=== PATIENT | female | born 1945 | race Caucasian/White ===

== ENCOUNTER 2023-02-04 16:30 | Outpatient (REF) | payer MEDICARE, SELFPAY | END 2023-02-04 16:31 | disposition home or self-care (01) | LOC: LAB 16:30 | PROVIDERS: PCP Nurse Practitioner Family | DX: C43.62 Malignant melanoma of left upper limb, including shoulder (principal) | CPT/HCPCS: 88305; 88341; 88342; 88360 ==

== ENCOUNTER 2023-04-03 13:41 | Outpatient (REF) | payer MEDICARE, SELFPAY ==
[2023-04-03 13:57] LABS: Bilirubin Urine NEGATIVE (NEGATIVE); Blood Urine NEGATIVE (NEGATIVE); Clarity Urine CLEAR (CLEAR); Color Urine LT. YELLOW (YELLOW); Glucose Urine UA NEGATIVE (NEGATIVE); Ketones Urine NEGATIVE (NEGATIVE); Leukocyte Esterase Urine MODERATE (NEGATIVE); Nitrite Urine NEGATIVE (NEGATIVE); Protein Urine NEGATIVE (NEG/TRACE); Specific Gravity Urine 1.015 (1.005-1.025); Urobilinogen Urine 0.2 EU/dL (0.2-1.0); pH Urine 5.5 (5.0-9.0)
[2023-04-03 14:03] LABS: Bacteria Urine TRACE #/HPF (NONE SEEN); Cast Seen? NONE SEEN #/LPF (NONE SEEN); Crystals Seen? None Seen #/HPF (None Seen); Mucus Urine NONE SEEN (NONE SEEN); Squamous Epithelial Cell Urine FEW #/LPF (NONE/RARE)
== END 2023-04-03 13:42 | disposition home or self-care (01) ==
LOC: LAB 13:41
PROVIDERS: PCP Nurse Practitioner Family; Visit Provider Nurse Practitioner Family
DX: N39.0 Urinary tract infection, site not specified (principal)
CPT/HCPCS: 81001; 87086; 87150; 87186

== ENCOUNTER 2023-06-15 13:54 | Outpatient (OUT) | payer MEDICARE, SELFPAY ==
[2023-06-15 14:07] LABS: Basophils Absolute Auto 0.1 10^3/uL (0.0-0.1); Basophils Percent Auto 0.8 % (0.2-2.0); Eosinophils Absolute Auto 0.2 10^3/uL (0.0-0.7); Eosinophils Percent Auto 2.9 % (0.9-7.0); Hematocrit 38.7 % (36.0-48.0); Hemoglobin 12.5 g/dL (12.0-16.0); Immature Granulocytes Abs Auto 0.08 10^3/uL (0.00-0.03); Immature Granulocytes Pct Auto 1.1 % (0.0-0.5); Lymphocytes Absolute Auto 2.1 10^3/uL (1.2-3.8); Lymphocytes Percent Auto 28.9 % (20.5-60.0); Mean Corpuscular HGB Conc 32.3 g/dL (29.9-35.2); Mean Corpuscular Hemoglobin 26.4 pg (26.7-34.0); Mean Corpuscular Volume 81.6 fL (81.0-99.0); Mean Platelet Volume 8.8 fL (9.5-13.5); Monocytes Absolute Auto 0.6 10^3/uL (0.3-0.8); Monocytes Percent Auto 8.8 % (1.7-12.0); Neutrophils Absolute Auto 4.2 10^3/uL (1.4-6.5); Neutrophils Percent Auto 57.5 % (43.0-75.0); Platelet Count 183 10^3/uL (150-450); Red Blood Count 4.74 10^6/uL (4.20-5.40); Red Cell Distribution Width 13.5 % (11.0-15.0); White Blood Count 7.3 10^3/uL (4.0-11.0)
[2023-06-15 14:20] LABS: Anion Gap 12.4; BUN Creatinine Ratio 21.4; Calcium 8.1 mg/dL (8.5-10.1); Carbon Dioxide 27.1 mmol/L (21.0-32.0); Chloride 105 mmol/L (98-107); Estimated GFR (African America >60 (>=60); Estimated GFR (Non-African Ame >60 (>=60); Glucose 95 mg/dL (74-106); Potassium 3.5 mmol/L (3.5-5.1); Sodium 141 mmol/L (136-145)
== END 2023-06-15 13:55 | disposition home or self-care (01) ==
LOC: LAB 13:54
PROVIDERS: PCP Nurse Practitioner Family; Visit Provider Internal Medicine Cardiovascular Disease
DX: Z79.899 Other long term (current) drug therapy (principal); I10 Essential (primary) hypertension; I48.0 Paroxysmal atrial fibrillation
CPT/HCPCS: 36415; 80048; 85025

== ENCOUNTER 2024-01-21 10:43 | Outpatient (OUT) | payer MEDICARE, SELFPAY ==
[2024-01-21 14:34] LABS: Anion Gap 12.2; BUN Creatinine Ratio 23.2; Calcium 8.3 mg/dL (8.5-10.1); Chloride 106 mmol/L (98-107); Estimated GFR (African America >60 (>=60); Estimated GFR (Non-African Ame >60 (>=60); Glucose 100 mg/dL (74-106); Potassium 3.2 mmol/L (3.5-5.1); Sodium 145 mmol/L (136-145)
== END 2024-01-21 10:44 | disposition home or self-care (01) ==
LOC: LAB 10:43
PROVIDERS: PCP Nurse Practitioner Family; Visit Provider Internal Medicine Cardiovascular Disease
DX: R60.9 Edema, unspecified (principal); I10 Essential (primary) hypertension
CPT/HCPCS: 36415; 80048

== ENCOUNTER 2024-08-26 14:43 | Outpatient (OUT) | payer MEDICARE, SELFPAY ==
[2024-08-26 16:41] LABS: Bilirubin Urine NEGATIVE (NEGATIVE); Blood Urine NEGATIVE (NEGATIVE); Clarity Urine CLEAR (CLEAR); Color Urine LT. YELLOW (YELLOW); Glucose Urine UA NEGATIVE (NEGATIVE); Ketones Urine NEGATIVE (NEGATIVE); Leukocyte Esterase Urine SMALL (NEGATIVE); Nitrite Urine NEGATIVE (NEGATIVE); Protein Urine NEGATIVE (NEG/TRACE); Specific Gravity Urine 1.025 (1.005-1.025)
[2024-08-26 17:09] LABS: Bacteria Urine MODERATE #/HPF (NONE SEEN); Cast Seen? NONE SEEN #/LPF (NONE SEEN); Crystals Seen? None Seen #/HPF (None Seen); Mucus Urine SMALL (NONE SEEN); RBC Urine 0-2 #/HPF (0-2); Squamous Epithelial Cell Urine FEW #/LPF (NONE/RARE); Transitional Epi Cells Urine FEW #/LPF (NONE SEEN); Urine Culture Indicated ALREADY ORDERED
== END 2024-08-26 14:44 | disposition home or self-care (01) ==
LOC: LAB 14:46
PROVIDERS: PCP Nurse Practitioner Family; Visit Provider Nurse Practitioner Family
DX: R50.9 Fever, unspecified (principal)
CPT/HCPCS: 81001; 87086

== ENCOUNTER 2024-09-10 07:41 | Emergency (ER) | payer MEDICARE, SELFPAY ==
[2024-09-10 07:48] VITALS: BP 145/83; PULSE 106; TEMP 36.9; O2SAT 94; BMI 40.6
[2024-09-10 07:49] VITALS: BP 145/83; O2SAT 94
--- OUTSIDE RECORDS SUMMARY | 2024-09-10 07:50 | XMS_ITS | CCD ---
Author Organization [facility] Team Providers Care Cdc Associate Name Role Phone UDSTIN CARTWRIGHT Unavailable Unavailable PANG, WHITAKER Unavailable Unavailable HOUSE, KEN Unavailable Unavailable PANG, WHITAKER Unavailable Unavailable PRIETO, KEN Unavailable Unavailable Unavailable Unavailable Ken Moreau Unavailable Matthew Bucio II Unavailable PRIETO, DR CHILD Primary Care Unavailable MISC, DR GARCIA Admitting Unavailable MISC, DR GARCIA Attending Unavailable MISC, DR GARCIA Consulting Unavailable MISC, DR GARCIA Admitting Unavailable MISC, DR GARCIA Attending Unavailable HOUSE, DR CHILD Primary Care Unavailable MISC, DR GARCIA Consulting Unavailable PANG, DR JULIANNE Hill Admitting Unavailable PANG, DR JULIANNE Hill Attending Unavailable HOUSE, DR CHILD Primary Care Unavailable PANG, DR JULIANNE Hill Consulting Unavailable Hector Jackson Unavailable Unavailable Siria Orona Unavailable Unavailable Brianna Camacho Unavailable Unavailable Sophia Calderon Unavailable Sophia Calderon MD Primary Care Provider Siria Orona Attending Unavailable Self, Referral Referring Unavailable Prieto, Dr. Ken Barnes Primary Care Mariam Casiano Jr, Dr. Coty Felton Referring Un available Honda, Dr. Linda Harley Attending Unavailabl e Prieto, Dr. Ken Barnes Primary Care Unava Siria Cardoso Referring Unavailable Honda, Dr. Linda Harley Attending Unavailabl e Prieto, Dr. Ken Barnes Primary Care Buffyva ylssaable Prieto, Dr. Ken Barnes Primary Care Unava ilable Pang, Julianne Referring Unavailable Pang, Julianne Attending Unavailable Pang, Whitaker Referring Unavailable Pang, Julianne Attending Unavailable Kvng, Dr. Sophia Macario Primary Care Unavail able Stephenie Weller, Dr. Coty Felton Attending Un available House, Dr. Ken Barnes Referring Unava ilable [place], Dr. Ken Barnes Primary Care Unava ilable Stephenie Weller, Dr. Coty Felton Attending Un available Kvng, Dr. Sophia Macario Primary Care Unavail able Kvng, Dr. Sophia Macario Referring Unavail able Stephenie Weller, Dr. Coty Felton Admitting Un available COTY CASIANO Attending Unavailable SOPHIA CALDERON Primary Care Unavailable MD Matthew Bucio II Attending Provider MD Sophia Calderon Primary Care Provider MD Sophia Calderon Primary Care Provider MD Matthew Bucio II Attending Provider [phone] NOHEMI Ward Other Provider Unavailable NOHEMI Fernando Other Provider Unavailable NOHEMI Das Other Provider Unavailable NOHEMI Becker Other Provider Unavailable NOHEMI Diaz Other Provider Unavailable NOHEMI Brush Other Provider Unavailable NOHEMI Gaytan Other Provider Unavailable MD Geoff Guthrie Other Provider MD Arias Eugene Other Provider Unavailable Jeronimos, CLEARING TUB WORKER Natalie Liz Other Provider DO Felix Alonso Other Provider MD Dereje Ramirez Other Provider DO Shaan Mccallum Other Provider MD Hugo Ordoñez Other Provider MD Tanika Canchola Other Provider MD Rolando Celaya Other Provider Unavailable JUSTINE Desai Other Provider MD Dheeraj Youssef Other Provider MD Cristian Vogt Other Provider MD Roe Morocho Other Provider MD Luiz Peck Other Provider DO Ju Pedraza Other Provider MD Jimy Crews Other Provider MD Kenn Richmond Other Provider KELVIN BlissC Abigail Vogt Other Provider JUSTINE Hayes Other Provider Unavailable MD Kane Chavarria Other Provider MD Kasi Zarate Other Provider MD Aric Petty Other Provider MD Martha Choi Other Provider Unavailable MD Herman Martin Other Provider DO Mayra Lobo Other Provider DO Kale Trotter Other Provider DO Alfie Alcala Other Provider JUSTINE Yip Other Provider DO Poncho Salcedo Other Provider MD Elieser Vicente Other Provider JUSTINE Agutsin Other Provider JUSTINE Salcido Other Provider MD Fernie Pickard Other Provider MD Sahil Trent Other Provider DO Chavez Jackson T Other Provider DO Dusty Casper Other Provider MD Jovanny Danie P Other Provider Melissa, RN Marisol Other Provider Unavailable MD Julianne Pang Attending Provider MD Ju Pettit Emergency Provider MD Sophia Calderon Primary Care Provider MD Matthew Bucio II Attending Provider [phone] MD Sophia Calderon Primary Care Provider MD Matthew Bucio II Attending Provider MD Sophia Calderon Primary Care Provider [phone] MD Matthew Bucio II Attending Provider Brooke HUYNH, Lora Unavailable Tyson VAUGHN, Kenyatta Unavailable Nicole Bauer DO Unavailable Kvng HUYNH, Sophia Hill Primary Care Provider [phone] KENYATTA MEHTA Attending Unavailable KENYATTA MEHTA Attending Unavailable Sophia Calderon Primary Care Unavailable Fountain II, Matthew Hill Attending Unavailabl e Fortunato II, Matthew M Admitting Unavailabl e Sophia Calderon Primary Care Unavailable Fountain II, Matthew Hill Attending Unavailabl e Fortunato II, Matthew M Admitting Unavailabl e Sophia Calderon Primary Care Unavailable Fountain II, Matthew M Attending Unavailabl e Fortunato II, Matthew M Admitting Unavailabl e Fountain II, Matthew M Admitting Unavailabl e Fortunato II, Matthew M Attending Unavailabl e Fortunato II, Matthew M Admitting Unavailabl e Fountain II, Matthew M Attending Unavailabl e Sophia Calderon Primary Care Unavailable Fortunato II, Matthew M Admitting Unavailabl e Fortunato II, Matthew M Attending Unavailabl e Sophia Calderon Primary Care Unavailable Fountain II, Matthew M Admitting Unavailabl e Fountain II, Matthew Hill Attending Unavailabl e Sophia Calderon Primary Care Unavailable Fortunato II, Matthew M Attending Unavailabl e Fountain II, Matthew M Admitting Unavailabl e Sophia Calderon Primary Care Unavailable Fortunato II, Matthew M Admitting Unavailabl e Fountain II, Matthew M Attending Unavailabl e Sophia Calderon Primary Care Unavailable Umu Ward Consulting Unavailable Brenda Fernando Consulting Unavailable Lauren Das Consulting Unavailable Tiffanie Becker Consulting Unavailable Nargis Diaz Consulting Unavailable Nya Brush Consulting Unavailable Brenda Gaytan Consulting Unavailable Geoff Guthrie Consulting Unavailable Arias Eugene Consulting Unavailable Natalie Cifuentes Consulting Unavailable Felix Alonso Consulting Unavailable Dereje Ramirez Consulting Unavailable Shaan Mccallum Consulting UnavailHugo Molina Consulting Unavailable Tanika Canchola Consulting Unavailable Rolando Celaya Consulting Unavailable La Desai Consulting Unavailabl Dheeraj Castro Consulting Unavailable Cristian Vogt Consulting Unavailable Roe Morocho Consulting Unavailable Luiz Peck Consulting Unavailable Ju Pedraza Consulting Unavailable Jimy Crews Consulting Unavailable Kenn Richmond Consulting Unavailable Abigail Bliss Consulting Unavailable Naila Hayes Consulting Unavailable Kane Chavarria Consulting Unavailab Kasi Glaser Consulting Unavailable Aric Petty Consulting Unavailable Martha Choi Consulting Unavailable Herman Martin Consulting Unavailable Mayra Lobo Consulting Unavailable Kale Trotter Consulting Unavailable Alfie Alcala Consulting Unavailable Ruchi Yip Consulting Unavailable Poncho Salcedo Consulting Unavailable Elieser Vicente Consulting Unavailable Rachel Agustin Consulting Unavailable Damaris Salcido Consulting Unavailable Fernie Pickard Consulting Unavailable Sahil Trent Consulting Unavailable Chavez Jackson Consulting Unavailable Dusty Casper Consulting Unavailable Danie Petty Consulting Unavailable Marisol Torres Consulting Unavailable Sophia Calderon Primary Care Unavailable Ju Pettit Attending Unavailable Ju Pettit Admitting Unavailable Matthew Bucio II Admitting Unavailabl e Fortunato GIBSON, Matthew Hill Attending Unavailabl e Sophia Calderon Primary Care Unavailable Sophia Calderon Primary Care Unavailable Matthew Bucio II Attending UnavailMatthew Melo II Admitting Unavailabl e Sophia Calderon Primary Care Unavailable Julianne Pang Attending Unavailable Julianne Pang Admitting Unavailable Sophia Calderon Primary Care Unavailable Matthew Bucio II Attending UnavailMatthew Melo II Admitting Unavailslava e JULIANNE PANG Attending Unavailable SOPHIA CALDERON Primary Care Unavailable JULIANNE PANG Referring Unavailable SOPHIA CALDERON Primary Care Unavailable JULIANNE PANG Attending Unavailable JULIANNE PANG Attending Unavailable JULIANNE PANG Referring Unavailable SOPHIA CALDERON Primary Care Unavailable JULIANNE PANG Attending Unavailable PANG, WHITAKER M Referring Unavailable SOPHIA CALDERON Primary Care Unavailable Allergies Allergy Classification Reported Allergen(s) Allergy Type Date of Onset Reaction(s) Facility (1 source) meloxicam; Translations: [MELOXICAM] Drug Allergy 6 [facility] Repository (20 sources) nickel; Translations: [NICKEL] Drug Allergy 6 Rash, Unknown [facility] Repository (4 sources) No Alert Propensity to adverse reactions to drug 3 [facility] Medications Current Medications Medication Drug Class(es) Dates Sig (Normalized) Sig (Original) acetaminophen 500 mg oral tablet (20 sources) Start: 10-22-2023 take 1000 mg by mouth every eight hours Acetaminophen Active 1000 MG PO Q8H 180 October 22, 2023 1:00am DO NOT RECONCILE UNTIL DOS 10/26/2023 MED TO BED UPON DISCHARGE acetaminophen (T ylenol) 500 mg capsule take as directed prn. Active take 2 tablets by mo uth every eight hours Tylenol 8 Hour Arthritis Pain 650 MG 2 tablets as needed Orally every 8 hrs Active Tylenol 500 MG C APS take as directed prn. Quantity: 0 Refills: 0 Ordered: 30-Sep-2021 DO Active citalopram 20 mg oral tablet (20 sources) Serotonin Reuptake Inhibitor Start: 02-14-2019 take 20 mg by mouth once daily in the morning Citalopram Active 20 MG PO Every morning February 14, 2019 12:00am diclofenac sodium 0.01 mg/mg topical gel (20 sources) Nonsteroidal Anti-inflammatory Drug Start: 02-23-2024 Diclofenac Sodium Active 0 .ROUTE .COMPLEX February 23, 2024 8:45am APPLY 2 G TOPICALLY 4-5 TIMES A DAY FOR 30 DAYS Start: 10-27-2023 End: 02-23-2024 Diclofenac Sodium (Voltaren Arthritis Pain) 1 % gel Discontinued 2 GM TOPICAL .4-5 times a day October 27, 2023 12:00am February 23, 2024 8:46am Start: 10-27-2023 Diclofenac Sod ium (Voltaren Arthritis Pain) 1 % gel Active 2 GM TOPICAL .4-5 times a day October 27, 2023 12:00am Start: 10-05-2023 End: 04-28-2024 apply 2 g topically four times daily Diclofenac Sodium Discontinued 2 GM TOPICAL Four times daily October 05, 2023 1:00am April 28, 2024 11:16am Start: 04-22-2023 diclofenac sod ium (Voltaren) 1 % gel gel 04/22/2023 Active Start: 08-13-2022 Voltaren 1 % a pply 1-2 grams to affected area Externally up to four times daily for 30 days Jul, Active fexofenadine hydrochloride 180 mg oral tablet (20 sources) Histamine-1 Receptor Antagonist Start: 02-14-2019 End: 12-07-2023 take 180 mg by mouth once daily Fexofenadine Active 180 MG PO Daily February 14, 2019 12:00am flecainide acetate 50 mg oral tablet (20 sources) Antiarrhythmic Start: 02-14-2019 End: 04-28-2025 take 1 tablet by mouth twice daily flecainide (Tambocor) 50 mg tablet Indications: Paroxysmal atrial fibrillation (Multi) Take 1 tablet (50 mg) by mouth 2 times a day. 180 tablet 3 04/28/2024 04/28/2025 Active furosemide 40 mg oral tablet (15 sources) Loop Diuretic Start: 01-05-2024 End: 01-04-2025 take 1 tablet by mouth once daily furosemide (Lasix) 40 mg tablet Indications: Edema, unspecified type Take 1 tablet (40 mg) by mouth once daily. 90 tablet 3 01/05/2024 01/04/2025 Active Start: 12-25-2023 take 1 tablet by sandhya once daily Furosemide (Lasix) 20 mg tablet Active 20 MG PO Daily December 25, 2023 12:00am gabapentin 100 mg oral capsule (20 sources) Anti-epileptic Agent Start: 07-17-2021 gabapentin (Neurontin) 100 MG capsule Indications: Essential tremor 1 in the am, 1 in the afternoon, 2 at bedtime 120 capsule 2 02/16/2024 Active hydrALAZINE hydrochloride 50 mg oral tablet (20 sources) Arteriolar Vasodilator Start: 04-04-2021 take 1 tablet by mouth twice daily hydrALAZINE (Apresoline) 50 mg tablet Indications: Essential (primary) hypertension TAKE 1 TABLET BY MOUTH TWICE A DAY 180 tablet 3 03/18/2024 Active Start: 04-04-2021 take 1 tablet by sandhya th once daily hydrALAZINE HCl - 50 MG Oral Tablet Take 1 tablet daily Quantity: 0 Refills: 0 Ordered: 09-Jul-2021 DO Start : 04-Apr-2021 Active Start: 02-14-2019 take 25 mg by mouth twice jeff y Hydralazine Active 25 MG PO Twice daily February 14, 2019 12:00am hydroCHLOROthiazide 25 mg oral tablet (20 sources) Thiazide Diuretic Start: 02-14-2019 End: 06-16-2025 take 1 tablet by mouth once daily hydroCHLOROthiazide (HYDRODiuril) 25 mg tablet Indications: Essential (primary) hypertension Take 1 tablet (25 mg) by mouth once daily. 90 tablet 3 06/16/2024 06/16/2025 Active ketoconazole 20 mg/ml topical cream (7 sources) Azole Antifungal Start: 04-13-2023 End: 06-21-2024 ketoconazole (NIZOral) 2 % cream APPLY TO AFFECTED AREA IN CENTRAL FACE ONCE A DAY 04/13/2023 06/21/2024 Discontinued (Therapy completed) labetalol hydrochloride 200 mg oral tablet (20 sources) beta-Adrenergi c Maura Start: 01-05-2024 End: 06-21-2024 labetalol (Normodyne) 200 mg tablet Indications: PAF (paroxysmal atrial fibrillation) (Multi) Take 2 tablets ( 400mg) three times daily ( every 8 hours) 180 tablet 11 01/05/2024 06/21/2024 Discontinued (Dose adjustment) Start: 01-05-2024 take 1 tablet by sandhya th in the morning labetalol (Normodyne) 200 MG tablet Take 200 mg by mouth in the morning and 200 mg before bedtime. 01/05/2024 Active Start: 12-07-2023 End: 06-21-2025 take 2 tablets by mouth twice daily labetalol (Normodyne) 200 mg tablet Indications: Essential hypertension Take 2 tablets (400 mg) by mouth 2 times a day. 360 tablet 3 06/21/2024 06/21/2025 Active Start: 02-14-2019 End: 12-07-2023 take 200 mg by mouth twice daily Labetalol Active 200 MG PO Twice daily February 14, 2019 12:00am levothyroxine sodium 0.112 mg oral tablet (20 sources) l-Thyroxine Start: 08-05-2021 take 1 tablet by mouth before mealtime levothyroxine (Synthroid, Levoxyl) 112 MCG tablet Take 112 mcg by mouth in the morning. Take before meals. 10/05/2023 Active Start: 02-14-2019 End: 02-28-2019 take 137 ug by mouth once daily Levothyroxine Disconti nued 137 MCG PO Daily February 14, 2019 12:00am February 28, 2019 11:18am take 1 capsule by mo ut every twenty-four hours Levothyroxine Sodium 75 MCG 1 tablet Orally Once a day for 90 days Not-Taking/PRN take 1 tablet by sandhya th once daily Levothyroxine Sodium 125 MCG TAKE 1 TABLET BY MOUTH EVERY DAY for 30 Active take 1 capsule by mo uth every twenty-four hours Levothyroxine Sodium 75 MCG 1 tablet Orally Once a day for 90 days Not-Taking take 1 tablet by sandhya th once daily Levothyroxine Sodium 125 MCG TAKE 1 TABLET BY MOUTH EVERY DAY for 30 Active liothyronine sodium 0.005 mg oral tablet (20 sources) l-Triiodothyronine Start: 10-05-2023 take 1 tablet by mouth in the morning liothyronine (Cytomel) 5 MCG tablet Take 5 mcg by mouth in the morning and 5 mcg before bedtime. 10/05/2023 Active Start: 05-19-2021 take 1 tablet by sandhya th twice daily Liothyronine Sodium 5 MCG Oral Tablet Take 1 tablet twice daily Quantity: 0 Refills: 0 Ordered: 19-Aug-2021 DO Start : 19-May-2021 Active Start: 02-14-2019 End: 02-28-2019 take 5 ug by mouth twice daily Liothyronine Discontinu ed 5 MCG PO Twice daily February 14, 2019 12:00am February 28, 2019 11:19am losartan potassium 100 mg oral tablet (20 sources) Angiotensin 2 Receptor Maura Start: 02-14-2019 take 1 tablet by mouth once daily losartan (Cozaar) 100 mg tablet Indications: Essential (primary) hypertension TAKE 1 TABLET BY MOUTH EVERY DAY 90 tablet 3 01/13/2024 Active meloxicam 7.5 mg oral tablet (20 sources) Nonsteroidal Anti-inflammatory Drug Start: 06-03-2024 take 1 tablet by mouth in the morning meloxicam (Mobic) 7.5 mg tablet Take 1 tablet (7.5 mg) by mouth early in the morning.. 06/03/2024 Active Start: 10-05-2023 End: 10-26-2023 take 7.5 mg by mouth once daily Meloxicam Discontinued 7.5 MG PO Daily October 05, 2023 1:00am October 26, 2023 7:07am take 1 tablet by sandhya th once daily as needed Meloxicam 7.5 MG 1 tablet Orally Once a day PRN Not-Taking/PRN methocarbamol 750 mg oral tablet (20 sources) Muscle Relaxant Start: 05-31-2021 take 1 tablet by mouth three times daily methocarbamol (Robaxin) 750 mg tablet Take 1 tablet (750 mg) by mouth 3 times a day. 05/31/2021 Active take 1 tablet by sandhya th every four hours Methocarbamol 750 MG 1 tablet Orally berry ry 4 hrs Active nabumetone 500 mg oral tablet (20 sources) Nonsteroidal Anti-inflammatory Drug Start: 04-01-2021 End: 12-07-2023 take 1 tablet by mouth in the morning nabumetone (Relafen) 500 MG tablet Take 500 mg by mouth in the morning and 500 mg before bedtime. 08/28/2023 Active pantoprazole 40 mg delayed release oral tablet (20 sources) Proton Pump Inhibitor Start: 02-23-2023 End: 06-21-2024 take 1 tablet by mouth once daily pantoprazole (ProtoNix) 40 mg EC tablet Take 1 tablet (40 mg) by mouth once daily. 02/23/2023 06/21/2024 Discontinued (Therapy completed) microencapsulated potassium chloride 20 meq extended release oral tablet (20 sources) Start: 08-05-2021 take 1 tablet by mouth three times daily Klor-Con M20 20 MEQ Oral Tablet Extended Release Take 1 tablet by mouth three times a day Quantity: 270 Refills: 3 Ordered: 05-Aug-2021 Julianne Pang MD Start : 05-Aug-2021 Active Start: 02-14-2019 End: 04-05-2025 take 1 tablet by mouth three times daily potassium chloride CR (Klor-Con M20) 20 mEq ER tablet Indications: Hypokalemia Take 1 tablet (20 mEq) by mouth 3 times a day. 270 tablet 3 04/05/2024 04/05/2025 Active take 1 dose by mouth once daily at mealtime Klor-Con 20 MEQ 1 packet with food Orally Once a day Active take 1 tablet by sandhya th twice daily Klor-Con M20 20 MEQ Oral Tablet Extended Release Take 1 tablet twice daily Quantity: 0 Refills: 0 Ordered: 11-Nov-2022 DO Active rivaroxaban 20 mg oral tablet (20 sources) Factor Xa Inhibitor Start: 10-05-2023 End: 11-04-2024 take 1 tablet by mouth once daily rivaroxaban (Xarelto) 20 mg tablet Indications: PAF (paroxysmal atrial fibrillation) (Multi) Take 1 tablet (20 mg) by mouth once daily. 90 tablet 3 11/05/2023 11/04/2024 Active Start: 11-23-2020 take 1 tablet by sandhya th once daily Xarelto 20 mg tablet Take 1 tablet (20 mg) by mouth once daily. 0 11/23/2020 Active Start: 02-14-2019 End: 02-28-2019 take 1 tablet by mouth once daily Rivaroxaban (Xarelto) 20 mg tablet Discontinued 20 MG PO Daily February 14, 2019 12:00am February 28, 2019 11:19am Pt. aware to stop as instructed per prior to surgery. sulfamethoxazole 800 mg / trimethoprim 160 mg oral tablet (1 source) Dihydrofolate Reductase Inhibitor Antibacterial, Sulfonamide Antimicrobial Start: 05-19-2023 End: 05-26-2023 take 1 tablet by mouth twice daily sulfamethoxazole-trimethoprim (Bactrim DS) 800-160 mg tablet Indications: Cellulitis of left upper extremity Take 1 tablet by mouth 2 times a day for 7 days. 14 tablet 0 05/19/2023 05/26/2023 Active topiramate 50 mg oral tablet (20 sources) Start: 01-26-2023 take 1 tablet by mouth once daily at bedtime topiramate (Topamax) 50 mg tablet Take 1 tablet (50 mg) by mouth once daily at bedtime. 01/26/2023 Active Topamax Active traMADol hydrochloride 50 mg oral tablet (20 sources) Opioid Agonist Start: 01-22-2024 End: 02-10-2024 take 50 mg by mouth every four to six hours Tramadol Active 50 MG PO EVERY 4-6 HOURS 40 7 February 10, 2024 11:35am Start: 10-22-2023 End: 01-22-2024 take 50 mg by mouth every six hours Tramadol Discontinued 50 MG PO Q6H 30 November 11, 2023 9:38am January 22, 2024 9:28am DO NOT RECONCILE UNTIL DOS 10/26/2023 MED TO BED UPON DISCHARGE Completed/Discontinued Medications Medication Drug Class(es) Dates Sig (Normalized) Sig (Original) amLODIPine 5 mg oral tablet (20 sources) Dihydropyridine Calcium Channel Maura Start: 02-14-2019 End: 10-05-2023 take 5 mg by mouth once daily Amlodipine Discontinued 5 MG PO Daily February 14, 2019 12:00am October 05, 2023 11:41am ascorbic acid 500 mg oral tablet (15 sources) Vitamin C Start: 10-27-2023 End: 04-28-2024 take 1 tablet by mouth twice daily at mealtime Ascorbic Acid (Vitamin C) (Vitamin C) 500 mg Tablet Discontinued 500 MG PO Twice daily with meals 0 October 27, 2023 12:00am April 28, 2024 11:16am cefadroxil 500 mg oral capsule (15 sources) Cephalosporin Antibacterial Start: 10-22-2023 End: 01-27-2024 take 500 mg by mouth every twelve hours Cefadroxil Discontinued 500 MG PO Q12H 14 October 22, 2023 1:00am January 27, 2024 10:57am DO NOT RECONCILE UNTIL DOS 10/26/2023 MED TO BED UPON DISCHARGE celecoxib 200 mg oral capsule (18 sources) Nonsteroidal Anti-inflammatory Drug Start: 02-14-2019 End: 02-28-2019 take 200 mg by mouth once daily Celecoxib Discontinued 200 MG PO Daily February 14, 2019 12:00am February 28, 2019 11:18am diazePAM 5 mg oral tablet (15 sources) Benzodiazepine Start: 10-30-2023 End: 02-10-2024 take 1 tablet by mouth every eight hours Diazepam (Valium) 5 mg tablet Discontinued 5 MG PO Every 8 hours 05 03October 30, 2023 12:00am February 10, 2024 11:08am docusate sodium 50 mg / sennosides, jail 8.6 mg oral tablet (20 sources) Start: 10-22-2023 End: 02-10-2024 take 2 tablets by mouth once daily Sennosides-Docusate Sodium Discontinued 2 TAB PO Daily 0 October 27, 2023 12:00am January 27, 2024 10:58am ergocalciferol 1.25 mg oral capsule (18 sources) Provitamin D2 Compound Start: 10-05-2023 End: 04-28-2024 Ergocalciferol (Vitamin D2) Discontinued [id number] UNIT PO .qfriday October 05, 2023 1:00am April 28, 2024 11:16am Start: 08-14-2023 take 1 capsule by mo uth every week Ergocalciferol 1.25 MG (09818 UT) 1 capsule Orally Once a Week for 60 days Jul, Active ferrous sulfate 324 mg delayed release oral tablet (15 sources) Start: 10-27-2023 End: 04-28-2024 take 324 mg by mouth twice daily at mealtime Ferrous Sulfate Discontinued 324 MG PO Twice daily with meals 0 October 27, 2023 12:00am April 28, 2024 11:16am methylPREDNISolone 4 mg oral tablet (14 sources) Corticosteroid Start: 11-18-2023 End: 01-27-2024 Methylprednisolone (Medrol (Gaston)) 4 mg tablets,dose pack Discontinued 4 MG PO as directed November 18, 2023 12:00am January 27, 2024 10:58am omeprazole 40 mg delayed release oral capsule (20 sources) Proton Pump Inhibitor Start: 02-14-2019 End: 12-07-2023 take 1 capsule by mouth once daily Omeprazole 40 MG Oral Capsule Delayed Release TAKE ONE CAPSULE BY MOUTH EVERY DAY Quantity: 90 Refills: 0 Ordered: 05-Aug-2021 DO Start : 05-Aug-2021 Active take 1 capsule by mouth once nereida ly PriLOSEC 40 MG 1 capsule Orally Once a day Active ondansetron 4 mg oral tablet (15 sources) Serotonin-3 Receptor Antagonist Start: 10-22-2023 End: 02-10-2024 take 4 mg by mouth every eight hours Ondansetron Hcl Discontinued 4 MG PO Q8H October 22, 2023 1:00am February 10, 2024 11:09am DO NOT RECONCILE UNTIL DOS 10/26/2023 MED TO BED UPON DISCHARGE oxyCODONE hydrochloride 5 mg oral tablet (20 sources) Opioid Agonist Start: 10-22-2023 End: 01-27-2024 take 5 mg by mouth every four hours Oxycodone Discontinued 5 MG PO Q4H 05 03November 11, 2023 January 27, 2024 10:58am DO NOT RECONCILE UNTIL DOS 10/26/2023 MED TO BED UPON DISCHARGE polyethylene glycol 3350 07909 mg powder for oral solution (15 sources) Osmotic Laxative Start: 10-22-2023 End: 01-27-2024 Polyethylene Glycol 3350 (Miralax) 17 gram/dose powder Discontinued 17 GM PO daily 02 20October 22, 2023 1:00am January 27, 2024 10:58am 1 packed mixed with 8 ounces of fluid. predniSONE 10 mg oral tablet (20 sources) Start: 10-22-2023 End: 01-27-2024 take 10 mg by mouth once daily Prednisone Discontinued 10 MG PO Daily October 27, 2023 12:00am January 27, 2024 10:58am triamcinolone acetonide 32 mg injection (20 sources) Corticosteroid Start: 09-04-2022 Zilretta December, 32 mg Start: 05-28-2022 Kenalog-40 May, 120 mg Start: 07-25-2021 Kenalog -40 mg Jul, 120 mg Problems Active Problems Problem Classification Problem Date Documented Date Episodic/Chronic Abdominal pain (10 sources) Abdominal pain; Translations: [Abdominal pain] Episodic Cardiac dysrhythmias (20 sources) Paroxysmal atrial fibrillation; Translations: [Atrial fibrillation] Onset: 11-03-2022 Chronic Cardiac dysrhythmias (1 source) Cardiac dysrhythmias Onset: 08-12-2018 Conduction disorders (20 sources) First degree atrioventricular block; Translations: [First degree atrioventricular block] Onset: 05-14-2023 05-14-2023 Chronic Coronary atherosclerosis and other heart disease (3 sources) Coronary arteriosclerosis; Translations: [Atherosclerotic heart disease of [place] coronary artery without angina pectoris] Onset: 02-14-2024 02-14-2024 Chronic Essential hypertension (20 sources) Essential (primary) hypertension; Translations: [Essential hypertension] Onset: 08-12-2018 05-14-2023 Chronic Essential hypertension (2 sources) Essential hypertension Onset: 08-12-2018 Melanomas of skin (14 sources) Malignant melanoma of upper arm; Translations: [Malignant melanoma of skin of upper limb, including shoulder] Onset: 03-31-2023 05-14-2023 Chronic Melanomas of skin (3 sources) Personal history of malignant melanoma of skin Onset: 04-13-2023 Episodic Neoplasms of unspecified nature or uncertain behavior (6 sources) Neoplasm of uncertain behavior of skin Onset: 04-13-2023 Episodic Osteoarthritis (20 sources) Osteoarthritis of left knee joint; Translations: [Unilateral primary osteoarthritis, left knee] Onset: 07-25-2021 Resolved: 07-25-2021 Chronic Osteoporosis (5 sources) Primary osteoporosis; Translations: [Age-related osteoporosis without current pathological fracture] Onset: 08-12-2023 Chronic Other aftercare (15 sources) Patient encounter status; Translations: [Aftercare following joint replacement surgery] 11-11-2023 Chronic Other aftercare (20 sources) Aftercare following joint replacement surgery; Translations: [Aftercare following joint replacement] Onset: 02-03-2024 11-11-2023 Chronic Other aftercare (15 sources) Drug therapy finding; Translations: [Long-term (current) use of other medications] Episodic Other aftercare (7 sources) Taking high risk medication; Translations: [Other ocean transportation intermediary (current) drug therapy] Onset: 05-14-2023 05-14-2023 Episodic Other and unspecified benign neoplasm (3 sources) Hemangioma of skin and subcutaneous tissue Onset: 04-13-2023 Episodic Other and unspecified benign neoplasm (3 sources) Melanocytic nevi of trunk Onset: 04-13-2023 Episodic Other and unspecified benign neoplasm (6 sources) Melanocytic nevi of right upper limb, including shoulder Onset: 04-13-2023 Episodic Other and unspecified benign neoplasm (3 sources) Melanocytic nevi of left upper limb, including shoulder Onset: 04-13-2023 Episodic Other circulatory disease (10 sources) Feeling of lump in throat; Translations: [Other specified symptoms and signs involving the circulatory and respiratory systems] Episodic Other connective tissue disease (20 sources) History of total knee arthroplasty; Translations: [Presence of right artificial knee joint] 10-27-2023 Chronic Other connective tissue disease (20 sources) Presence of left artificial knee joint; Translations: [Knee joint replacement] Onset: 02-03-2024 10-28-2023 Chronic Other connective tissue disease (2 sources) Trochanteric bursitis, left hip Onset: 07-25-2021 Resolved: 07-25-2021 Episodic Other connective tissue disease (8 sources) Thigh pain; Translations: [Pain in left thigh] 01-27-2024 Episodic Other hereditary and degenerative nervous system conditions (5 sources) Essential tremor; Translations: [Essential tremor] Onset: 02-14-2024 02-14-2024 Chronic Other hereditary and degenerative nervous system conditions (5 sources) Restless legs; Translations: [Restless legs syndrome] Onset: 02-14-2024 02-14-2024 Chronic Other inflammatory condition of skin (6 sources) Other seborrheic dermatitis Onset: 04-13-2023 Episodic Other lower respiratory disease (10 sources) Dyspnea; Translations: [Dyspnea, unspecified] 12-25-2023 Episodic Other nervous system disorders (5 sources) Idiopathic peripheral neuropathy; Translations: [Hereditary and idiopathic neuropathy, unspecified] Onset: 02-14-2024 02-14-2024 Chronic Other nervous system disorders (3 sources) Chronic pain; Translations: [Other chronic pain] Onset: 02-14-2024 02-14-2024 Chronic Other nervous system disorders (3 sources) Sensory neuropathy; Translations: [Polyneuropathy, unspecified] Onset: 02-14-2024 02-14-2024 Chronic Other nervous system disorders (5 sources) Paresthesia; Translations: [Paresthesia of skin] Onset: 02-14-2024 02-14-2024 Episodic Other nervous system disorders (5 sources) Ataxia; Translations: [Ataxia, unspecified] Onset: 02-14-2024 02-14-2024 Episodic Other non-traumatic joint disorders (20 sources) Pain in left knee; Translations: [Left knee pain] Onset: 07-25-2021 Resolved: 07-25-2021 Episodic Other nutritional; endocrine; and metabolic disorders (11 sources) Body mass index 40+ - severely obese; Translations: [Body Mass Index 40.0-44.9, adult] Chronic Other nutritional; endocrine; and metabolic disorders (11 sources) Morbid obesity; Translations: [Morbid obesity] Chronic Other nutritional; endocrine; and metabolic disorders (10 sources) Hypocalcemia; Translations: [Hypocalcemia] Chronic Other nutritional; endocrine; and metabolic disorders (5 sources) Body mass index 30+ - obesity; Translations: [Body mass index (BMI) 37.0-37.9, adult] Onset: 12-07-2023 12-07-2023 Chronic Other nutritional; endocrine; and metabolic disorders (2 sources) Obese class II; Translations: [Obesity, unspecified] 12-07-2023 Chronic Other nutritional; endocrine; and metabolic disorders (2 sources) Body mass index (BMI) 38.0-38.9, adult; Translations: [Body mass index (BMI) 38.0-38.9, adult] Onset: 06-21-2024 Chronic Other nutritional; endocrine; and metabolic disorders (2 sources) Body mass index (BMI) 37.0-37.9, adult; Translations: [Body mass index (BMI) 37.0-37.9, adult] Onset: 12-07-2023 Chronic Other screening for suspected conditions (not mental disorders or infectious disease) (7 sources) Unspecified abnormal finding in specimens from other organs, systems and tissues; Translations: [Encounter for screening for malignant neoplasm of skin] Onset: 03-07-2022 Episodic Other skin disorders (3 sources) Other seborrheic keratosis Onset: 04-13-2023 Episodic Other skin disorders (6 sources) Scar conditions and fibrosis of skin Onset: 04-13-2023 Episodic Residual codes; unclassified (20 sources) Obstructive sleep apnea syndrome; Translations: [Obstructive sleep apnea (adult)(pediatric)] Onset: 05-14-2023 05-14-2023 Chronic Residual codes; unclassified (9 sources) Obstructive sleep apnea (adult) (pediatric); Translations: [Obstructive sleep apnea (adult)(pediatric)] Onset: 05-14-2023 10-28-2023 Chronic Residual codes; unclassified (3 sources) Hypersomnia; Translations: [Hypersomnia, unspecified] Onset: 02-14-2024 02-14-2024 Chronic Residual codes; unclassified (1 source) No current problems or disability; Translations: [Other specified conditions influencing health status] Onset: 03-17-2023 Episodic Residual codes; unclassified (5 sources) Never smoked tobacco; Translations: [Other specified health status] Onset: 12-07-2023 12-07-2023 Episodic Residual codes; unclassified (1 source) Edema; Translations: [Edema, unspecified] 01-05-2024 Episodic Screening and history of mental health and substance abuse codes (14 sources) Ex-smoker; Translations: [Personal history of tobacco use] Episodic Comment on above: Quit 50+ years ago; Thyroid disorders (20 sources) Hypothyroidism; Translations: [Unspecified acquired hypothyroidism] Onset: 05-14-2023 05-14-2023 Chronic Unclassified (2 sources) Hypokalemia / E87.6(ICD-9) Onset: 08-23-2018 Unclassified (1 source) Other fdc (current) drug therapy / Z79.899(ICD-9) Onset: 08-12-2018 Unclassified (1 source) Pain in left knee; Translations: [Pain in left knee] Onset: 10-22-2023 Unclassified (1 source) Encounter for preprocedural laboratory examination; Translations: [Encounter for preprocedural laboratory examination] Onset: 10-05-2023 Unclassified (1 source) Unilateral primary osteoarthritis, left knee; Translations: [Unilateral primary osteoarthritis, left knee] Onset: 08-12-2023 Past or Other Problems Problem Classification Problem Date Documented Date Episodic/Chronic Fluid and electrolyte disorders (20 sources) Hypokalemia; Translations: [Hypopotassemia] Onset: 05-14-2023 05-14-2023 Episodic Other aftercare (5 sources) Other ocean transportation intermediary (current) drug therapy; Translations: [OTH INTERMEDIATE CURRENT DRUG THERAPY] Onset: 11-08-2022 Episodic Other connective tissue disease (2 sources) Pain in right hand; Translations: [Pain in left hand] Onset: 07-16-2016 Episodic Other connective tissue disease (4 sources) Fibromyalgia; Translations: [FIBROMYALGIA] Onset: 01-16-2022 Episodic Other connective tissue disease (12 sources) Pain in left thigh; Translations: [Pain in limb] Onset: 02-03-2024 01-27-2024 Episodic Other connective tissue disease (3 sources) Fibromyalgia; Translations: [Fibromyalgia] Onset: 02-14-2024 02-14-2024 Episodic Other connective tissue disease (3 sources) Pain in left lower limb; Translations: [Pain in left leg] Onset: 02-16-2024 02-16-2024 Episodic Other lower respiratory disease (1 source) Shortness of breath; Translations: [Shortness of breath] Onset: 12-25-2023 Episodic Other nervous system disorders (3 sources) Tremor; Translations: [Tremor, unspecified] Onset: 02-16-2024 02-16-2024 Episodic Other nervous system disorders (3 sources) Anesthesia of skin; Translations: [Anesthesia of skin] Onset: 02-16-2024 02-16-2024 Episodic Other non-traumatic joint disorders (2 sources) Pain in left hip; Translations: [Pain in left hip] Onset: 07-16-2016 Resolved: 07-25-2021 Episodic Other non-traumatic joint disorders (3 sources) Joint pain; Translations: [Pain in unspecified joint] Onset: 02-16-2024 02-16-2024 Episodic Other nutritional; endocrine; and metabolic disorders (20 sources) Obesity; Translations: [Obesity, unspecified] Onset: 05-14-2023 Resolved: 12-07-2023 05-14-2023 Chronic Residual codes; unclassified (2 sources) Edema, unspecified; Translations: [Edema, unspecified] Onset: 01-05-2024 Episodic Residual codes; unclassified (2 sources) Other specified health status; Translations: [Other specified health status] Onset: 12-07-2023 Episodic Skin and subcutaneous tissue infections (8 sources) Cellulitis of left upper limb; Translations: [Cellulitis of left upper limb] Onset: 05-14-2023 05-19-2023 Episodic Unclassified (1 source) Other and unspecified misadventures during medical care; Translations: [Hypokalemia] Onset: 08-23-2018 Unclassified (3 sources) Onset: 12-07-2023 Resolved: 03-08-2024 12-07-2023 Results Test Name Value Interpretation Reference Range Facility ECG 12 [place] 06-21-2024 ECG revealed normal sinus rhythm with first-degree AV block otherwise normal ECG. [facility] Work Phone: XR knee LT 2Von 04-28-2024 XR knee LT [address]V [facility] [address] [place] [address] XRay Report Signed Patient: Tracy Juarez MR#: [id number] 3 : 1945 Acct:[id number] Age/Sex: 78 / F ADM Date: 04/28/24 [place] [facility] [place] [facility] Attending Dr: Matthew Bucio II, MD Copies to: Matthew Bucio MD Ordering Provider: Matthew Bucio MD Date of Service: 04/28/24 XR/XR knee LT 2V: Z47.1 - Aftercare following joint replacement surgery 2 views LEFT knee plain film COMPARISON: 03/09/24 HISTORY: Status post LEFT total knee arthroplasty revision ACUTE FINDINGS: No acute findings DEGENERATIVE CHANGE: Unremarkable SOFT TISSUE FINDINGS: Unremarkable JOINT EFFUSION: None POSTOP CHANGES: Stable hardware without complication. BONE MINERALIZATION: Adequate XR/XR knee LT 2V IMPRESSION: Stable uncomplicated LEFT knee arthroplasty revision Impression dictated by: Sean Alexander M.D.04/28/2024 3:02 PM Dictation Location: [place] [address] Transcribed By: [facility] 04/28/24 1502 Dictated By: Sean Alexander DO 04/28/24 1500 Signed By: 04/28/24 1502 Normal [facility] XR knee LT 2Von 03-09-2024 XR knee LT [address]V [facility] [address] [place] [address] XRay Report Signed Patient: Tracy Juarez MR#: [id number] 3 : 1945 Acct:[id number] Age/Sex: 78 / F ADM Date: 03/09/24 [place] [facility] [place]: [facility] Attending Dr: Matthew Bucio II, MD Copies to: Matthew Bucio MD Ordering Provider: Matthew Bucio MD Date of Service: 03/09/24 XR/XR knee LT 2V: Z47.1 - Aftercare following joint replacement surgery There are 2 views left knee plain film COMPARISON: 01/27/2024 HISTORY: Status post left total knee arthroplasty ACUTE FINDINGS: No acute findings DEGENERATIVE CHANGE: Unremarkable SOFT TISSUE FINDINGS: Unremarkable JOINT EFFUSION: None POSTOP CHANGES: Stable hardware BONE MINERALIZATION: Adequate XR/XR knee LT 2V IMPRESSION: Uncomplicated left knee arthroplasty Impression dictated by: Sean Alexander M.D.03/09/2024 3:33 PM Dictation Location: [place] [address] Transcribed By: [facility] 03/09/24 1533 Dictated By: Sean Alexander DO 03/09/24 1532 Signed By: 03/09/24 1533 Normal [facility] CT femur LT wo conon 024 CT femur LT wo con [facility] [address] CT Scan Report Signed Patient: Tracy Juarez MR#: [id number] 3 : 1945 Acct:[id number] Age/Sex: 78 / F ADM Date: 02/03/24 Loc: CT Room: Type: [facility] Attending Dr: Matthew Bucio II, MD Copies to: Matthew Bucio MD Ordering Provider: Matthew Bucio MD Date of Service: 02/03/24 CT/CT femur LT wo con: eval for stress fracture CT left femur WITHOUT CONTRAST WITH 3D RECONSTRUCTIONS: CLINICAL HISTORY: Left lateral thigh pain. COMPARISON: Left knee prosthesis 01/27/2024. TECHNIQUE: Spiral axial unenhanced images were obtained through the left femur. Sagittal, coronal and 3D volume-rendered reconstructions were also reviewed. This CT exam was performed using one or more following dose reduction techniques: Automated exposure control, adjustment of the mA and/or kV according to patient size, or use of iterative reconstruction technique. FINDINGS: Partially visualized left knee prosthesis is in place. There appears to be loss of cortex seen anteriorly involving the distal aspect of the femur with cement present. There is associated periosteal reaction as well. There appears be a nondisplaced periprosthetic fracture involving the distal femur best seen on sagittal image 72, series 1002 axial image 47 series 7. Visualized tibia and fibula appear intact. Musculature appears atrophic without focal abnormality. Mild soft tissue swelling/postoperative changes seen involving the distal soft tissues. No fluid collection to suggest abscess. Right hip demonstrates mild degenerative change. CT/CT femur LT wo con IMPRESSION: LONGSTEM RIGHT KNEE PROSTHESIS IS IN PLACE PARTIALLY VISUALIZED ON TODAY'S STUDY. THERE APPEARS TO BE LOSS OF CORTEX SEEN ANTERIORLY WITH CEMENT PRESENT INVOLVING THE DISTAL FEMUR WITH SURROUNDING PERIOSTEAL REACTION. THERE APPEARS TO BE A NONDISPLACED PERIPROSTHETIC FRACTURE INVOLVING THE DISTAL FEMUR BEST SEEN ON SAGITTAL IMAGE 72 SERIES 1002 AND AXIAL IMAGE 47 SERIES 7. Impression dictated by: Brodie Gama Jr., Maureen02/03/2024 4:24 PM Dictation Location: [place] [address] Transcribed By: [facility] 02/03/24 1624 Dictated By: Brodie Gama Jr, DO 02/03/24 1616 Signed By: 02/03/24 1624 Normal [facility] XR knee LT 2Von 01-27-2024 XR knee LT [address]V [facility] [address] [place] [address] XRay Report Signed Patient: Tracy Juarez MR#: [id number] 3 : 1945 Acct:[id number] Age/Sex: 78 / F ADM Date: 01/27/24 [place] [facility] [place]: Type: [facility] Attending Dr: Matthew Bucio II, MD Copies to: Matthew Bucio MD Ordering Provider: Matthew Bucio MD Date of Service: 01/27/24 XR/XR knee LT 2V: Z47.1 - Aftercare following joint replacement surgery ([id number]) XR/XR tibia fibula LT 2V*: Z96.652 - Presence of left artificial knee joint ([id number]) XR/XR femur LT 2V*: Z47.1 - Aftercare following joint replacement surgery CLINICAL DATA: Follow-up left knee replacement. COMPARISON: Pelvis 08/12/2023, left knee 12/04/2023, left tib-fib 10/22/2023 and right knee 09/08/2019 LEFT FEMUR AND TIB-FIB - one view AP weightbearing view of both lower extremities from the top of the iliac crest down to the feet was obtained using a long cassette. There is osteopenia. There are bilateral knee prostheses. There is a long stem of the femoral component on the left where there is also a cerclage wire. The hardware appears intact and unchanged in appearance from the prior. There is no developing femur fracture. There is no dislocation at the hips or knees. No soft tissue swelling is noted. The tibia and fibula are intact. There is no dislocation at the ankle. No soft tissue abnormalities are seen. XR/XR femur LT 2V* IMPRESSION: STABLE KNEE PROSTHESES. LEFT KNEE - 2 views AP and lateral weightbearing views were obtained. There is osteopenia. A left knee prosthesis again visualized. The femoral component has a long stem. There is a cerclage wire at the distal femoral metadiaphysis. Cortical irregularity at that site anteriorly is again noted. There is no acute fracture or dislocation. A trace of joint fluid there is a tiny knee effusion. IMPRESSION: STABLE KNEE REPLACEMENT. Impression dictated by: Leida Hubbard M.D.01/27/2024 4:02 PM Dictation Location: [place] [address] Transcribed By: [facility] 01/27/24 1602 Dictated By: Leida Hubbard MD 01/27/24 1557 Signed By: 01/27/24 1602 Normal [facility] Alanine aminotransferase [En zymatic activity/volume] in Serum or PlasmaOrdered By: Ju Pettit on 12-25-2023 ALT [Catalytic activity/Vol] 11 U/L Normal 7-52 [facility] Comment on above: Performed By: #### B OUTPATIENT CODER, CK, CBC, TSH3, HS TROP, T4F, CMP ####[facility] [id number] [place] [id number] [place] Albumin [Mass/volume] in Ser um or Plasma by Bromocresol green (BCG) dye binding methoOrdered By: Ju Pettit on 12-25-2023 Albumin BCG dye [Mass/Vol] 3.8 g/dL 3.5-5.7 [facility] Alkaline phosphatase [Enzyma tic activity/volume] in Serum or PlasmaOrdered By: Ju Pettit on 12-25-2023 ALP [Catalytic activity/Vol] 76 U/L Normal 34-104 [facility] Comment on above: Performed By: #### B OUTPATIENT CODER, CK, CBC, TSH3, HS TROP, T4F, CMP ####[facility] [id number] [place] [address] [place] Aspartate aminotransferase [ Enzymatic activity/volume] in Serum or PlasmaOrdered By: Ju Pettit on 12-25-2023 AST [Catalytic activity/Vol] 13 U/L Normal 13-39 [facility] Comment on above: Performed By: #### B OUTPATIENT CODER, CK, CBC, TSH3, HS TROP, T4F, CMP ####[facility] Automated basophil %Ordered By: Ju Pettit on 12-25-2023 Basophils/100 WBC (Bld) 0.8 % Normal . [facility] Comment on above: Performed By: #### B OUTPATIENT CODER, CK, CBC, TSH3, HS TROP, T4F, CMP #### [facility] [address] Automated basophil countOrde red By: Ju Pettit on 12-25-2023 Basophils (Bld) [#/Vol] 0.1 10*3/uL Normal 0.0-0.2 [facility] Comment on above: Result Comment: PERF ORMED BY: [place] [address] PATHOLOGIST DIAGNOSTIC ASSISTANT BALJEET GONZALEZ M.D. Performed By: #### B OUTPATIENT CODER, CK, CBC, TSH3, HS TROP, T4F, CMP #### [address] Automated blood monocyte cou ntOrdered By: Ju Pettit on 12-25-2023 Monocytes (Bld) [#/Vol] 0.5 10*3/uL Normal 0.0-0.8 [facility] Comment on above: Performed By: #### B OUTPATIENT CODER, CK, CBC, TSH3, HS TROP, T4F, CMP #### [address] Automated eosinophil %Ordere d By: Ju Pettit on 12-25-2023 Eosinophils/100 WBC (Bld) 3.2 % Normal . [facility] Comment on above: Performed By: #### B OUTPATIENT CODER, CK, CBC, TSH3, HS TROP, T4F, CMP #### [address] Automated eosinophil countOr dered By: Ju Pettit on 12-25-2023 Eosinophils (Bld) [#/Vol] 0.2 10*3/uL Normal 0.0-0.45 [facility] Comment on above: Performed By: #### B OUTPATIENT CODER, CK, CBC, TSH3, HS TROP, T4F, CMP #### [address] Automated monocyte %Ordered By: Ju Pettit on 12-25-2023 Monocytes/100 WBC (Bld) 8.0 % Normal . [facility] Comment on above: Performed By: #### B OUTPATIENT CODER, CK, CBC, TSH3, HS TROP, T4F, CMP #### [address] Automated neutrophil %Ordere d By: Ju Pettit on 12-25-2023 Neutrophils/100 WBC (Bld) 65.0 % Normal . [facility] Comment on above: Performed By: #### B OUTPATIENT CODER, CK, CBC, TSH3, HS TROP, T4F, CMP #### [address] BNP ser/plasOrdered By: René Pettit on 12-25-2023 Natriuretic peptide B (Bld) [Mass/Vol] 248.0 pg/mL High 5-100 [facility] Comment on above: Result Comment: PERF ORMED BY: [place] [address] PATHOLOGIST DIAGNOSTIC ASSISTANT BALJEET GONZALEZ M.D. Performed By: #### B OUTPATIENT CODER, CK, CBC, TSH3, HS TROP, T4F, CMP ####[address] Bilirubin.total [Mass/volume ] in Serum or PlasmaOrdered By: Ju Pettit on 12-25-2023 Bilirubin [Mass/Vol] 0.8 mg/dL Normal 0.3-1.0 [facility] Comment on above: Performed By: #### B OUTPATIENT CODER, CK, CBC, TSH3, HS TROP, T4F, CMP ####[address] Calcium [Mass/volume] in Ser um or PlasmaOrdered By: Ju Pettit on 12-25-2023 Calcium [Mass/Vol] 8.7 mg/dL Normal 8.6-10.3 [facility] Comment on above: Performed By: #### B OUTPATIENT CODER, CK, CBC, TSH3, HS TROP, T4F, CMP ####[address] Carbon dioxide, total [Moles /volume] in Serum or PlasmaOrdered By: Ju Pettit on 12-25-2023 CO2 [Moles/Vol] 25.6 mmol/L Normal 21.0-31.0 [facility] Comment on above: Performed By: #### B OUTPATIENT CODER, CK, CBC, TSH3, HS TROP, T4F, CMP ####[address] Chloride [Moles/volume] in S dave or PlasmaOrdered By: Ju Pettit on 12-25-2023 Chloride [Moles/Vol] 105 mmol/L Normal 98-107 [facility] Comment on above: Performed By: #### B OUTPATIENT CODER, CK, CBC, TSH3, HS TROP, T4F, CMP ####[address] Complete Blood Count Auto Di ffon 12-25-2023 Mean Corpuscular HGB Conc 33.5 g/dL Normal 32.0-35.0 [facility] Comment on above: Performed By: #### B OUTPATIENT CODER, CK, CBC, TSH3, HS TROP, T4F, CMP #### [facility] [address] Monocytes/100 WBC (Bld) 16.85 % Normal 0.00-20.00 [facility] Comment on above: Performed By: #### B OUTPATIENT CODER, CK, CBC, TSH3, HS TROP, T4F, CMP #### [facility] [address] NRBC% 0.2 /100{WBC} Normal 0-0.5 [facility] Comment on above: Performed By: #### B OUTPATIENT CODER, CK, CBC, TSH3, HS TROP, T4F, CMP #### [facility] [address] Comprehensive Metabolic Pane glynn 12-25-2023 Albumin [Mass/Vol] 3.8 g/dL Normal 3.5-5.7 [facility] Comment on above: Performed By: #### B OUTPATIENT CODER, CK, CBC, TSH3, HS TROP, T4F, CMP ####[place] [address] [place] [address] [facility] Creatinine Clr Calc Pharmacy 60.06 Normal [facility] Comment on above: Performed By: #### B OUTPATIENT CODER, CK, CBC, TSH3, HS TROP, T4F, CMP ####[place] [address] [place] [address] [facility] GFR/1.73 sq M.predicted MDRD (S/P/Bld) [Vol rate/Area] mL/min/{1.73_m2} Normal [facility] Comment on above: Performed By: #### B OUTPATIENT CODER, CK, CBC, TSH3, HS TROP, T4F, CMP ####[place] [address] [place] [id number] [facility] Creatine kinase [Enzymatic a ctivity/volume] in Serum or PlasmaOrdered By: Ju Pettit on 12-25-2023 CK [Catalytic activity/Vol] 90 U/L Normal 30-223 [facility] Comment on above: Performed By: #### B OUTPATIENT CODER, CK, CBC, TSH3, HS TROP, T4F, CMP ####[place] [id number] [place] [address] [facility] Creatinine [Mass/volume] in Serum or PlasmaOrdered By: uJ Pettit on 12-25-2023 Creatinine [Mass/Vol] 0.72 mg/dL Normal 0.60-1.20 [facility] Comment on above: Performed By: #### B OUTPATIENT CODER, CK, CBC, TSH3, HS TROP, T4F, CMP ####[address] [address] [facility] ECG 12 lead ECGon 12-25-20[address] [facility] [address] [place] [address] [place] [address] Electrocardiograph Report Signed Patient: Tracy Juarez MR#: [id number] 3 : 1945 Acct:[id number] Age/Sex: 78 / F ADM Date: 12/25/23 Loc: ER Room: Type: [facility] ER Attending Dr: Ordering Provider: Ju Pettit MD Date of Service: 12/25/2306/09/1340 ECG/ECG 12 lead ECG: Shortness of Breath/Dyspnea Copies to: Test Reason : Blood Pressure : / mmHG Vent. Rate : 070 BPM Atrial Rate : 070 BPM P-R Int : 204 ms QRS Dur : 096 ms QT Int : 454 ms P-R-T Axes : 069 028 074 degrees QTc Int : 490 ms Normal sinus rhythm Anteroseptal infarct (cited on or before 05-OCT-2023) Abnormal ECG When compared with ECG of 05-OCT-2023 09:50, Questionable change in initial forces of Anterior leads Confirmed by JU PETTIT MD ([id number]) on 12/25/2023 7:48:24 PM Referred By: Electronically Signed By:JU PETTIT MD Transcribed By: MUS Signed By Ju Pettit MD 12/15 Normal [facility] Erythrocyte distribution wid th [Ratio] by Automated countOrdered By: Ju Pettit on 12-25-2023 Erythrocyte distribution width (RBC) [Ratio] 16.2 % High 11.9-15.3 [facility] Comment on above: Performed By: #### B OUTPATIENT CODER, CK, CBC, TSH3, HS TROP, T4F, CMP #### [facility] [address] [place] [address] [place] Erythrocytes [#/volume] in B lood by Automated countOrdered By: Ju Pettit on 12-25-2023 RBC (Bld) [#/Vol] 4.67 10*6/uL Normal 3.60-5.00 [facility] Comment on above: Performed By: #### B OUTPATIENT CODER, CK, CBC, TSH3, HS TROP, T4F, CMP #### [facility] [address] [place] [id number] [place] Glucose [Mass/volume] in Ser um or PlasmaOrdered By: Ju Pettit on 12-25-2023 Glucose [Mass/Vol] 154 mg/dL High 70-100 [facility] Comment on above: ADA recommended refe rence rangeRandom Glucose Reference Range is dependent on time and content of last meal. Glucose of more than 200 mg/dL in a nonstressed, ambulatory subject supports the diagnosis of Diabetes Mellitus. Result Comment: [place] om Glucose Reference Range is dependent on time and content of last meal. Glucose of more than 200 mg/dL in a nonstressed, ambulatory subject supports the diagnosis of Diabetes Mellitus. ADA recommended reference range Performed By: #### B OUTPATIENT CODER, CK, CBC, TSH3, HS TROP, T4F, CMP ####[facility] [id number] Hematocrit [Volume Fraction] of Blood by Automated countOrdered By: Ju Pettit on 12-25-2023 Hematocrit (Bld) [Volume fraction] 36.4 % Normal 34.0-46.4 [facility] Comment on above: Performed By: #### B OUTPATIENT CODER, CK, CBC, TSH3, HS TROP, T4F, CMP #### [facility] [address] Hemoglobin [Mass/volume] in BloodOrdered By: Ju Pettit on 12-25-2023 Hemoglobin (Bld) [Mass/Vol] 12.2 g/dL Normal 11.8-15.4 [facility] Comment on above: Performed By: #### B OUTPATIENT CODER, CK, CBC, TSH3, HS TROP, T4F, CMP #### [facility] [address] Leukocytes [#/volume] correc robby for nucleated erythrocytes in Blood by Automated counOrdered By: Ju Pettit on 12-25-2023 WBC corrected for nucl RBC Auto (Bld) [#/Vol] 6.2 10*3/uL 3.8-11.6 [facility] Leukocytes [#/volume] in Blo od by Automated countOrdered By: Ju Pettit on 12-25-2023 WBC (Bld) [#/Vol] 6.2 10*3/uL Normal 3.8-11.6 [facility] Comment on above: Performed By: #### B OUTPATIENT CODER, CK, CBC, TSH3, HS TROP, T4F, CMP #### [address] Lymphocytes [#/volume] in Bl ood by Automated countOrdered By: Ju Pettit on 12-25-2023 Lymphocytes (Bld) [#/Vol] 1.4 10*3/uL Normal 1.00-4.8 [facility] Comment on above: Performed By: #### B OUTPATIENT CODER, CK, CBC, TSH3, HS TROP, T4F, CMP #### [address] Lymphocytes/100 leukocytes i n Blood by Automated countOrdered By: Ju Pettit on 12-25-2023 Lymphocytes/100 WBC (Bld) 23.0 % Normal . [facility] Comment on above: Performed By: #### B OUTPATIENT CODER, CK, CBC, TSH3, HS TROP, T4F, CMP #### [address] MCH [Entitic mass] by Automa robby countOrdered By: Ju Pettit on 12-25-2023 MCH (RBC) [Entitic mass] 26.1 pg Normal 24.7-34.3 [facility] Comment on above: Performed By: #### B OUTPATIENT CODER, CK, CBC, TSH3, HS TROP, T4F, CMP #### [address] MCHC Auto (RBC) [Mass/Vol]Or dered By: Ju Pettit on 12-25-2023 MCHC (RBC) [Mass/Vol] 33.5 g/dL 32.0-35.0 [facility] MCV [Entitic volume] by Auto mated countOrdered By: Ju Pettit on 12-25-2023 MCV (RBC) [Entitic vol] 77.9 fL Low 80-100 [facility] Comment on above: Performed By: #### B OUTPATIENT CODER, CK, CBC, TSH3, HS TROP, T4F, CMP #### [address] Monocyte distribution width [Entitic volume] in Blood by AutomatedOrdered By: Ju Pettit on 12-25-2023 Monocyte distribution width Auto (Bld) [Entitic vol] 16.85 % 0.00-20.00 [facility] Neutrophils [#/volume] in Bl ood by Automated countOrdered By: Ju Pettit on 12-25-2023 Neutrophils (Bld) [#/Vol] 4.0 10*3/uL Normal 1.8-7.7 [facility] Comment on above: Performed By: #### B OUTPATIENT CODER, CK, CBC, TSH3, HS TROP, T4F, CMP #### [facility] [address] No Panel InformationOrdered By: Ju Pettit on 12-25-2023 Estimated GFR (CKD-EPI) > 60.0 mL/Min [facility] Creatinine Clearance (Chem 60.06 [facility] Nucleated erythrocytes [Pres ence] in Blood by Automated countOrdered By: Ju Pettit on 12-25-2023 Nucleated RBC Auto Ql (Bld) 0.2 /100{WBC} 0-0.5 [facility] Platelet mean volume [Entiti c volume] in Blood by Automated countOrdered By: Ju Pettit on 12-25-2023 Platelet mean volume (Bld) [Entitic vol] 6.8 fL Normal 6.3-10.7 [facility] Comment on above: Performed By: #### B OUTPATIENT CODER, CK, CBC, TSH3, HS TROP, T4F, CMP #### [facility] [address] [place] [address] Platelets [#/volume] in Bloo d by Automated countOrdered By: Ju Pettit on 12-25-2023 Platelets (Bld) [#/Vol] 190 10*3/uL Normal 150-450 [facility] Comment on above: Performed By: #### B OUTPATIENT CODER, CK, CBC, TSH3, HS TROP, T4F, CMP #### [facility] [address] [place] [address] [place] Potassium [Moles/volume] in Serum or PlasmaOrdered By: Ju Pettit on 12-25-2023 Potassium [Moles/Vol] 3.6 mmol/L Normal 3.5-5.1 [facility] Comment on above: Performed By: #### B OUTPATIENT CODER, CK, CBC, TSH3, HS TROP, T4F, CMP ####[place] [id number] Protein [Mass/volume] in Ser um or PlasmaOrdered By: Ju Pettit on 12-25-2023 Protein [Mass/Vol] 6.2 g/dL Low 6.4-8.9 [facility] Comment on above: Performed By: #### B OUTPATIENT CODER, CK, CBC, TSH3, HS TROP, T4F, CMP ####[address] Serum globulin measurement b y calculation (mass/volume)Ordered By: Ju Pettit on 12-25-2023 Globulin (S) [Mass/Vol] 2.4 g/dL Normal [facility] Comment on above: Performed By: #### B OUTPATIENT CODER, CK, CBC, TSH3, HS TROP, T4F, CMP ####[address] Serum or plasma albumin/glob ulin mass ratioOrdered By: Ju Pettit on 12-25-2023 Albumin/Globulin [Mass ratio] 1.6 {ratio} [facility] Comment on above: Performed By: #### B OUTPATIENT CODER, CK, CBC, TSH3, HS TROP, T4F, CMP ####[address] Serum or plasma anion gap de terminationOrdered By: Ju Pettit on 12-25-2023 Anion gap [Moles/Vol] 16.0 mmol/L High 6.0-15.0 [facility] Comment on above: Performed By: #### B OUTPATIENT CODER, CK, CBC, TSH3, HS TROP, T4F, CMP ####[address] Sodium [Moles/volume] in Ser um or PlasmaOrdered By: Ju Pettit on 12-25-2023 Sodium [Moles/Vol] 143 mmol/L Normal 136-145 [facility] Comment on above: Performed By: #### B OUTPATIENT CODER, CK, CBC, TSH3, HS TROP, T4F, CMP ####[place] [address] [facility] Thyrotropin [Units/volume] i n Serum or PlasmaOrdered By: Ju Pettit on 12-25-2023 TSH Qn 0.31 m[IU]/L Low 0.45-5.33 [facility] Comment on above: Result Comment: PERF ORMED BY: [address] [id number] PATHOLOGIST DIAGNOSTIC ASSISTANT BAJLEET GONZALEZ M.D. Performed By: #### B OUTPATIENT CODER, CK, CBC, TSH3, HS TROP, T4F, CMP ####[place] [id number] [facility] Thyroxine (T4) free [Mass/vo lume] in Serum or PlasmaOrdered By: Ju Pettit on 12-25-2023 Free T4 [Mass/Vol] 0.71 ng/dL Normal 0.61-1.12 [facility] Comment on above: Performed By: #### B OUTPATIENT CODER, CK, CBC, TSH3, HS TROP, T4F, CMP ####[place] [id number] [facility] Troponin I High Sensitivityo n 12-25-2023 Troponin I High Sensitivity 4.0 pg/mL Normal 0.0-15.0 [facility] Comment on above: Result Comment: PERF ORMED BY: [facility] [address] [place] [id number] PATHOLOGIST DIAGNOSTIC ASSISTANT BALJEET GONZALEZ M.D. Performed By: #### B OUTPATIENT CODER, CK, CBC, TSH3, HS TROP, T4F, CMP ####[place] [id number] [facility] Troponin I.cardiac [Mass/vol ume] in Serum or Plasma by Detection limit <= 0.01 ng/Ordered By: uJ Pettit on 12-25-2023 Troponin I.cardiac DL <= 0.01 ng/mL [Mass/Vol] 4.0 pg/mL 0.0-15.0 [facility] Urea nitrogen [Mass/volume] in Serum or PlasmaOrdered By: Ju Pettit on 12-25-2023 Urea nitrogen [Mass/Vol] 10 mg/dL Normal 7-25 [facility] Comment on above: Performed By: #### B OUTPATIENT CODER, CK, CBC, TSH3, HS TROP, T4F, CMP ####[facility] [id number] XR chest 1V portableon 12-24 XR chest 1V portable [facility] [address] [place] [address] [place] [address] XRay Report Signed Patient: Tracy Juarez MR#: [id number] 3 : 1945 Acct:[id number] Age/Sex: 78 / F ADM Date: 12/25/23 Loc: ER Room: Type: [facility] ER Attending Dr: Copies to: Ju Pettit MD Ordering Provider: Ju Pettit MD Date of Service: 12/25/23 XR/XR chest 1V portable: Shortness of Breath/Dyspnea XR chest 1V portable 12/25/2023 1:41 PM SIGNS AND SYMPTOMS: Shortness of Breath/Dyspnea PROTOCOL: Frontal radiograph of the chest COMPARISON: 10/10/2014 FINDINGS: The trachea is midline. Surgical clips are noted in the left axillary region. There is mild cardiomegaly. The mediastinal structures are otherwise within normal limits. There is mild interstitial prominence. There is linear scarring adjacent to the left heart border. The lung parenchyma is clear. The bony thorax is intact. Degenerative changes are noted in the shoulders and thoracic spine. XR/XR chest 1V portable IMPRESSION: There is cardiomegaly with mild interstitial prominence. This may represent volume overload. No focal consolidation. Impression dictated by: Topher Martini M.D.12/25/2023 2:29 PM Dictation Location: [place] [address] Transcribed By: [facility] 12/25/23 1429 Dictated By: Topher Martini II, MD 12/25/231427 Signed By: 12/25/23 142 Normal [facility] Anisocytosis [Presence] in B lood by Light microscopyOrdered By: Julianne Pang on 12-18-2023 Anisocytosis Ql (Bld) Marked Normal [facility] Comment on above: Performed By: #### D IFF CBC #### [facility] [address] [place] [address] [place] Basophils Auto (Bld) [#/Vol] Ordered By: Julianne Pang on 12-18-2023 Basophils (Bld) [#/Vol] N/A [facility] Basophils/100 WBC Auto (Bld) Ordered By: Julianne Pang on 12-18-2023 Basophils/100 WBC (Bld) N/A [facility] Diff and CBCon 12-18-2023 Mean Corpuscular HGB Conc 34.3 g/dL Normal 32.0-35.0 [facility] Comment on above: Performed By: #### D IFF CBC #### [facility] [address] [place] [address] [place] Metamyelocytes 1 % High 0-0 [facility] Comment on above: Performed By: #### D IFF CBC #### [address] Microcytosis Marked Normal [facility] Comment on above: Performed By: #### D IFF CBC #### [place] [address] [place] Myelocytes 1 % High 0-0 [facility] Comment on above: Performed By: #### D IFF CBC #### [place] [address] [place] Ovalocytes Slight Normal [facility] Comment on above: Performed By: #### D IFF CBC #### [place] [address] [place] Platelet Estimate Normal Normal Normal [facility] Comment on above: Performed By: #### D IFF CBC #### [address] Platelet Morphology Normal Normal Normal [facility] Comment on above: Result Comment: PERF ORMED BY: [place] [address] PATHOLOGIST DIAGNOSTIC ASSISTANT BALJEET GONZALEZ M.D. Performed By: #### D IFF CBC #### [place] [address] [place] Poikilocytosis Slight Normal [facility] Comment on above: Performed By: #### D IFF CBC #### [facility] [address] [place] [address] [place] Eosinophils Auto (Bld) [#/Vo l]Ordered By: Julianne Pang on 12-18-2023 Eosinophils (Bld) [#/Vol] N/A [facility] Eosinophils/100 WBC Auto (Bl d)Ordered By: Julianne Pang on 12-18-2023 Eosinophils/100 WBC (Bld) N/A [facility] Eosinophils/100 leukocytes i n Blood by Manual countOrdered By: Julianne Pang on 12-18-2023 Eosinophils/100 WBC (Bld) 5 % High 1-3 [facility] Comment on above: Performed By: #### D IFF CBC #### [address] Erythrocyte distribution wid th [Ratio] by Automated countOrdered By: Julianne Pang on 12-18-2023 Erythrocyte distribution width (RBC) [Ratio] 15.9 % High 11.9-15.3 [facility] Comment on above: Performed By: #### D IFF CBC #### [address] Erythrocytes [#/volume] in B lood by Automated countOrdered By: Julianne Pang on 12-18-2023 RBC (Bld) [#/Vol] 4.63 10*6/uL Normal 3.60-5.00 [facility] Comment on above: Performed By: #### D IFF CBC #### [address] Hematocrit [Volume Fraction] of Blood by Automated countOrdered By: Julianne Pang on 12-18-2023 Hematocrit (Bld) [Volume fraction] 36.2 % Normal 34.0-46.4 [facility] Comment on above: Performed By: #### D IFF CBC #### [place] [address] [place] Hemoglobin [Mass/volume] in BloodOrdered By: Julianne Pang on 12-18-2023 Hemoglobin (Bld) [Mass/Vol] 12.4 g/dL Normal 11.8-15.4 [facility] Comment on above: Performed By: #### D IFF CBC #### [address] Leukocytes [#/volume] correc robby for nucleated erythrocytes in Blood by Automated counOrdered By: Julianne Pang on 12-18-2023 WBC corrected for nucl RBC Auto (Bld) [#/Vol] 6.3 10*3/uL 3.8-11.6 [facility] Leukocytes [#/volume] in Blo od by Automated countOrdered By: Julianne Pang on 12-18-2023 WBC (Bld) [#/Vol] 6.3 10*3/uL Normal 3.8-11.6 [facility] Comment on above: Performed By: #### D IFF CBC #### [address] Lymphocytes Auto (Bld) [#/Vo l]Ordered By: Julianne Pang on 12-18-2023 Lymphocytes (Bld) [#/Vol] N/A [facility] Lymphocytes/100 WBC Auto (Bl d)Ordered By: Julianne Pang on 12-18-2023 Lymphocytes/100 WBC (Bld) N/A [facility] Lymphocytes/100 leukocytes i n Blood by Manual countOrdered By: Julianne Pang on 12-18-2023 Lymphocytes/100 WBC (Bld) 20 % Normal 18-42 [facility] Comment on above: Performed By: #### D IFF CBC #### [facility] [address] [place] [address] MCH [Entitic mass] by Automa robby countOrdered By: Julianne Pang on 12-18-2023 MCH (RBC) [Entitic mass] 26.8 pg Normal 24.7-34.3 [facility] Comment on above: Performed By: #### D IFF CBC #### [address] MCHC Auto (RBC) [Mass/Vol]Or dered By: Julianne Pang on 12-18-2023 MCHC (RBC) [Mass/Vol] 34.3 g/dL 32.0-35.0 [facility] MCV [Entitic volume] by Auto mated countOrdered By: Julianne Pang on 12-18-2023 MCV (RBC) [Entitic vol] 78.2 fL Low 80-100 [facility] Comment on above: Performed By: #### D IFF CBC #### [facility] [address] Manual blood segmented neutr ophils/100 leukocytesOrdered By: Julianne Pang on 12-18-2023 Segmented neutrophils/100 WBC (Bld) 64 % Normal 50-70 [facility] Comment on above: Performed By: #### D IFF CBC #### [facility] [address] Metamyelocytes/100 WBC Manua l cnt (Bld)Ordered By: Julianne Pang on 12-18-2023 Metamyelocytes/100 WBC (Bld) 1 % High 0-0 [facility] Microcytes LM Ql (Bld)Ordere d By: Julianne Pang on 12-18-2023 Microcytes Ql (Bld) Marked [facility] Monocytes Auto (Bld) [#/Vol] Ordered By: Julianne Pang on 12-18-2023 Monocytes (Bld) [#/Vol] N/A [facility] Monocytes/100 WBC Auto (Bld) Ordered By: Julianne Pang on 12-18-2023 Monocytes/100 WBC (Bld) N/A [facility] Monocytes/100 leukocytes in Blood by Manual countOrdered By: Julianne Pang on 12-18-2023 Monocytes/100 WBC (Bld) 9 % Normal 2-11 [facility] Comment on above: Performed By: #### D IFF CBC #### [facility] [address] [place] [address] [place] Myelocytes/100 WBC Manual cn t (Bld)Ordered By: Julianne Pang on 12-18-2023 Myelocytes/100 WBC (Bld) 1 % High 0-0 [facility] Neutrophils Auto (Bld) [#/Vo l]Ordered By: Julianne Pang on 12-18-2023 Neutrophils (Bld) [#/Vol] N/A [facility] Neutrophils/100 WBC Auto (Bl d)Ordered By: Julianne Pang on 12-18-2023 Neutrophils/100 WBC (Bld) N/A [facility] Nucleated erythrocytes [Pres ence] in Blood by Automated countOrdered By: Julianne Pang on 12-18-2023 Nucleated RBC Auto Ql (Bld) N/A [facility] Ovalocyte detectionOrdered B y: Julianne Pang on 12-18-2023 Ovalocytes LM Ql (Bld) Slight [facility] Platelet adequacy [Presence] in Blood by Light microscopyOrdered By: Julianne Pang on 12-18-2023 Platelets LM Ql (Bld) Normal Normal [facility] Platelet mean volume [Entiti c volume] in Blood by Automated countOrdered By: Julianne Pang on 12-18-2023 Platelet mean volume (Bld) [Entitic vol] 7.2 fL Normal 6.3-10.7 [facility] Comment on above: Performed By: #### D IFF CBC #### [facility] [address] Platelet morphology finding [Identifier] in BloodOrdered By: Julianne Pang on 12-18-2023 Platelet morphology finding Nom (Bld) Normal Normal [facility] Platelets [#/volume] in Bloo d by Automated countOrdered By: Julianne Pang on 12-18-2023 Platelets (Bld) [#/Vol] 196 10*3/uL Normal 150-450 [facility] Comment on above: Performed By: #### D IFF CBC #### [facility] [address] Poikilocytosis [Presence] in Blood by Light microscopyOrdered By: Julianne Pang on 12-18-2023 Poikilocytosis LM Ql (Bld) Slight [facility] RBC morphologyOrdered By: Babka analiliakole UlrichPang on 12-18-2023 RBC morphology finding Nom (Bld) N/A [facility] ECG 12 [place] 12-07-2023 ECG revealed normal sinus rhythm with first-degree AV block with PVCs, 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 [facility] Work Phone: XR knee LT 3V - NOT FOR ER U [place] 12-04-2023 XR knee LT 3V - NOT FOR ER USE [facility] [address] [place] [address] XRay Report Signed Patient: Tracy Juarez MR#: [id number] 3 : 1945 Acct:[id number] Age/Sex: 77 / F ADM Date: 12/04/23 [place] [facility] [place]: Type: [facility] Attending Dr: Matthew Bucio II, MD Copies to: Matthew Bucio MD Ordering Provider: Matthew Bucio MD Date of Service: 12/04/23 XR/XR knee LT 3V - NOT FOR ER USE: Z47.1 - Aftercare following joint replacement surgery LEFT KNEE - 3 views CLINICAL HISTORY: Follow-up left TKA COMPARISON: Left knee 10/26/2023 FINDINGS: No evidence of hardware complication or acute bony process. XR/XR knee LT 3V - NOT FOR ER USE IMPRESSION: NO HARDWARE COMPLICATION. Impression dictated by: Brodie Gama Jr., D.O.12/04/2023 11:05 AM Dictation Location: [place] [address] Transcribed By: [facility] 12/04/23 1105 Dictated By: Brodie Gama Jr DO 12/04/23 1105 Signed By: 12/04/23 1105 Normal [facility] Automated basophil %Ordered By: Matthew Bucio on 10-28-2023 Basophils/100 WBC (Bld) 0.3 % Normal . [facility] Comment on above: Performed By: #### C BC #### [facility] [address] Automated basophil countOrde red By: Matthew Bucio on 10-28-2023 Basophils (Bld) [#/Vol] 0.0 10*3/uL Normal 0.0-0.2 [facility] Comment on above: Result Comment: PERF ORMED BY: [place] [address] PATHOLOGIST DIAGNOSTIC ASSISTANT BALJEET GONZALEZ M.D. Performed By: #### C BC #### [address] Automated blood monocyte cou ntOrdered By: Matthew Bucio on 10-28-2023 Monocytes (Bld) [#/Vol] 1.4 10*3/uL High 0.0-0.8 [facility] Comment on above: Performed By: #### C BC #### [address] Automated eosinophil %Ordere d By: Matthew Bucio on 10-28-2023 Eosinophils/100 WBC (Bld) 0.4 % Normal . [facility] Comment on above: Performed By: #### C BC #### [address] Automated eosinophil countOr dered By: Matthew Bucio on 10-28-2023 Eosinophils (Bld) [#/Vol] 0.0 10*3/uL Normal 0.0-0.45 [facility] Comment on above: Performed By: #### C BC #### [address] Automated monocyte %Ordered By: Matthew Bucio on 10-28-2023 Monocytes/100 WBC (Bld) 15.1 % Normal . [facility] Comment on above: Performed By: #### C BC #### [address] Automated neutrophil %Ordere d By: Matthew Bucio on 10-28-2023 Neutrophils/100 WBC (Bld) 74.0 % Normal . [facility] Comment on above: Performed By: #### C BC #### [address] Complete Blood Count Auto Di ffon 10-28-2023 Mean Corpuscular HGB Conc 33.7 g/dL Normal 32.0-35.0 [facility] Comment on above: Performed By: #### C BC #### [address] NRBC% 0.0 /100{WBC} Normal 0-0.5 [facility] Comment on above: Performed By: #### C BC #### [address] Erythrocyte distribution wid th [Ratio] by Automated countOrdered By: Matthew Bucio on 10-28-2023 Erythrocyte distribution width (RBC) [Ratio] 15.1 % Normal 11.9-15.3 [facility] Comment on above: Performed By: #### C BC #### [address] Erythrocytes [#/volume] in B lood by Automated countOrdered By: Matthew Bucio on 10-28-2023 RBC (Bld) [#/Vol] 3.64 10*6/uL Normal 3.60-5.00 [facility] Comment on above: Performed By: #### C BC #### [address] Hematocrit [Volume Fraction] of Blood by Automated countOrdered By: Matthew Bucio on 10-28-2023 Hematocrit (Bld) [Volume fraction] 27.8 % Low 34.0-46.4 [facility] Comment on above: Performed By: #### C BC #### [address] Hemoglobin [Mass/volume] in BloodOrdered By: Matthew Bucio on 10-28-2023 Hemoglobin (Bld) [Mass/Vol] 9.4 g/dL Low 11.8-15.4 [facility] Comment on above: Performed By: #### C BC #### [address] Leukocytes [#/volume] correc robby for nucleated erythrocytes in Blood by Automated counOrdered By: Matthew Bucio on 10-28-2023 WBC corrected for nucl RBC Auto (Bld) [#/Vol] 8.9 10*3/uL 3.8-11.6 [facility] Leukocytes [#/volume] in Blo od by Automated countOrdered By: Matthew Bucio on 10-28-2023 WBC (Bld) [#/Vol] 8.9 10*3/uL Normal 3.8-11.6 [facility] Comment on above: Performed By: #### C BC #### [address] Lymphocytes [#/volume] in Bl ood by Automated countOrdered By: Matthew Bucio on 10-28-2023 Lymphocytes (Bld) [#/Vol] 0.9 10*3/uL Low 1.00-4.8 [facility] Comment on above: Performed By: #### C BC #### [address] Lymphocytes/100 leukocytes i n Blood by Automated countOrdered By: Matthew Bucio on 10-28-2023 Lymphocytes/100 WBC (Bld) 10.2 % Normal . [facility] Comment on above: Performed By: #### C BC #### [address] MCH [Entitic mass] by Automa robby countOrdered By: Matthew Bucio on 10-28-2023 MCH (RBC) [Entitic mass] 25.8 pg Normal 24.7-34.3 [facility] Comment on above: Performed By: #### C BC #### [address] MCHC Auto (RBC) [Mass/Vol]Or dered By: Matthew Bucio on 10-28-2023 MCHC (RBC) [Mass/Vol] 33.7 g/dL 32.0-35.0 [facility] MCV [Entitic volume] by Auto mated countOrdered By: Matthew Bucio on 10-28-2023 MCV (RBC) [Entitic vol] 76.6 fL Low 80-100 [facility] Comment on above: Performed By: #### C BC #### [facility] [address] Neutrophils [#/volume] in Bl ood by Automated countOrdered By: Matthew Bucio on 10-28-2023 Neutrophils (Bld) [#/Vol] 6.6 10*3/uL Normal 1.8-7.7 [facility] Comment on above: Performed By: #### C BC #### [address] Nucleated erythrocytes [Pres ence] in Blood by Automated countOrdered By: Matthew Bucio on 10-28-2023 Nucleated RBC Auto Ql (Bld) 0.0 /100{WBC} 0-0.5 [facility] Platelet mean volume [Entiti c volume] in Blood by Automated countOrdered By: Matthew Bucio on 10-28-2023 Platelet mean volume (Bld) [Entitic vol] 7.3 fL Normal 6.3-10.7 [facility] Comment on above: Performed By: #### C BC #### [address] Platelets [#/volume] in Bloo d by Automated countOrdered By: Matthew Bucio on 10-28-2023 Platelets (Bld) [#/Vol] 146 10*3/uL Low 150-450 [facility] Comment on above: Performed By: #### C BC #### [address] Basic Metabolic Panelon 10-15 Creatinine Clr Calc Pharmacy 60.88 Normal [facility] Comment on above: Result Comment: PERF ORMED BY: [place] [address] PATHOLOGIST DIAGNOSTIC ASSISTANT BALJEET GONZALEZ M.D. Performed By: #### B MP ####[facility] [place] [address] GFR/1.73 sq M.predicted MDRD (S/P/Bld) [Vol rate/Area] mL/min/{1.73_m2} Normal [facility] Comment on above: Performed By: #### B MP ####[place] [id number] [facility] Calcium [Mass/volume] in Ser um or PlasmaOrdered By: Matthew Bucio on 10-27-2023 Calcium [Mass/Vol] 7.8 mg/dL Low 8.6-10.3 [facility] Comment on above: Performed By: #### B MP ####[address] Carbon dioxide, total [Moles /volume] in Serum or PlasmaOrdered By: Matthew Bucio on 10-27-2023 CO2 [Moles/Vol] 25.5 mmol/L Normal 21.0-31.0 [facility] Comment on above: Performed By: #### B MP ####[address] Chloride [Moles/volume] in S dave or PlasmaOrdered By: Matthew Bucio on 10-27-2023 Chloride [Moles/Vol] 106 mmol/L Normal 98-107 [facility] Comment on above: Performed By: #### B MP ####[place] [id number] [facility] Complete Blood Count Auto Di ffon 10-27-2023 Basophils (Bld) [#/Vol] 0.0 10*3/uL Normal 0.0-0.2 [facility] Comment on above: Result Comment: PERF ORMED BY: [facility] [address] [place] [id number] PATHOLOGIST DIAGNOSTIC ASSISTANT BALJEET GONZALEZ M.D. Performed By: #### C BC ####[address] Basophils/100 WBC (Bld) 0.3 % Normal . [facility] Comment on above: Performed By: #### C BC ####[place] [id number] [facility] Eosinophils (Bld) [#/Vol] 0.0 10*3/uL Normal 0.0-0.45 [facility] Comment on above: Performed By: #### C BC ####[address] Eosinophils/100 WBC (Bld) 0.3 % Normal . [facility] Comment on above: Performed By: #### C BC ####[address] Erythrocyte distribution width (RBC) [Ratio] 15.3 % Normal 11.9-15.3 [facility] Comment on above: Performed By: #### C BC ####[place] [id number] [facility] Hematocrit (Bld) [Volume fraction] 30.5 % Low 34.0-46.4 [facility] Comment on above: Performed By: #### C BC ####[address] Hemoglobin (Bld) [Mass/Vol] 10.2 g/dL Low 11.8-15.4 [facility] Comment on above: Performed By: #### C BC ####[address] Lymphocytes (Bld) [#/Vol] 0.9 10*3/uL Low 1.00-4.8 [facility] Comment on above: Performed By: #### C BC ####[address] Lymphocytes/100 WBC (Bld) 14.0 % Normal . [facility] Comment on above: Performed By: #### C BC ####[place] [id number] [facility] MCH (RBC) [Entitic mass] 25.9 pg Normal 24.7-34.3 [facility] Comment on above: Performed By: #### C BC ####[place] [id number] [facility] MCV (RBC) [Entitic vol] 77.0 fL Low 80-100 [facility] Comment on above: Performed By: #### C BC ####[place] [id number] [facility] Mean Corpuscular HGB Conc 33.6 g/dL Normal 32.0-35.0 [facility] Comment on above: Performed By: #### C BC ####[address] Monocytes (Bld) [#/Vol] 0.9 10*3/uL High 0.0-0.8 [facility] Comment on above: Performed By: #### C BC ####[place] [id number] [facility] Monocytes/100 WBC (Bld) 13.6 % Normal . [facility] Comment on above: Performed By: #### C BC ####[address] Neutrophils (Bld) [#/Vol] 4.8 10*3/uL Normal 1.8-7.7 [facility] Comment on above: Performed By: #### C BC ####[place] [id number] [facility] Neutrophils/100 WBC (Bld) 71.8 % Normal . [facility] Comment on above: Performed By: #### C BC ####[place] [id number] [facility] NRBC% 0.0 /100{WBC} Normal 0-0.5 [facility] Comment on above: Performed By: #### C BC ####[place] [id number] [facility] Platelet mean volume (Bld) [Entitic vol] 7.3 fL Normal 6.3-10.7 [facility] Comment on above: Performed By: #### C BC ####[place] [id number] [facility] Platelets (Bld) [#/Vol] 155 10*3/uL Normal 150-450 [facility] Comment on above: Performed By: #### C BC ####[place] [id number] [facility] RBC (Bld) [#/Vol] 3.96 10*6/uL Normal 3.60-5.00 [facility] Comment on above: Performed By: #### C BC ####[place] [address] [place] [id number] [facility] WBC (Bld) [#/Vol] 6.7 10*3/uL Normal 3.8-11.6 [facility] Comment on above: Performed By: #### C BC ####[address] Creatinine [Mass/volume] in Serum or PlasmaOrdered By: Matthew Bucio on 10-27-2023 Creatinine [Mass/Vol] 0.65 mg/dL Normal 0.60-1.20 [facility] Comment on above: Performed By: #### B MP ####[address] Glucose [Mass/volume] in Ser um or PlasmaOrdered By: Matthew Bucio on 10-27-2023 Glucose [Mass/Vol] 201 mg/dL High 70-100 [facility] Comment on above: ADA recommended refe rence rangeRandom Glucose Reference Range is dependent on time and content of last meal. Glucose of more than 200 mg/dL in a nonstressed, ambulatory subject supports the diagnosis of Diabetes Mellitus. Result Comment: [place] om Glucose Reference Range is dependent on time and content of last meal. Glucose of more than 200 mg/dL in a nonstressed, ambulatory subject supports the diagnosis of Diabetes Mellitus. ADA recommended reference range Performed By: #### B MP ####[place] [id number] [facility] No Panel InformationOrdered By: Matthew Bucio on 10-27-2023 Estimated GFR (CKD-EPI) > 60.0 mL/Min [facility] Creatinine Clearance (Chem 60.88 [facility] Potassium [Moles/volume] in Serum or PlasmaOrdered By: Matthew Bucio on 10-27-2023 Potassium [Moles/Vol] 3.2 mmol/L Low 3.5-5.1 [facility] Comment on above: Performed By: #### B MP ####[address] Serum or plasma anion gap de terminationOrdered By: Matthew Bucio on 10-27-2023 Anion gap [Moles/Vol] 9.7 mmol/L Normal 6.0-15.0 [facility] Comment on above: Performed By: #### B MP ####[address] Sodium [Moles/volume] in Ser um or PlasmaOrdered By: Matthew Bucio on 10-27-2023 Sodium [Moles/Vol] 138 mmol/L Normal 136-145 [facility] Comment on above: Performed By: #### B MP ####[address] Urea nitrogen [Mass/volume] in Serum or PlasmaOrdered By: Matthew Bucio on 10-27-2023 Urea nitrogen [Mass/Vol] 17 mg/dL Normal 7-25 [facility] Comment on above: Performed By: #### B MP ####[address] Basic Metabolic Panelon 10-15 Anion gap [Moles/Vol] 8.2 mmol/L Normal 6.0-15.0 [facility] Comment on above: Performed By: #### B MP #### [facility] [address] Calcium [Mass/Vol] 7.8 mg/dL Low 8.6-10.3 [facility] Comment on above: Performed By: #### B MP #### [facility] [address] [place] [address] [place] Chloride [Moles/Vol] 110 mmol/L High 98-107 [facility] Comment on above: Performed By: #### B MP #### [facility] [address] CO2 [Moles/Vol] 25.5 mmol/L Normal 21.0-31.0 [facility] Comment on above: Performed By: #### B MP #### [address] Creatinine [Mass/Vol] 0.61 mg/dL Normal 0.60-1.20 [facility] Comment on above: Performed By: #### B MP #### [place] [address] [place] Creatinine Clr Calc Pharmacy 60.74 Normal [facility] Comment on above: Result Comment: PERF ORMED BY: [place] [address] PATHOLOGIST DIAGNOSTIC ASSISTANT BALJEET GONZALEZ M.D. Performed By: #### B MP #### [place] [address] [place] GFR/1.73 sq M.predicted MDRD (S/P/Bld) [Vol rate/Area] mL/min/{1.73_m2} Normal [facility] Comment on above: Performed By: #### B MP #### [address] Glucose [Mass/Vol] 118 mg/dL High 70-100 [facility] Comment on above: Result Comment: [facility] [place] Glucose Reference Range is dependent on time and content of last meal. Glucose of more than 200 mg/dL in a nonstressed, ambulatory subject supports the diagnosis of Diabetes Mellitus. ADA recommended reference range Performed By: #### B MP #### [place] [address] [place] Potassium [Moles/Vol] 3.7 mmol/L Normal 3.5-5.1 [facility] Comment on above: Performed By: #### B MP #### [place] [address] [place] Sodium [Moles/Vol] 140 mmol/L Normal 136-145 [facility] Comment on above: Performed By: #### B MP #### [place] [address] [place] Urea nitrogen [Mass/Vol] 14 mg/dL Normal 7-25 [facility] Comment on above: Performed By: #### B #### [facility] [address] [place] 10-26-2023 L Specimen: [id number] Received: 10/26/23 Status: JOHNATHAN Ribeiro Num: [id number] Spec Type: Surgical Subm Dr: Matthew Bucio MD Tissues: A Joint/Knee (LT KNEE) Procedures: HE, Gross/Micro L4, Decalcification Age/ Patient Sex Location Account Attending Physician Tracy Juarez F 77/F 4N [id number] Matthew Bucio MD SPEC NUM: [id number] RECD: 10/26/23 STATUS: JOHNATHAN RIBEIRO NUM: [id number] OFELIA: 10/26/23 DR: Matthew Bucio MD ENTERED: 10/26/[address] [facility] [address]: SPEC TYPE: Surgical DEPT: S ORDERED: HE, Gross/Micro L4, Decalcification ORDERED: HE, Gross/Micro L4, Decalcification Pathological Diagnosis Left knee bone and tissue, left knee arthroplasty: - Gross evaluation only. See gross description. 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 The bone fragments have smooth to granular barkley-arenas articular surfaces with eburnation identified. The cut surface of the bone is yellow-barkley, trabecular no discrete lesion is identified. A gross photo is taken. Gross examination only. CPT Codes 09058 Gross Photo Specimen: [id number] Received: 10/26/23 Status: JOHNATHAN Ribeiro Num: [id number] Spec Type: Surgical Subm Dr: Matthew Bucio MD Tissues: A Joint/Knee (LT KNEE) Procedures: HE, Gross/Micro L4, Decalcification Patient: Tracy Juarez [id number] (Continued) Signed (signature on file) Magda Dale MD 10/27/23 1618 Normal [facility] Type and Screenon 10-26-2023 ABO and Rh group Nom (Bld) Blood group O Rh(D) positive Normal [facility] Comment on above: Result Comment: PERF ORMED BY: [facility] [address] [facility] [place] [place] [address] PATHOLOGIST DIAGNOSTIC ASSISTANT BALJEET GONZALEZ M.D. XR knee LT 2Von 10-26-2023 XR knee LT [address]V [facility] [address] [address] XRay Report Signed Patient: Tracy Juarez MR#: [id number] 3 : 1945 Acct:[id number] Age/Sex: 77 / F ADM Date: 10/26/23 Loc: Room: 2K7048-1 Type: [facility] [place] Attending Dr: Matthew Bucio II, MD Copies to: Matthew Bucio MD Ordering Provider: Matthew Bucio MD Date of Service: 10/26/23 XR/XR knee LT 2V: Total or partial knee, do in PACU PORTABLE LEFT KNEE - 2 views CLINICAL DATA: Follow-up after revision knee arthroplasty COMPARISON: 09/30/2023 AP and lateral views were obtained. The medial hemiknee arthroplasty hardware at the time the prior has been removed. There is a new knee prosthesis. The femoral stem is long. There is a cerclage wire at the distal femoral metadiaphysis. The hardware appears intact and in appropriate position. There is no developing fracture or dislocation. There is a small amount of postoperative air and fluid within the joint space. XR/XR knee LT 2V IMPRESSION: SATISFACTORY APPEARANCE OF KNEE REPLACEMENT. Impression dictated by: Leida Hubbard M.D.10/26/2023 2:02 PM Dictation Location: [place] [address] Transcribed By: [facility] 10/26/23 1402 Dictated By: Leida Hubbard MD 10/26/231401 Signed By: 10/26/23 1402 Normal [facility] XR tibia fibula LT 2V*on XR tibia fibula LT 2V* [place] [address] XRay Report Signed Patient: Tracy Juarez MR#: [id number] 3 : 1945 Acct:[id number] Age/Sex: 77 / F ADM Date: 10/22/23 [place] [facility] [place]: Type: [facility] CL Attending Dr: Matthew Bucio II, MD Copies to: Matthew Bucio MD Ordering Provider: Matthew Bucio MD Date of Service: 10/22/23 XR/XR femur LT 2V*: M25.562 - Pain in left knee ([id number]) XR/XR tibia fibula LT 2V*: M25.562 - Pain in left knee LEFT FEMUR AND TIB-FIB - one view COMPARISON: Left pelvis, left knee 08/12/2023 and right knee 09/08/2019 CLINICAL DATA: Preoperative planning for left knee replacement. Standing AP view of both extremities from the top of the pelvis to the ankle was obtained with a long cassette. Patient has a right knee prosthesis. This appears similar to the prior. The bony structures are osteopenic. There are no acute femoral fractures. There is no dislocation at the hips or knees. There is slight medial subluxation of the left femur with respect to the tibial plateau, similar to the comparison. Evaluation is slightly limited by technique though there may be narrowing at the hip joint spaces bilaterally, greater on the right. There may also be minor marginal spurring. There is sclerosis at the SI joints and mild degenerative change at the lower imaged lumbar spine. There is narrowing of the tibiofemoral joint compartments at the left knee and marginal spurring. No soft tissue abnormalities are noted. The tibia and fibula are intact on both sides. No acute fractures are seen. There is no dislocation at the ankles. No soft tissue abnormalities are noted. XR/XR femur LT 2V* IMPRESSION: OSTEOPENIA. DEGENERATIVE CHANGES AT THE HIPS AND LEFT KNEE. NO ACUTE BONY FINDINGS. Impression dictated by: Leida Hubbard M.D.10/22/2023 3:27 PM Dictation Location: [place] [address] Transcribed By: [facility] 10/22/23 1527 Dictated By: Leida Hubbard MD 10/22/23 1518 Signed By: 10/22/23 1527 Normal [facility] Automated basophil %Ordered By: Matthew Bucio on 10-05-2023 Basophils/100 WBC (Bld) 0.7 % Normal . [facility] Comment on above: Performed By: #### F RUC #### [facility] , #### CBC, BMP #### [address] Automated basophil countOrde red By: Matthew Bucio on 10-05-2023 Basophils (Bld) [#/Vol] 0.0 10*3/uL Normal 0.0-0.2 [facility] Comment on above: Result Comment: PERF ORMED BY: [place] [address] PATHOLOGIST DIAGNOSTIC ASSISTANT BALJEET GONZALEZ M.D. Performed By: #### F RUC #### [facility] , #### CBC, BMP #### [facility] [address] [place] [address] Automated blood monocyte cou ntOrdered By: Matthew Bucio on 10-05-2023 Monocytes (Bld) [#/Vol] 0.6 10*3/uL Normal 0.0-0.8 [facility] Comment on above: Performed By: #### F RUC #### [facility] , #### CBC, BMP #### [address] Automated eosinophil %Ordere d By: Matthew Bucio on 10-05-2023 Eosinophils/100 WBC (Bld) 2.5 % Normal . [facility] Comment on above: Performed By: #### F RUC #### [facility] , #### CBC, BMP #### [facility] [address] [place] [address] Automated eosinophil countOr dered By: Matthew Bucio on 10-05-2023 Eosinophils (Bld) [#/Vol] 0.1 10*3/uL Normal 0.0-0.45 [facility] Comment on above: Performed By: #### F RUC #### [facility] , #### CBC, BMP #### [facility] [address] [place] [address] Automated erythrocytes count in urine sediment (number/area)Ordered By: Matthew Bucio on 10-05-2023 RBC Auto (Urine sed) [#/Area] 3-4 [HPF] 0-4 [facility] Automated leukocytes count i n urine sediment (number/area)Ordered By: Matthew Bucio on 10-05-2023 WBC Auto (Urine sed) [#/Area] 0-1 [HPF] 0-4 [facility] Automated monocyte %Ordered By: Matthew Bucio on 10-05-2023 Monocytes/100 WBC (Bld) 10.9 % Normal . [facility] Comment on above: Performed By: #### F RUC #### [facility] , #### CBC, BMP #### [facility] [address] [place] [address] Automated neutrophil %Ordere d By: Matthew Bucio on 10-05-2023 Neutrophils/100 WBC (Bld) 63.7 % Normal . [facility] Comment on above: Performed By: #### F RUC #### [facility] , #### CBC, BMP #### [address] Automated urine color determ inationOrdered By: Matthew Bucio on 10-05-2023 Color (U) Yellow Normal Yellow [facility] Comment on above: Order Comment: Name Collection Type:: Clean-Voided Midstream Performed By: #### F RUC #### [facility] , #### CBC, BMP #### [address] Basic Metabolic Panelon 09-17 GFR/1.73 sq M.predicted MDRD (S/P/Bld) [Vol rate/Area] mL/min/{1.73_m2} Normal [facility] Comment on above: Performed By: #### F RUC #### [facility] , #### CBC, BMP #### [facility] [address] [place] [address] Bilirubin Test strip Ql (U)O rdered By: Matthew Bucio on 10-05-2023 Bilirubin Ql (U) Negative Negative [facility] Calcium [Mass/volume] in Ser um or PlasmaOrdered By: Matthew Bucio on 10-05-2023 Calcium [Mass/Vol] 8.7 mg/dL Normal 8.6-10.3 [facility] Comment on above: Result Comment: PERF ORMED BY: [place] [address] PATHOLOGIST DIAGNOSTIC ASSISTANT BALJEET GONZALEZ M.D. Performed By: #### F RUC #### [facility] , #### CBC, BMP #### [address] Carbon dioxide, total [Moles /volume] in Serum or PlasmaOrdered By: Matthew Bucio on 10-05-2023 CO2 [Moles/Vol] 24.9 mmol/L Normal 21.0-31.0 [facility] Comment on above: Performed By: #### F RUC #### [facility] , #### CBC, BMP #### [address] Chloride [Moles/volume] in S dave or PlasmaOrdered By: Matthew Bucio on 10-05-2023 Chloride [Moles/Vol] 110 mmol/L High 98-107 [facility] Comment on above: Performed By: #### F RUC #### [facility] , #### CBC, BMP #### [address] Complete Blood Count Auto Di ffon 10-05-2023 Mean Corpuscular HGB Conc 33.5 g/dL Normal 32.0-35.0 [facility] Comment on above: Performed By: #### F RUC #### [facility] , #### CBC, BMP #### [facility] [address] [place] [address] NRBC% 0.0 /100{WBC} Normal 0-0.5 [facility] Comment on above: Performed By: #### F RUC #### [facility] , #### CBC, BMP #### [facility] [address] [place] [address] Creatinine [Mass/volume] in Serum or PlasmaOrdered By: Matthew Bucio on 10-05-2023 Creatinine [Mass/Vol] 0.61 mg/dL Normal 0.60-1.20 [facility] Comment on above: Performed By: #### F RUC #### [facility] , #### CBC, BMP #### [facility] [address] [place] [address] [place] Dipstick and Microscopicon 0 10-05-2023 Appearance (U) Clear Normal Clear [facility] Comment on above: Order Comment: Name Collection Type:: Clean-Voided Midstream Performed By: #### F RUC #### [facility] , #### CBC, BMP #### [address] Bacteria,Urine None Seen Normal None Seen [facility] Comment on above: Order Comment: Name Collection Type:: Clean-Voided Midstream Performed By: #### F RUC #### [facility] , #### CBC, BMP #### [facility] [address] [place] [address] [place] Bilirubin,Urine Negative Normal Negative [facility] Comment on above: Order Comment: Name Collection Type:: Clean-Voided Midstream Performed By: #### F RUC #### [facility] , #### CBC, BMP #### [facility] [address] [place] [address] [place] Glucose Ql (U) Normal Normal Normal [facility] Comment on above: Order Comment: Name Collection Type:: Clean-Voided Midstream Performed By: #### F RUC #### [facility] , #### CBC, BMP #### [facility] [address] [place] [address] [place] Hyaline Casts,Urine 0-8 Normal 0-8 [facility] Comment on above: Order Comment: Name Collection Type:: Clean-Voided Midstream Result Comment: PERF ORMED BY: [place] [address] PATHOLOGIST DIAGNOSTIC ASSISTANT BALJEET GONZALEZ M.D. Performed By: #### F RUC #### [facility] , #### CBC, BMP #### [place] [address] [place] Ketones Ql (U) Negative Normal Negative [facility] Comment on above: Order Comment: Name Collection Type:: Clean-Voided Midstream Performed By: #### F RUC #### [facility] , #### CBC, BMP #### [place] [address] [place] Leukocyte esterase Test strip Ql (U) 1+ High Negative [facility] Comment on above: Order Comment: Name Collection Type:: Clean-Voided Midstream Performed By: #### F RUC #### [facility] , #### CBC, BMP #### [place] [address] [place] Nitrite,Urine Negative Normal Negative [facility] Comment on above: Order Comment: Name Collection Type:: Clean-Voided Midstream Performed By: #### F RUC #### [facility] , #### CBC, BMP #### [place] [address] [place] Occult Blood,Urine Negative Normal Negative [facility] Comment on above: Order Comment: Name Collection Type:: Clean-Voided Midstream Result Comment: PERF ORMED BY: [place] [address] PATHOLOGIST DIAGNOSTIC ASSISTANT BALJEET GONZALEZ M.D. Performed By: #### F RUC #### [facility] , #### CBC, BMP #### [place] [address] [place] Protein,Urine Negative Normal Negative [facility] Comment on above: Order Comment: Name Collection Type:: Clean-Voided Midstream Performed By: #### F RUC #### [facility] , #### CBC, BMP #### [address] RBC,Urine 3-4 Normal 0-4 [facility] Comment on above: Order Comment: Name Collection Type:: Clean-Voided Midstream Performed By: #### F RUC #### [facility] , #### CBC, BMP #### [address] Specificy [place],Urine 1.019 Normal 1.001-1.03 0 [facility] Comment on above: Order Comment: Name Collection Type:: Clean-Voided Midstream Performed By: #### F RUC #### [facility] , #### CBC, BMP #### [address] Squamous Epithelial Cell,Urine 1-2 Normal 0-2 [facility] Comment on above: Order Comment: Name Collection Type:: Clean-Voided Midstream Performed By: #### F RUC #### [facility] , #### CBC, BMP #### [address] Urobilinogen,Urine Normal Normal Normal [facility] Comment on above: Order Comment: Name Collection Type:: Clean-Voided Midstream Performed By: #### F RUC #### [facility] , #### CBC, BMP #### [place] [address] [place] WBC LM.HPF (Urine sed) [#/Area] 0 /[HPF] Normal 0-4 [facility] Comment on above: Order Comment: Name Collection Type:: Clean-Voided Midstream Performed By: #### F RUC #### [facility] , #### CBC, BMP #### [place] [address] [place] ECG 12 lead ECGon 10-05-[address] [facility] [address] [place] [address] [place] [address] Electrocardiograph Report Signed Patient: Tracy Juarez MR#: [id number] 3 : 1945 Acct:[id number] Age/Sex: 77 / F ADM Date: 10/05/23 Loc: Room: Type: [facility] Attending Dr: Matthew Bucio II, MD Ordering Provider: Matthew Bucio MD Date of Service: 10/05/23 ECG/ECG 12 lead ECG: LTKA Copies to: Test Reason : Blood Pressure : / mmHG Vent. Rate : 070 BPM Atrial Rate : 070 BPM P-R Int : 208 ms QRS Dur : 112 ms QT Int : 452 ms P-R-T Axes : 065 014 054 degrees QTc Int : 488 ms Normal sinus rhythm Septal infarct , age undetermined Abnormal ECG When compared with ECG of 14-FEB-2019 11:44, Septal infarct is now present Confirmed by ROBYN HUYNH FACCCE ([id number]) on 10/05/2023 3:46:44 PM Referred By: KVNG BUCIO Electronically Signed By:CE DOYLE MD FACC Transcribed By: MUS Signed By José Doyle MD 10/05/23 1546 Normal [facility] Erythrocyte distribution wid th [Ratio] by Automated countOrdered By: Matthew Bucio on 10-05-2023 Erythrocyte distribution width (RBC) [Ratio] 14.7 % Normal 11.9-15.3 [facility] Comment on above: Performed By: #### F RUC #### [facility] , #### CBC, BMP #### [facility] [address] Erythrocytes [#/volume] in B lood by Automated countOrdered By: Matthew Bucio on 10-05-2023 RBC (Bld) [#/Vol] 4.54 10*6/uL Normal 3.60-5.00 [facility] Comment on above: Performed By: #### F RUC #### [facility] , #### CBC, BMP #### [facility] [address] [place] [address] [place] Fructosamineon 10-05-2023 Fructosamine 216 umol/L Normal 0-285 [facility] Comment on above: Result Comment: Publ ished reference interval for apparently healthy subjects between age 20 and 60 is 205 - 285 umol/L and in a poorly controlled diabetic population is 228 - 563 umol/L with a mean of 396 umol/L. Performed at: - [facility] [address] [place], [place] [id number] Certified Travel Counselor: Ian Mcneal PhD, Phone: [phone] PERFORMED BY: [place] [address] PATHOLOGIST DIAGNOSTIC ASSISTANT BALJEET GONZALEZ M.D. Performed By: #### F RUC #### [facility] , #### CBC, BMP #### [address] Fructosamine [Moles/volume] in Serum or PlasmaOrdered By: Matthew Bucio on 10-05-2023 Fructosamine [Moles/Vol] 216 umol/L 0-285 [facility] Comment on above: Published reference interval for apparently healthysubjects between age 20 and 60 is 205 - 285 umol/L and in apoorly controlled diabetic population is 228 - 563 umol/Lwith a mean of 396 umol/L.Performed at: [facility] [employer] [id number] [place], [place] [id number] Director: Ian Mcneal PhD, Phone: [phone] Glucose [Mass/volume] in Ser um or PlasmaOrdered By: Matthew Bucio on 10-05-2023 Glucose [Mass/Vol] 106 mg/dL High 70-100 [facility] Comment on above: ADA recommended refe rence rangeRandom Glucose Reference Range is dependent on time and content of last meal. Glucose of more than 200 mg/dL in a nonstressed, ambulatory subject supports the diagnosis of Diabetes Mellitus. Result Comment: [facility] [place] Glucose Reference Range is dependent on time and content of last meal. Glucose of more than 200 mg/dL in a nonstressed, ambulatory subject supports the diagnosis of Diabetes Mellitus. ADA recommended reference range Performed By: #### F RUC #### [facility] , #### CBC, BMP #### [facility] [address] [place] [address] Hematocrit [Volume Fraction] of Blood by Automated countOrdered By: Matthew Bucio on 10-05-2023 Hematocrit (Bld) [Volume fraction] 35.0 % Normal 34.0-46.4 [facility] Comment on above: Performed By: #### F RUC #### [facility] , #### CBC, BMP #### [address] Hemoglobin [Mass/volume] in BloodOrdered By: Matthew Bucio on 10-05-2023 Hemoglobin (Bld) [Mass/Vol] 11.7 g/dL Low 11.8-15.4 [facility] Comment on above: Performed By: #### F RUC #### [facility] , #### CBC, BMP #### [facility] [address] [place] [address] Ketones Auto test strip (U) [Mass/Vol]Ordered By: Matthew Bucio on 10-05-2023 Ketones (U) [Mass/Vol] Negative Negative [facility] Laboratory - UrinalysisOrder ed By: Matthew Bucio on 10-05-2023 Hyaline casts LM Ql (Urine sed) 0-8 [LPF] 0-8 [facility] Leukocytes [#/volume] correc robby for nucleated erythrocytes in Blood by Automated counOrdered By: Matthew Bucio on 10-05-2023 WBC corrected for nucl RBC Auto (Bld) [#/Vol] 5.4 10*3/uL 3.8-11.6 [facility] Leukocytes [#/volume] in Blo od by Automated countOrdered By: Matthew Bucio on 10-05-2023 WBC (Bld) [#/Vol] 5.4 10*3/uL Normal 3.8-11.6 [facility] Comment on above: Performed By: #### F RUC #### [facility] , #### CBC, BMP #### [address] Lymphocytes [#/volume] in Bl ood by Automated countOrdered By: Matthew Bucio on 10-05-2023 Lymphocytes (Bld) [#/Vol] 1.2 10*3/uL Normal 1.00-4.8 [facility] Comment on above: Performed By: #### F RUC #### [facility] , #### CBC, BMP #### [address] Lymphocytes/100 leukocytes i n Blood by Automated countOrdered By: Matthew Bucio on 10-05-2023 Lymphocytes/100 WBC (Bld) 22.2 % Normal . [facility] Comment on above: Performed By: #### F RUC #### [facility] , #### CBC, BMP #### [address] MCH [Entitic mass] by Automa robby countOrdered By: Matthew Bucio on 10-05-2023 MCH (RBC) [Entitic mass] 25.8 pg Normal 24.7-34.3 [facility] Comment on above: Performed By: #### F RUC #### [facility] , #### CBC, BMP #### [facility] [address] [place] [address] MCHC Auto (RBC) [Mass/Vol]Or dered By: Matthew Bucio on 10-05-2023 MCHC (RBC) [Mass/Vol] 33.5 g/dL 32.0-35.0 [facility] MCV [Entitic volume] by Auto mated countOrdered By: Matthew Bucio on 10-05-2023 MCV (RBC) [Entitic vol] 77.1 fL Low 80-100 [facility] Comment on above: Performed By: #### F RUC #### [facility] , #### CBC, BMP #### [facility] [address] [place] [address] [place] Neutrophils [#/volume] in Bl ood by Automated countOrdered By: Matthew Bucio on 10-05-2023 Neutrophils (Bld) [#/Vol] 3.5 10*3/uL Normal 1.8-7.7 [facility] Comment on above: Performed By: #### F RUC #### [facility] , #### CBC, BMP #### [facility] [address] Nitrite Test strip Ql (U)Ord ered By: Matthew Bucio on 10-05-2023 Nitrite Ql (U) Negative Negative [facility] No Panel InformationOrdered By: Matthew Bucio on 10-05-2023 Estimated GFR (CKD-EPI) > 60.0 mL/Min [facility] Creatinine Clearance (Chem N/A [facility] Nucleated erythrocytes [Pres ence] in Blood by Automated countOrdered By: Matthew Bucio on 10-05-2023 Nucleated RBC Auto Ql (Bld) 0.0 /100{WBC} 0-0.5 [facility] PST Type and Screenon 2023 ABO and Rh group Nom (Bld) Blood group O Rh(D) positive Normal [facility] Comment on above: Order Comment: Date of Surgery: [id number] Platelet mean volume [Entiti c volume] in Blood by Automated countOrdered By: Matthew Bucio on 10-05-2023 Platelet mean volume (Bld) [Entitic vol] 7.0 fL Normal 6.3-10.7 [facility] Comment on above: Performed By: #### F RUC #### [facility] , #### CBC, BMP #### [facility] [address] [place] [address] [place] Platelets [#/volume] in Bloo d by Automated countOrdered By: Matthew Bucio on 10-05-2023 Platelets (Bld) [#/Vol] 179 10*3/uL Normal 150-450 [facility] Comment on above: Performed By: #### F RUC #### [facility] , #### CBC, BMP #### [address] Potassium [Moles/volume] in Serum or PlasmaOrdered By: Matthew Bucio on 10-05-2023 Potassium [Moles/Vol] 3.5 mmol/L Normal 3.5-5.1 [facility] Comment on above: Performed By: #### F RUC #### [facility] , #### CBC, BMP #### [address] Protein Auto test strip (U) [Mass/Vol]Ordered By: Matthew Bucio on 10-05-2023 Protein (U) [Mass/Vol] Negative Negative [facility] Serum or plasma anion gap de terminationOrdered By: Matthew Bucio on 10-05-2023 Anion gap [Moles/Vol] 10.6 mmol/L Normal 6.0-15.0 [facility] Comment on above: Performed By: #### F RUC #### [facility] , #### CBC, BMP #### [place] [address] [place] Sodium [Moles/volume] in Ser um or PlasmaOrdered By: Matthew Bucio on 10-05-2023 Sodium [Moles/Vol] 142 mmol/L Normal 136-145 [facility] Comment on above: Performed By: #### F RUC #### [facility] , #### CBC, BMP #### [address] Specific gravity Auto test s trip (U) [Rel density]Ordered By: Matthew Bucio on 10-05-2023 Specific gravity (U) [Rel density] 1.019 1.001-1.03 0 [facility] Squamous epithelial cells de tection in urine sediment by light microscopyOrdered By: Matthew Bucio on 10-05-2023 Epithelial cells.squamous LM Ql (Urine sed) 1-2 [HPF] 0-2 [facility] Urea nitrogen [Mass/volume] in Serum or PlasmaOrdered By: Matthew Bucio on 10-05-2023 Urea nitrogen [Mass/Vol] 17 mg/dL Normal 7-25 [facility] Comment on above: Performed By: #### F RUC #### [facility] , #### CBC, BMP #### [facility] [address] Urine bacteria detection by automated methodOrdered By: Matthew Bucio on 10-05-2023 Bacteria Auto Ql (U) None seen None Seen [facility] Urine clarity by refractomet ry automatedOrdered By: Matthew Bucio on 10-05-2023 Clarity Refractometry automated (U) Clear Clear [facility] Urine glucose measurement by automated test strip (mass/volume)Ordered By: Matthew Bucio on 10-05-2023 Glucose Auto test strip (U) [Mass/Vol] Normal mg/dL Normal [facility] Urine hemoglobin detection b y automated test stripOrdered By: Matthew Bucio on 10-05-2023 Hemoglobin Auto test strip Ql (U) Negative Negative [facility] Urine leukocyte esterase det ection by automated test stripOrdered By: Matthew Bucio on 10-05-2023 Leukocyte esterase Auto test strip Ql (U) 1+ Negative [facility] Urine pH measurement by auto mated test stripOrdered By: Matthew Bucio on 10-05-2023 pH (U) 8.5 [pH] Normal 5.0-9.0 [facility] Comment on above: Order Comment: Name Collection Type:: Clean-Voided Midstream Performed By: #### F RUC #### [facility] , #### CBC, BMP #### [facility] [address] [place] [address] [place] Urobilinogen Auto test strip (U) [Mass/Vol]Ordered By: Matthew Bucio on 10-05-2023 Urobilinogen (U) [Mass/Vol] Normal mg/dL Normal [facility] A1C with Estimated Average G rachel 08-12-2023 Glucose [Mass/Vol] 114 mg/dL Normal [facility] Comment on above: Order Comment: Reaso n for Exam Primary osteoarthritis of left knee;Other fdc (current Result Comment: PERF ORMED BY: [place] [address] PATHOLOGIST DIAGNOSTIC ASSISTANT BALJEET GONZALEZ M.D. Performed By: #### F RUC #### [facility] , #### CBC, BMP #### [facility] [address] Albumin Levelon 08-12-2023 Albumin [Mass/Vol] 4.4 g/dL Normal 3.5-5.7 [facility] Comment on above: Order Comment: Reaso n for Exam Primary osteoarthritis of left knee;Other fdc (current Performed By: #### F RUC #### [facility] , #### CBC, BMP #### [facility] [address] [place] [address] [place] Albumin [Mass/volume] in Ser um or Plasma by Bromocresol green (BCG) dye binding methoOrdered By: Matthew Bucio on 08-12-2023 Albumin BCG dye [Mass/Vol] 4.4 g/dL 3.5-5.7 [facility] Cotinine [Mass/volume] in Se rum or PlasmaOrdered By: Matthew Bucio on 08-12-2023 Cotinine [Mass/Vol] <1.0 ng/mL . [facility] Comment on above: This test was develo ped and its performance characteristicsdetermined by [employer]. It has not been cleared orapproved by the Food and Drug Administration.Cotinine levels greater than 20.0 are consistent with theuse of tobacco or tobacco cessation products.Performed at: [address] [id number] Director: Milton Guerrero MD, Phone: [phone] Glucose mean value [Mass/vol ume] in Blood Estimated from glycated hemoglobinOrdered By: Matthew Bucio on 08-12-2023 Average glucose Estimated from glycated hemoglobin (Bld) [Mass/Vol] 114 mg/dL [facility] Hemoglobin A1c percentageOrd ered By: Matthew Bucio on 08-12-2023 HbA1c (Bld) [Mass fraction] 5.6 % Normal 4.3-5.6 [facility] Comment on above: Increased risk for d iabetes: 5.7 - 6.4diabetes: >6.4glycemic control for adults with diabetes: <7.0 Order Comment: Reaso n for Exam Primary osteoarthritis of left knee;Other fdc (current Result Comment: Incr eased risk for diabetes: 5.7 - 6.4 diabetes: >6.4 glycemic control for adults with diabetes: <7.0 Performed By: #### F RUC #### [facility] , #### CBC, BMP #### [facility] [address] [place] [address] [place] Hemoglobin [Mass/volume] in BloodOrdered By: Matthew Bucio on 08-12-2023 Hemoglobin (Bld) [Mass/Vol] 12.1 g/dL Normal 11.8-15.4 [facility] Comment on above: Order Comment: Reaso n for Exam Primary osteoarthritis of left knee;Other ocean transportation intermediary (current Result Comment: PERF ORMED BY: [address] [address] PATHOLOGIST DIAGNOSTIC ASSISTANT BALJEET GONZALEZ M.D. Performed By: #### F RUC #### [facility] , #### CBC, BMP #### [facility] [address] [place] [address] [place] MRSA Cultureon 08-12-2023 MRSA Culture Reason for Exam Prim renee osteoarthritis of left knee;Other ocean transportation intermediary (current Nasal Reason for Exam: Primary osteoarthritis of left knee;Other fdc (current : Nasal No MRSA Isolated 2 Days PERFORMED BY: [address] [address] PATHOLOGIST DIAGNOSTIC ASSISTANT BALJEET GONZALEZ M.D. Normal [facility] Comment on above: Performed By: #### F RUC #### [facility] , #### CBC, BMP #### [facility] [address] [place] [address] [place] Nicotine [Mass/volume] in Se rum or PlasmaOrdered By: Matthew Bucio on 08-12-2023 Nicotine [Mass/Vol] <1.0 ng/mL . [facility] Comment on above: This test was develo ped and its performance characteristicsdetermined by [facility]. It has not been cleared orapproved by the Food and Drug Administration.Nicotine levels greater than 2.0 are consistent with theuse of tobacco or tobacco cessation products. Nicotine/Cotinine Bloodon Cotinine, Blood <1.0 Normal . [facility] Comment on above: Order Comment: Reaso n for Exam Primary osteoarthritis of left knee;Other fdc (current Result Comment: This test was developed and its performance characteristics determined by [facility]. It has not been cleared or approved by the Food and Drug Administration. Cotinine levels greater than 20.0 are consistent with the use of tobacco or tobacco cessation products. Performed at: [facility] [address] [id number] Certified Travel Counselor: Milton Guerrero MD, Phone: [phone] PERFORMED BY: [place] [address] PATHOLOGIST DIAGNOSTIC ASSISTANT BALJEET GONZALEZ M.D. Performed By: #### F RUC #### [facility] , #### CBC, BMP #### [facility] [address] [place] [address] [place] Nicotine, Blood <1.0 Normal . [facility] Comment on above: Order Comment: Reaso n for Exam Primary osteoarthritis of left knee;Other fdc (current Result Comment: This test was developed and its performance characteristics determined by [facility]. It has not been cleared or approved by the Food and Drug Administration. Nicotine levels greater than 2.0 are consistent with the use of tobacco or tobacco cessation products. Performed By: #### F RUC #### [facility] , #### CBC, BMP #### [facility] [address] [place] [id number] [place] Vitamin D 25 Hydroxy Totalon 08-12-2023 Vitamin D 25 Hydroxy Total 14.3 ng/mL Low 30-100 [facility] Comment on above: Order Comment: Reaso n for Exam Primary osteoarthritis of left knee;Other fdc (current Result Comment: ERINN MIN D STATUS 25(OH)VITAMIN D RANGE (ng/mL) Deficient <20 Insufficient 20 to <30 Sufficient 30 to 100 Reference: Jessica Ardon, Jennifer FENG, et al. Evaluation,treatment, and prevention of vitamin D deficiency; an Endocrine Society clinical practice guideline. JCEM. 2010; 96(7):191-. PERFORMED BY: [place] [address] PATHOLOGIST DIAGNOSTIC ASSISTANT BALJEET GONZALEZ M.D. Performed By: #### F RUC #### [facility] , #### CBC, BMP #### [facility] [address] [place], [place] [id number] [facility] Vitamin D+Metabolites [Mass/ volume] in Serum or PlasmaOrdered By: Matthew Bucio on 08-12-2023 Vitamin D+Metabolites [Mass/Vol] 14.3 ng/mL 30-100 [facility] Comment on above: VITAMIN D STATUS 25( [place])VITAMIN D RANGE (ng/mL) Deficient <20 Insufficient 20 to <30Sufficient 30 to 100Reference: Jessica Ardon, Jennifer FENG, et al. Evaluation,treatment, and prevention of vitamin D deficiency; an Endocrine Society clinical practice guideline. JCEM. 2010; 96(7):1911-30. Wound methicillin resistant Staphylococcus aureus (MRSA) cultureOrdered By: Matthew Bucio on 08-12-2023 MRSA isol Org specific cx Ql (Unsp spec) No MRSA Isolated 2 Days [facility] XR knee LT 4V*on 08-12-2023 XR knee LT 4V* [facility] [address] [place] [address] [place] [address] XRay Report Signed Patient: Tracy Juarez MR#: [id number] 3 : 1945 Acct:[id number] Age/Sex: 77 / F ADM Date: 08/12/23 [place] [facility] [place]: Type: [facility] Attending Dr: Matthew Bucio II, MD Copies to: Matthew Bucio MD Ordering Provider: Matthew Bucio MD Date of Service: 08/12/23 XR/XR knee LT 4V*: Primary osteoarthritis of left knee ([id number]) XR/XR pelvis 1-2V: Primary osteoarthritis of left knee AP PELVIS: , Left knee 4 views CLINICAL HISTORY: Left knee pain for 3 months. COMPARISON: Left knee series 07/25/2021 Pelvis: Moderate degenerative changes of both hips without acute bony process. Degenerative changes are also noted involving the visualized lower lumbar spine, SI joints and pubic symphysis. Left knee: Severe degenerative changes with lateral subluxation of the tibia. There is associated weightbearing and patellofemoral joint space narrowing. Small joint effusion. Findings are similar to the 2020 study. XR/XR pelvis 1-2V IMPRESSION: SEVERE DEGENERATIVE CHANGES OF THE LEFT KNEE WITHOUT ACUTE BONY PROCESS. Impression dictated by: Brodie Gama Jr., D.O.08/12/2023 3:30 PM Dictation Location: [place] [address] Transcribed By: [facility] 08/12/23 1530 Dictated By: Brodie Gama Jr, DO 08/12/23 1529 Signed By: 08/12/23 1530 Normal [facility] XR knee LT 4V* [facility] [employer] Other XR knee LT 4V* [facility] Main [facility] [employer] Other XR knee LT 4V* [address] [facility] [employer] Other XR knee LT 4V* [place] [address] No [facility] [employer] Other XR knee LT 4V* XRay Report [facility] [employer] Other XR knee LT 4V* Signed [employer] Other XR knee LT 4V* Patient: Tracy Juarez MR#: [id number] [employer] Other XR knee LT 4V* 3 [employer] Other XR knee LT 4V* : 1945 Acct:[id number] [employer] Other XR knee LT 4V* Age/Sex: 77 / F ADM Date: 08/12/23 [facility] Other XR knee LT 4V* [place] [facility] [place]: Type : [facility] Other XR knee LT 4V* Attending Dr: Matthew Bucio II, MD [employer] Other XR knee LT 4V* Copies to: Matthew Bucio MD [employer] Other XR knee LT 4V* Ordering Provider: Soledad Bucio MD [employer] Other XR knee LT 4V* Date of Service: 08/12/23 [facility] Other XR knee LT 4V* [id number]) XR/XR knee LT 4V*: Primary osteoarthritis of left knee [facility] Other XR knee LT 4V* ([id number]) XR/XR pelvis 1-2V: Primary osteoarthritis of left knee [employer] Other XR knee LT 4V* AP PELVIS: , Left kn ee 4 views [employer] Other XR knee LT 4V* CLINICAL HISTORY: Le ft knee pain for 3 months. [employer] Other XR knee LT 4V* COMPARISON: Left kne e series 07/25/2021 [facility] Other XR knee LT 4V* Pelvis: Moderate degenerative changes of both hips without acute bony process. Degenerative changes [employer] Other XR knee LT 4V* are also noted invol ving the visualized lower lumbar spine, SI joints and pubic symphysis. RNDOMN Other XR knee LT 4V* Left knee: Severe degenerative changes with lateral subluxation of the tibia. There is associated RNDOMN Other XR knee LT 4V* weightbearing and patellofemoral joint space narrowing. Small joint effusion. Findings are similar RNDOMN Other XR knee LT 4V* to the 2020 study. No rth [employer] Other XR knee LT 4V* X R/XR pelvis 1-2V RNDOMN Other XR knee LT 4V* IMPRESSION: [employer] Other XR knee LT 4V* SEVERE DEGENERATIVE CHANGES OF THE LEFT KNEE WITHOUT ACUTE BONY PROCESS. RNDOMN Other XR knee LT 4V* Impression dictated by: Brodie Gama Jr., D.O.08/12/2023 3:30 PM RNDOMN Other XR knee LT 4V* Dictation Location: [place] [address] RNDOMN Other XR knee LT 4V* Transcribed By: [facility] 08/12/23 1530 RNDOMN Other XR knee LT 4V* Dictated By: Brodie Gama Jr, DO 08/12/23 1529 RNDOMN Other XR knee LT 4V* Signed By: [employer] Other XR knee LT 4V* 08/12/23 1530 [employer] Other Office Visit (Cardiology)on 05-12-2023 Follow-up visit Diagnoses/Problems Assessed PAF (paroxysmal atrial fibrillation) (427.31) (I48.0) High risk medication use (V58.69) (Z79.899) Essential hypertension (401.9) (I10) First degree AV block (426.11) (I44.0) Obstructive sleep apnea syndrome (327.23) (G47.33) Class 2 obesity with body mass index (BMI) of 38.0 to 38.9 in adult (278.00,V85.38) (E66.9,Z68.38) Former smoker (V15.82) (Z87.891) Quit 50+ years ago Hypothyroidism (244.9) (E03.9) Orders Class 2 obesity with body mass index (BMI) of 38.0 to 38.9 in adult Healthy Weight Tips; Status:Complete - Retrospective Authorization; Done: [id number] Some eating tips that can help you lose weight.; Status:Complete - Retrospective Authorization; Done: [id number] Essential hypertension Renew: hydroCHLOROthiazide 25 MG Oral Tablet; TAKE 1 TABLET BY MOUTH EVERY DAY Essential hypertension, High risk medication use, PAF (paroxysmal atrial fibrillation) Basic Metabolic Panel; Status:Active - Retrospective Authorization; Requested for:[id number]; Complete Blood Count; Status:Active - Retrospective Authorization; Requested for:[id number]; PAF (paroxysmal atrial fibrillation) IO EKG Electrocardiogram- 12 Lead; Status:Complete; Done: [id number] SocHx: Former smoker Tobacco Use Screening; Status:Complete; Done: [id number] Patient Instructions Please bring all medicines, vitamins, and herbal supplements with you when you come to the office. Prescriptions will not be filled unless you are compliant with your follow up appointments or have a follow up appointment scheduled as per instruction of your physician. Refills should be requested at the time of your visit. The provider reviewed the following test(s) and result(s) with the patient: ECG Chief Complaint TRACY JUAREZ is being seen for a 6 month follow-up of. Patient is in the office for follow-up for the problems noted below. She has had no events since her last visit. EKG confirmed normal sinus rhythm with first-degree AV block unchanged from previously. She is due for blood work which is scheduled. Her weight is still above target and education provided for low calorie diet. She uses a cane for ambulation. She does have CPAP machine that she utilizes on a nightly basis. Her cardiac and pulmonary examinations and vascular examination was normal. ASSESSMENT AND PLAN: 1. Paroxysmal atrial fibrillation, on flecainide and Xarelto with no breakthrough episodes. No change in medication was felt to be necessary. EKG today was normal except for first-degree AV block MI interval 220 ms 2. Sleep apnea, on CPAP machine with compliant patient in that regard. 3. Class II obesity. Weight loss education was provided emphasizing on low-calorie diet 4. Hypothyroidism, managed by PCP, thyroid function is normal 5. Hypertension controlled on current medications with no changes needed, she tolerated the complex regimen fairly well 6. High risk medication with no complications associated with flecainide or Xarelto, CBC is ordered 7?first-degree AV block which is inconsequential Follow up as scheduled in 6 months. Julianne Pang MD, [facility] Surgical History Problems History of Appendectomy History of Complete colonoscopy History of Excision melanoma History of Eye surgery History of Hysterectomy History of Knee replacement History of Thyroidectomy Current Meds Medication NameInstruction Citalopram Hydrobromide 20 MG Oral TabletTAKE 1 TABLET BY MOUTH DAILY Fexofenadine-Pseudoephed ER 180-240 MG Oral Tablet Extended Release 24 HourTAKE 1 TABLET DAILY. Flecainide Acetate 50 MG Oral TabletTake 1 tablet twice a day hydrALAZINE HCl - 50 MG Oral TabletTake 1 tablet twice a day hydroCHLOROthiazide 25 MG Oral TabletTAKE 1 TABLET BY MOUTH EVERY DAY Klor-Con M20 20 MEQ Oral Tablet Extended ReleaseTake 1 tablet by mouth three times a day Labetalol HCl - 200 MG Oral TabletTake 1 tablet twice a day Levothyroxine Sodium 112 MCG Oral TabletTAKE 1 TABLET BY MOUTH EVERY DAY Liothyronine Sodium 5 MCG Oral TabletTake 1 tablet twice daily Losartan Potassium 100 MG Oral TabletTAKE 1 TABLET BY MOUTH EVERY DAY Methocarbamol 750 MG Oral TabletTAKE 1 TABLET BY MOUTH THREE TIMES A DAY Nabumetone 500 MG Oral TabletTAKE 1 TABLET BY MOUTH TWICE A DAY Pantoprazole Sodium 40 MG Oral Tablet Delayed ReleaseTAKE 1 TABLET DAILY. Topiramate 50 MG Oral TabletTAKE 1 TABLET BY MOUTH AT BEDTIME. Tylenol 500 MG CAPStake as directed prn. Xarelto 20 MG Oral TabletTake 1 tablet daily Allergies Medication No Known Drug Allergies Recorded By: Ludivina Elliott; 07/23/2021 8:21:43 AM Social History Problems Caffeine use (V49.89) (Z78.9) Former smoker (V15.82) (Z87.891) Quit 50+ years ago No alcohol use No illicit drug use Review of Systems Constitutional: not feeling tired. Cardiovascular: no intermittent leg claudication and as noted in HPI. Respiratory: no cough and no shortness of breath. Gastrointestinal: no change in jacquelyn (more content not included)... [facility] 0 05-05-2023 Pathology Report Name TRACY JUAREZ Pathologist: LINDA LUTZ MD Date of Procedure: 04/27/2023 Date Received: 04/29/2023 Date Reported 05/05/2023 Submitting Physician: COTY CASIANO MD Location: [facility] Other External # FINAL DIAGNOSIS A. NODE, LEFT AXILLARY SENTINEL LYMPH NODE #1, 260 COUNT, BIOPSY: FOCAL MELAN-A STAINING, SEE NOTE. Note: Microscopic examination reveals an enlarged lymph node. In the subcapsular space there is focal Melan-A staining. This is compared with primary melanoma in XN30-810 and is smaller. It is not seen on the SOX-10 or HMB45 stain. All control slides stain appropriately. A benign lymph node is favored. B. NODE, LEFT AXILLARY SENTINEL LYMPH NODE #2, 457 COUNT, BIOPSY: BENIGN LYMPH NODE. C. NODE, LEFT AXILLARY SENTINEL LYMPH NODE #3, 267 COUNT, BIOPSY: BENIGN LYMPH NODE. D. NODE, LEFT AXILLARY SENTINEL LYMPH NODE #4, 0 COUNT, BIOPSY: FOCAL MELAN-A STAINING, SEE NOTE. Note: Microscopic examination reveals a lymph node. There is focal Melan-A staining in the parenchyma of a lymph node that is not definitively of a cell. Staining in this area is not seen on a SOX-10 or HMB45 stain. All control slides stain appropriately. A benign lymph node is favored. E. NODE, LEFT AXILLARY SENTINEL LYMPH NODE #5, COUNT 127, BIOPSY: BENIGN LYMPH NODE. F. NODE, LEFT AXILLARY SENTINEL LYMPH NODE #6, 0 COUNT, BIOPSY: BENIGN LYMPH NODE. G. SKIN, OPEN WIDE EXCISION LEFT UPPER ARM, 4x12 SHORT - SUPERIOR, LONG - POSTERIOR: CHANGES CONSISTENT WITH PREVIOUS PROCEDURE, INKED MARGINS FREE IN PLANES OF SECTIONS EXAMINED, WITHOUT RESIDUAL ATYPICAL MELANOCYTIC NEOPLASM SEEN. Electronically Signed Out by LINDA LUTZ M.D. Note One or more of the reagents used to perform assays on this specimen MAY have contained components considered to be analyte specific reagents (ASR's). ASR's have not been cleared or approved by the U.S. Food and Drug Administration. These assays were developed and their performance characteristics determined by the Department of Pathology at [facility]. The FDA does not require this test to go through premarket FDA review. This test is used for clinical purposes. It should not be regarded as investigational or for research. This laboratory is certified under the Clinical Laboratory Improvement Amendments (CLIA) as qualified to perform high complexity clinical laboratory testing. The assays were performed with appropriate positive and negative controls which stained appropriately. Electronically Signed Out By LINDA LUTZ MD/MILAGRO By the signature on this report, the individual or group listed as making the Final Interpretation/Diagnosis certifies that they have reviewed this case. Diagnostic interpretation performed at [facility] [address] [facility] [address] Microscopic Description: B: Microscopic examination reveals a lymph node with normal architecture. No melanoma is seen on H and E staining. Melan-A, SOX-10, and HMB45 stains are unremarkable. All control slides stain appropriately. C: Microscopic examination reveals a lymph node with normal architecture. No melanoma is seen on H and E staining. Melan-A, SOX-10, and HMB45 stains are unremarkable. All control slides stain appropriately. E: Microscopic examination reveals a lymph node with normal architecture. No melanoma is seen on H and E staining. Melan-A, SOX-10, and HMB45 stains are unremarkable. All control slides stain appropriately. F: Microscopic examination reveals a lymph node with normal architecture. No melanoma is seen on H and E staining. Melan-A, SOX-10, and HMB45 stains are unremarkable. All control slides stain appropriately. G: Microscopic examination reveals a specimen that extends into the subcutaneous fat. An area with horizontally oriented collagen and vertically oriented vessels is present. Step sections were performed. Clinical History: Dx: Malignant melanoma of left upper limb, including shoulder. A. Left axillary sentinel lymph node #1, 260 count, out @ 1406, in formalin @ 1408. Biopsy. B. Left axillary sentinel lymph node #2, 457 count, out @1424, in formalin @ 1425. Biopsy. C. Left axillary sentinel lymph node #3, 267 count, out @ 1428, in formal (more content not included)... [facility] Dermatopathologyon Dermatopathology Name TRACY JUAREZ Pathologist: LINDA LUTZ MD Date of Procedure: 04/27/2023 Date Received: 04/29/2023 Date Reported 05/05/2023 Submitting Physician: COTY CASIANO MD Location: [facility] Other External # FINAL DIAGNOSIS A. NODE, LEFT AXILLARY SENTINEL LYMPH NODE #1, 260 COUNT, BIOPSY: FOCAL MELAN-A STAINING, SEE NOTE. Note: Microscopic examination reveals an enlarged lymph node. In the subcapsular space there is focal Melan-A staining. This is compared with primary melanoma in KL60-223 and is smaller. It is not seen on the SOX-10 or HMB45 stain. All control slides stain appropriately. A benign lymph node is favored. B. NODE, LEFT AXILLARY SENTINEL LYMPH NODE #2, 457 COUNT, BIOPSY: BENIGN LYMPH NODE. C. NODE, LEFT AXILLARY SENTINEL LYMPH NODE #3, 267 COUNT, BIOPSY: BENIGN LYMPH NODE. D. NODE, LEFT AXILLARY SENTINEL LYMPH NODE #4, 0 COUNT, BIOPSY: FOCAL MELAN-A STAINING, SEE NOTE. Note: Microscopic examination reveals a lymph node. There is focal Melan-A staining in the parenchyma of a lymph node that is not definitively of a cell. Staining in this area is not seen on a SOX-10 or HMB45 stain. All control slides stain appropriately. A benign lymph node is favored. E. NODE, LEFT AXILLARY SENTINEL LYMPH NODE #5, COUNT 127, BIOPSY: BENIGN LYMPH NODE. F. NODE, LEFT AXILLARY SENTINEL LYMPH NODE #6, 0 COUNT, BIOPSY: BENIGN LYMPH NODE. G. SKIN, OPEN WIDE EXCISION LEFT UPPER ARM, 4x12 SHORT - SUPERIOR, LONG - POSTERIOR: CHANGES CONSISTENT WITH PREVIOUS PROCEDURE, INKED MARGINS FREE IN PLANES OF SECTIONS EXAMINED, WITHOUT RESIDUAL ATYPICAL MELANOCYTIC NEOPLASM SEEN. Electronically Signed Out by LINDA LUTZ M.D. Note One or more of the reagents used to perform assays on this specimen MAY have contained components considered to be analyte specific reagents (ASR's). ASR's have not been cleared or approved by the U.S. Food and Drug Administration. These assays were developed and their performance characteristics determined by the Department of Pathology at [facility]. The FDA does not require this test to go through premarket FDA review. This test is used for clinical purposes. It should not be regarded as investigational or for research. This laboratory is certified under the Clinical Laboratory Improvement Amendments (CLIA) as qualified to perform high complexity clinical laboratory testing. The assays were performed with appropriate positive and negative controls which stained appropriately. Electronically Signed Out By LINDA LUTZ MD/MILAGRO By the signature on this report, the individual or group listed as making the Final Interpretation/Diagnosis certifies that they have reviewed this case. Diagnostic interpretation performed at [facility] [address] [facility], [facility] [address] Microscopic Description: B: Microscopic examination reveals a lymph node with normal architecture. No melanoma is seen on H and E staining. Melan-A, SOX-10, and HMB45 stains are unremarkable. All control slides stain appropriately. C: Microscopic examination reveals a lymph node with normal architecture. No melanoma is seen on H and E staining. Melan-A, SOX-10, and HMB45 stains are unremarkable. All control slides stain appropriately. E: Microscopic examination reveals a lymph node with normal architecture. No melanoma is seen on H and E staining. Melan-A, SOX-10, and HMB45 stains are unremarkable. All control slides stain appropriately. F: Microscopic examination reveals a lymph node with normal architecture. No melanoma is seen on H and E staining. Melan-A, SOX-10, and HMB45 stains are unremarkable. All control slides stain appropriately. G: Microscopic examination reveals a specimen that extends into the subcutaneous fat. An area with horizontally oriented collagen and vertically oriented vessels is present. Step sections were performed. Clinical History: Dx: Malignant melanoma of left upper limb, including shoulder. A. Left axillary sentinel lymph node #1, 260 count, out @ 1406, in formalin @ 1408. Biopsy. B. Left axillary sentinel lymph node #2, 457 count, out @1424, in formalin @ 1425. Biopsy. C. Left axillary sentinel lymph node #3, 267 count, out @ 1428, in formalin @ 1430. Biopsy. D. Left axillary sentinel lymph node #4, 0 count, out @ 1432, in formalin @1434. Biopsy. E. Left axillary sentinel lymph node #5, count 127, out @ 1436, in formalin @ 1438. Biopsy. F. Left axillary sentinel lymph node #6, 0 count, out @ 1437, in formalin @ 1438. Biopsy. G. Open wide excision, left upper arm, 4 x 12, short-superior, long-posterior, out @ 1457, in formalin @ 1458. Biopsy. Specimens Submitted As: A: NODE, LEFT AXILLARY SENTINEL LYMPH NODE #1, 260 COUNT B: NODE, LEFT AXILLARY SENTINEL LYMPH NODE #2, 457 COUNT C: NODE, LEFT AXILLARY SENTINEL LYMPH NODE #3, 26 (more content not included)... Normal [facility] Comment on above: Performed By: #### D #### Dermatopathology LYMPH GLANDon 04-27-2023 LYMPH GLAND Patient Name: TRACY JUAREZ STUDY: LYMPH GLAND; TUMOR LOC SPECT/CT; 04/27/2023 12:29 pm; 04/27/2023 12:30 pm INDICATION: FOR WIDE LOCAL EXCISION OF MEALNOMA OF LEFT ARM AND SENTINEL LYMPH NODE BIOPSY ON 04/27/23. PLEASE SCHEDULE FOR 04/27/23. C43.62: Malignant melanoma of left upper arm. COMPARISON: None. ACCESSION NUMBER(S): [id number]; [id number] ORDERING CLINICIAN: COTY CASIANO TECHNIQUE: DIVISION OF NUCLEAR MEDICINE RADIONUCLIDE SENTINEL LYMPH NODE LYMPHOSCINTIGRAPHY A total of 0.50 millicuries of Tc-99m tilmanocept ([employer]) was injected intradermally in a circumferential pattern surrounding the patient's left distal forearm near the elbow melanoma biopsy site. Sequential images were then acquired. FINDINGS: Analysis of the images reveals relatively intense tracer deposition at the injection site. Note is made of activity tracking toward the left axilla. Planar images reveals a focus in the region of the left axilla. SPECT CT images localized tracer deposition to lymph nodes in the left axilla. Localizing SPECT CT images were sent to PACS. IMPRESSION: Successful sentinel lymph node localization in the left axilla. Localizing SPECT CT images were sent to PACS. Images were interpreted at [facility]. Electronically signed by: MATTHEW BURROWS MD Normal [facility] NM Lymph Glandon 04-27-2023 NM Lymph node Views Normal [facility] on [address] Work Phone: NM Lymphatic vessels Views W radionuclide intra lymphaticon 04-27-2023 Radiology Study observation (narrative) [facility] Work Phone: NM Tumor Loc Spec/CTon 04-27 NM Tumor Loc Spec/CT Normal [facility] on [facility] [place] Work Phone: NM tumor LOC SPECT CTon 04-17 Radiology Study observation (narrative) [facility] Work Phone: No Panel Informationon 04-27 Successful sentinel lymph node localization in the left axilla. Localizing SPECT CT images were sent to PACS. Images were interpreted at [facility]. [facility] [place] [employer] SYSTEM Interpreted By: MATTHEW JUNIOR MD Patient Name: TRACY JUAREZ STUDY: LYMPH GLAND; TUMOR LOC SPECT/CT; 04/27/2023 12:29 pm; 04/27/2023 12:30 pm INDICATION: FOR WIDE LOCAL EXCISION OF MEALNOMA OF LEFT ARM AND SENTINEL LYMPH NODE BIOPSY ON 04/27/23. PLEASE SCHEDULE FOR 04/27/23. C43.62: Malignant melanoma of left upper arm. COMPARISON: None. ACCESSION NUMBER(S): [id number]; [id number] ORDERING CLINICIAN: COTY CASIANO TECHNIQUE: DIVISION OF NUCLEAR MEDICINE RADIONUCLIDE SENTINEL LYMPH NODE LYMPHOSCINTIGRAPHY A total of 0.50 millicuries of Tc-99m tilmanocept ([employer]) was injected intradermally in a circumferential pattern surrounding the patient's left distal forearm near the elbow melanoma biopsy site. Sequential images were then acquired. FINDINGS: Analysis of the images reveals relatively intense tracer deposition at the injection site. Note is made of activity tracking toward the left axilla. Planar images reveals a focus in the region of the left axilla. SPECT CT images localized tracer deposition to lymph nodes in the left axilla. Localizing SPECT CT images were sent to PACS. [facility] [place] [employer] Matthew Burrows MD - 04/27/2023 Interpreted By: MATTHEW BURROWS MD Patient Name: TRACY JUAREZ STUDY: LYMPH GLAND; TUMOR LOC SPECT/CT; 04/27/2023 12:29 pm; 04/27/2023 12:30 pm INDICATION: FOR WIDE LOCAL EXCISION OF MEALNOMA OF LEFT ARM AND SENTINEL LYMPH NODE BIOPSY ON 04/27/23. PLEASE SCHEDULE FOR 04/27/23. C43.62: Malignant melanoma of left upper arm. COMPARISON: None. ACCESSION NUMBER(S): [id number]; [id number] ORDERING CLINICIAN: COTY CASIANO TECHNIQUE: DIVISION OF NUCLEAR MEDICINE RADIONUCLIDE SENTINEL LYMPH NODE LYMPHOSCINTIGRAPHY A total of 0.50 millicuries of Tc-99m tilmanocept ([employer]) was injected intradermally in a circumferential pattern surrounding the patient's left distal forearm near the elbow melanoma biopsy site. Sequential images were then acquired. FINDINGS: Analysis of the images reveals relatively intense tracer deposition at the injection site. Note is made of activity tracking toward the left axilla. Planar images reveals a focus in the region of the left axilla. SPECT CT images localized tracer deposition to lymph nodes in the left axilla. Localizing SPECT CT images were sent to PACS. IMPRESSION: Successful sentinel lymph node localization in the left axilla. Localizing SPECT CT images were sent to PACS. Images were interpreted at [facility]. [facility] Work Phone: No Panel InformationOrdered By: Matthew Burrows on 04-27-2023 [facility] Work Phone: Order Reconciliationon 04-27 Order Reconciliation Page 1 Discharge Reconciliation Document Reconciliation Type: Discharge requested on behalf of Coty Casiano (Physician) done by Coty Casiano) Discharge - Reconciliation: 27-Apr-2023 13:18 by: Coty Casiano) Home Medications EnteredHOME MEDICATIONS AT DISCHARGE DateReconciliation Comment/ Additional Information citalopram 20 mg oral tablet 1 tab(s) orally once a day 24-Apr-2023 08:24 citalopram 20 mg oral tablet 1 tab(s) orally once a day 24-Apr-2023 08:24 citalopram 20 mg oral tablet is continued as citalopram 20 mg oral tablet flecainide 50 mg oral tablet 1 tab(s) orally every 12 hours 24-Apr-2023 08:25 flecainide 50 mg oral tablet 1 tab(s) orally every 12 hours 24-Apr-2023 08:25 flecainide 50 mg oral tablet is continued as flecainide 50 mg oral tablet gabapentin 100 mg oral capsule 1 cap(s) orally 2 times a day 24-Apr-2023 08:25 gabapentin 100 mg oral capsule 1 cap(s) orally 2 times a day 24-Apr-2023 08:25 gabapentin 100 mg oral capsule is continued as gabapentin 100 mg oral capsule hydrALAZINE 50 mg oral tablet 1 tab(s) orally 2 times a day 24-Apr-2023 08:25 hydrALAZINE 50 mg oral tablet 1 tab(s) orally 2 times a day 24-Apr-2023 08:25 hydrALAZINE 50 mg oral tablet is continued as hydrALAZINE 50 mg oral tablet hydroCHLOROthiazide 25 mg oral tablet 1 tab(s) orally once a day 24-Apr-2023 08:26 hydroCHLOROthiazide 25 mg oral tablet 1 tab(s) orally once a day 24-Apr-2023 08:26 hydroCHLOROthiazide 25 mg oral tablet is continued as hydroCHLOROthiazide 25 mg oral tablet Klor-Con M20 oral tablet, extended release 1.5 tab(s) orally 2 times a day 24-Apr-2023 08:27 Klor-Con M20 oral tablet, extended release 1.5 tab(s) orally 2 times a day 24-Apr-2023 08:27 Klor-Con M20 oral tablet, extended release is continued as Klor-Con M20 oral tablet, extended release labetalol 200 mg oral tablet 1 tab(s) orally 2 times a day (Instruction to take morning of procedure with a sip of water) 24-Apr-2023 08:27 labetalol 200 mg oral tablet 1 tab(s) orally 2 times a day (Instruction to take morning of procedure with a sip of water) 24-Apr-2023 08:27 labetalol 200 mg oral tablet is continued as labetalol 200 mg oral tablet levothyroxine 112 mcg (0.112 mg) oral tablet 1 tab(s) orally once a day 24-Apr-2023 08:28 levothyroxine 112 mcg (0.112 mg) oral tablet 1 tab(s) orally once a day 24-Apr-2023 08:28 levothyroxine 112 mcg (0.112 mg) oral tablet is continued as levothyroxine 112 mcg (0.112 mg) oral tablet liothyronine 5 mcg oral tablet 1 tab(s) orally once a day 24-Apr-2023 08:28 liothyronine 5 mcg oral tablet 1 tab(s) orally once a day 24-Apr-2023 08:28 liothyronine 5 mcg oral tablet is continued as liothyronine 5 mcg oral tablet losartan 100 mg oral tablet 1 tab(s) orally once a day 24-Apr-2023 08:29 losartan 100 mg oral tablet 1 tab(s) orally once a day 24-Apr-2023 08:29 losartan 100 mg oral tablet is continued as losartan 100 mg oral tablet methocarbamol 750 mg oral tablet 1 tab(s) orally 3 times a day 24-Apr-2023 08:30 methocarbamol 750 mg oral tablet 1 tab(s) orally 3 times a day 24-Apr-2023 08:30 methocarbamol 750 mg oral tablet is continued as methocarbamol 750 mg oral tablet nabumetone 500 mg oral tablet 1 tab(s) orally 2 times a day 24-Apr-2023 08:31 nabumetone 500 mg oral tablet 1 tab(s) orally 2 times a day 24-Apr-2023 08:31 nabumetone 500 mg oral tablet is continued as nabumetone 500 mg oral tablet omeprazole 40 mg oral delayed release capsule 1 cap(s) orally once a day 24-Apr-2023 08:31 omeprazole 40 mg oral delayed release capsule 1 cap(s) orally once a day 24-Apr-2023 08:31 omeprazole 40 mg oral delayed release capsule is continued as omeprazole 40 mg oral delayed release capsule topiramate 50 mg oral tablet 1 tab(s) orally once a day (at bedtime) 24-Apr-2023 08:32 topiramate 50 mg oral tablet 1 tab(s) orally once a day (at bedtime) 24-Apr-2023 08:32 topiramate 50 mg oral tablet is continued as topiramate 50 mg oral tablet Tylenol 8 HR Arthritis Pain 650 mg oral tablet, extended release 2 tab(s) orally every 8 hours, As Needed 24-Apr-2023 08:32 Tylenol 8 HR Arthritis Pain 650 mg oral tablet, extended release 2 tab(s) orally every 8 hours, As Needed 24-Apr-2023 08:32 Tylenol 8 HR Arthritis Pain 650 mg oral tablet, extended release is continued as Tylenol 8 HR Arthritis Pain 650 mg oral tablet, extended release Xarelto 20 mg oral tablet 1 tab(s) orally once a day (in the morning) Stopping as directed 24-Apr-2023 08:35 Xarelto 20 mg oral tablet 1 tab(s) orally once a day (in the morning) Stopping as directed 24-Apr-2023 08:35 Xarelto 20 mg oral tablet is continued as Xarelto 20 mg oral tablet Current OrdersDateHOME MEDICATIONS AT DISCHARGE DateReconciliation Comment/ Additional Information Albuterol 2.5 mg/ 3 mL Nebulizer Soln (PROVENTIL)DOSE = 3 mL Inhalation Once via Nebulizer, PRN Wheezing (PACU)Clinician Notes: Kira-operative order ONLY 11 (more content not included)... Normal [facility] TUMOR LOC SPECT/CTon 023 TUMOR LOC SPECT/CT Patient Name: TRACY JUAREZ STUDY: LYMPH GLAND; TUMOR LOC SPECT/CT; 04/27/2023 12:29 pm; 04/27/2023 12:30 pm INDICATION: FOR WIDE LOCAL EXCISION OF MEALNOMA OF LEFT ARM AND SENTINEL LYMPH NODE BIOPSY ON 04/27/23. PLEASE SCHEDULE FOR 04/27/23. C43.62: Malignant melanoma of left upper arm. COMPARISON: None. ACCESSION NUMBER(S): [id number]; [id number] ORDERING CLINICIAN: COTY CASIANO TECHNIQUE: DIVISION OF NUCLEAR MEDICINE RADIONUCLIDE SENTINEL LYMPH NODE LYMPHOSCINTIGRAPHY A total of 0.50 millicuries of Tc-99m tilmanocept ([employer]) was injected intradermally in a circumferential pattern surrounding the patient's left distal forearm near the elbow melanoma biopsy site. Sequential images were then acquired. FINDINGS: Analysis of the images reveals relatively intense tracer deposition at the injection site. Note is made of activity tracking toward the left axilla. Planar images reveals a focus in the region of the left axilla. SPECT CT images localized tracer deposition to lymph nodes in the left axilla. Localizing SPECT CT images were sent to PACS. IMPRESSION: Successful sentinel lymph node localization in the left axilla. Localizing SPECT CT images were sent to PACS. Images were interpreted at [facility]. Electronically signed by: MATTHEW BURROWS MD [facility] Patient Profile - Preop v3on 04-24-2023 Patient Profile - Preop v3 Patient Profile - Preop: Initial Info: Patient DemographicsName: TRACY JUAREZ Date: 1945 Address: [address] [place] [address] Primary Phone [phone] Instructions Givenanticoagulant meds - patient advised to consult ordering provider, appropriate clothing, bring responsible adult as the short haul driver (procedure may be cancelled if no short haul driver), center location, insurance information, remove jewerly/piercings Instructions/Prep CommentNPO after midnight as directed How to be AddressedDwana Spoken Language PreferredEnglish Source of Informationpatient; health record Stated Reason for AdmissionPer patient Dr. Casiano is removing a lesion on my left arm by elbow and lymph node biopsy Primary Contact Name and [employer] Doyle [phone] Medications Brought to Hospitalno General Health: Weight in kg91.5 kilogram(s) Weight in umz326.7 pound(s) Weight Methodstated Height in feet5 feet Height in inches1.65 inch(es) Height in cm156.5 centimeter(s) Height Methodstated BMI (kg/m2)37.358 square meter Patient or Family Member Reaction to AnesthesiaMetal in Body: right total knee PREVIOUS SURGERIES AND PROCEDURES: History of Appendectomy History of Complete colonoscopy History of Eye surgery History of Hysterectomy History of Knee replacement History of Thyroidectomy; no previous reaction; no previous family member reaction Blood Avoidance/Restrictionsnone Previous Transfusion Reactionno Equipment Currently Used at [employer] Mgmt: Symptoms/Conditions Managed at [employer]; cardiovascular; endocrine; gastrointestinal; hematologic; immunological; obstetric/gynecologic; peripheral/neurovascular; respiratory; genitourinary; neurological Cancer Symptoms/Conditionsskin Cancer Management Strategiesskin care; routine screening Cancer Symptoms/Conditions Commentremoved and now having a sentinel node biopsy and removal of more tissue on left arm. 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 Cardiovascular Symptoms/Conditionshyperte nsion Cardiovascular Symptoms/Conditions CommentA-fib on blood thinner xeralto Endocrine Symptoms/Conditionsthyroid disease Endocrine Management Strategiesmedication therapy; routine screenings Endocrine Symptoms/Conditions Commentper patient states had thyroidectomy due to a goiter Gastrointestinal Symptoms/Conditionsreflux/ heartburn Gastrointestinal Management Strategiesmedication therapy Genitourinary Symptoms/Conditionsinconti nence Genitourinary Management Strategiesincontinence garment/pad Hematologic Management Strategiesmedication therapy Hematologic Symptoms/Conditions Commenton blood thinner-Xeralto Immunological Symptoms/Conditionsfibromy algia Immunological Management Strategiesmedication therapy Neurological Symptoms/Conditions Commentpatient states she has a familial hand and head tremor that she take topiramate CASINO HOST Symptoms/Conditions Commenthysterectomy Respiratory Symptoms/Conditionssleep disordered breathing Respiratory Management StrategiesCPAP CPAP Settingspatient does not know settings Barriers to Managing Healthnone Relationship/Environ: Lives Withadult child(donte) Living Arrangementshouse Living Environment Commentsadult daughter lives with patient Resource/Environmental Concernsnone Anticipated Transition [place] Services Anticipated at Transitionnone Tobacco Use: Tobacco Useno Pre-op Checklist: Arrival [id number] Arrival Time09:17 NPOyes Last Food [id number] 20:00 Last Clear Fluid [id number] 20:00 NPO Commentsip of wate3r with am medication ID Band On Patientpatient ID (name), allergy, falls risk Consent Signedpending H&P Completepending Anesthesia Assessment Completedpending EKG Performedsee results tab Chest X-Ray Performedsee results tab Preop Antibioticssent to OR Beta-maura Last Dose Date/[id number]-[id number] 07:00 Type and Screen Resultedn/a HCG Urine TestN/A Chlorhexadine Bath Givennot applicable Nasal Antiseptic Appliednot applicable Soap and Water Bath the Night Before Surgeryyes Hair Washed with Shampooyes Bowel Prepno Othermetal/implants: R knee Surgical Site Infection Preventionyes Pain Scales and Managementyes Additional Information: Information Review: Allergies, Home Meds and Significant Events have been Reviewed and Verified with Patient/Familyyes Electronic Signatures: Alondra Fair (NOHEMI) (Signed 24-Apr-2023 08:40) Authored: Initial Info, General Health, Health Mgmt, Relationship/Environ, Tobacco Use Tatianna Gonsalez) (Signed 27-Apr-2023 09:28) Authored: Initial Info, Pre-op Checklist, Additional Information Last Updated: 27-Apr-2023 09:28 by Tatianna Gonsalez (RN) Normal [facility] Dermatopathologyon 3 Dermatopathology Name TRACY JUAREZ Pathologist: LINDA LUTZ MD Date of Procedure: 04/13/2023 Date Received: 04/14/2023 Date Reported 04/15/2023 Submitting Physician: SIRIA ORONA MD Location: [facility] Other External # FINAL DIAGNOSIS SKIN, RIGHT UPPER LIP, SHAVE BIOPSY: BASAL CELL CARCINOMA, NODULAR GROWTH PATTERN, 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 Electronically Signed Out by LINDA LUTZ M.D. Electronically Signed Out By LINDA LUTZ MD/[facility] By the signature on this report, the individual or group listed as making the Final Interpretation/Diagnosis certifies that they have reviewed this case. Diagnostic interpretation performed at Dermatopath Lab [address] [place] [address], [place] [address] Microscopic Description: Microscopic analysis shows a discrete nodule of tumor that is associated with the epidermis. The carcinoma is composed of bland basaloid keratinocytes with peripheral palisaded arrangement of nuclei. Clinical History: R/O BCC. Shave Biopsy. (Marleny) Specimens Submitted As: A: SKIN, RIGHT UPPER LIP Gross Description: Received in formalin is a barkley piece of skin measuring [id number]. The specimen is inked and embedded in toto. ink/04/14/2023 [facility] Dermatopathology Laboratory [place] [address] Normal [facility] Comment on above: Performed By: #### D #### Dermatopathology Heart Rateon 03-31-2023 Heart Rate Normal [place] [facility] [employer] [place] Work Phone: Heart Rate Normal [facility] on [employer] [place] Work Phone: Office Visiton 03-31-2023 Follow-up visit Diagnoses/Problems Malignant melanoma of left upper arm (172.6) (C43.62) Patient Discussion/Summary Ms Juarez is a very pleasant 77-year-old woman with a 2.8 mm thick melanoma on her left upper arm just proximal to her elbow. This was excised with a transverse scar. We discussed the risk benefits of wide local excision and sentinel lymph node biopsy and she would like to proceed. She is interested in participating in the MELMART trial. If we excise this with 1 cm margins it may close primarily but if we need to do 2 cm margins it will be difficult. I will investigate closure options. We will arrange for total-body skin exam as soon as possible so we have the results prior to surgery. Greater than 60 minutes were spent reviewing this case with the patient and other providers. Coty Casiano MD hose tester Division of Surgical Oncology [email or web address] Chief Complaint melanoma History of Present Ishan is a 77 yoM who presents to our [place] clinic today, referred by Ken Moreau for melanoma. The patient noted a pigmented lesion on her left arm and was evaluated by his PCP Dr Moreau who performed an excisional biopsy that revealed a 2.8 mm non-ulcerated melanoma with close but clear margins. All other systems have been reviewed and are negative except as noted in the HPI. PMH is significant for atrial fibrillation on Xarelto, arthritis, hypothyroid, hypertension, heart block, sleep apnea. PSH is significant for hysterectomy, thyroidectomy, right knee replacement. I personally reviewed all necessary laboratory results, pathology reports, and radiologic images for this patient. Active Problems Class 2 obesity with body mass index (BMI) of 36.0 to 36.9 in adult (278.00,V85.36) (E66.9,Z68.36) Essential hypertension (401.9) (I10) First degree AV block (426.11) (I44.0) Former smoker (V15.82) (Z87.891) Quit 50+ years ago High risk medication use (V58.69) (Z79.899) Hypokalemia (276.8) (E87.6) Hypothyroidism (244.9) (E03.9) Obstructive sleep apnea syndrome (327.23) (G47.33) PAF (paroxysmal atrial fibrillation) (427.31) (I48.0) Surgical History History of Appendectomy History of Complete colonoscopy History of Eye surgery History of Hysterectomy History of Knee replacement History of Thyroidectomy Social History Caffeine use (V49.89) (Z78.9) Former smoker (V15.82) (Z87.891) Quit 50+ years ago No alcohol use No illicit drug use Allergies No Known Drug Allergies Recorded By: Ludivina Elliott; 07/23/2021 8:21:43 AM Current Meds Medication NameInstruction Citalopram Hydrobromide 20 MG Oral TabletTAKE 1 TABLET BY MOUTH DAILY Flecainide Acetate 50 MG Oral TabletTake 1 tablet twice a day Gabapentin 100 MG Oral CapsuleTake 1 capsule twice daily hydrALAZINE HCl - 50 MG Oral TabletTake 1 tablet twice a day hydroCHLOROthiazide 25 MG Oral TabletTAKE 1 TABLET BY MOUTH EVERY DAY Klor-Con M20 20 MEQ Oral Tablet Extended ReleaseTake 1 tablet twice daily Labetalol HCl - 200 MG Oral TabletTake 1 tablet twice a day Levothyroxine Sodium 112 MCG Oral TabletTAKE 1 TABLET BY MOUTH EVERY DAY Liothyronine Sodium 5 MCG Oral TabletTake 1 tablet twice daily Losartan Potassium 100 MG Oral TabletTAKE 1 TABLET BY MOUTH EVERY DAY Methocarbamol 750 MG Oral TabletTAKE 1 TABLET BY MOUTH THREE TIMES A DAY Nabumetone 500 MG Oral TabletTAKE 1 TABLET BY MOUTH TWICE A DAY Omeprazole 40 MG Oral Capsule Delayed ReleaseTAKE ONE CAPSULE BY MOUTH EVERY DAY Topiramate 50 MG Oral TabletTAKE 1 TABLET BY MOUTH AT BEDTIME. Tylenol 500 MG CAPStake as directed prn. Xarelto 20 MG Oral TabletTake 1 tablet daily Physical Exam General: no acute distress, well-nourished Eyes: intact EOM, no scleral icterus ENT: hearing intact, no drainage Respiratory: symmetric chest rise, no cough Cardiovascular: intact distal pulses, no pitting edema Abdominal: Soft, nontender Musculoskeletal: no deformities, intact strength Integumentary: Healing biopsy site, no lymphadenopathy Neuro: no focal deficits, sensation intact Psych: normal mood and affect Results/Data Edhfogprwiqtjxer45Pdm1255 12:00Coty Gomes Test NameResultFlagReference Dermatopathology(Report) Name: PEGGYCHEN LEVY Pathologist: LINDA LUTZ MD Date of Procedure: 03/04/2023 Date Received: 03/04/2023 Date Reported 03/05/2023 Submitting Physician: COTY CASIANO MD Location: [facility] Copy To/Referring/Attending: MD DEVORAH GAITAN FINAL DIAGNOSIS [address], [facility] #[id number] (BX: 02/04/2023) SKIN, LEFT ARM SKIN LESION, EXCISION: MALIGNANT MELANOMA, SEE NOTE. Note: Microscopic examination reveals a specimen that extends into the deep reticular dermis. In the dermis there is a well circumscribed nodule of atypical epithelioid cells with a brisk surrounding lymphocytic infiltrate. The lymphocytes stain with antibodies against CD45 LCA, and do not stain wit (more content not included)... Normal [facility] Dermatopathologyon Dermatopathology Name: CHEN LOCKETT Pathologist: LINDA LUTZ MD Date of Procedure: 03/04/2023 Date Received: 03/04/2023 Date Reported 03/05/2023 Submitting Physician: COTY CASIANO MD Location: [facility] Copy To/Referring/Attending: HECTOR JACKSON MD DEVORAH JULIONAIMA FINAL DIAGNOSIS [address], [facility], #[id number] (BX: 02/04/2023) SKIN, LEFT ARM SKIN LESION, EXCISION: MALIGNANT MELANOMA, SEE NOTE. Note: Microscopic examination reveals a specimen that extends into the deep reticular dermis. In the dermis there is a well circumscribed nodule of atypical epithelioid cells with a brisk surrounding lymphocytic infiltrate. The lymphocytes stain with antibodies against CD45 LCA, and do not stain with antibodies against AE1/AE3 or CAM 5.2. They stain strongly with antibodies against SOX-10, MART-1 and HMB45. Ki-67 has a moderate index of staining of approximately fifteen percent of cells. The lack of epidermal attachment raises the possibility of a metastatic or recurrent melanoma. If it is a primary melanoma it would have features as outlined in the synoptic report. Electronically Signed Out by LINDA LUTZ M.D. CANCER SUMMARY REPORT A. [address], [facility] #[id number] (BX: 02/04/2023): SPECIMEN Procedure: Not specified Specimen Laterality: Left TUMOR Tumor Site: Skin of upper limb and shoulder: Left arm Histologic Type: Primary dermal Maximum Tumor (Breslow) Thickness (Millimeters): 2.8 mm Ulceration: Not identified Anatomic (Bay) Level: IV (melanoma invades reticular dermis) Mitotic Rate: 1 mitoses per mm2 Microsatellite(s): Not identified Lymphovascular Invasion: Not identified Neurotropism: Not identified Tumor-Infiltrating Lymphocytes: Present, nonbrisk Tumor Regression: Not identified MARGINS Margin Status for Invasive Melanoma: All margins negative for invasive melanoma Closest Margin(s) to Invasive Melanoma: Not possible Distance from Invasive Melanoma to Closest Peripheral Margin: 0.5 mm Distance from Invasive Melanoma to Deep Margin: 0.9 mm PATHOLOGIC STAGE CLASSIFICATION (pTNM, AJCC 8th Edition) Reporting of pT categories is based on information available to the pathologist at the time the report is issued. As per the AJCC (Chapter 1, 8th Ed.) it is the managing physician?s responsibility to establish the final pathologic stage based upon all pertinent information, including but potentially not limited to this pathology report. pT Category: pT3a ADDITIONAL FINDINGS Additional Findings: None ADDITIONAL TESTING Functional Consultant Blocks: Normal Block: None Tumor Block: A2 Electronically Signed Out By LINDA LUTZ MD/[facility]IL[facility] Diagnostic interpretation performed at [facility] Dermatopath Lab [address] [place], [place] [id number], [facility] [address] Clinical History: PRE-OP DIAGNOSIS: Not specified POST-OP DIAGNOSIS: Atypical Specimens Submitted As: A: [address], [facility] DEPT. OF PATHOLOGY, #[id number] (BX: 02/04/2023) Gross Description: Received for consultation from [facility] Dept. of Pathology are eleven slides labeled [id number] (BX: 02/04/2023) along with the corresponding pathology report. Slide/Block Description 11 [address], [id number]. Keep Slides: N Slides Returned: N Personal Consult: N Normal [facility] Comment on above: Performed By: #### D #### Dermatopathology No Panel Informationon 03-04 IP-Wlbsaxa-Ei [facility] Work Phone: Office Visit (Cardiology)on 11-11-2022 Follow-up visit Diagnoses/Problems Assessed Essential hypertension (401.9) (I10) First degree AV block (426.11) (I44.0) PAF (paroxysmal atrial fibrillation) (427.31) (I48.0) Obstructive sleep apnea syndrome (327.23) (G47.33) High risk medication use (V58.69) (Z79.899) Former smoker (V15.82) (Z87.891) Quit 50+ years ago Class 2 obesity with body mass index (BMI) of 36.0 to 36.9 in adult (278.00,V85.36) (E66.9,Z68.36) Orders Class 2 obesity with body mass index (BMI) of 36.0 to 36.9 in adult, SocHx: Former smoker Healthy Weight Tips; Status:Complete - Retrospective Authorization; Done: 11Nov2022 Some eating tips that can help you lose weight.; Status:Complete - Retrospective Authorization; Done: 11Nov2022 PAF (paroxysmal atrial fibrillation) IO EKG Electrocardiogram- 12 Lead; Status:Complete; Done: 11Nov2022 SocHx: Former smoker Tobacco Use Screening; Status:Complete; Done: 11Nov2022 Patient Instructions Please bring all medicines, vitamins, and herbal supplements with you when you come to the office. Prescriptions will not be filled unless you are compliant with your follow up appointments or have a follow up appointment scheduled as per instruction of your physician. Refills should be requested at the time of your visit. Follow up in 6 months Chief Complaint TRACY JUAREZ is being seen for a 6 month follow-up of. Patient is in the office for follow-up for the problems noted below. She has had no breakthrough atrial fibrillation on flecainide confirmed by EKG today. She has been on Xarelto without bleeding complications. She is compliant with CPAP machine. She lost more than 15 pounds since her last visit which is very encouraging and encouragement provided and she was congratulated on her efforts. Her lab data have been followed closely and there have been no area of concern. ASSESSMENT AND PLAN: 1. Paroxysmal atrial fibrillation, on flecainide and Xarelto with no breakthrough episodes. No change in medication was felt to be necessary. EKG today was normal except for first-degree AV block MI interval 210 ms 2. Sleep apnea, on CPAP machine with compliant patient in that regard. 3. Obesity. Patient intentionally lost 14 pounds since her last visit and encouragement were provided to keep doing that. 4. Hypothyroidism, managed by PCP, thyroid function is normal 5. Hypertension controlled on current medications with no changes needed 6. High risk medication with no complications associated with flecainide or Xarelto 7?first-degree AV block which is inconsequential Follow up as scheduled in 6 months. Julianne Pang MD, [facility] Surgical History Problems History of Appendectomy History of Complete colonoscopy History of Eye surgery History of Hysterectomy History of Knee replacement History of Thyroidectomy Current Meds Medication NameInstruction Citalopram Hydrobromide 20 MG Oral TabletTAKE 1 TABLET BY MOUTH DAILY Flecainide Acetate 50 MG Oral TabletTake 1 tablet twice a day Gabapentin 100 MG Oral CapsuleTake 1 capsule twice daily hydrALAZINE HCl - 50 MG Oral Tablettake 1 tablet by mouth twice a day hydroCHLOROthiazide 25 MG Oral TabletTAKE 1 TABLET BY MOUTH EVERY DAY Klor-Con M20 20 MEQ Oral Tablet Extended ReleaseTake 1 tablet twice daily Labetalol HCl - 200 MG Oral Tablettake 1 tablet by mouth twice a day Levothyroxine Sodium 112 MCG Oral TabletTAKE 1 TABLET BY MOUTH EVERY DAY Liothyronine Sodium 5 MCG Oral TabletTake 1 tablet twice daily Losartan Potassium 100 MG Oral TabletTAKE 1 TABLET DAILY. Methocarbamol 750 MG Oral TabletTAKE 1 TABLET BY MOUTH THREE TIMES A DAY Nabumetone 500 MG Oral TabletTAKE 1 TABLET BY MOUTH TWICE A DAY Omeprazole 40 MG Oral Capsule Delayed ReleaseTAKE ONE CAPSULE BY MOUTH EVERY DAY Topiramate 50 MG Oral TabletTAKE 1 TABLET BY MOUTH AT BEDTIME. Tylenol 500 MG CAPStake as directed prn. Xarelto 20 MG Oral TabletTake 1 tablet daily Allergies Medication No Known Drug Allergies Recorded By: Ludivina Elliott; 07/23/2021 8:21:43 AM Social History Problems Caffeine use (V49.89) (Z78.9) Former smoker (V15.82) (Z87.891) Quit 50+ years ago No alcohol use No illicit drug use Review of Systems Constitutional: not feeling tired. Cardiovascular: no intermittent leg claudication and as noted in HPI. Respiratory: shortness of breath, but no cough. Gastrointestinal: no change in bowel habits and no blood in stools. Integumentary: no skin rashes. Neurological: dizziness, but no seizures and no frequent falls. All other systems have been reviewed and are negative for complaint. Vitals Vital Signs Recorded: 11Nov2022 11:18AMRecorded: 11Nov2022 11:13AM Nfxaoesr093, LUE, Nqzbyubv448, LUE, Sitting Ummkyiorz67, LUE, Pgsfeanp72, LUE, Sitting Heart Rate77, Apical Height5 ft 2 in Mnavgy638 lb BMI Oigkphgsvf39.03 kg/m2 BSA Calculated1.9 Tobacco Useb) No PHQ-2 #1. Over the last 2 weeks have you felt down, depressed or hopeless? (If (more content not included)... Normal [facility] Tobacco Screening.on 023 Adult depression screening assessment No [facility] io [facility] y 250 DO Work Phone: Fall risk assessment a) No falls within the last year [facility] 250 DO Work Phone: Tobacco use status [facility] b) No [facility] 250 DO Work Phone: CBC AUTO DIFFon 11-03-2022 BASO # 0.1 103/ul Normal 0.0-0.[address] [facility] Comment on above: Performed By: #### C BC #### [facility] [address] [place] [address] Dr. Ron Son Basophils/100 WBC (Bld) 0.8 % Normal 0.2-2.[address] [facility] Comment on above: Performed By: #### C BC #### [facility] [address] [place] [address] Dr. Ron Son EO # 0.2 103/ul Normal 0.0-0.[address] [facility] Comment on above: Performed By: #### C BC #### [facility] [address] [place] [address] Dr. Ron Son Eosinophils/100 WBC (Bld) 3.2 % Normal 0.9-7.[address] [facility] Comment on above: Performed By: #### C BC #### [facility] [address] [place] [address] Dr. Ron Son Erythrocyte distribution width (RBC) [Ratio] 14.3 % Normal 11.0-15.[address] [facility] Comment on above: Performed By: #### C BC #### [facility] [address] [place] [address] Dr. Ron Son Hematocrit (Bld) [Volume fraction] 39.8 % Normal 36.0-48.[address] [facility] Comment on above: Performed By: #### C BC #### [facility] [address] [place] [address] Dr. Ron Son Hemoglobin (Bld) [Mass/Vol] 12.9 g/dL Normal 12.0-16.[address] [facility] Comment on above: Performed By: #### C BC #### [facility] [address] [place] [address] Dr. Ron Son IG # 0.09 10e3/ul Critically high 0.00-0.03 [facility] Comment on above: Performed By: #### C BC #### [facility] [address] [place] [address] Dr. Ron Son IG % 1.5 % Critically high 0.0-0.5 [facility] Comment on above: Performed By: #### C BC #### [facility] [address] [place] [address] Dr. Ron Son LYMPH # 1.8 103/ul Normal 1.2-3.[address] [facility] Comment on above: Performed By: #### C BC #### [facility] [address] [place] [address] Dr. Ron Son Lymphocytes/100 WBC (Bld) 30.8 % Normal 20.5-60.[address] [facility] Comment on above: Performed By: #### C BC #### [facility] [address] [place] [address] Dr. Ron Son MANUAL DIFF REQ NO Normal [facility] Comment on above: Performed By: #### C BC #### [facility] [address] [place] [address] Dr. Ron Son MCH (RBC) [Entitic mass] 26.5 pg Critically low 26.7-34.[address] [facility] Comment on above: Performed By: #### C BC #### [facility] [address] [place] [address] Dr. Ron Son MCHC (RBC) [Mass/Vol] 32.4 g/dL Normal 29.9-35.[address] [facility] Comment on above: Performed By: #### C BC #### [facility] [address] [address] [address] Ron Son MCV (RBC) [Entitic vol] 81.7 fL Normal 81.0-99.[address] [facility] Comment on above: Performed By: #### C BC #### [facility] [address] [address] [address] Ron Son MONO # 0.5 103/ul Normal 0.3-0.[address] [facility] Comment on above: Performed By: #### C BC #### [facility] [address] [address] [address] Ron Son Monocytes/100 WBC (Bld) 8.4 % Normal 1.7-12.[address] [facility] Comment on above: Performed By: #### C BC #### [facility] [address] [address] [address] Ron Son NEUT # 3.3 103/ul Normal 1.4-6.[address] [facility] Comment on above: Performed By: #### C BC #### [facility] [address] [address] [address] Ron Son Neutrophils/100 WBC (Bld) 55.3 % Normal 43.0-75.[address] [facility] Comment on above: Performed By: #### C BC #### [facility] [address] [address] [address] Ron Son Platelet mean volume (Bld) [Entitic vol] 8.7 fL Critically low 9.5-13.[address] [facility] Comment on above: Performed By: #### C BC #### [facility] [address] [address] [address] Ron Son PLT 202 103/ul Normal 150-450 [facility] Comment on above: Performed By: #### C BC #### [facility] [address] [address] [address] Ron Son RBC 4.87 106/ul Normal 4.20-5.40 [facility] Comment on above: Performed By: #### C BC #### [facility] [address] [address] [address] Ron Son WBC 6.0 103/ul Normal 4.0-11.[address] [facility] Comment on above: Performed By: #### C BC #### [facility] [address] [address] [address] Ron Son LIPID PROFILEon 11-03-2022 CHOL-HDL RATIO NORM SEE BELOW Normal [facility] Comment on above: Result Comment: 3.3 - 4.4 LOW RISK 4.4 - 7.1 AVERAGE RISK 7.1 - 11.0 MODERATE RISK >11.0 HIGH RISK Performed By: #### A ST, ALT, LIPID, BMP #### [facility] [address] [address] [address] Ron Son Cholesterol [Mass/Vol] 193 mg/dL Normal <=[address] [facility] Comment on above: Performed By: #### A ST, ALT, LIPID, BMP #### [facility] [address] [address] [address] Ron Son Cholesterol in HDL [Mass/Vol] 37 mg/dL Critically low 40-[address] [facility] Comment on above: Performed By: #### A ST, ALT, LIPID, BMP #### [facility] [address] [address] [address] Ron Son Cholesterol in LDL [Mass/Vol] 123.8 mg/dL Normal [facility] Comment on above: Performed By: #### A ST, ALT, LIPID, BMP #### [facility] [address] [address] [address] Ron Son Cholesterol.total/Cho lesterol in HDL [Mass ratio] 5.2 {ratio} Normal [facility] Comment on above: Performed By: #### A ST, ALT, LIPID, BMP #### [facility] [address] [place] [address] Dr. Ron Son HDL NORMAL > or = 60 mg/dl - LO W CARDIOVASCULAR RISK <40 mg/dl - HIGH CARDIOVASCULAR RISK Normal [facility] Comment on above: Performed By: #### A ST, ALT, LIPID, BMP #### [facility] [address] [place] [address] Dr. Ron Son LDL CALC NORMAL SEE BELOW Normal [facility] Comment on above: Result Comment: <100 mg/dl OPTIMAL 100 - 129 mg/dl NEAR OR ABOVE OPTIMAL 130 - 159 mg/dl BORDERLINE HIGH 160 - 189 mg/dl HIGH >190 mg/dl VERY HIGH Performed By: #### A ST, ALT, LIPID, BMP #### [facility] [address] [address] [address] Ron Son Triglyceride [Mass/Vol] 161 mg/dL Critically high <=[address] [facility] Comment on above: Performed By: #### A ST, ALT, LIPID, BMP #### [facility] [address] [place] [address] Dr. Ron Son VLDL CALC 32.2 mg/dL Normal [facility] Comment on above: Performed By: #### A ST, ALT, LIPID, BMP #### [facility] [address] [place] [address] Dr. Ron Son PROF CHEM 8 (BAS METB)on Anion gap [Moles/Vol] 13.1 mmol/L Normal [facility] Comment on above: Performed By: #### C RP, CK #### [facility] [address] [place] [address] Dr. Ron Son Calcium [Mass/Vol] 8.7 mg/dL Normal 8.5-10.1 [facility] Comment on above: Performed By: #### C RP, CK #### [facility] [address] [place] [address] Dr. Ron Son Chloride [Moles/Vol] 105 mmol/L Normal 98-[address] [facility] Comment on above: Performed By: #### C RP, CK #### [facility] [address] [place] [address] Dr. Ron Son CO2 [Moles/Vol] 28.4 mmol/L Normal 21.0-32.0 [facility] Comment on above: Performed By: #### C RP, CK #### [facility] [address] [place] [address] Dr. Ron Son Creatinine [Mass/Vol] 0.72 mg/dL Normal 0.55-1.[address] [facility] Comment on above: Performed By: #### C RP, CK #### [facility] [address] [place] [address] Dr. Ron Son EGFR-AF GEORGIAN >60 Normal >=60 [facility] Comment on above: Performed By: #### C RP, CK #### [facility] [address] [address] [address] Ron Son EGFR-NON AF GEORGIAN >60 Normal >=[address] [facility] Comment on above: Performed By: #### C RP, CK #### [facility] [address] [place] [address] Dr. Ron Son Glucose [Mass/Vol] 106 mg/dL Normal 74-106 [facility] Comment on above: Performed By: #### C RP, CK #### [facility] [address] [address] [address] Ron Son Potassium [Moles/Vol] 3.5 mmol/L Normal 3.5-5.[address] [facility] Comment on above: Performed By: #### C RP, CK #### [facility] [address] [place] [address] Dr. Ron Son Sodium [Moles/Vol] 143 mmol/L Normal 136-145 [facility] Comment on above: Performed By: #### C RP, CK #### [facility] [address] [address] [address] Ron Son Urea nitrogen [Mass/Vol] 14.0 mg/dL Normal 7.0-18.0 [facility] Comment on above: Performed By: #### C RP, CK #### [facility] [address] [place] [address] Dr. Ron Son Urea nitrogen/Creatinine [Mass ratio] 19.4 mg/mg Normal [facility] Comment on above: Performed By: #### C RP, CK #### [facility] [address] [place] [address] Dr. Ron Son SGOTon 11-03-2022 AST [Catalytic activity/Vol] 18 U/L Normal 15-[address] [facility] Comment on above: Performed By: #### A ST, ALT, LIPID, BMP #### [facility] [address] [place] [address] Dr. Ron Son SGPTon 11-03-2022 ALT [Catalytic activity/Vol] 21 U/L Normal 14-[address] [facility] Comment on above: Performed By: #### A ST, ALT, LIPID, BMP #### [facility] [address] [place] [address] Dr. Ron Son CPKon 03-07-2022 CK [Catalytic activity/Vol] 184 U/L Normal 26-[address] [facility] Comment on above: Performed By: #### C RP, CK #### [facility] [address] [place] [address] Dr. Ron Son CRPon 03-07-2022 CRP [Mass/Vol] mg/L Normal <=1.0 [facility] Comment on above: Performed By: #### C RP, CK #### [facility] [address] [place] [address] Dr. Ron Son SED RATE WESTERGRENon 2021 SED RATE 7 mm/hr Normal <=30 [facility] Comment on above: Performed By: #### S EDR #### [facility] [address] [place] [address] Dr. Ron Son CPKokole 01-16-2022 CK [Catalytic activity/Vol] 257 U/L Critically high 26-192 [facility] Comment on above: Performed By: #### C K, CRP #### [facility] [address] [place] [address] Dr. Ron Son CRPon 01-16-2022 CRP [Mass/Vol] mg/L Normal <=1.0 [facility] Comment on above: Performed By: #### C K, CRP #### [facility] [address] [place] [address] Dr. Ron oSn SED RATE WESTERGRENon 2021 SED RATE 6 mm/hr Normal <=30 [facility] Comment on above: Performed By: #### S EDR #### [facility] [address] [place], [place] [address] Dr. Ron Son Tobacco Screening.on 022 Adult depression screening assessment No [facility] y 250 DO Work Phone: Fall risk assessment a) No falls within the last year [facility] 250 DO Work Phone: Tobacco use status [facility] b) No [facility] 250 DO Work Phone: XR knee LT 4V*on 07-25-2021 XR knee LT 4V* [facility] [employer] Other XR knee LT 4V* [facility] [employer] Other XR knee LT 4V* [address] [place] [address] [employer] Other XR knee LT 4V* [place] [address] No rt [employer] Other XR knee LT 4V* XRay Report [employer] Other XR knee LT 4V* Signed [employer] Other XR knee LT 4V* Patient: Tracy Juarez MR#: [id number] [place] [employer] Other XR knee LT 4V* 3 [employer] Other XR knee LT 4V* : 1945 Acct:[id number] [employer] Other XR knee LT 4V* Age/Sex: 75 / F ADM Date: 07/25/21 [employer] Other XR knee LT 4V* Loc: [facility] Room: Type : [facility] [employer] Other XR knee LT 4V* Attending Dr: Matthew Bucio II, MD [employer] Other XR knee LT 4V* Ordering Provider: Soledad Bucio MD [employer] Other XR knee LT 4V* Date of Service: 07/25/21 [employer] Other XR knee LT 4V* [id number]) XR/XR knee LT 4V*: Acute pain of left knee [employer] Other XR knee LT 4V* ([id number]) XR/XR pelvis 1-2V: Left hip pain [employer] Other XR knee LT 4V* Copies to: Matthew Bucio MD [employer] Other XR knee LT 4V* XR pelvis 1-2V, XR k nee LT 4V* 07/25/2021 11:15 AM [employer] Other XR knee LT 4V* SIGNS AND SYMPTOMS: Left knee pain, predominantly medially. [employer] Other XR knee LT 4V* PROTOCOL: Frontal radiograph of the pelvis. Frontal, lateral, oblique, and sunrise views of the [employer] Other XR knee LT 4V* left knee. [employer] Other XR knee LT 4V* COMPARISON: Left hip and knee radiographs 06/19/2021. [employer] Other XR knee LT 4V* FINDINGS: [employer] Other XR knee LT 4V* Pelvis: [employer] Other XR knee LT 4V* There is mild narrow ing of the joint spaces of the hips bilaterally. There is enthesophyte [employer] Other XR knee LT 4V* formation along the greater trochanter on the left. The bony ring of the pelvis is intact. There is [employer] Other XR knee LT 4V* no fracture or dislocation. [employer] Other XR knee LT 4V* Left knee: [employer] Other XR knee LT 4V* There is significant narrowing of the weightbearing and patellofemoral joint spaces. There is no [employer] Other XR knee LT 4V* evidence of fracture or dislocation. No joint effusion. No soft tissue swelling. [employer] Other XR knee LT 4V* X R/XR pelvis 1-2V [employer] Other XR knee LT 4V* IMPRESSION: [employer] Other XR knee LT 4V* Mild degenerative ch anges are noted in the hips. [employer] Other XR knee LT 4V* Similar tricompartme ntal degenerative changes are noted in the left knee showing no significant [employer] Other XR knee LT 4V* interval change. [employer] Other XR knee LT 4V* No acute bony injury. [employer] Other XR knee LT 4V* Impression dictated by: Topher Martini M.D.07/25/2021 5:10 PM [employer] Other XR knee LT 4V* Dictation Location: [place] [address] [employer] Other XR knee LT 4V* Transcribed By: MAGDIEL 07/25/21 1710 [employer] Other XR knee LT 4V* Dictated By: Topher Martini II, MD 07/25/21 1707 [employer] Other XR knee LT 4V* Signed By: [employer] Other XR knee LT 4V* 07/25/21 1710 [employer] Other Potassiumon 08-23-2018 Potassium molar conc 3.8 mmol/L Normal 3.5-5.1 [facility] Comment on above: Performed By: #### 1 [id number] ####[facility] [address] [place] [address] CBCon 08-12-2018 Erythrocyte distribution width Auto Ratio (RBC) 13.4 % Normal 12.0-15.4 [facility] Comment on above: Performed By: #### 2 [id number] ####[facility] [address] [place] [address] Hematocrit Auto Volume Fraction (Bld) 42.3 % Normal 36.5-46.6 [facility] Comment on above: Performed By: #### 2 [id number] ####[address] [address] Hemoglobin mass conc (Bld) 13.7 g/dL Normal 11.8-15.3 [facility] Comment on above: Performed By: #### 2 [id number] ####[address] [address] MCH Auto Entitic mass (RBC) 27.1 pg Low 27.5-33.0 [facility] Comment on above: Performed By: #### 2 [id number] ####[facility] [address] [place] [address] MCHC Auto mass conc (RBC) 32.4 g/dL Normal 30.1-35.0 [facility] Comment on above: Performed By: #### 2 [id number] ####[facility] [address] [place] [address] MCV Auto Entitic volume (RBC) 83.8 fL Low 85.4-100.0 [facility] Comment on above: Performed By: #### 2 [id number] ####[facility] [address] [place] [address] NRBC Absolute 0.00 10*3/uL Normal [facility] Comment on above: Performed By: #### 2 [id number] ####[facility] [address] [place] [address] NRBC Automated 0.0 /100{WBCs} Normal [facility] Comment on above: Performed By: #### 2 [id number] ####[facility] [address] [place] [address] Platelet mean volume Auto Entitic volume (Bld) 9.6 fL Low 9.9-12.1 [facility] Comment on above: Performed By: #### 2 [id number] ####[facility] [address] [place] [address] Platelets Auto #/vol (Bld) 231 10*3/uL Normal 155-404 [facility] Comment on above: Performed By: #### 2 [id number] ####[address] [address] RBC Auto #/vol (Bld) 5.05 10*6/uL Normal 3.85-5.10 [facility] Comment on above: Performed By: #### 2 [id number] ####[address] [address] RDW SD 40.8 fL Normal 39.3-48.6 [facility] Comment on above: Performed By: #### 2 [id number] ####[facility] [address] [place] [address] WBC Auto #/vol (Bld) 7.6 10*3/uL Normal 4.4-9.9 [facility] Comment on above: Performed By: #### 2 [id number] ####[facility] [address] [place] [address] Creatinineon 08-12-2018 Creatinine mass conc 0.80 mg/dL Normal 0.50-1.05 [facility] Comment on above: Performed By: #### 1 [id number] ####[address] [place] [address] GFR/1.73 sq M.predicted MDRD vol rate/area mL/min/{1.73_m2} Normal [facility] Comment on above: Result Comment: Inte rpretation for Chronic Kidney Disease:Stages 1&2 >60 Healthy or potential kidney damage.Mild decrease of GFR.Stage 3 30-59 Moderate decrease of GFR.Stage 4 15-29 Severe decrease of GFR.Stage 5 <15 Kidney failure or on dialysis. Performed By: #### 1 [id number] ####[facility] [address] [place] [address] Electrolyte Panelon 08-12-20 18 Anion gap 3 molar conc 13 mmol/L Normal 10-20 [facility] Comment on above: Performed By: #### 1 [id number] ####[facility] [address] [place] [address] Chloride molar conc 103 mmol/L Normal 98-107 [facility] Comment on above: Performed By: #### 1 [id number] ####[facility] [address] [place] [address] HCO3 molar conc (Bld) 30 mmol/L Normal 21-32 [facility] Comment on above: Performed By: #### 1 [id number] ####[facility] [address] [place] [address] Potassium molar conc 3.3 mmol/L Low 3.5-5.1 [facility] Comment on above: Performed By: #### 1 [id number] ####[facility] [address] [place] [address] Sodium molar conc 143 mmol/L Normal 136-145 [facility] Comment on above: Performed By: #### 1 [id number] ####[facility] [address] [place] [address] Urea Nitrogenon 08-12-2018 Urea nitrogen mass conc 12 mg/dL Normal 6-23 [facility] Comment on above: Performed By: #### 1 [id number] ####[facility] [address] [place] [address] Vital Signs Date Time Vital Sign Value Performing Clinician Facility 06-21-2024 10:52-0500 Diastolic blood pressure 60 mm[Hg] Julianne Pang MD Work Phone: [facility] 06-21-2024 10:52-0500 Systolic blood pressure 118 mm[Hg] Julianne Pang MD Work Phone: [facility] 06-21-2024 10:170500 Body height 157.5 cm Julianne Pang MD Work Phone: [facility] 06-21-2024 10:17-0500 Body mass index (BMI) [Ratio] 38.23 kg/m2 Julianne Pang MD Work Phone: [facility] 06-21-2024 10:17-0500 Body weight 94.8 kg Julianne Pang MD Work Phone: [facility] 06-21-2024 10:17-0500 Heart rate 75 /min Julianne Pang MD Work Phone: [facility] 06-16-2024 11:02-0400 Body height 156.8 cm Kenyatta Katherinemor OUTPATIENT CODER Work Phone: [facility] 06-16-2024 11:02-0400 Body mass index (BMI) [Ratio] 38.91 kg/m2 Kenyatta Gillmor OUTPATIENT CODER Work Phone: [facility] 06-16-2024 11:02-0400 Body weight 95.71 kg Kenyatta Gillmor OUTPATIENT CODER Work Phone: [facility] 06-16-2024 11:02-0400 Diastolic blood pressure 64 mm[Hg] Kenyatta Gillmor OUTPATIENT CODER Work Phone: [facility] 06-16-2024 11:02-0400 Heart rate 69 /min Kenyatta Gillmor OUTPATIENT CODER Work Phone: [facility] 06-16-2024 11:02-0400 SaO2% (BldA) [Mass fraction] 92 % Kenyatta Gillmor OUTPATIENT CODER Work Phone: [facility] 06-16-2024 11:02-0400 Systolic blood pressure 132 mm[Hg] Kenyatta Gillmor OUTPATIENT CODER Work Phone: [facility] 04-28-2024 11:090400 Body height 156.84 cm MD Sophia Calderon Work Phone: [facility] 04-28-2024 11:09-0400 Body mass index (BMI) [Ratio] 37.3 kg/m2 MD Sophia Calderon Work Phone: [facility] 04-28-2024 11:09-0400 Body weight 92 kg MD Sophia Calderon Work Phone: [facility] 01-05-2024 09:52-0400 Diastolic blood pressure 78 mm[Hg] Julianne Pang MD Work Phone: [facility] 01-05-2024 09:52-0400 Systolic blood pressure 134 mm[Hg] Julianne Pang MD Work Phone: [facility] 01-05-2024 09:39-0400 Body height 154.9 cm Julianne Pang MD Work Phone: [facility] 01-05-2024 09:39-0400 Body mass index (BMI) [Ratio] 38.51 kg/m2 Julianne Pang MD Work Phone: [facility] 01-05-2024 09:39-0400 Body weight 92.44 kg Julianne Pang MD Work Phone: [facility] 01-05-2024 09:39-0400 Heart rate 70 /min Julianne Pang MD Work Phone: [facility] 12-25-2023 15:30-0400 Diastolic blood pressure 62 mm[Hg] MD Sophia Calderon Work Phone: [facility] 12-25-2023 15:30-0400 Heart rate 68 /min MD Sophia Calderon Work Phone: [facility] 12-25-2023 15:30-0400 Respiratory rate 20 /min MD Sophia Calderon Work Phone: [facility] 12-25-2023 15:30-0400 SaO2% (BldA) [Mass fraction] 95 % MD Sophia Calderon Work Phone: [facility] 12-25-2023 15:30-0400 Systolic blood pressure 130 mm[Hg] MD Sophia Calderon Work Phone: [facility] 12-25-2023 13:28-0400 Body height 156.84 cm MD Sophia Calderon Work Phone: [facility] 12-25-2023 13:28-0400 Body temperature 97.6 [degF] MD Sophia Calderon Work Phone: [facility] 12-25-2023 13:28-0400 Body weight 92.4 kg MD Sophia Calderon Work Phone: [facility] 12-07-2023 16:14-0400 Diastolic blood pressure 80 mm[Hg] Julianne Pang MD Work Phone: [facility] 12-07-2023 16:14-0400 Systolic blood pressure 160 mm[Hg] Julianne Pang MD Work Phone: [facility] 12-07-2023 15:45-0400 Body height 154.9 cm Julianne Pang MD Work Phone: [facility] 12-07-2023 15:45-0400 Body mass index (BMI) [Ratio] 37.3 kg/m2 Julianne Pang MD Work Phone: [facility] 12-07-2023 15:45-0400 Body weight 89.54 kg Julianne Pang MD Work Phone: [facility] 12-07-2023 15:45-0400 Heart rate 75 /min Julianne Pang MD Work Phone: [facility] 10-28-2023 08:22-0400 Diastolic blood pressure 79 mm[Hg] MD Sophia Calderon Work Phone: [facility] 10-28-2023 08:22-0400 Heart rate 78 /min MD Sophia Calderon Work Phone: [facility] 10-28-2023 08:22-0400 Systolic blood pressure 163 mm[Hg] MD Sophia Calderon Work Phone: [facility] 10-28-2023 08:00-0400 Inhaled oxygen flow rate 2 L/min MD Sophia Calderon Work Phone: [facility] 10-28-2023 07:48-0400 Body temperature 98.8 [degF] MD Sophia Calderon Work Phone: [facility] 10-28-2023 07:48-0400 Respiratory rate 20 /min MD Sophia Calderon Work Phone: [facility] 10-28-2023 07:48-0400 SaO2% (BldA) [Mass fraction] 96 % MD Sophia Calderon Work Phone: [facility] 10-28-2023 06:00-0400 Body weight 91.7 kg MD Sophia Calderon Work Phone: [facility] 10-26-2023 08:29-0400 Body height 154.94 cm MD Sophia Calderon Work Phone: [facility] 10-26-2023 08:29-0400 Body mass index (BMI) [Ratio] 38.1 kg/m2 MD Sophia Calderon Work Phone: [facility] 10-22-2023 13:00-0500 Body height 154.94 cm MD Sophia Calderon Work Phone: [facility] 10-22-2023 13:00-0500 Body mass index (BMI) [Ratio] 38.2 kg/m2 MD Sophia Calderon Work Phone: [facility] 10-22-2023 13:00-0500 Body weight 91.71 kg MD Sophia Calderon Work Phone: [facility] 10-05-2023 09:40-0500 Body height 154.94 cm MD Sophia Calderon Work Phone: [facility] 10-05-2023 09:40-0500 Body temperature 98.5 [degF] MD Sophia Calderon Work Phone: [facility] 10-05-2023 09:40-0500 Body weight 91 kg MD Sophia Calderon Work Phone: [facility] 10-05-2023 09:40-0500 Diastolic blood pressure 63 mm[Hg] MD Sophia Calderon Work Phone: [facility] 10-05-2023 09:40-0500 Heart rate 67 /min MD Sophia Calderon Work Phone: [facility] 10-05-2023 09:40-0500 SaO2% (BldA) [Mass fraction] 96 % MD Sophia Calderon Work Phone: [facility] 10-05-2023 09:40-0500 Systolic blood pressure 127 mm[Hg] MD Sophia Calderon Work Phone: [facility] 08-12-2023 12:45-0500 Body height 154.94 cm [employer] Other [facility] 08-12-2023 12:45-0500 Body mass index (BMI) [Ratio] 38.16 kg/m2 [employer] Other [employer] [facility] [employer] Other 08-12-2023 12:45-0500 Body weight 91.63 kg [employer] Other [employer] Other 08-12-2023 12:45-0500 Body weight 91.62 kg MD Sophia Calderon Work Phone: [facility] 05-19-2023 11:27-0400 Body mass index (BMI) [Ratio] 36.73 kg/m2 Coty Casiano MD Work Phone: [facility] 05-19-2023 11:27-0400 Body temperature 96.8 [degF] Coty Casiano MD Work Phone: [facility] 05-19-2023 11:27-0400 Body weight 91.1 kg Coty Casiano MD Work Phone: [facility] 05-19-2023 11:27-0400 Diastolic blood pressure 53 mm[Hg] Coty Casiano MD Work Phone: [facility] 05-19-2023 11:27-0400 Heart rate 77 /min Coty Casiano MD Work Phone: [facility] 05-19-2023 11:27-0400 Respiratory rate 16 /min Coty Casiano MD Work Phone: [facility] 05-19-2023 11:27-0400 SaO2% (BldA) [Mass fraction] 94 % Coty Casiano MD Work Phone: [facility] 05-19-2023 11:27-0400 Systolic blood pressure 102 mm[Hg] Coty Casiano MD Work Phone: [facility] 03-31-2023 13:21-0400 Body height 155.2 cm Ken P I Just Shared Work Phone: L[facility] [place] [place] Work Phone: 03-31-2023 13:21-0400 Body mass index (BMI) [Ratio] 38.4 kg/m2 Ken P I [employer] Shared Work Phone: QN-Dvdmqrs-Rwil [place] Work Phone: 03-31-2023 13:21-0400 Body surface area Derived from formula 1.91 m2 Ken P House Work Phone: WN-Pzuolnf-Hguh [place] Work Phone: 03-31-2023 13:21-0400 Body temperature 97.7 [degF] Ken P House Work Phone: EE-Pmvotjf-Opul [place] [place] Work Phone: 03-31-2023 13:21-0400 Body weight 92.5 kg Ken P House Work Phone: YA-Jctjjqr-Audy [place] [place] Work Phone: 03-31-2023 13:21-0400 Diastolic blood pressure 76 mm[Hg] Ken P House Work Phone: PV-Dvcrirb-Jdou [place] [place] Work Phone: 03-31-2023 13:21-0400 Heart rate 70 /min Ken P House Work Phone: DM-Pyvkgur-Tzrp [place] [place] Work Phone: 03-31-2023 13:21-0400 Respiratory rate 16 /min Ken P House Work Phone: SN-Ppbhjgg-Uhov [place] [place] Work Phone: 03-31-2023 13:21-0400 Systolic blood pressure 139 mm[Hg] Ken P House Work Phone: JY-Fxbazuz-Hkfx [place] Work Phone: 03-31-2023 13:21-0400 0 1 Ken P House Work Phone: RU-Gbkyhsb-Vrul [place] [place] Work Phone: Comment on above: [employer] 11-11-2022 11:18-0400 Diastolic blood pressure 70 mm[Hg] Ken P House Work Phone: [facility] [facility] DO Work Phone: 11-11-2022 11:18-0400 Systolic blood pressure 112 mm[Hg] Ken P House Work Phone: [facility] [facility] DO Work Phone: 11-11-2022 11:13-0400 Body height 157.48 cm Ken P House Work Phone: [facility] [facility] DO Work Phone: 11-11-2022 11:13-0400 Body mass index (BMI) [Ratio] 36.03 kg/m2 Ken P House Work Phone: [facility] [address] DO Work Phone: 11-11-2022 11:13-0400 Body surface area Derived from formula 1.9 m2 Ken P House Work Phone: [facility] [facility] DO Work Phone: 11-11-2022 11:13-0400 Body weight 89.36 kg Ken P House Work Phone: [facility] [address] DO Work Phone: 11-11-2022 11:13-0400 Diastolic blood pressure 60 mm[Hg] Ken P House Work Phone: [facility] [facility] DO Work Phone: 11-11-2022 11:13-0400 Heart rate 77 /min Ken P House Work Phone: [facility] [facility] DO Work Phone: 11-11-2022 11:13-0400 Systolic blood pressure 100 mm[Hg] Ken P House Work Phone: [facility] [facility] DO Work Phone: 11-03-2022 00:00-0400 123.8 1 Ken P House Work Phone: [facility] [facility] DO Work Phone: Comment on above: [facility] 08-13-2022 09:45-0500 Body height 154.94 cm Matthew Bucio II Other [employer] Other 05-28-2022 14:15-0400 Body height 154.94 cm Matthew Whitakerle II Other [employer] Other 05-28-2022 14:15-0400 Body mass index (BMI) [Ratio] 39.86 kg/m2 Matthew Whitakerle II Other [employer] Other 05-28-2022 14:15-0400 Body weight 95.71 kg Matthew Bucio II Other [employer] Other 09-30-2021 13:35-0500 Body height 157.48 cm Ken P House Work Phone: [facility] [address] DO Work Phone: 09-30-2021 13:35-0500 Body mass index (BMI) [Ratio] 38.98 kg/m2 Ken P House Work Phone: [facility] [facility] DO Work Phone: 09-30-2021 13:35-0500 Body surface area Derived from formula 1.96 m2 Ken P House Work Phone: [facility] [facility] DO Work Phone: 09-30-2021 13:35-0500 Body weight 96.68 kg Ken P House Work Phone: [facility] [facility] DO Work Phone: 09-30-2021 13:35-0500 Heart rate 74 /min Ken P House Work Phone: [facility] [facility] DO Work Phone: 09-30-2021 13:34-0500 Diastolic blood pressure 77 mm[Hg] Ken P House Work Phone: [facility] [facility] DO Work Phone: 09-30-2021 13:34-0500 Systolic blood pressure 129 mm[Hg] Ken P House Work Phone: [facility] [facility] DO Work Phone: 07-25-2021 15:00-0500 Body height 154.94 cm Matthew Bucio II Other [employer] Other 07-25-2021 15:00-0500 Body mass index (BMI) [Ratio] 39.67 kg/m2 Matthew Bucio II Other [employer] Other 07-25-2021 15:00-0500 Body weight 95.26 kg Matthew Bucio II Other [employer] Other 1945 00:00-0400 >na< Hector [facility] 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 Encounters Encounter Date Encounter Type Care Provider Facility Start: 06-21-2024 End: 06-21-2024 Office outpatient visit 25 minutes Julianne Pang MD Work Phone: [facility] Comment on above: PAF (paroxysmal atri al fibrillation) (Multi) (Primary Dx); High risk medication use; Essential hypertension; First degree AV block; Obstructive sleep apnea syndrome; Never smoked tobacco; BMI 38.0-38.9,adult; Class 2 obesity Start: 06-21-2024 End: 06-21-[address] [facility] Ambulatory Start: 06-16-2024 End: 06-16-2024 Bamboo flowsheet Kenyatta Mehta OUTPATIENT CODER Work Phone: [facility] Start: 06-16-2024 End: 06-16-2024 Bamboo flowsheet Kenyatta Mehta OUTPATIENT CODER Work Phone: [facility] Start: 06-16-2024 End: 06-16-2024 Office outpatient visit 15 minutes Kenyatta Mehta NP Work Phone: [facility] Comment on above: OSIEL (obstructive sle ep apnea) (Primary Dx); Essential tremor; Paresthesia of skin; Idiopathic peripheral neuropathy; RLS (restless legs syndrome); Ataxia Start: 06-16-2024 End: 06-16-2024 ambulatory KENYATTA MEHTA Not Available Start: 04-28-2024 End: 04-28-2024 ambulatory MD Sophia Calderon Work Phone: [facility] Work Phone: Start: 04-28-2024 End: 04-28-2024 Patient encounter procedure MD Sophia Calderon Work Phone: [facility] Work Phone: Start: 03-09-2024 End: 03-09-2024 ambulatory MD Sophia Calderon Work Phone: [facility] Work Phone: Start: 03-09-2024 End: 03-09-2024 Patient encounter procedure MD Sophia Calderon Work Phone: [facility] Work Phone: Start: 03-08-2024 End: 03-08-2024 ambulatory [facility] Ambulatory Start: 02-16-2024 End: 02-16-2024 ambulatory KENYATTA TYSON Not Available Start: 02-10-2024 End: 02-10-2024 ambulatory MD Sophia Calderon Work Phone: [facility] Work Phone: Start: 02-10-2024 End: 02-10-2024 Patient encounter procedure MD Sophia Calderon Work Phone: [facility] [place] [facility] Work Phone: Start: 02-03-2024 End: 02-03-2024 Patient encounter procedure MD Sophia Calderon Work Phone: [facility]CT Scan [place] Work Phone: Start: 02-03-2024 End: 02-03-2024 ambulatory MD Sophia Calderon Work Phone: [facility] Work Phone: Start: 01-27-2024 End: 01-27-2024 ambulatory MD Sophia Calderon Work Phone: [facility] Work Phone: Start: 01-27-2024 End: 01-27-2024 Patient encounter procedure MD Sophia Calderon Work Phone: [facility] Work Phone: Start: 01-27-2024 End: 01-27-2024 Patient encounter procedure MD Sophia Calderon Work Phone: [facility] Start: 01-27-2024 End: 01-27-2024 ambulatory MD Sophia Calderon Work Phone: [facility] Work Phone: Start: 01-05-2024 End: 01-05-2024 Office outpatient visit 15 minutes Julianne Pang MD Work Phone: [facility] Comment on above: Essential hypertensi on; Edema, unspecified type; PAF (paroxysmal atrial fibrillation) (Multi) Start: 01-05-2024 End: 01-05-2024 amb[address] [facility] Ambulatory Start: 12-25-2023 End: 12-25-2023 Emergency department patient visit MD Sophia Calderon Work Phone: [facility]-Emergency Room Work Phone: Start: 12-25-2023 End: 12-25-2023 ambulatory MD Sophia Calderon Work Phone: [facility] Work Phone: Start: 12-25-2023 End: 12-25-2023 Discharged Recurring MD Sophia aClderon Work Phone: [facility]-Physical Therapy [place] Start: 12-25-2023 Registered Recurring MD Anne Calderon Work Phone: [facility] [place] Start: 12-18-2023 End: 12-18-2023 Patient encounter procedure MD Sophia Calderon Work Phone: [facility]-Lab [facility] Start: 12-18-2023 End: 12-18-2023 ambulatory MD Sophia Calderon Work Phone: [facility] Work Phone: Start: 12-18-2023 Registered Recurring MD Anne Calderon Work Phone: [facility]Physical [facility] [place] Start: 12-14-2023 Registered Recurring MD Anne Calderon Work Phone: [facility]-Physical [facility] [place] Start: 12-07-2023 End: 12-07-2023 Office outpatient visit 25 minutes Julianne Pang MD Work Phone: [facility] Comment on above: PAF (paroxysmal atri al fibrillation) (Multi) (Primary Dx); First degree AV block; Essential hypertension; High risk medication use; Hypothyroidism, unspecified type; Obstructive sleep apnea syndrome; BMI 37.0-37.9, adult; Never smoked tobacco; Class 2 obesity Start: 12-07-2023 End: 12-07-[address] [facility] Ambulatory Start: 12-04-2023 End: 12-04-2023 ambulatory MD Sophia Calderon Work Phone: [facility] Work Phone: Start: 12-04-2023 End: 12-04-2023 Patient encounter procedure MD Sophia Calderon Work Phone: [facility] Work Phone: Start: 12-04-2023 Registered Recurring MD Anne Calderon Work Phone: [facility]Physical [facility] [place] Start: 11-11-2023 End: 11-11-2023 ambulatory MD Sophia Calderon Work Phone: [facility] Work Phone: Start: 11-11-2023 End: 11-11-2023 Patient encounter procedure MD Sophia Calderon Work Phone: [facility] [place] [facility] Work Phone: Start: 10-26-2023 Non-patient / Non-visit MD Cady Calderon Work Phone: [facility] Work Phone: Start: 10-26-2023 Non-patient / Non-visit MD Cady Calderon Work Phone: [facility] Work Phone: Start: 10-26-2023 End: 10-28-2023 Admission to same day surgery center MD Sophia Calderon Work Phone: [facility] [place] Start: 10-26-2023 End: 10-28-2023 ambulatory Matthew M Fountain II Facility:[facility] Start: 10-22-2023 Registered Recurring MD Anne Calderon Work Phone: [facility]-Physical [facility] [place] Start: 10-22-2023 End: 10-22-2023 ambulatory Matthew M Fountain II Facility:[facility] Start: 10-22-2023 End: 10-22-2023 Patient encounter procedure MD Sophia Calderon Work Phone: [facility] [place] [facility] Work Phone: Start: 10-19-2023 End: 10-19-2023 ambulatory MD Sophia Calderon Work Phone: [facility] Work Phone: Start: 10-19-2023 End: 10-19-2023 Departed Referred MD Sophia Calderon Work Phone: [facility] [place] Start: 10-05-2023 End: 10-05-2023 Patient encounter procedure MD Sophia Calderon Work Phone: [facility]-Pre-Surgical Testing Work Phone: Start: 10-05-2023 End: 10-05-2023 ambulatory MD Sophia Calderon Work Phone: [facility] Work Phone: Start: 08-18-2023 End: 08-18-2023 ambulatory Matthew Fortunato II Other [employer] Other Start: 08-18-2023 Telephone encounter Matthew Bucio II [facility] [place] [facility] Start: 08-12-2023 Office outpatient vi sit 40 minutes Matthew Bucio II [facility] Start: 08-12-2023 Telephone encounter Matthew Bucio II [facility] [place] [facility] Start: 08-12-2023 End: 08-12-2023 Patient encounter procedure MD Sophia Calderon Work Phone: [facility]-Lab [facility] Start: 08-12-2023 End: 08-12-2023 ambulatory MD Sophia Calderon Work Phone: [facility] Work Phone: Start: 08-12-2023 End: 08-12-2023 Patient encounter procedure MD Sophia Calderon Work Phone: [facility]-XRay [place] [facility] Start: 08-12-2023 End: 08-12-2023 ambulatory MD Sophia Calderon Work Phone: [facility] Work Phone: Start: 08-12-2023 End: 08-12-2023 Patient encounter procedure MD Sophia Calderon Work Phone: [facility] [place] [facility] Work Phone: Start: 08-03-2023 End: 08-03-2023 ambulatory Matthew Bucio II Other [employer] Other Start: 08-03-2023 Telephone encounter Matthew Bucio II [facility] [place] [facility] Start: 05-19-2023 End: 05-20-2023 ambulatory COTY CASIANO [facility] Start: 05-19-2023 End: 05-19-2023 Postop follow up visit related to original px Coty Casiano MD Work Phone: [facility] Comment on above: Cellulitis of left u pper extremity (Primary Dx) Start: 05-12-2023 ambulatory Julianne Pang Facility : Start: 04-30-2023 Rx Renewal Sophia Calderon Work Phone: [facility] 250 DO Work Phone: Start: 04-27-2023 Chart Update Sophia Calderon Work Phone: [facility] [place] Work Phone: Start: 04-27-2023 End: 04-27-[address] Coty Casiano Jr Facility:[id number] Start: 04-27-2023 End: 04-27-2023 Subsequent hospital visit by physician Coty Casiano MD Work Phone: [facility] Comment on above: Malignant melanoma o f left upper limb, including shoulder (CMS/HCC) Start: 04-13-2023 ambulatory Siria Scarberry Facilit y:[id number] Start: 04-13-2023 ambulatory Siria Orona Facilit y:[id number] Start: 04-13-2023 Office outpatient ne w 45 minutes Siria Orona Dept. of Dermatology Start: 04-13-2023 Office outpatient vi sit 15 minutes Siria Orona Dept. of Dermatology Start: 03-31-2023 Office outpatient ne w 45 minutes Ken Moreau Work Phone: [facility] [place] Work Phone: Start: 03-31-[address] Coty Gusman Jr Facility: Start: 03-17-2023 Hector [facility] Dept. of D ermatology Start: 03-16-2023 Chart Update Ken menjivar Work Phone: [facility] Work Phone: Start: 03-04-[address] Coty Gusman Jr Facility:[id number] Start: 02-16-2023 Rx Renewal Ken menjivar Work Phone: [facility] [facility] DO Work Phone: Start: 01-19-2023 Rx Renewal Ken P Hous e Work Phone: [facility] 250 DO Work Phone: Start: 12-22-2022 End: 12-22-2022 ambulatory Matthew Fortunato II Other [employer] Other Start: 12-22-2022 Telephone encounter Matthew Fountain II [facility] Start: 11-11-[address] Ken medrano [place] Facility: Start: 11-11-2022 Office outpatient vi sit 25 minutes Ken Quiroz House Work Phone: [facility] 250 DO Work Phone: Start: 11-03-2022 End: 11-04-[address] JULIANNE PANG Facility: Start: 10-15-2022 Rx Renewal Ken P Hous e Work Phone: [facility] 250 DO Work Phone: Start: 09-04-2022 End: 09-04-2022 ambulatory Matthew Fountain II Other [employer] Other Start: 09-04-2022 Office outpatient vi sit 25 minutes Matthew Fountain II [facility] [place] [facility] Start: 08-13-2022 End: 08-13-2022 ambulatory Matthew Fountain II Other [employer] Other Start: 08-13-2022 Office outpatient vi sit 25 minutes Matthew Fountain II [facility] [place] [facility] Start: 08-01-2022 End: 08-01-2022 ambulatory Matthew Fortunato II Other [employer] Other Start: 08-01-2022 Telephone encounter Matthew Fountain II [facility] [place] [facility] Start: 06-25-2022 Rx Renewal Ken P Hous e Work Phone: [facility] [facility] DO Work Phone: Start: 05-28-2022 End: 05-28-2022 ambulatory Matthew Whitakerle II Other [facility] [employer] Other Start: 05-28-2022 Office outpatient vi sit 25 minutes Matthew Fountain II [facility] Start: 03-07-2022 End: 03-08-[address] DOCTOR GUNDERSON Facility:H1 Start: 01-16-2022 End: 01-17-[address] KEN MOREAU Facility:H1 Start: 11-04-2021 Rx Renewal Ken P Hous e Work Phone: [facility] [facility] DO Work Phone: Start: 10-21-2021 Rx Renewal Ken P Hous e Work Phone: [facility] [facility] DO Work Phone: Start: 08-05-2021 Rx Renewal Julianne Pang MD Work Phone: [facility] [facility] DO Work Phone: Start: 07-25-2021 End: 07-25-2021 ambulatory Matthew Whitakerle II Other [facility] [employer] Other Start: 07-25-2021 Office outpatient ne w 45 minutes Matthew Fountain II [facility] Start: 08-23-2018 Patient encounter procedure JULIANNE PANG Facility:[id number] Start: 08-12-2018 Patient encounter procedure JULIANNE PANG Facility:[id number] Start: 07-16-2016 End: 07-16-2016 Ambulatory DUSTIN CHAY [facility] Procedures Date Procedure Procedure Detail Performing Clinician Start: 06-21-2024 Ecg routine ecg w/le ast 12 lds w/i&r Julianne Pang MD Work Phone: Start: 04-28-2024 X-ray of left knee MD Christiano Calderon Work Phone: Start: 03-09-2024 X-ray of left knee MD Christiano Calderon Work Phone: Start: 02-14-2024 Laboratory test resu lt abnormal Abnormal laboratory test Kenyatta Mehta OUTPATIENT CODER Work Phone: Start: 02-03-2024 CT of left femur wit hout contrast MD Sophia Calderon Work Phone: Start: 01-27-2024 Plain X-ray of left femur MD Sophia Calderon Work Phone: Start: 01-27-2024 Plain X-ray of left tibia and left fibula MD Sophia Calderon Work Phone: Start: 01-27-2024 X-ray of left knee MD Christiano Calderon Work Phone: Start: 12-25-2023 Plain chest X-ray MD Nieves Work Phone: Start: 12-07-2023 CBC panel - Blood by Automated count JULIANNE PANG Start: 12-07-2023 ECG 12-LEAD JULIANNE ALMEIDA Start: 12-07-2023 Ecg routine ecg w/le ast 12 lds w/i&r Julianne Pang MD Work Phone: Start: 12-04-2023 X-ray of left knee MD Christiano Calderon Work Phone: Start: 10-26-2023 X-ray of left knee MD Christiano Calderon Work Phone: Start: 10-26-2023 Total replacement of left knee joint MD Sophia Calderon Work Phone: Start: 10-26-2023 Antibody screen Sophia Calderon Comment on above: Result Comment: PERF ORMED BY: [facility] [address] [place] [address] PATHOLOGIST DIAGNOSTIC ASSISTANT BALJEET GONZALEZ M.D. Start: 10-22-2023 Plain X-ray of left femur MD Sophia Calderon Work Phone: Start: 10-22-2023 Plain X-ray of left tibia and left fibula MD Sophia Calderon Work Phone: Start: 10-05-2023 Antibody screen Sophia Calderon Comment on above: Order Comment: Date of Surgery: [id number] Result Comment: PERF ORMED BY: [facility] [place] [address] PATHOLOGIST DIAGNOSTIC ASSISTANT BALJEET GONZALEZ M.D. Start: 08-12-2023 Methicillin resistan t Staphylococcus aureus culture MD Sophia Calderon Work Phone: Start: 08-12-2023 Pelvis X-ray MD Sophia Calderon Work Phone: Start: 08-12-2023 Radiologic examinati on of knee MD Sophia Calderon Work Phone: Start: 04-27-2023 NM TUMOR LOC SPECT CT R ramiro Casiano MD Work Phone: Start: 04-27-2023 Lymphatics & lymph n odes imaging Coty Casiano MD Work Phone: Start: 04-27-2023 DERMATOPATHOLOGY RESULTS Coty Casiano MD Work Phone: Start: 04-13-2023 Tangential biopsy sk in single lesion Siria Orona Start: 03-17-2023 Hector Kah le Appendectomy Julianne Pang MD Work Phone: Arthroplasty of knee Julianne Pang MD Work Phone: History of thyroidectomy Steve alyssa Whitakerle II Other Hysterectomy Julianne Pang MD Work Phone: Surgical procedure o n eye proper Ken P House Work Phone: Thyroidectomy Julianne Pang MD Work Phone: Total colonoscopy Julianne almeida MD Work Phone: Plan of Treatment Date Care Activity Detail Author Start: 01-06-2025 End: 01-06-2025 Patient encounter procedure 01/06/2025 2:30 PM EDT Office Visit [place] [id number] [facility] [address] [place] [address] Julianne Pang MD [address] [facility] [place] [address] [facility] Start: 12-01-2024 End: 12-01-2024 Patient encounter procedure 12/01/2024 11:00 AM EDT Office Visit [address] [place] [address] Kenyatta Mehta NP [address] [place], [place] [address] Start: 06-21-2024 End: 06-21-2025 Basic metabolic 2000 panel - Serum or Plasma Basic Metabolic Panel Lab Routine PAF (paroxysmal atrial fibrillation) (Multi) High risk medication use Expected: 06/21/2024 (Approximate), Expires: 06/21/2025 [facility] Service Area Work Phone: Comment on above: Expected: 06/21/2024 (Approximate), Expires: 06/21/2025 Start: 06-21-2024 End: 06-21-2025 CBC panel - Blood by Automated count CBC Lab Routine PAF (paroxysmal atrial fibrillation) (Multi) High risk medication use Expected: 06/21/2024 (Approximate), Expires: 06/21/2025 [facility] Work Phone: Comment on above: Expected: 06/21/2024 (Approximate), Expires: 06/21/2025 Start: 06-21-2024 End: 06-21-2024 Patient encounter procedure 06/21/2024 10:10 AM EST Office Visit [facility] [address] [place] [id number] Julianne Pang MD [address] [place] [address] [facility] Start: 06-16-2024 End: 06-16-2024 Patient encounter procedure 06/16/2024 11:00 AM EDT Office Visit [facility] [address] [place] [id number] Kenyatta Mehta, RODERICK [address] [place], [place] Arrived [facility] [address] [facility] Comment on above: Arrived Start: 04-28-2024 X-ray of left knee XR knee LT 2V [facility] Start: 04-28-2024 XR Knee - left 2 Views [facility] Start: 04-17-2024 COVID-19 Vaccine () COVID-19 Vaccine () [facility] Start: 04-17-2024 Influenza vaccination Influenza Vacc ine (#1) [facility] Start: 03-09-2024 X-ray of left knee XR knee LT 2V [facility] Start: 03-09-2024 XR Knee - left 2 Views [facility] Start: 03-08-2024 End: 03-08-2024 Professional / ancillary services management 03/08/2024 10:00 AM EDT Ancillary Procedure [facility] [address] [id number] [facility] Start: 03-06-2024 End: 01-04-2025 ECG 12 Lead ECG 12 Lead ECG Routine PAF (paroxysmal atrial fibrillation) (Multi) Expected: 03/06/2024 (Approximate), Expires: 01/04/2025 [facility] Work Phone: Comment on above: Expected: 03/06/2024 (Approximate), Expires: 01/04/2025 Start: 01-27-2024 Plain X-ray of left femur XR femur L T 2V* [facility] Start: 01-27-2024 Plain X-ray of left tibia and left fibula XR tibia fibula LT 2V* [facility] Start: 01-27-2024 X-ray of left knee XR knee LT 2V [facility] Start: 01-27-2024 XR Femur - left 2 Views [facility] Start: 01-27-2024 XR Knee - left 2 Views [facility] Start: 01-27-2024 XR Tibia and Fibula - left 2 Views [facility] Start: 01-19-2024 End: 01-04-2025 Basic metabolic 2000 panel - Serum or Plasma Basic Metabolic Panel Lab Routine Essential hypertension Edema, unspecified type Expected: 01/19/2024 (Approximate), Expires: 01/04/2025 [facility] Service Area Work Phone: Comment on above: Expected: 01/19/2024 (Approximate), Expires: 01/04/2025 Start: 01-06-2024 End: 12-06-2024 CBC panel - Blood by Automated count CBC Lab Routine PAF (paroxysmal atrial fibrillation) (Multi) High risk medication use Expected: 01/06/2024 (Approximate), Expires: 12/06/2024 [facility] Service Area Work Phone: Comment on above: Expected: 01/06/2024 (Approximate), Expires: 12/06/2024 Start: 01-05-2024 End: 01-05-2024 Clinical Support 01/05/2024 9:30 AM EDT Clinical Support [place] [id number] [facility] [address] [place] [phone] [facility] Start: 12-04-2023 X-ray of left knee XR knee LT 3V - NOT FOR ER USE [facility] Start: 12-04-2023 XR Knee - left 3 Views [facility] Start: 11-12-2023 End: 11-12-2023 Patient encounter procedure 11/12/2023 9:50 AM EDT Office Visit [place] [id number] [facility] [address] [place] [phone] Julianne Pang MD [address] [facility] [place] [address] [facility] Start: 10-28-2023 [facility] Start: 10-26-2023 Hospital admission [facility] Start: 10-26-2023 Referral to clinical bulk filler [facility] Start: 10-19-2023 Total replacement of left knee joint OR Knee Arthroplasty, Total MIS (Left) [facility] Start: 10-05-2023 [facility] Start: 08-12-2023 MRSA Culture MRSA Culture [facility] Start: 07-30-2023 End: 07-30-2023 Patient encounter procedure 07/30/2023 10:00 AM EST Office Visit [facility] [address] [facility] [address] [place] [phone] Eladio Coe MD PhD [address] [facility] [address], [facility] [address] [place] [address] (Fax) [facility] Start: 07-17-2023 End: 07-17-2023 Patient encounter procedure [facility] Start: 06-10-2023 End: 06-10-2023 Patient encounter procedure 06/10/2023 10:00 AM EDT [address] [facility] [address] [place] [address] Eladio Coe MD PhD [address], [facility] [address] [place] [address] (Fax) [facility] Start: 05-19-2023 FUVCANCER, Provider: Coty Casiano, Status: Pen, Time: 11:30 AM FUVCANCER, Provider: Coty Casiano, Status: Pen, Time: 11:30 AM [facility] Work Phone: Start: 05-12-2023 FUV, Provider: Julianne Pang, Status: Pen, Time: 9:40 AM FUV, Provider: Julianne Pang, Status: Pen, Time: 9:40 AM [facility] [address] DO Work Phone: Start: 04-17-2023 COVID-19 Vaccine ( season) COVID-19 Vaccine ( season) [facility] Start: 04-17-2023 Influenza vaccination Influenza Vacc ine (#1) [facility] Start: 03-24-2023 NPVCANCER, Provider: Coty Casiano, Status: Pen, Time: 1:20 PM NPVCANCER, Provider: Coty Casiano, Status: Pen, Time: 1:20 PM [facility] Work Phone: Start: 11-11-2022 FUV, Provider: Julianne Pang, Status: Pen, Time: 10:50 AM FUV, Provider: Julianne Pang, Status: Pen, Time: 10:50 AM [facility] [address] DO Work Phone: Start: 04-15-2022 FUV, Provider: Julianne Pang, Status: Pen, Time: 11:20 AM FUV, Provider: Julianne Pang, Status: Pen, Time: 11:20 AM [facility] [address] DO Work Phone: Start: 09-30-2021 FUV, Provider: Julianne Pang, Status: Pen, Time: 1:10 PM FUV, Provider: Julianne Pang, Status: Pen, Time: 1:10 PM [facility] [address] DO Work Phone: Start: 09-23-2021 COVID-19 Vaccine (4 - Pfizer series) COVID-19 Vaccine (4 - Pfizer series) [facility] Start: 2020 RSV High Risk: (Elde rly (60+) or Population) (1 - 1-dose 75+ series) RSV High Risk: (Elderly (60+) or Population) (1 - 1-dose 75+ series) [facility] Start: 2005 RSV patient s and/or patients aged 60+ years (1 - 1-dose 60+ series) RSV patients and/or patients aged 60+ years (1 - 1-dose 60+ series) [facility] Start: 12-24-1995 Zoster Vaccines (1 of 2) Zoste r Vaccines (1 of 2) [facility] Start: 12-24-1967 DTaP/Tdap/Td Vaccine s (1 - Tdap) DTaP/Tdap/Td Vaccines (1 - Tdap) [facility] Start: 12-24-1963 Diabetes mellitus screening Diabetes Screening [facility] Start: 12-24-1963 Hepatitis C screening Hepatitis C Sc ivelisse [facility] Start: [birth year]-25-1946 Examination of skin Derm Melan chandler Skin Check [facility] Start: 1945 Lipid panel Lipid Panel [facility] Start: 1945 Medicare Annual Well ness Visit Medicare Annual Wellness Visit (AWV) [facility] Start: 1945 Screening for osteoporosis Bone Density Scan [facility] Start: 1945 Thyroid stimulating hormone measurement TSH Level [facility] Cotinine [Mass/volum e] in Serum or Plasma [facility] CT Thigh - left WO contrast [facility] Glucose measurement estimated from glycated hemoglobin [facility] Methicillin resistan t Staphylococcus aureus [Presence] in Unspecified specimen by Organism specific culture [facility] Nicotine [Mass/volum e] in Serum or Plasma [facility] Patient Education [facility] Work Phone: Patient referral [facility] Work Phone: [facility] Immunizations Immunization Date Immunization Notes Care Provider Radha fried 08-11-2023 influenza virus vacc ine, unspecified formulation Kenyatta Mehta NP Work Phone: [facility] 06-23-2022 Fluzone High-Dose Quadrivalent 0.7 ML Intramuscular Suspension Prefilled Syringe Ken Moreau Work Phone: [facility] Work Phone: 06-23-2022 influenza virus vacc ine, unspecified formulation Coty Casiano MD Work Phone: [facility] Work Phone: 07-29-2021 Pfizer-BioNTech COVI D-19 Vacc 30 MCG/0.3ML Intramuscular Suspension Ken Moreau Work Phone: [facility] 06-24-2021 Fluad Quadrivalent 0 .5 ML Intramuscular Prefilled Syringe Ken Moreau Work Phone: [place] [address] DO Work Phone: 10-11-2020 Pfizer-BioNTech COVI D-19 Vacc 30 MCG/0.3ML Intramuscular Suspension Julianne Pang MD Work Phone: [facility] 09-20-2020 Pfizer-BioNTech COVI D-19 Vacc 30 MCG/0.3ML Intramuscular Suspension Ken [facility] Work Phone: [facility] 06-12-2020 Fluad Quadrivalent 0 .5 ML Intramuscular Prefilled Syringe [facility] Work Phone: [place] [address] DO Work Phone: 05-20-2019 influenza, injectabl e, quadrivalent, preservative free Coty Casiano MD Work Phone: [facility] Work Phone: 05-17-2019 influenza virus vacc ine, unspecified formulation Julianne Pang MD Work Phone: [place] [address] DO Work Phone: 06-17-2018 pneumococcal conjuga te vaccine, 13 valent Julianne Pang MD Work Phone: [place] [address] DO Work Phone: 06-07-2018 Seasonal trivalent influenza vaccine, adjuvanted, preservative free Ken [facility] Work Phone: [place] [address] DO Work Phone: 05-17-2018 influenza virus vacc ine, unspecified formulation Julianne Pang MD Work Phone: [place] [address] DO Work Phone: 05-24-2017 Seasonal trivalent influenza vaccine, adjuvanted, preservative free Coty Casiano MD Work Phone: [facility] Work Phone: 05-17-2017 influenza, high dose seasonal, preservative-free Julianne Pang MD Work Phone: [place] [address] DO Work Phone: 06-02-2016 influenza virus vacc ine, unspecified formulation Julianne Pang MD Work Phone: [place] [address] DO Work Phone: 05-17-2016 pneumococcal conjuga te vaccine, 13 valent Julianne Pang MD Work Phone: [place] [address] DO Work Phone: 06-19-2015 influenza, injectabl e, quadrivalent, preservative free Ken [place] Work Phone: [place] [address] DO Work Phone: 06-19-2015 pneumococcal conjuga te vaccine, 13 valent Ken P [place] Work Phone: [place] [address] DO Work Phone: 06-19-2015 pneumococcal polysaccharide vaccine, 23 valent Matthew Bucio II Other [facility] 06-17-2015 pneumococcal polysaccharide vaccine, 23 valent Julianne Pang MD Work Phone: [place] [address] DO Work Phone: 05-17-2015 influenza virus vacc ine, unspecified formulation Julianne Pang MD Work Phone: [place] [address] DO Work Phone: 05-17-2014 influenza virus vacc ine, unspecified formulation Julianne Pang MD Work Phone: [place] [address] DO Work Phone: 1945 pneumococcal conjuga te vaccine, 7 valent [facility] Payers Date Payer Category Payer Self-pay [id number] 2017 Medicare ANTHEM MEDICARE ANTHEM MEDICARE ADVANTAGE [id number] 2017-Present [address] [place] [address] [id number] 2017 Medicare (Managed Care) 1.2. [id number] 1959 Unknown [id number] 1945 Unknown [id number] 2.16.840.1.026275.3.579.2 .355 1945 Unknown [id number] 2.16.840.1.307566.3.579.2 .355 1945 Unknown [id number] 2.16.840.1.728351.3.579.2 .593 1945 Unknown [id number] 2.16.840.1.367994.3.579.2 .593 1945 Unknown [id number] 2.16.840.1.475026.3.579.2 .593 1945 Unknown [id number] 2.16.840.1.982705.3.579.2 .356 1945 Unknown [id number] 2.16.840.1.208792.3.579.2 .356 1945 Unknown [id number] 2.16.840.1.848228.3.579.2 .356 1945 Unknown [id number] 2.16.840.1.661414.3.579.2 .356 1945 Unknown [id number] 2.16.840.1.249852.3.579.2 .356 1945 Unknown [id number] 2.16.840.1.485334.3.579.2 .356 1945 Unknown [id number] 2.16.840.1.600277.3.579.2 .1068 1945 Unknown [id number] 2.16.840.1.781377.3.579.2 .1245 1945 Unknown [id number] 2.16.840.1.448946.3.579.2 .1259 1945 Unknown [id number] 2.16.840.1.088056.3.579.2 .1259 1945 Unknown [id number] 2.16.840.1.991389.3.579.2 .1243 1945 Unknown [id number] 2.16.840.1.519633.3.579.2 .1244 1945 Unknown [id number] 2.16.840.1.541423.3.579.2 .1243 1945 Unknown [id number] 2.16.840.1.897517.3.579.2 .1244 Unknown ANTHEM MEDICARE ADV Unknown [id number] 2.16.840.1.700011.3.579.2 .531 Unknown [id number] 2.16.840.1.774339.3.579.2 .531 Unknown [id number] 2.16.840.1.541136.3.579.2 .531 Unknown [id number] 2.16.840.1.521189.3.579.2 .531 Unknown [id number] 2.16.840.1.405534.3.579.2 .531 Unknown [id number] 2.16.840.1.488507.3.579.2 .531 Unknown [id number] 2.16.840.1.210415.3.579.2 .531 Unknown [id number] 2.16.840.1.757937.3.579.2 .531 Unknown [id number] 2.16.840.1.096758.3.579.2 .531 Unknown [id number] 2.16.840.1.895212.3.579.2 .531 Unknown [id number] 2.16.840.1.399876.3.579.2 .531 Unknown [id number] 2.16.840.1.502968.3.579.2 .531 Unknown [id number] 2.16.840.1.679351.3.579.2 .531 Unknown [id number] 2.16.840.1.033141.3.579.2 .531 Social History Date Type Detail Facility Start: 12-07-2023 End: 03-08-2024 Caffeine use Caffeine use [facility] Celery Other Comment on above: Quit 50+ years ago; Start: 12-07-2023 End: 03-08-2024 Sex Assigned At [employer] [facility] Celery Other Start: 03-17-2023 [facility] Start: 1945 End: 1945 Sex Assigned At Female [facility] Start: 1945 Sex Assigned At Not on file [facility] Work Phone: Start: 05-09-2023 End: 06-21-2024 Exposure to SARS-CoV-2 (event) Not sure [facility] Start: 02-28-2019 End: 06-16-2024 Tobacco smoking status HIIS Ex-smoker (finding) [facility] Start: 12-07-2023 End: 12-25-2023 Tobacco smoking status HIIS Never smoked tobacco [facility] Start: 12-07-2023 End: 06-16-2024 Tobacco use and exposure Smokeless tobacco non-user [facility] Work Phone: Start: 12-07-2023 End: 06-21-2024 Alcoholic beverage intake Lifetime non-drinker (finding) [facility] Work Phone: History of tobacco use Current smoker [facility] History of tobacco use Cigarette Smoker [facility] Start: 02-14-2024 Alcohol Comment caffeine: 1-2 cups per day [facility] NEGATED: Highlighted row [facility] Medical Equipment Procedure Code Equipment Code Equipment Origin al Text Equipment Identifier Dates Arthroplasty, knee, total, minimally invasive Orthopaedic cement, non-medicated [id number] FDA Start: 10-26-2023 Arthroplasty, knee, total, minimally invasive Knee femur stem prosthesis ()[id number] FDA Start: 10-26-2023 Arthroplasty, knee, total, minimally invasive Orthopaedic bone wire ()[id number] FDA Start: 10-26-2023 Arthroplasty, knee, total, minimally invasive Tibial insert ()[id number] FDA Start: 10-26-2023 Arthroplasty, knee, total, minimally invasive Polyethylene patella prosthesis ()[id number] FDA Start: 10-26-2023 Arthroplasty, knee, total, minimally invasive Knee stem ()[id number] FDA Start: 10-26-2023 Arthroplasty, knee, total, minimally invasive Uncoated knee tibia prosthesis, metallic ()[id number] FDA Start: 10-26-2023 Arthroplasty, knee, total, minimally invasive Uncoated knee femur prosthesis, metallic ()[id number] FDA Start: 10-26-2023 Goals Date Patient Goal Desired Activity /State Functional Status Date Assessment Result Facility 10-28-2023 Functional status Patient is Pro gressing Toward Baseline [facility] Work Phone: 10-05-2023 Functional status Patient at Baseline [facility] Work Phone: Mental Status Date Assessment Result Facility 10-28-2023 Cognitive function Cognitive Sta tus Patient at Baseline [facility] Work Phone: 10-05-2023 Cognitive function Cognitive Sta tus Patient at Baseline [facility] Work Phone: Clinical Notes 07-25-2021 to 06-21-2024 Julianne Pang MD - 06/21/2024 10:10 AM ESTPatient InstructionsJulianne Pang MD - 01/05/2024 9:30 AM EDTPatient InstructionsJulianne Pang MD - 12/07/2023 3:30 PM EDTPatient Instructions Note Date & Type Note Facility 06-21-2024 History of Present illness Narrative Durga Juarez is a 78 y.o. female Chief Complaint Follow-up HPI Patient is in the office for follow-up for paroxysmal atrial fibrillation accompanied by her daughter. She has remained in normal sinus rhythm with no breakthrough events. She is currently anticoagulated with Xarelto without any bleeding complications. Her blood pressure is under control but at times it runs on the low side. Her daughter has been checking blood pressure readings multiple times per day and she was discouraged from doing that. She tends to have low diastolic blood pressure which is inconsequential. Lab data had been followed closely and there has been no concern noted. Her weight has increased from last visit and encouragement for healthy lifestyle especially emphasizing activities was encouraged ASSESSMENT AND PLAN: 1. Paroxysmal atrial fibrillation, on flecainide and Xarelto with no breakthrough episodes. No change in medication was felt to be necessary. EKG today was normal except for first-degree AV block MI interval 212 ms 2. Obstructive sleep apnea, on CPAP machine with compliant patient in that regard. 3. Class II obesity. Weight loss education was provided emphasizing on low-calorie diet 4. Hypothyroidism, managed by PCP, thyroid function is normal 5. Hypertension, currently under control but at times she has hypotension for which I advised reducing labetalol down to 400 mg twice daily instead of 3 times daily. She was discouraged from having multiple blood pressure reading during the day. 6. High risk medication with no complications associated with flecainide or Xarelto [id number] AV block which is inconsequential Follow up as scheduled in 6 months. Review of Systems All other systems reviewed and are negative. Vitals: 11/05/24 1017 06/21/24 1052 BP: 140/70 118/60 BP Location: Right arm Patient Position: Sitting Pulse: 75 Weight: 94.8 kg (209 lb) Height: 1.575 m (5' 2 ) EKG done in office today Objective Physical Exam Constitutional: Appearance: Normal appearance. HENT: Nose: Nose normal. Neck: Vascular: No carotid bruit. Cardiovascular: Rate and Rhythm: Normal rate. Pulses: Normal pulses. Heart sounds: Normal heart sounds. Pulmonary: Effort: Pulmonary effort is normal. Abdominal: General: Bowel sounds are normal. Palpations: Abdomen is soft. Musculoskeletal: General: Normal range of motion. Cervical back: Normal range of motion. Right lower leg: No edema. Left lower leg: No edema. Skin: General: Skin is warm and dry. Neurological: General: No focal deficit present. Mental Status: She is alert. Psychiatric: Mood and Affect: Mood normal. Behavior: Behavior normal. Thought Content: Thought content normal. Judgment: Judgment normal. Allergies Patient has no known allergies. Current Medications Current Outpatient Medications: acetaminophen (Tylenol) 500 mg capsule, take as directed prn., Disp: , Rfl: citalopram (CeleXA) 20 mg tablet, Take 1 tablet (20 mg) by mouth once daily., Disp: , Rfl: diclofenac sodium (Voltaren) 1 % gel gel, , Disp: , Rfl: flecainide (Tambocor) 50 mg tablet, Take 1 tablet (50 mg) by mouth 2 times a day., Disp: 180 tablet, Rfl: 3 furosemide (Lasix) 40 mg tablet, Take 1 tablet (40 mg) by mouth once daily., Disp: 90 tablet, Rfl: 3 gabapentin (Neurontin) 100 mg capsule, Take 1 capsule (100 mg) by mouth 2 times a day., Disp: , Rfl: hydrALAZINE (Apresoline) 50 mg tablet, TAKE 1 TABLET BY MOUTH TWICE A DAY, Disp: 180 tablet, Rfl: 3 hydroCHLOROthiazide (HYDRODiuril) 25 mg tablet, Take 1 tablet (25 mg) by mouth once daily., Disp: 90 tablet, Rfl: 3 levothyroxine (Synthroid, Levoxyl) 112 mcg tablet, Take 1 tablet (112 mcg) by mouth once daily., Disp: , Rfl: liothyronine (Cytomel) 5 mcg tablet, Take 1 tablet (5 mcg) by mouth 2 times a day., Disp: , Rfl: losartan (Cozaar) 100 mg tablet, TAKE 1 TABLET BY MOUTH EVERY DAY, Disp: 90 tablet, Rfl: 3 meloxicam (Mobic) 7.5 mg tablet, Take 1 tablet (7.5 mg) by mouth early in the morning.., Disp: , Rfl: methocarbamol (Robaxin) 750 mg tablet, Take 1 tablet (750 mg) by mouth 3 times a day., Disp: , Rfl: omeprazole (PriLOSEC) [address] capsule, Take 1 capsule (40 mg) by mouth once daily in the morning. Take before meals., Disp: , Rfl: potassium chloride CR (Klor-Con M20) 20 mEq ER tablet, Take 1 tablet (20 mEq) by mouth 3 times a day., Disp: 270 tablet, Rfl: 3 rivaroxaban (Xarelto) 20 mg tablet, Take 1 tablet (20 mg) by mouth once daily., Disp: 90 tablet, Rfl: 3 topiramate (Topamax) 50 mg tablet, Take 1 tablet (50 mg) by mouth once daily at bedtime., Disp: , Rfl: labetalol (Normodyne) 200 mg tablet, Take 2 tablets (400 mg) by mouth 2 times a day., Disp: 360 tablet, Rfl: 3 Assessment/Plan 1. PAF (paroxysmal atrial fibrillation) (Multi) Follow Up In Cardiology Basic Metabolic Panel CBC ECG 12 Lead Basic Metabolic Panel CBC 2. High risk medication use Basic Metabolic Panel CBC Basic Metabolic Panel CBC 3. Essential hypertension Follow Up In Cardiology labetalol (Normodyne) 200 mg tablet 4. First degree AV block 5. Obstructive sleep apnea syndrome 6. Never smoked tobacco 7. BMI 38.0-38.9,adult 8. Class 2 obesity Scribe Attestation By signing my name below, Rahda Morse LPN, Scribe attest that this documentation has been prepared under the direction and in the presence of Julianne Pang MD. Provider Attestation - Scribe documentation All medical record entries made by the Scribe were at my direction and personally dictated by me. I have reviewed the chart and agree that the record accurately reflects my personal performance of the history, physical exam, discussion and plan. documented in this encounter [facility] Work Phone: 06-21-2024 Instructions Radha Burgos LPN - 06/21/2024 10:10 AM EST Please bring all medicines, vitamins, and herbal supplements with you when you come to the office. Prescriptions will not be filled unless you are compliant with your follow up appointments or have a follow up appointment scheduled as per instruction of your physician. Refills should be requested at the time of your visit. BMI was above normal measurement. Current weight: 94.8 kg (209 lb) Weight change since last visit (-) denotes wt loss 0 lbs Weight loss needed to achieve BMI 25: 72.6 Lbs Weight loss needed to achieve BMI 30: 45.3 Lbs Provided instructions on dietary changes Provided instructions on exercise. Reduce Labetalol to two times daily 6 months with lab documented in this encounter [facility] Work Phone: 01-05-2024 History of Present illness Narrative Subjective Tracy Juarez is a 78 y.o. female Chief Complaint Hypertension Hypertension Patient is in the office for hypertension management. Since I increased labetalol up to 400 mg twice daily her pressure has become under better control as confirmed in the office today but she tells me that in the evening her pressure is elevated at home. She also had a visit to the emergency department last week because of volume overload. EKG today reveals normal sinus rhythm with normal heart rate. She has mild edema in the left lower extremity. Advised patient to increase labetalol up to 400 mg every 8 hours, start Lasix 40 mg daily, obtain basic metabolic profile next week, stop by the office in 2 months for EKG and blood pressure check. She was advised to let me know if anything happens in the interim. Review of Systems All other systems reviewed and are negative. Vitals: 01/05/24 0939 01/05/24 0952 BP: 124/72 134/78 BP Location: Left arm Right arm Patient Position: Sitting Sitting Pulse: 70 Weight: 92.4 kg (203 lb 12.8 oz) Height: 1.549 m (5' 1 ) EKG done in office today Objective Physical Exam Allergies Patient has no known allergies. Current Medications Current Outpatient Medications: acetaminophen (Tylenol) 500 mg capsule, take as directed prn., Disp: , Rfl: citalopram (CeleXA) 20 mg tablet, Take 1 tablet (20 mg) by mouth once daily., Disp: , Rfl: diclofenac sodium (Voltaren) 1 % gel gel, , Disp: , Rfl: flecainide (Tambocor) 50 mg tablet, Take 1 tablet (50 mg) by mouth 2 times a day., Disp: , Rfl: gabapentin (Neurontin) 100 mg capsule, Take 1 capsule (100 mg) by mouth 2 times a day., Disp: , Rfl: hydrALAZINE (Apresoline) 50 mg tablet, Take 1 tablet (50 mg) by mouth 2 times a day., Disp: , Rfl: hydroCHLOROthiazide (HYDRODiuril) 25 mg tablet, Take 1 tablet (25 mg) by mouth once daily., Disp: , Rfl: ketoconazole (NIZOral) 2 % cream, APPLY TO AFFECTED AREA IN CENTRAL FACE ONCE A DAY, Disp: , Rfl: Klor-Con M20 20 mEq ER tablet, Take 1 tablet (20 mEq) by mouth 3 times a day., Disp: , Rfl: levothyroxine (Synthroid, Levoxyl) 112 mcg tablet, Take 1 tablet (112 mcg) by mouth once daily., Disp: , Rfl: liothyronine (Cytomel) 5 mcg tablet, Take 1 tablet (5 mcg) by mouth 2 times a day., Disp: , Rfl: losartan (Cozaar) 100 mg tablet, Take 1 tablet (100 mg) by mouth once daily., Disp: , Rfl: methocarbamol (Robaxin) 750 mg tablet, Take 1 tablet (750 mg) by mouth 3 times a day., Disp: , Rfl: pantoprazole (ProtoNix) 40 mg EC tablet, Take 1 tablet (40 mg) by mouth once daily., Disp: , Rfl: rivaroxaban (Xarelto) 20 mg tablet, Take 1 tablet (20 mg) by mouth once daily., Disp: 90 tablet, Rfl: 3 topiramate (Topamax) 50 mg tablet, Take 1 tablet (50 mg) by mouth once daily at bedtime., Disp: , Rfl: furosemide (Lasix) 40 mg tablet, Take 1 tablet (40 mg) by mouth once daily., Disp: 90 tablet, Rfl: 3 labetalol (Normodyne) 200 mg tablet, Take 2 tablets ( 400mg) three times daily ( every 8 hours), Disp: 180 tablet, Rfl: 11 Assessment/Plan 1. Essential hypertension Follow Up In Cardiology Basic Metabolic Panel Follow Up In Cardiology Basic Metabolic Panel 2. Edema, unspecified type furosemide (Lasix) 40 mg tablet Basic Metabolic Panel Basic Metabolic Panel 3. PAF (paroxysmal atrial fibrillation) (Multi) labetalol (Normodyne) 200 mg tablet ECG 12 Lead Scribe Attestation By signing my name below, IRadha LPN, Scribe attest that this documentation has been prepared under the direction and in the presence of Julianne Pang MD. Provider Attestation - Scribe documentation All medical record entries made by the Scribe were at my direction and personally dictated by me. I have reviewed the chart and agree that the record accurately reflects my personal performance of the history, physical exam, discussion and plan. documented in this encounter [facility] Work Phone: 01-05-2024 Instructions Radha Burgos LPN - 01/05/2024 9:30 AM EDT Please bring all medicines, vitamins, and herbal supplements with you when you come to the office. Prescriptions will not be filled unless you are compliant with your follow up appointments or have a follow up appointment scheduled as per instruction of your physician. Refills should be requested at the time of your visit. Nov follow up Labetalol 400mg every 8 hours ( 3 times daily) Lasix 40 mg one daily morning Lab work 2 weeks B/p and EKG visit 2 months documented in this encounter [facility] Work Phone: 12-07-2023 History of Present illness Narrative Subjective Tracy Juarez is a 77 y.o. female Chief Complaint Follow-up HPI Patient is in the office for follow-up for the problems noted below accompanied by her daughter. She unfortunately lost a younger daughter for disability recently and with infection. She did not have any cardiac events since her last visit. But she is hypertensive in the office today. She remains in sinus rhythm confirmed by EKG today on flecainide. EKG today confirmed normal sinus rhythm with first-degree AV block and 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 ASSESSMENT AND PLAN: 1. Paroxysmal atrial fibrillation, on flecainide and Xarelto with no breakthrough episodes. No change in medication was felt to be necessary. EKG today was normal except for first-degree AV block MI interval 212 ms 2. Sleep apnea, on CPAP machine with compliant patient in that regard. 3. Class II obesity. Weight loss education was provided emphasizing on low-calorie diet 4. Hypothyroidism, managed by PCP, thyroid function is normal 5. Hypertension uncontrolled on current medications, will increase labetalol up to 400 mg twice daily, in 2 weeks will have BP check and EKG. 6. High risk medication with no complications associated with flecainide or Xarelto [id number] AV block which is inconsequential Follow up as scheduled in 6 months. Julianne Pang MD, [facility] Review of Systems All other systems reviewed and are negative. Vitals: 12/07/23 1545 12/07/23 1614 BP: 148/76 160/80 BP Location: Left arm Patient Position: Sitting Pulse: 75 Weight: 89.5 kg (197 lb 6.4 oz) Height: 1.549 m (5' 1 ) EKG done in office today Objective Physical Exam Constitutional: Appearance: Normal appearance. HENT: Nose: Nose normal. Neck: Vascular: No carotid bruit. Cardiovascular: Rate and Rhythm: Normal rate. Pulses: Normal pulses. Heart sounds: Normal heart sounds. Pulmonary: Effort: Pulmonary effort is normal. Abdominal: General: Bowel sounds are normal. Palpations: Abdomen is soft. Musculoskeletal: General: Normal range of motion. Cervical back: Normal range of motion. Right lower leg: No edema. Left lower leg: No edema. Skin: General: Skin is warm and dry. Neurological: General: No focal deficit present. Mental Status: She is alert. Psychiatric: Mood and Affect: Mood normal. Behavior: Behavior normal. Thought Content: Thought content normal. Judgment: Judgment normal. Allergies Patient has no known allergies. Current Medications Current Outpatient Medications: acetaminophen (Tylenol) 500 mg capsule, take as directed prn., Disp: , Rfl: citalopram (CeleXA) 20 mg tablet, Take 1 tablet (20 mg) by mouth once daily., Disp: , Rfl: diclofenac sodium (Voltaren) 1 % gel gel, , Disp: , Rfl: flecainide (Tambocor) 50 mg tablet, Take 1 tablet (50 mg) by mouth 2 times a day., Disp: , Rfl: gabapentin (Neurontin) 100 mg capsule, Take 1 capsule (100 mg) by mouth 2 times a day., Disp: , Rfl: hydrALAZINE (Apresoline) 50 mg tablet, Take 1 tablet (50 mg) by mouth 2 times a day., Disp: , Rfl: hydroCHLOROthiazide (HYDRODiuril) 25 mg tablet, Take 1 tablet (25 mg) by mouth once daily., Disp: , Rfl: ketoconazole (NIZOral) 2 % cream, APPLY TO AFFECTED AREA IN CENTRAL FACE ONCE A DAY, Disp: , Rfl: Klor-Con M20 20 mEq ER tablet, Take 1 tablet (20 mEq) by mouth 3 times a day., Disp: , Rfl: levothyroxine (Synthroid, Levoxyl) 112 mcg tablet, Take 1 tablet (112 mcg) by mouth once daily., Disp: , Rfl: liothyronine (Cytomel) 5 mcg tablet, Take 1 tablet (5 mcg) by mouth 2 times a day., Disp: , Rfl: losartan (Cozaar) 100 mg tablet, Take 1 tablet (100 mg) by mouth once daily., Disp: , Rfl: methocarbamol (Robaxin) 750 mg tablet, Take 1 tablet (750 mg) by mouth 3 times a day., Disp: , Rfl: pantoprazole (ProtoNix) 40 mg EC tablet, Take 1 tablet (40 mg) by mouth once daily., Disp: , Rfl: rivaroxaban (Xarelto) 20 mg tablet, Take 1 tablet (20 mg) by mouth once daily., Disp: 90 tablet, Rfl: 3 topiramate (Topamax) 50 mg tablet, Take 1 tablet (50 mg) by mouth once daily at bedtime., Disp: , Rfl: labetalol (Normodyne) 200 mg tablet, Take 2 tablets (400 mg) by mouth 2 times a day., Disp: 360 tablet, Rfl: 3 Assessment/Plan 1. PAF (paroxysmal atrial fibrillation) (Multi) Follow Up In Cardiology ECG 12 Lead CBC CBC 2. First degree AV block 3. Essential hypertension labetalol (Normodyne) 200 mg tablet Follow Up In Cardiology 4. High risk medication use CBC CBC 5. Hypothyroidism, unspecified type 6. Obstructive sleep apnea syndrome 7. BMI 37.0-37.9, adult 8. Never smoked tobacco Scribe Attestation By signing my name below, I, Ramya Carranza LPN , [place] attest that this documentation has been prepared under the direction and in the presence of Julianne Pang MD. Provider Attestation - Scribe documentation All medical record entries made by the Scribe were at my direction and personally dictated by me. I have reviewed the chart and agree that the record accurately reflects my personal performance of the history, physical exam, discussion and plan. documented in this encounter [facility] Work Phone: 12-07-2023 Instructions Ramya Gonzalez LPN - 12/07/2023 3:30 PM EDT Please bring all medicines, vitamins, and herbal supplements with you when you come to the office. Prescriptions will not be filled unless you are compliant with your follow up appointments or have a follow up appointment scheduled as per instruction of your physician. Refills should be requested at the time of your visit. BMI was above normal measurement. Current weight: 89.5 kg (197 lb 6.4 oz) Weight change since last visit (-) denotes wt loss -3.44 lbs Weight loss needed to achieve BMI 25: 65.4 Lbs Weight loss needed to achieve BMI 30: 39 Lbs Provided instructions on dietary changes Provided instructions on exercise. documented in this encounter [facility] Work Phone: 08-12-2023 Evaluation note Encounter Date Diagnosis Assessment Notes Jul, Primary osteoarthritis of left knee (ICD-10 - M17.12) Jul, Other fdc (current) drug therapy (ICD-10 - Z79.899) Jul, Age-related osteoporosis without current pathological fracture (ICD-10 - M81.0) [facility] Other 12-27-2023 Evaluation note* Encounter Date Diagnosis Assessment Notes Treatment Notes Treatment Clinical Notes Jul, Primary osteoarthritis of left knee (ICD-10 - M17.12) [facility] Other 10-03-2023 History of Present illness Narrative* Coty Casiano MD - 05/19/2023 11:30 AM EDT Assessment/Plan Tracy Juarez is a 77 y.o. female who is now s/p wide local excision and sentinel lymph node biopsy on 04/27/23. On final pathology all 6 lymph nodes were benign and margins were clear, [id number]. We discussed that this is great news and she does not require further workup or follow up with us at this time. We advised her to follow with her bench chemist for regular exams and to return to our clinic with any concerns in the future. The patient expressed understanding. Coty Casiano MD hose tester Division of Surgical Oncology [phone] [email or web address] Subjective Patient ID: Tracy Juarez is a 77 y.o. female who presents for a postoperative clinic visit. Referring provider: Ken Moreau Diagnosis: primary cutaneous melanoma Location: left arm Clinical thickness: 2.8 mm Surgery: Wide local excision and sentinel lymph node biopsy on 04/27/23 Postoperative issues: none Objective Incisions are clean, dry, and intact Surgical Pathology FINAL DIAGNOSIS A. NODE, LEFT AXILLARY SENTINEL LYMPH NODE #1, 260 COUNT, BIOPSY: FOCAL MELAN-A STAINING, SEE NOTE.Note: Microscopic examination reveals an enlarged lymph node. In the subcapsular space there is focal Melan-A staining. This is compared with primary melanoma in [id number] and is smaller. It is not seen on the SOX-10 or HMB45 stain. All control slides stain appropriately. A benign lymph node is favored. B. NODE, LEFT AXILLARY SENTINEL LYMPH NODE #2, 457 COUNT, BIOPSY: BENIGN LYMPH NODE. C. NODE, LEFT AXILLARY SENTINEL LYMPH NODE #3, 267 COUNT, BIOPSY: BENIGN LYMPH NODE. D. NODE, LEFT AXILLARY SENTINEL LYMPH NODE #4, 0 COUNT, BIOPSY: FOCAL MELAN-A STAINING, SEE NOTE. Note: Microscopic examination reveals a lymph node. There is focal Melan-A staining in the parenchymaof a lymph node that is not definitively of a cell. Staining in this area is not seen on a SOX-10 or HMB45 stain. All control slides stain appropriately. A benign lymph node is favored. E. NODE, LEFT AXILLARY SENTINEL LYMPH NODE #5, COUNT 127, BIOPSY: BENIGN LYMPH NODE. F. NODE, LEFT AXILLARY SENTINEL LYMPH NODE #6, 0 COUNT, BIOPSY: BENIGN LYMPH NODE. G. SKIN, OPEN WIDE EXCISION LEFT UPPER ARM, 4x12 SHORT - SUPERIOR, LONG - POSTERIOR: CHANGES CONSISTENT WITH PREVIOUS PROCEDURE, INKED MARGINS FREE IN PLANES OF SECTIONS EXAMINED, WITHOUT RESIDUAL ATYPICAL MELANOCYTIC NEOPLASM SEEN. documented in this [facility] Work Phone: 1([phone]) 341-342709-11-2023 NotePROCEDURE DETAILS Preoperative Diagnosis: Melanoma left arm Postoperative Diagnosis: Melanoma left arm Surgeon: Coty Casiano Resident/Fellow/Other Teletype Clerk: Armando Wooten Procedure: 1. Wide local excision left arm 2. Left axillary sentinel lymph node biopsy Anesthesia: No anesthesiologist associated with this case Estimated Blood Loss: 10 Findings: Multiple sentinel nodes left axilla Specimens(s) Collected: yes, Operative Report: Indications for surgery: The patient was recently diagnosed with a 2.8 mm melanoma of the posterior left upper arm just above the elbow. After discussing the risks and benefits of wide local excision with sentinel lymph node biopsy the patient elected to proceed. Details of procedure: The patient arrived at [facility] on 04/27/2023 for the aforementioned procedure. Consent was obtained, history and physical performed, and questions were answered. The patient was moved into the operating room and induced under anesthesia. A timeout was performed prior to surgery. For the wide local excision, the left arm was prepped and draped in the usual sterile fashion. A 2 cm margin was drawn about the lesion and this was extended into a 3:1 elliptical incision along natural body lines to facilitate a tension-free closure. Given the transverse orientation of the biopsy scar this made orientation difficult but the excision was done in an oblique angle to minimize the length and avoid crossing over the olecranon. Local anesthetic was injected and an incision was made along this ellipse. Electrocautery was used to dissected down to the muscular fascia and the specimen was then removed and marked with a short stitch superior and a long stitch posterior with a final dimension of 4 x 12 cm. This was sent for permanent pathology. Circumferential soft tissue flaps were created to facilitate closure. The wound was irrigated and hemostasis was achieved. The wound was then closed in a complex multilayer fashion using deep 2-0 Vicryl [id number], interrupted 3-0 Vicryl deep dermals, and a 4-0 nylon vertical mattress sutures. The skin was dressed with Dermabond. For the sentinel lymph node biopsy, the left axilla was prepped and draped in the usual sterile fashion after verifying radiotracer presence in this basin with the neoprobe. A 3 cm incision was made over the radioactivity and dissection was carried out with electrocautery to identify the sentinel node. This was removed using clips and suture as needed to control blood vessels and lymphatics. A total of 5 lymph nodes was obtained and sent for permanent pathology. The wound was then irrigated and hemostasis achieved. This was closed in a multilayer fashion using interrupted deep 3-0 Vicryl in a running subcuticular 4-0 Monocryl. The skin was dressed with Dermabond. The patient was awoken and returned to the PACU in anticipation of discharge home. I was present scrubbed and directed all operative decision-making. Note Recipients: Ken Tee Synoptic Op Report: Primary Cutaneous Melanoma Operation performed with curative intent: yes 2.8 mm Clinical margin width: 2 cm Depth of excision: full-thickness skin/subcutaneous tissue down to fascia (melanoma) Attestation: Note Completion: Attending AttestationI performed the procedure without a resident Electronic Signatures: Coty Casiano) (Signed 27-Apr-2023 15:19) Authored: Post-Operative Note, Chart Review, Note Completion Last Updated: 27-Apr-2023 15:19 by Coty Casiano)[facility] 04-27-2023 Miscellaneous Notes* Op Note - Coty Casiano MD - 04/27/2023 3:15 PM EDT PROCEDURE DETAILS Preoperative Diagnosis: Melanoma left arm Postoperative Diagnosis: Melanoma left arm Surgeon: Coty Casiano Resident/Fellow/Other Teletype Clerk: Armando Wooten Procedure: 1. Wide local excision left arm 2. Left axillary sentinel lymph node biopsy Anesthesia: No anesthesiologist associated with this case Estimated Blood Loss: 10 Findings: Multiple sentinel nodes left axilla Specimens(s) Collected: yes, Operative Report: Indications for surgery: The patient was recently diagnosed with a 2.8 mm melanoma of the posteriorleft upper arm just above the elbow. After discussing the risks and benefits of wide local excisionwith sentinel lymph node biopsy the patient elected to proceed. Details of procedure: The patient arrived at [facility] on 04/27/2023 for the aforementioned procedure. Consent was obtained, history and physical performed, and questions were answered. The patient was moved into the operating room and induced under anesthesia. A timeout was performed prior to surgery. For the wide local excision, the left arm was prepped and draped in the usual sterile fashion. A 2 cm margin was drawn about the lesion and this was extended into a 3:1 elliptical incision along natural body lines to facilitate a tension- free closure. Given the transverse orientation of the biopsy scar this made orientation difficult but the excision was done in an oblique angle to minimize the length and avoid crossing over the olecranon. Local anesthetic was injected and an incision was made along this ellipse. Electrocautery was used to dissected down to the muscular fascia and the specimen was then removed and marked with a short stitch superior and a long stitch posterior with a final d imension of 4 x 12 cm. This was sent for permanent pathology. Circumferential soft tissue flaps were created to facilitate closure. The wound was irrigated and hemostasis was achieved. The wound was then closed in a complex multilayer fashion using deep 2-0 Vicryl [id number], interrupted 3-0 Vicryl deep dermals, and a 4-0 nylon vertical mattress sutures. The skin was dressed with Dermabond. For the sentinel lymph node biopsy, the left axilla was prepped and draped in the usual sterile fashion after verifying radiotracer presence in this basin with the neoprobe. A 3 cm incision was made over the radioactivity and dissection was carried out with electrocautery to identify the sentinel node. This was removed using clips and suture as needed to control blood vessels and lymphatics. A total of 5 lymph nodes was obtained and sent for permanent pathology. The wound was then irrigated andhemostasis achieved. This was closed in a multilayer fashion using interrupted deep 3-0 Vicryl in arunning subcuticular 4-0 Monocryl. The skin was dressed with Dermabond. The patient was awoken and returned to the PACU in anticipation of discharge home. I was present scrubbed and directed all operative decision-making. Note Recipients: Ken Tee Synoptic Op Report: Primary Cutaneous Melanoma Operation performed with curative intent: yes 2.8 mm Clinical margin width: 2 cm Depth of excision: full-thickness skin/subcutaneous tissue down to fascia (melanoma) Attestation: Note Completion: Attending Attestation I performed the procedure without a resident Electronic Signatures: Coty Casiano) (Signed 27-Apr-2023 15:19) Authored: Post-Operative Note, Chart Review, Note Completion Last Updated: 27-Apr-2023 15:19 by Coty Casiano) documented in this [facility] Work Phone: 1(117) 343-925109-11-2023 Note* Op Note - Coty Casiano MD - 04/27/2023 3:15 PM EDT PROCEDURE DETAILS Preoperative Diagnosis: Melanoma left arm Postoperative Diagnosis: Melanoma left arm Surgeon: Coty Casiano Resident/Fellow/Other Teletype Clerk: Armando Wooten Procedure: 1. Wide local excision left arm 2. Left axillary sentinel lymph node biopsy Anesthesia: No anesthesiologist associated with this case Estimated Blood Loss: 10 Findings: Multiple sentinel nodes left axilla Specimens(s) Collected: yes, Operative Report: Indications for surgery: The patient was recently diagnosed with a 2.8 mm melanoma of the posteriorleft upper arm just above the elbow. After discussing the risks and benefits of wide local excisionwith sentinel lymph node biopsy the patient elected to proceed. Details of procedure: The patient arrived at [facility] on 04/27/2023 for the aforementioned procedure. Consent was obtained, history and physical performed, and questions were answered. The patient was moved into the operating room and induced under anesthesia. A timeout was performed prior to surgery. For the wide local excision, the left arm was prepped and draped in the usual sterile fashion. A 2 cm margin was drawn about the lesion and this was extended into a 3:1 elliptical incision along natural body lines to facilitate a tension- free closure. Given the transverse orientation of the biopsy scar this made orientation difficult but the excision was done in an oblique angle to minimize the length and avoid crossing over the olecranon. Local anesthetic was injected and an incision was made along this ellipse. Electrocautery was used to dissected down to the muscular fascia and the specimen was then removed and marked with a short stitch superior and a long stitch posterior with a final d imension of 4 x 12 cm. This was sent for permanent pathology. Circumferential soft tissue flaps were created to facilitate closure. The wound was irrigated and hemostasis was achieved. The wound was then closed in a complex multilayer fashion using deep 2-0 Vicryl [id number], interrupted 3-0 Vicryl deep dermals, and a 4-0 nylon vertical mattress sutures. The skin was dressed with Dermabond. For the sentinel lymph node biopsy, the left axilla was prepped and draped in the usual sterile fashion after verifying radiotracer presence in this basin with the neoprobe. A 3 cm incision was made over the radioactivity and dissection was carried out with electrocautery to identify the sentinel node. This was removed using clips and suture as needed to control blood vessels and lymphatics. A total of 5 lymph nodes was obtained and sent for permanent pathology. The wound was then irrigated andhemostasis achieved. This was closed in a multilayer fashion using interrupted deep 3-0 Vicryl in arunning subcuticular 4-0 Monocryl. The skin was dressed with Dermabond. The patient was awoken and returned to the PACU in anticipation of discharge home. I was present scrubbed and directed all operative decision-making. Note Recipients: Ken Tee Synoptic Op Report: Primary Cutaneous Melanoma Operation performed with curative intent: yes 2.8 mm Clinical margin width: 2 cm Depth of excision: full-thickness skin/subcutaneous tissue down to fascia (melanoma) Attestation: Note Completion: Attending Attestation I performed the procedure without a resident Electronic Signatures: Coty Casiano) (Signed 27-Apr-2023 15:19) Authored: Post-Operative Note, Chart Review, Note Completion Last Updated: 27-Apr-2023 15:19 by Coty Casiano) [facility] Work Phone: 1(433) 617-396209-11-2023 NoteHistory & Physical Reviewed: I have reviewed the History and Physical dated: 27-Apr-2023 History and Physical reviewed and relevant findings noted. Patient examined to review pertinent physical findings.: No significant changes Home Medications Reviewed: no changes noted Allergies Reviewed: no changes noted ERAS (Enhanced Recovery After Surgery): ERAS Patient: no Consent: COVID-19 Consent: COVID-19 Risk ConsentSurgeon has reviewed de luna risks related to the risk of selene COVID-19 and if they contract COVID-19 what the risks are. Electronic Signatures: Coty Casiano) (Signed 27-Apr-2023 07:02) Authored: History & Physical Reviewed, ERAS, Consent, Note Completion Last Updated: 27-Apr-2023 07:02 by Coty Casiano)[facility] 04-27-2023 History and physical note* Coty Casiano MD - 04/27/2023 7:02 AM EDT History & Physical Reviewed: I have reviewed the History and Physical dated: 27-Apr-2023 History and Physical reviewed and relevant findings noted. Patient examined to review pertinent physical findings.: No significant changes Home Medications Reviewed: no changes noted Allergies Reviewed: no changes noted ERAS (Enhanced Recovery After Surgery): ERAS Patient: no Consent: COVID-19 Consent: COVID-19 Risk Consent Surgeon has reviewed de luna risks related to the risk of selene COVID-19 and if they contract COVID-19 what the risks are. Electronic Signatures: Coty Casiano) (Signed 27-Apr-2023 07:02) Authored: History & Physical Reviewed, ERAS, Consent, Note Completion Last Updated: 27-Apr-2023 07:02 by Coty Casiano) [facility] Work Phone: 1(498) 319-811709-11-2023 History and physical note* Coty Casiano MD - 04/27/2023 7:02 AM EDT History & Physical Reviewed: I have reviewed the History and Physical dated: 27-Apr-2023 History and Physical reviewed and relevant findings noted. Patient examined to review pertinent physical findings.: No significant changes Home Medications Reviewed: no changes noted Allergies Reviewed: no changes noted ERAS (Enhanced Recovery After Surgery): ERAS Patient: no Consent: COVID-19 Consent: COVID-19 Risk Consent Surgeon has reviewed de luna risks related to the risk of selene COVID-19 and if they contract COVID-19 what the risks are. Electronic Signatures: Coty Casiano) (Signed 27-Apr-2023 07:02) Authored: History & Physical Reviewed, ERAS, Consent, Note Completion Last Updated: 27-Apr-2023 07:02 by Coyt Casiano) [facility] Phone: 1(779) 360-193801-19-2023 Evaluation note* Encounter Date Diagnosis Assessment Notes Treatment Notes Treatment Clinical Notes Aug, Primary osteoarthritis of left knee (ICD-10 - M17.12) Aug, Other After consent was obtained, the left knee was injected with Zilretta using sterile technique. Patient tolerated the injection well. Follow-up 3 months [facility] Other 12-28-2022 Evaluation note* Encounter Date Diagnosis Assessment Notes Treatment Notes Treatment Clinical Notes Jul, Primary osteoarthritis of left knee (ICD-10 - M17.12) Jul, Other 1. We had a glynn g discussion with the patient today concerning their left knee osteoarthritis. The radiographs do show osteoarthritis of the knee. At this time the patient would like to avoid surgical intervention. We did discuss the risk and benefits of surgical versus nonoperative management. The patient would like to proceed with nonoperative management. We discussed that our options include injections, physical therapy, and the consistent use of anti-inflammatories. All 3 of these options, including their risks and benefits, were discussed at length with the patient. 2. Tylenol: Discussed taking Tylenol (acetaminophen). Recommended adjusting their dosing to 1000mg by mouth up to 3 times a day. 3. NSAIDs: Prescribed Voltaren gel to be used 4-5 times a day on the knee 4. Physical therapy: Discussed formal physical therapy and home regimen. Patient preferred no formal PT because she is at home taking care of her 45-year-old daughter with special needs. 5. Injections: Discussed injections as a treatment option. The patient has failed intra-articular steroids previously for their osteoarthritic knee pain. The patient has never received a Zilretta injection in the past. The risks and benefits of Zilretta injection were discussed; patient voiced their understanding and willingness to proceed with the injection. The patient is also aware the injection is given intra-articular. We will schedule their injection appointment once the patient receives insurance approval for the Zilretta injection. This will need to be scheduled 3 months out from her last steroid injection. If she does not get great relief from the Zilretta then we will likely plan to get her in with Dr. Mason for consideration of radiofrequency ablations. [facility] Other 10-12-2022 Evaluation note* Encounter Date Diagnosis Assessment Notes Treatment Notes Treatment Clinical Notes May, Primary osteoarthritis of left knee (ICD-10 - M17.12) May, Trochanteric bursitis of left hip (ICD-10 - M70.62) May, Other 1. We had a glynn g discussion with the patient today concerning their left knee osteoarthritis. The radiographs do show osteoarthritis of the knee. At this time the patient would like to avoid surgical intervention. We did discuss the risk and benefits of surgical versus nonoperative management. The patient would like to proceed with nonoperative management. We discussed that our options include injections, physical therapy, and the consistent use of anti-inflammatories. All 3 of these options, including their risks and benefits, were discussed at length with the patient. 2. Tylenol: Discussed taking Tylenol (acetaminophen). Recommended adjusting their dosing to 1000mg by mouth up to 3 times a day. 3. NSAIDs: Unable to take anti-inflammatories secondary to Xarelto use 4. Physical therapy: Discussed formal physical therapy and home regimen. Patient preferred no further PT at this time. 5. Injections: Discussed injections as a treatment option. After consent was obtained, the left knee was injected with 3cc Kenalog and 7cc bupivicaine using sterile technique. Patient tolerated the injection well. 6. Follow up as needed [facility] Other 12-09-2021 Evaluation note* Encounter Date Diagnosis Assessment Notes Treatment Notes Treatment Clinical Notes Jul, Acute pain of left knee (ICD-10 - M25.562) Jul, Left hip pain (ICD-10 - M25.552) Jul, Primary osteoarthritis of left knee (ICD-10 - M17.12) The patient is suffering from degenerative arthritis involving the knee. We discussed the conservative treatment options which can be beneficial in relieving pain, including gentle non-impact motion exercise and non-steroidal anti-inflammatory medication. We discussed the use of occasional cortisone injections that can provide pain relief as well as hyaluronan lubricant injection. We performed a 7/3cc marcaine / kenalog cortisone injection into the knee joint under sterile technique. Patient tolerated the injection well without adverse reaction. Jul, Trochanteric bursitis of left hip (ICD-10 - M70.62) This appears to be pain secondary to greater trochanteric bursitis. Discussed treatment options as oral or topical NSAIDs, physical therapy with iontophoresis, or cortisone injection to the greater trochanteric bursa. Patient was prepped and cortisone was injected into the greater trochanteric bursa under sterile conditions. Patient tolerated injection well with no adverse reactions. We will provide a prescription for formal physical therapy. The regular use of exercises may be beneficial in relieving painful symptoms. Jul, Other 1. After consent was obtained, the left knee was injected with 3 cc of Kenalog and 7 cc of bupivacaine using sterile technique. Patient tolerated the injection well. We also injected her left hip bursa with 3 cc of Kenalog and 7 cc of bupivacaine. She tolerated this well. 2. Tylenol: Discussed taking Tylenol (acetaminophen). Recommended adjusting their dosing to 1000mg by mouth up to 3 times a day. 3. NSAIDs: Recommend continuing her nabumetone as prescribed by her other physicians. 4. We had a long discussion with the patient today concerning their left knee osteoarthritis. The radiographs do show osteoarthritis of the left knee. At this time the patient would like to avoid surgical intervention. We did discuss the risk and benefits of surgical versus nonoperative management. The patient would like to proceed with nonoperative management. We discussed that our options include injections, physical therapy, and the consistent use of anti-inflammatories . All 3 of these options, including their risks and benefits, were discussed at length with the patient. 5. We are referring the patient to physical therapy for their left hip bursitis. 6. Follow-up 3 months [facility] Other Evaluation noteNo InformationN[facility] Other Evaluation noteN/ADept. of Dermatology Evaluation note* Diagnosis Cellulitis of left upper extremity- Primary documented in this encounter [facility] Work Phone: Evaluation note* Diagnosis Malignant melanoma of left upper limb, including shoulder (CMS/HCC) documented in this encounter [facility] Work Phone: Evaluation noteNo assessment information available [facility] Work Phone: Evaluation note* Diagnosis Onset Date Resolution Status Left knee pain acute Primary osteoarthritis of left knee acute HTN (hypertension) acute OSIEL (obstructive sleep apnea) acute Paroxysmal atrial fibrillation acute Primary osteoarthritis of left knee acute Status post total left knee replacement acute Aftercare following left knee joint replacement surger y acute Status post total left knee replacement acute [facility] Work Phone: Evaluation note* Diagnosis Onset Date Resolution Status Left knee pain acute Primary osteoarthritis of left knee acute HTN (hypertension) acute OSIEL (obstructive sleep apnea) acute Paroxysmal atrial fibrillation acute Primary osteoarthritis of left knee acute Status post total left knee replacement acute Aftercare following left knee joint replacement surger y acute Status post total left knee replacement acute Aftercare following left knee joint replacement surger y acute Status post total left knee replacement acute [facility] Work Phone: Evaluation note* Diagnosis PAF (paroxysmal atrial fibrillation) (Multi)- Primary Atrial fibrillation First degree AV block First degree atrioventricular block Essential hypertension Unspecified essential hypertension High risk medication use Hypothyroidism, unspecified type Obstructive sleep apnea syndrome Obstructive sleep apnea (adult) (pediatric) BMI 37.0-37.9, adult Never smoked tobacco Class 2 obesity documented in this encounter [facility] Work Phone: Evaluation note* Diagnosis Essential hypertension Unspecified essential hypertension Edema, unspecified type PAF (paroxysmal atrial fibrillation) (Multi) Atrial fibrillation documented in this encounter [facility] Work Phone: Evaluation note* Diagnosis Onset Date Resolution Status Aftercare following left knee joint replacement surger y acute Status post total left knee replacement acute Aftercare following left knee joint replacement surger y acute Status post total left knee replacement acute Aftercare following left knee joint replacement surger y acute Status post total left knee replacement acute [facility] Work Phone: Evaluation note* Diagnosis Onset Date Resolution Status Aftercare following left knee joint replacement surger y acute Status post total left knee replacement acute Aftercare following left knee joint replacement surger y acute Status post total left knee replacement acute Aftercare following left knee joint replacement surger y acute Left thigh pain acute Status post total left knee replacement acute [facility] Work Phone: Evaluation note* Diagnosis Onset Date Resolution Status Aftercare following left knee joint replacement surger y acute Status post total left knee replacement acute Aftercare following left knee joint replacement surger y acute Left thigh pain acute Status post total left knee replacement acute Aftercare following left knee joint replacement surger y acute Left thigh pain acute Status post total left knee replacement acute [facility] Work Phone: Evaluation note* Diagnosis Onset Date Resolution Status Aftercare following left knee joint replacement surger y acute Left thigh pain acute Status post total left knee replacement acute Aftercare following left knee joint replacement surger y acute Left thigh pain acute Status post total left knee replacement acute [facility] Work Phone: Evaluation note* Diagnosis Onset Date Resolution Status Aftercare following left knee joint replacement surger y acute Left thigh pain acute Status post total left knee replacement acute Aftercare following left knee joint replacement surger y acute Status post total left knee replacement acute Aftercare following left knee joint replacement surger y acute Status post total left knee replacement acute [facility] Work Phone: Evaluation note* Diagnosis OSIEL (obstructive sleep apnea)- Primary Obstructive sleep apnea (adult) (pediatric) Essential tremor Paresthesia of skin Idiopathic peripheral neuropathy Unspecified hereditary and idiopathic peripheral neuropathy RLS (restless legs syndrome) Restless legs syndrome (RLS) Ataxia Lack of coordination [facility] Diagnosis PAF (paroxysmal atrial fibrillation) (Multi)- Primary Atrial fibrillation High risk medication use Essential hypertension Unspecified essential hypertension First degree AV block First degree atrioventricular block Obstructive sleep apnea syndrome Obstructive sleep apnea (adult) (pediatric) Never smoked tobacco BMI 38.0-38.9,adult Class 2 obesity documented in this encounter [facility] Work Phone: Hisydnd general Narrative - Reported* Type Description Date Medical History hypothyroidism Medical History rheumatoid arthritis Medical History hypertension Medical History afib Surgical History hysterectomy Surgical History hysterectomy 1980 Surgical History knee replacement Surgical History knee replacement, right 2015 Surgical History C section Surgical History Total Substernal Thyroidectomy 02/28/2019 Hospitalization History see above [facility] Other History general Narrative - Reported* Type Description Date Medical History hypothyroidism Medical History rheumatoid arthritis Medical History hypertension Medical History afib Medical History tremors Surgical History hysterectomy Surgical History hysterectomy 1980 Surgical History knee replacement Surgical History knee replacement, right 2014 Surgical History C section Surgical History Total Substernal Thyroidectomy 02/28/2019 Hospitalization History see above [facility] Other History of Present illness Narrative* Tracy is a 77 yoM who presents to our [place] clinic today, referred by Ken Moreau for melanoma. * The patient noted a pigmented lesion on her left arm and was evaluated by his PCP Dr Moreau who performed an excisional biopsy that revealed a 2.8 mm non- ulcerated melanoma with close but clear margins. * All other systems have been reviewed and are negative except as noted in the HPI. * PMH is significant for atrial fibrillation on Xarelto, arthritis, hypothyroid, hypertension, heart block, sleep apnea. * PSH is significant for hysterectomy, thyroidectomy, right knee replacement. * I personally reviewed all necessary laboratory results, pathology reports, and radiologic images for this patient. [id number] [place] Work Phone: Reason for referral (narrative)* Name Reason for referral NA NA Dept. of Dermatology Reason for referral (narrative)* Consultation (Routine) - Authorized Specialty Diagnoses / Procedures Referred By Contac t Referred To Contact Cardiology Diagnoses Essential hypertension Procedures Follow Up In Cardiology Julianne Pang MD [address] [facility] [address], [address] [address] Referral ID Status Reason Start Date Expiration Date V isits Requested Visits Authorized [id number] Authorized 12/07/2023 12/06/2024 1 1 * Cardiovascular (Routine) - Authorized Specialty Diagnoses / Procedures Referred By Contac t Referred To Contact Diagnoses PAF (paroxysmal atrial fibrillation) (Multi) Procedures ECG 12 Lead Julianne Pang MD [address] [facility] [address], [address] [address] Referral ID Status Reason Start Date Expiration Date V isits Requested Visits Authorized [id number] Authorized 12/07/2023 12/06/2024 1 1 * Consultation (Routine) - Authorized Specialty Diagnoses / Procedures Referred By Contac t Referred To Contact Cardiology Diagnoses PAF (paroxysmal atrial fibrillation) (Multi) Procedures Follow Up In Cardiology Julianne Pang MD [address] [facility] [address], [address] [address] Julianne Pang MD [address] [facility] [address], [place] [address] [place] [id number] Referral ID Status Reason Start Date Expiration Date V isits Requested Visits Authorized [id number] Authorized 12/07/2023 12/06/2024 1 1 [facility] Work Phone: Summary Purpose Family History No Family History Records FoundUnknown Family Member Name Dates Details No pertinent family history: Mother, Father, Sibling(V49.89, Z78.9) Status:Active Unknown Family Member Name Dates Details No pertinent family history: Mother, Father, Sibling(V49.89, Z78.9) Status:Active Unknown Family Member Name Dates Details No pertinent family history: Mother, Father, Sibling(V49.89, Z78.9) Status:Active Unknown Family Member Name Dates Details No pertinent family history: Mother, Father, Sibling(V49.89, Z78.9) Status:Active Unknown Family Member Name Dates Details No pertinent family history: Mother, Father, Sibling(V49.89, Z78.9) Status:Active Unknown Family Member Name Dates Details No pertinent family history: Mother, Father, Sibling(V49.89, Z78.9) Status:Active Unknown Family Member Name Dates Details No pertinent family history: Mother, Father, Sibling(V49.89, Z78.9) Status:Active Unknown Family Member Name Dates Details No pertinent family history: Mother, Father, Sibling(V49.89, Z78.9) Status:Active Unknown Family Member Name Dates Details No pertinent family history: Mother, Father, Sibling(V49.89, Z78.9) Status:Active Unknown Family Member Name Dates Details No pertinent family history: Mother, Father, Sibling(V49.89, Z78.9) Status:Active Unknown Family Member Name Dates Details No pertinent family history: Mother, Father, Sibling(V49.89, Z78.9) Status:Active Unknown Family Member Name Dates Details No pertinent family history: Mother, Father, Sibling(V49.89, Z78.9) Status:Active Unknown Family Member Name Dates Details No pertinent family history: Mother, Father, Sibling(V49.89, Z78.9) Status:Active Unknown Family Member Name Dates Details No pertinent family history: Mother, Father, Sibling(V49.89, Z78.9) Status:Active Unknown Family Member Name Dates Details No pertinent family history: Mother, Father, Sibling(V49.89, Z78.9) Status:Active Relationship Condition Age at Onset Recorded Date/T christine Not Specified Malignant neoplasm of lung Unknown sister Disorder of thyroid Unknown Heart disease Unknown Pneumonia Unknown daughter Cerebral palsy Unknown Relationship Condition Age at Onset Recorded Date/T christine Not Specified Malignant neoplasm of lung Unknown sister Disorder of thyroid Unknown daughter Cerebral palsy Unknown grandparent Tuberculosis Unknown Relationship Condition Age at Onset Recorded Date/T christine mother Malignant neoplasm of lung Unknown sister Disorder of thyroid Unknown daughter Cerebral palsy Unknown grandparent Tuberculosis Unknown Advance Directives No Advanced Directives Records Found Advance Directive Response Recorded Date/ Time Advance Directives No February 02 2:33pm Advance Directive Response Recorded Date/ Time Advance Directives No September 21, 2023 3:25pm Advance Directive Response Recorded Date/ Time Advance Directives No September 21, 2023 4:25pm Chief Complaint * TRACY JUAREZ is being seen for a 6 month follow-up of. * Patient is in the office for follow-up for the problems noted below. She has had no breakthrough atrial fibrillation on flecainide confirmed by EKG today. She has been on Xarelto without bleeding complications. She is compliant with CPAP machine. She lost more than 15 pounds since her last visit which is very encouraging and encouragement provided and she was congratulated on her efforts. Her labdata have been followed closely and there have been no area of concern. * ASSESSMENT AND PLAN: * 1. Paroxysmal atrial fibrillation, on flecainide and Xarelto with no breakthrough episodes. No change in medication was felt to be necessary. EKG today was normal except for first-degree AV block MI interval 210 ms * 2. Sleep apnea, on CPAP machine with compliant patient in that regard. * 3. Obesity. Patient intentionally lost 14 pounds since her last visit and encouragement were provided to keep doing that. * 4. Hypothyroidism, managed by PCP, thyroid function is normal * 5. Hypertension controlled on current medications with no changes needed * 6. High risk medication with no complications associated with flecainide or Xarelto * 7 first-degree AV block which is inconsequential * Follow up as scheduled in 6 months. * Jluianne Pang MD, [facility] melanoma Chief Complaint and Reason for Visit Chief Complaint M17.12 Z79.899 M81.0 Chief Complaint Op Sp Lt Knee Pain M17.12 M17.12 Z79.899 M81.0 Knee Pain Chief Complaint Knee Pain H&P LTKA M25.562 - Pain in left knee LTK Pre Op Knee Pain. Knee Pain. Knee Pain. 2 WK POST OP LTKA Reason for Visit Left knee pain Primary osteoarthritis of left knee HTN (hypertension) OSIEL (obstructive sleep apnea) Paroxysmal atrial fibrillation Primary osteoarthritis of left knee Status post total left knee replacement Aftercare following left knee joint replacement surgery Status post total left knee replacement Chief Complaint Knee Pain H&P LTKA M25.562 - Pain in left knee Knee Pain. Knee Pain. Knee Pain. 2 WK POST OP LTKA L TKA Postop 4 WK RECHECK Z47.1 - Aftercare following joint replacement surg Reason for Visit Left knee pain Primary osteoarthritis of left knee HTN (hypertension) OSIEL (obstructive sleep apnea) Paroxysmal atrial fibrillation Primary osteoarthritis of left knee Status post total left knee replacement Aftercare following left knee joint replacement surgery Status post total left knee replacement Aftercare following left knee joint replacement surgery Status post total left knee replacement Chief Complaint Knee Pain Knee Pain H&P LTKA M25.562 - Pain in left knee Knee Pain. Knee Pain. Knee Pain. 2 WK POST OP LTKA 4 WK RECHECK Z47.1 - Aftercare following joint replacement surg L TKA Postop Reason for Visit Left knee pain Primary osteoarthritis of left knee HTN (hypertension) OSIEL (obstructive sleep apnea) Paroxysmal atrial fibrillation Primary osteoarthritis of left knee Status post total left knee replacement Aftercare following left knee joint replacement surgery Status post total left knee replacement Aftercare following left knee joint replacement surgery Status post total left knee replacement Chief Complaint Knee Pain Knee Pain H&P LTKA M25.562 - Pain in left knee Knee Pain. Knee Pain. Knee Pain. 2 WK POST OP LTKA 4 WK RECHECK Z47.1 - Aftercare following joint replacement surg L TKA Postop I48.0 Reason for Visit Left knee pain Primary osteoarthritis of left knee HTN (hypertension) OSIEL (obstructive sleep apnea) Paroxysmal atrial fibrillation Primary osteoarthritis of left knee Status post total left knee replacement Aftercare following left knee joint replacement surgery Status post total left knee replacement Aftercare following left knee joint replacement surgery Status post total left knee replacement Chief Complaint Knee Pain Knee Pain H&P LTKA M25.562 - Pain in left knee Knee Pain. Knee Pain. Knee Pain. 2 WK POST OP LTKA 4 WK RECHECK Z47.1 - Aftercare following joint replacement surg I48.0 L TKA Postop SOB Reason for Visit Left knee pain Primary osteoarthritis of left knee HTN (hypertension) OSIEL (obstructive sleep apnea) Paroxysmal atrial fibrillation Primary osteoarthritis of left knee Status post total left knee replacement Aftercare following left knee joint replacement surgery Status post total left knee replacement Aftercare following left knee joint replacement surgery Status post total left knee replacement Chief Complaint 2 WK POST OP LTKA 4 WK RECHECK Z47.1 - Aftercare following joint replacement surg I48.0 L TKA Postop SOB Z47.1 - Aftercare following joint replacement surg 6-8 WEEK RECHECK Reason for Visit Aftercare following left knee joint replacement surgery Status post total left knee replacement Aftercare following left knee joint replacement surgery Status post total left knee replacement Aftercare following left knee joint replacement surgery Status post total left knee replacement Chief Complaint 2 WK POST OP LTKA 4 WK RECHECK Z47.1 - Aftercare following joint replacement surg I48.0 L TKA Postop SOB Z47.1 - Aftercare following joint replacement surg 6-8 WEEK RECHECK Reason for Visit Aftercare following left knee joint replacement surgery Status post total left knee replacement Aftercare following left knee joint replacement surgery Status post total left knee replacement Aftercare following left knee joint replacement surgery Left thigh pain Status post total left knee replacement Chief Complaint 2 WK POST OP LTKA 4 WK RECHECK Z47.1 - Aftercare following joint replacement surg I48.0 L TKA Postop SOB Z47.1 - Aftercare following joint replacement surg 6-8 WEEK RECHECK M79.65 Z47.1 Z96.652 Reason for Visit Aftercare following left knee joint replacement surgery Status post total left knee replacement Aftercare following left knee joint replacement surgery Status post total left knee replacement Aftercare following left knee joint replacement surgery Left thigh pain Status post total left knee replacement Chief Complaint 4 WK RECHECK Z47.1 - Aftercare following joint replacement surg I48.0 L TKA Postop SOB Z47.1 - Aftercare following joint replacement surg 6-8 WEEK RECHECK M79.[address] RESULTS Reason for Visit Aftercare following left knee joint replacement surgery Status post total left knee replacement Aftercare following left knee joint replacement surgery Left thigh pain Status post total left knee replacement Aftercare following left knee joint replacement surgery Left thigh pain Status post total left knee replacement Chief Complaint I48.0 L TKA Postop SOB Z47.1 - Aftercare following joint replacement surg 6-8 WEEK RECHECK M79.[address] RESULTS 4 WEEKS Z47.1 - Aftercare following joint replacement surg Reason for Visit Aftercare following left knee joint replacement surgery Left thigh pain Status post total left knee replacement Aftercare following left knee joint replacement surgery Left thigh pain Status post total left knee replacement Chief Complaint M79.[address] RESULTS 4 WEEKS Z47.1 z96.652 6-7 WEEKS Z47.1 - Aftercare following joint replacement surg Reason for Visit Aftercare following left knee joint replacement surgery Left thigh pain Status post total left knee replacement Aftercare following left knee joint replacement surgery Status post total left knee replacement Aftercare following left knee joint replacement surgery Status post total left knee replacement Reason for Referral Specialty Diagnoses / Procedures Referred By Ree espinal Referred To Contact Diagnoses PAF (paroxysmal atrial fibrillation) (Multi) Procedures ECG 12 Lead Julianne Pang MD [address] [place] [address], [address] [address] Referral ID Status Reason Start Date Expiration Date V isits Requested Visits Authorized [id number] Authorized 01/05/2024 01/04/2025 1 1 Specialty Diagnoses / Procedures Referred By Ree espinal Referred To Contact Cardiology Diagnoses Essential hypertension Procedures Follow Up In Cardiology Julianne Pang MD [address] [place] [address] 2, [address] [address] Referral ID Status Reason Start Date Expiration Date V isits Requested Visits Authorized [id number] Authorized 01/05/2024 01/04/2025 1 1 Additional Source Comments INFORMATION SOURCE (unrecogn ized section and content) DATE CREATED AUTHOR 02/09/[address] [facility] DATE CREATED AUTHOR AUTHOR'S ORGANIZ ATION 08/27/2018 [facility] DATE CREATED AUTHOR AUTHOR'S ORGANIZ ATION 11/09/2022 [facility] DATE CREATED AUTHOR AUTHOR'S ORGANIZ ATION 05/20/2023 [facility] DATE CREATED AUTHOR AUTHOR'S ORGANIZ ATION 05/20/2023 [facility] DATE CREATED AUTHOR AUTHOR'S ORGANIZ ATION 05/21/2023 [facility] DATE CREATED AUTHOR AUTHOR'S ORGANIZ ATION 05/29/2023 [facility] DATE CREATED AUTHOR AUTHOR'S ORGANIZ ATION 06/18/2024 [facility] DATE CREATED AUTHOR AUTHOR'S ORGANIZ ATION 07/04/2024 [facility] DATE CREATED AUTHOR AUTHOR'S ORGANIZ ATION 07/17/2024 [facility] REASON FOR VISIT (unrecogniz ed section and content) Reason Comments Follow-up Reason Comments 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 Reason Comments Follow-up 6 month Specialty Diagnoses / Procedures Referred By Contac t Referred To Contact Diagnoses PAF (paroxysmal atrial fibrillation) (Multi) Procedures ECG 12 Lead Julianne Pang MD [address] [place] [address] 2, [address] [address] Referral ID Status Reason Start Date Expiration Date V isits Requested Visits Authorized [id number] Authorized 12/07/2023 12/06/2024 1 1 Reason Comments Hypertension BP OV with EKG Specialty Diagnoses / Procedures Referred By Contac t Referred To Contact Cardiology Diagnoses Essential hypertension Procedures Follow Up In Cardiology Julianne Pang MD [address] [facility] 2, [address] [address] Referral ID Status Reason Start Date Expiration Date V isits Requested Visits Authorized [id number] Authorized 12/07/2023 12/06/2024 1 1 Reason Comments Sleep Apnea Tremors Reason Comments Follow-up 6 month Specialty Diagnoses / Procedures Referred By Contac t Referred To Contact Cardiology Diagnoses PAF (paroxysmal atrial fibrillation) (Multi) Procedures Follow Up In Cardiology Julianne Pang MD [address] [facility] 2, [address] [address] Phone: tel: fax: Julianne Pang MD [address] [facility] 2, [facility] [address] [place] [address] Phone: tel: fax: Referral ID Status Reason Start Date Expiration Date V isits Requested Visits Authorized [id number] Authorized 12/07/2023 12/06/2024 1 1 Care Teams (unrecognized sec tion and content) Cdc Associate Relationship Specialty Start Date End Date Sophia Calderon MD [address] [id number] PCP - General 04/27/23 Cdc Associate Relationship Specialty Start Date End Date Sophia Calderon MD [address] [place] [address] PCP - General 04/27/23 Team Status: Active Member Role Status Austyn Calderon MD Primary Care Provider Active Team Status: Inactive Member Role Status Dates Matthew Bucio II, MD Attending Provider Active Team Status: Inactive Member Role Status Austyn Calderon MD Primary Care Provider Active Matthew Bucio II, MD Attending Provider Active Team Status: Inactive Member Role Status Dates Matthew Bucio II, MD Attending Provider Active Start: August 12, 2023 End: August 12, 2023 Team Status: Inactive Member Role Status Austyn Calderon MD Primary Care Provider Active Start: August 12, 2023 End: August 12, 2023 Matthew Bucio II, MD Attending Provider Active Start: August 12, 2023 End: August 12, 2023 Team Status: Inactive Member Role Status Austyn Calderon MD Primary Care Provider Active Start: October 05, 2023 End: October 05, 2023 Matthew Bucio II, MD Attending Provider Active Start: October 05, 2023 End: October 05, 2023 Team Status: Inactive Member Role Status Austyn Calderon MD Primary Care Provider Active Start: October 22, 2023 End: October 22, 2023 Matthew Bucio II, MD Attending Provider Active Start: October 22, 2023 End: October 22, 2023 Team Status: Active Member Role Status Dates Sophia Calderon MD Primary Care Provider Active Start: October 22, 2023 Matthew Bucio II, MD Attending Provider Active Start: October 22, 2023 Team Status: Inactive Member Role Status Dates Sophia Calderon MD Primary Care Provider Active Start: October 26, 2023 End: October 28, 2023 Matthew Bucio II, MD Attending Provider Active Start: October 26, 2023 End: October 28, 2023 Umu Ward RN Other Provider Active Star t: October 26, 2023 End: October 28, 2023 Brenda Fernando RN Other Provider Active Start : October 26, 2023 End: October 28, 2023 Lauren Das RN Other Provider Active Start: [facility] 2023 End: October 28, 2023 Tiffanie Becker RN Other Provider Active Star t: October 26, 2023 End: October 28, 2023 Nargis Diaz RN Other Provider Active Start : October 26, 2023 End: October 28, 2023 Nya Brush , NOHEMI Other Provider Active Start: [facility] 2023 End: October 28, 2023 Brenda Gaytan RN Other Provider Active Start: [facility] 2023 End: October 28, 2023 Geoff Guthrie MD Other Provider Active Start: October 26, 2023 End: October 28, 2023 Arias Eugene MD Other Provider Active Start: [facility] 2023 End: October 28, 2023 Natalie Cifuentes APRN Other Provider Active Start: October 26, 2023 End: October 28, 2023 Felix Alonso DO Other Provider Active Start : October 26, 2023 End: October 28, 2023 Dereje Ramirez MD Other Provider Active Start : October 26, 2023 End: October 28, 2023 Shaan Mccallum DO Other Provider Active Start: October 26, 2023 End: October 28, 2023 Hugo Ordoñez MD Other Provider Active Start: October 26, 2023 End: October 28, 2023 Tanika Canchola MD Other Provider Active Start : October 26, 2023 End: October 28, 2023 Rolando Celaya MD Other Provider Active Start: [facility] 2023 End: October 28, 2023 La Desai APRN Other Provider Active Start: October 26, 2023 End: October 28, 2023 Dheeraj Youssef MD Other Provider Active Start: October 26, 2023 End: October 28, 2023 Cristian Vogt MD Other Provider Active Start: [facility] 2023 End: October 28, 2023 Roe Morocho MD Other Provider Active Start: October 26, 2023 End: October 28, 2023 Luiz Peck MD Other Provider Active Start: October 26, 2023 End: October 28, 2023 Ju Pedraza DO Other Provider Active Start: October 26, 2023 End: October 28, 2023 Jimy Crews MD Other Provider Active Start: [facility] 2023 End: October 28, 2023 Kenn Richmond MD Other Provider Active Start: [facility] 2023 End: October 28, 2023 Abigail Bliss NP-C Other Provider Active St art: October 26, 2023 End: October 28, 2023 Naila Hayes APRN Other Provider Active Star t: October 26, 2023 End: October 28, 2023 Kane Chavarria MD Other Provider Active Start: October 26, 2023 End: October 28, 2023 Kasi Zarate MD Other Provider Active Start: [facility] 2023 End: October 28, 2023 Aric Petty MD Other Provider Active Start: [facility] 2023 End: October 28, 2023 Martha Choi MD Other Provider Active Star t: October 26, 2023 End: October 28, 2023 Herman Martin MD Other Provider Active Start: [facility] 2023 End: October 28, 2023 Mayra Lobo DO Other Provider Active Start: [facility] 2023 End: October 28, 2023 Kale Trotter DO Other Provider Active Start : October 26, 2023 End: October 28, 2023 Alfie Alcala , Other Provider Active Sta rt: October 26, 2023 End: October 28, 2023 Ruchi Yip APRN Other Provider Active Start: October 26, 2023 End: October 28, 2023 Poncho Salcedo , Other Provider Active Start: October 26, 2023 End: October 28, 2023 Elieser Vicente MD Other Provider Active Sta rt: October 26, 2023 End: October 28, 2023 Rachel Agustin APRN Other Provider Active Start : October 26, 2023 End: October 28, 2023 Damaris Salcido APRN Other Provider Active St art: October 26, 2023 End: October 28, 2023 Fernie Pickard MD Other Provider Active Start: [facility] 2023 End: October 28, 2023 Sahil Trent MD Other Provider Active S tart: October 26, 2023 End: October 28, 2023 Chavez Jackson , Other Provider Active Star t: October 26, 2023 End: October 28, 2023 Dusty Casper DO Other Provider Active Start: October 26, 2023 End: October 28, 2023 Danie Petty MD Other Provider Active Start: October 26, 2023 End: October 28, 2023 Marisol Torres RN Other Provider Active Start: [facility] 2023 End: October 28, 2023 Team Status: Active Member Role Status Dates Sophia Calderon MD Primary Care Provider Active Start: October 26, 2023 Matthew Bucio II, MD Attending Ivet carmona, Other Provider Active Start: October 26, 2023 Umu Ward , NOHEMI Other Provider Active Star t: October 26, 2023 Brenda Fernando RN Other Provider Active Start : October 26, 2023 Lauren Das RN Other Provider Active Start: [facility] 2023 Tiffanie Becker RN Other Provider Active Star t: October 26, 2023 Nargis Diaz RN Other Provider Active Start : October 26, 2023 Nya Brush RN Other Provider Active Start: [facility] 2023 Brenda Gaytan RN Other Provider Active Start: [facility] 2023 Geoff Guthrie MD Other Provider Active Start: October 26, 2023 Arias Eugene MD Other Provider Active Start: [facility] 2023 Natalie Cifuentes , CLEARING TUB WORKER Other Provider Active Start: October 26, 2023 Felix Alonso , Other Provider Active Start : October 26, 2023 Dereje Ramirez MD Other Provider Active Start : October 26, 2023 Shaan Mccallum DO Other Provider Active Start: October 26, 2023 Hugo Ordoñez MD Other Provider Active Start: October 26, 2023 Tanika Canchola MD Other Provider Active Start : October 26, 2023 Rolando Celaya MD Other Provider Active Start: [facility] 2023 La Desai , CLEARING TUB WORKER Other Provider Active Start: October 26, 2023 Dheeraj Youssef MD Other Provider Active Start: October 26, 2023 Cristian Vogt MD Other Provider Active Start: [facility] 2023 Roe Morocho MD Other Provider Active Start: October 26, 2023 Luiz Peck MD Other Provider Active Start: October 26, 2023 Ju Pedraza DO Other Provider Active Start: October 26, 2023 Jimy Crews MD Other Provider Active Start: [facility] 2023 Kenn Richmond MD Other Provider Active Start: [facility] 2023 Abigail Bliss NP-C Other Provider Active St art: October 26, 2023 Naila Hayes , CLEARING TUB WORKER Other Provider Active Star t: October 26, 2023 Kane Chavarria MD Other Provider Active Start: October 26, 2023 Kasi Zarate MD Other Provider Active Start: [facility] 2023 Airc Petty MD Other Provider Active Start: [facility] 2023 Martha Choi MD Other Provider Active Star t: October 26, 2023 Herman Martin MD Other Provider Active Start: [facility] 2023 Mayra Lobo DO Other Provider Active Start: [facility] 2023 Kale Trotter , DO Other Provider Active Start : October 26, 2023 Alfie Alcala , DO Other Provider Active Sta rt: October 26, 2023 Ruchi Yip APRN Other Provider Active Start: October 26, 2023 Poncho Salcedo , Other Provider Active Start: October 26, 2023 Elieser Viecnte MD Other Provider Active Sta rt: October 26, 2023 Rachel Agustin APRN Other Provider Active Start : October 26, 2023 Damaris Salcido APRN Other Provider Active St art: October 26, 2023 Fernie Pickard MD Other Provider Active Start: [facility] 2023 Sahil Trent MD Other Provider Active S tart: October 26, 2023 Chavez Jackson , DO Other Provider Active Star t: October 26, 2023 Dusty Casper , DO Other Provider Active Start: October 26, 2023 Danie Petty MD Other Provider Active Start: October 26, 2023 Marisol Torres RN Other Provider Active Start: [facility] 2023 Team Status: Active Member Role Status Dates Sophia Calderon MD Primary Care Provider Active Start: October 26, 2023 Matthew Bucio II, MD Other Provider Active S tart: October 26, 2023 Umu Ward RN Other Provider Active Star t: October 26, 2023 Brenda Fernando , NOHEMI Other Provider Active Start : October 26, 2023 Lauren Das , NOHEMI Other Provider Active Start: [facility] 2023 Tiffanie Becker RN Other Provider Active Star t: October 26, 2023 Nargis Diaz , NOHEMI Other Provider Active Start : October 26, 2023 Nya Brush , NOHEMI Other Provider Active Start: [facility] 2023 Brenda Gaytan , NOHEMI Other Provider Active Start: [facility] 2023 Geoff Guthrie MD Other Provider Active Start: October 26, 2023 Arias Eugene MD Other Provider Active Start: [facility] 2023 Natalie Cifuentes , JUSTINE Other Provider Active Start: October 26, 2023 Felix Alonso , Other Provider Active Start : October 26, 2023 Dereje Ramirez MD Other Provider Active Start : October 26, 2023 Shaan Mccallum , Other Provider Active Start: October 26, 2023 Hugo Ordoñez MD Other Provider Active Start: October 26, 2023 Tanika Canchola MD Other Provider Active Start : October 26, 2023 Rolando Celaya MD Other Provider Active Start: [facility] 2023 La Desai APRN Other Provider Active Start: October 26, 2023 Dheeraj Youssef MD Other Provider Active Start: October 26, 2023 Cristian Vogt MD Other Provider Active Start: [facility] 2023 Roe Morocho MD Attending Provider, Other Provider Active Start: October 26, 2023 Luiz Peck MD Other Provider Active Start: October 26, 2023 Ju Pedraza DO Other Provider Active Start: October 26, 2023 Jimy Crews MD Other Provider Active Start: [facility] 2023 Kenn Richmond MD Other Provider Active Start: [facility] 2023 Abigail Bliss , OUTPATIENT CODER-C Other Provider Active St art: October 26, 2023 Naila Hayes APRN Other Provider Active Star t: October 26, 2023 Kane Chavarria MD Other Provider Active Start: October 26, 2023 Kasi Zarate MD Other Provider Active Start: [facility] 2023 Aric Petty MD Other Provider Active Start: [facility] 2023 Martha Choi MD Other Provider Active Star t: October 26, 2023 Herman Martin MD Other Provider Active Start: [facility] 2023 Mayra Lobo , Other Provider Active Start: [facility] 2023 aKle Trotter , Other Provider Active Start : October 26, 2023 Alfie Alcala , DO Other Provider Active Sta rt: October 26, 2023 Ruchi Yip APRN Other Provider Active Start: October 26, 2023 Poncho Salcedo , Other Provider Active Start: October 26, 2023 Elieser Vicente MD Other Provider Active Sta rt: October 26, 2023 Rachel Agustin APRN Other Provider Active Start : October 26, 2023 Damaris Salcido APRN Other Provider Active St art: October 26, 2023 Fernie Pickard MD Other Provider Active Start: [facility] 2023 Sahil Trent MD Other Provider Active S tart: October 26, 2023 Chavez Jackson , DO Other Provider Active Star t: October 26, 2023 Dusty Casper , Other Provider Active Start: October 26, 2023 Danie Petty MD Other Provider Active Start: October 26, 2023 Marisol Torres RN Other Provider Active Start: [facility] 2023 Team Status: Inactive Member Role Status Dates Sophia Calderon MD Primary Care Provider Active Start: November 11, 2023 End: November 11, 2023 Matthew Bucio II, MD Attending Provider Active Start: November 11, 2023 End: November 11, 2023 Team Status: Active Member Role Status Dates Sophia Calderon MD Primary Care Provider Active Start: December 04, 2023 Matthew Bucio II, MD Attending Provider Active Start: December 04, 2023 Team Status: Inactive Member Role Status Dates Sophia Calderon MD Primary Care Provider Active Start: December 04, 2023 End: December 04, 2023 Matthew Bucio II, MD Attending Provider Active Start: December 04, 2023 End: December 04, 2023 Cdc Associate Relationship Specialty Start Date End Date Sophia Calderon MD [address] [place] [address] PCP - General 04/27/23 Team Status: Inactive Member Role Status Dates Sophia Calderon MD Primary Care Provider Active Start: October 19, 2023 End: October 19, 2023 Matthew Bucio II, MD Attending Provider Active Start: October 19, 2023 End: October 19, 2023 Team Status: Active Member Role Status Dates Sophia Calderon MD Primary Care Provider Active Start: December 14, 2023 Matthew Bucio II, MD Attending Provider Active Start: December 14, 2023 Team Status: Active Member Role Status Dates Sophia M Hoy , MD Primary Care Provider Active Start: December 18, 2023 Matthew Bucio II, MD Attending Provider Active Start: December 18, 2023 Team Status: Inactive Member Role Status Austyn Calderon MD Primary Care Provider Active Start: December 18, 2023 End: December 18, 2023 Julianne Pang MD Attending Provider Active St art: December 18, 2023 End: December 18, 2023 Team Status: Active Member Role Status Austyn Calderon MD Primary Care Provider Active Start: December 25, 2023 Matthew Bucio II, MD Attending Provider Active Start: December 25, 2023 Team Status: Inactive Member Role Status Austyn Calderon MD Primary Care Provider Active Start: December 25, 2023 End: December 25, 2023 Ju Pettit MD Emergency Provider Active St art: December 25, 2023 End: December 25, 2023 Cdc Associate Relationship Specialty Start Date End Date Sophia Calderon MD [address] [place] [address] PCP - General 04/27/23 Team Status: Active Member Role Status Austyn Calderon MD Primary Care Provider Active Start: January 27, 2024 Matthew Bucio II, MD Attending Provider Active Start: January 27, 2024 Team Status: Inactive Member Role Status Austyn Calderon MD Primary Care Provider Active Start: January 27, 2024 End: January 27, 2024 Matthew Bucio II, MD Attending Provider Active Start: January 27, 2024 End: January 27, 2024 Team Status: Inactive Member Role Status Austyn Calderon MD Primary Care Provider Active Start: February 03, 2024 End: February 03, 2024 Matthew Bucio II, MD Attending Provider Active Start: February 03, 2024 End: February 03, 2024 Team Status: Inactive Member Role Status Austyn Calderon MD Primary Care Provider Active Start: December 25, 2023 End: December 25, 2023 Matthew Bucio II, MD Attending Provider Active Start: December 25, 2023 End: December 25, 2023 Team Status: Inactive Member Role Status Austyn Calderon MD Primary Care Provider Active Start: February 10, 2024 End: February 10, 2024 Matthew Bucio II, MD Attending Provider Active Start: February 10, 2024 End: February 10, 2024 Team Status: Inactive Member Role Status Dates Sophia Calderon MD Primary Care Provider Active Start: March 09, 2024 End: March 09, 2024 Matthew Bucio II, MD Attending Provider Active Start: March 09, 2024 End: March 09, 2024 Team Status: Active Member Role Status Dates Sophia Calderon MD Primary Care Provider Active Start: March 09, 2024 Matthew Bucio II, MD Attending Provider Active Start: March 09, 2024 Team Status: Inactive Member Role Status Dates Sophia Calderon MD Primary Care Provider Active Start: April 28, 2024 End: April 28, 2024 Matthew Bucio II, MD Attending Provider Active Start: April 28, 2024 End: April 28, 2024 Team Status: Active Member Role Status Dates Sophia Calderon MD Primary Care Provider Active Start: April 28, 2024 Matthew Bucio II, MD Attending Provider Active Start: April 28, 2024 Cdc Associate Relationship Specialty Start Date End Date Sophia Calderon MD [facility] [place] [address] PCP - General Family Medicine 06/16/24 Lora Cox MD [address] [place] [address] Referring Physician Family Medicine 02/16/24 Kenyatta Mehta NP [address] Nurse Practitioner Neurology 06/16/24 Nicole Bauer DO [address] [address] Referring Physician Neurology 06/16/24 Cdc Associate Relationship Specialty Start Date End Date Sophia Calderon MD [facility] [place] [address] PCP - General Family Medicine 06/16/24 Lora Cox MD [address] [place] [address] Referring Physician Family Medicine 02/16/24 Kenyatta Mehta NP [address] [place] [address] Nurse Practitioner Neurology 06/16/24 Nicole Bauer DO [address] [id number] Referring Physician Neurology 06/16/24 Cdc Associate Relationship Specialty Start Date End Date Sophia Calderon MD [address] [place] [address], [place] [address] PCP - General 04/27/23 Goals (unrecognized section and content) Goals may be documented in a n alternate section FOR RECORDS PERTAINING TO PATIENTS WHO ARE OR HAVE BEEN ENROLLED IN A CHEMICAL DEPENDENCY/SUBSTANCEABUSE PROGRAM, SOME INFORMATION MAY BE OMITTED. This clinical summary was aggregated from multiple sources. Caution should be exercised in using it in the provision of clinical care. This summary normalizes information from multiple sources, and as a consequence, information in this document may materially change the coding, format and clinical context of patient data. In addition, data may be omitted in some cases. CLINICAL DECISIONS SHOULD BE BASED ON THE PRIMARY CLINICAL RECORDS. [employer] provides no warranty or guarantee of the accuracy or completeness of information in this document.
--- NOTE | 2024-09-10 07:52 | ECG_ITS ---
[facility] Test Date: 2024-09-10 Pat Name: LEVY SIDDIQUI Department: Room: - Gender: Female [employer] Operator: : 1945 Requested By: GAL LIRA Order Number: [id number] Reading MD: SOPHIA CALDERON Measurements Intervals [place] Rate: 99 P: 38 MT: 150 QRS: -41 QRSD: 86 T: 54 QT: 372 QTc: 429 Interpretive Statements 1100 Sinus rhythm 3433 Septal myocardial infarction, probably old 3633 Inferior myocardial infarction, probably old 7200 Abnormal left axis deviation 9150 abnormal ECG No previous ECG available for comparison Electronically Signed On 09-12-2024 9:22:37 EST by SOPHIA CALDERON
[2024-09-10 08:00] VITALS: PULSE 108; O2SAT 95
--- NOTE | 2024-09-10 08:07 | ED.GENADUL1 ---
HPI HPI - General Adult General Chief complaint: Arrhythmia/Palpitations Stated complaint: URINARY ISSUES,FAST HEART RATE Time Seen by Provider: 09/10/24 07:52 Source: patient Mode of arrival: Wheelchair History of Present Illness HPI narrative: Pt just returned home from a [place] cruise last night. She was sick the whole time. She experienced fatigue, urinary incontinence, low energy, headache, flank pain and urinary frequency. She had a UA on 08/26/24 that showed findings consistent with UTI but her urine culture grew mixed UG kris. She completed a 7 day course of cefdinir but I didn't feel any better . Family member concerned after the pt developed tachycardia and hypertension. No fever or chills, no vomiting or diarrhea. No chest pain or palpitations. No abdominal pain. No neck pain and her headache is global, non-focal. Related Data Home Medications ?Medication ?Instructions ?Recorded ?Confirmed citalopram 20 mg tablet mg 09/10/24 diclofenac sodium 1 % topical gel topical 09/10/24 flecainide 50 mg tablet mg 09/10/24 furosemide 40 mg tablet mg 09/10/24 gabapentin 100 mg capsule mg 09/10/24 hydralazine 50 mg tablet mg 09/10/24 hydrochlorothiazide 25 mg tablet mg 09/10/24 labetalol 200 mg tablet mg 09/10/24 levothyroxine 112 mcg tablet mcg 09/10/24 liothyronine 5 mcg tablet 5 mcg PO DAILY 09/10/24 09/10/24 losartan 100 mg tablet mg 09/10/24 meloxicam 7.5 mg tablet mg 09/10/24 methocarbamol 750 mg tablet mg 09/10/24 omeprazole 40 mg capsule,delayed mg 09/10/24 release potassium chloride 20 mEq meq PO 09/10/24 tablet,extended release(part/cryst) (Klor-Con M) rivaroxaban 20 mg tablet (Xarelto) mg 09/10/24 topiramate 50 mg tablet mg 09/10/24 Previous Rx's ?Medication ?Instructions ?Recorded doxycycline monohydrate 100 mg 100 mg PO BID 7 days #14 caps 09/10/24 capsule Allergies Allergy/AdvReac Type Severity Reaction Status Date / Time nickel Allergy Mild Rash Verified 09/10/24 07:47 Opioid HPI Opioid Management Most Recent Opioid Data: No Data to Display PFSH PFSH Social History Little interest or pleasure in doing things: not at all Feeling down, depressed, or hopeless: not at all Exam Narrative Exam Narrative: Nurses notes and vital signs reviewed and patient is not hypoxic. afebrile General: Well-appearing and in no apparent distress. Skin: Warm, dry, no pallor noted. No rash. Head: Normocephalic, atraumatic. Neck: Supple, non-tender. No meningismus Eye: Pupils are equal, round and EOMI. No scleral icterus. Ears, Nose, Mouth, and Throat: Oral mucosa slightly dry Cardiovascular: Tachycardia. Respiratory: No accessory muscle use or respiratory distress. Lungs are clear to auscultation, no wheezing, rales or rhonchi Back: No midline thoracic or lumbar vertebral tenderness. Bilateral CVA tenderness Musculoskeletal: normal ROM, no calf or popliteal tenderness, no lower extremity edema/swelling GI: Abdomen is soft, non-distended. Normal bowel sounds. No tenderness to palpation. No rebound, guarding, or rigidity noted. Neurological: A&O x4. No cranial nerve dysfunction observed. No truncal ataxia. Moves all extremities. Sensation intact. Psychiatric: Cooperative and interactive. Normal mood and affect. Constitutional Vital Signs, click to edit/add: Last Vital Signs Temp 98.4 F 09/10/24 07:48 Pulse 88 09/10/24 08:30 Resp 21 H 09/10/24 08:00 BP 137/76 09/10/24 08:30 Pulse Ox 94 L 09/10/24 08:30 O2 Del Method Room Air 09/10/24 07:48 Course Vital Signs Vital signs: Vital Signs Temperature 98.4 F 09/10/24 07:48 Pulse Rate 106 H 09/10/24 07:48 Respiratory Rate 18 09/10/24 07:48 Blood Pressure 145/83 H 09/10/24 07:48 Pulse Oximetry 94 L 09/10/24 07:48 Oxygen Delivery Method Room Air 09/10/24 07:48 Temperature 98.4 F 09/10/24 07:48 Pulse Rate 88 09/10/24 08:30 Respiratory Rate 21 H 09/10/24 08:00 Blood Pressure 137/76 09/10/24 08:30 Pulse Oximetry 94 L 09/10/24 08:30 Oxygen Delivery Method Room Air 09/10/24 07:48 Medical Decision Making MDM Narrative Medical decision making narrative: Patient was placed on equipment monitor phototypesetting and EKG obtained. Blood drawn and sent for evaluation. Urine was ordered to be obtained and sent for testing. Normal WBC. BMP with normal renal function, mild hypokalemia - she was given 40meq K orally. UA reveals acute UTI - pt informed of results and DC'd home with prescription for doxycycline. She was also given urological referral due to overactive bladder/incontinence. Medical Records Medical records reviewed: Yes I reviewed the patient's medical records Medical records narrative: UA on August 26 indicated acute urinary tract infection but her culture grew mixed kris without any dominant bacterial pathogen. Lab Data Lab results reviewed: Yes I reviewed the patient's lab results Labs: Lab Results 09/10/24 09/10/24 Range/Units 08:05 08:12 WBC 5.1 (4.0-11.0) 10^3/uL RBC 4.68 (4.20-5.40) 10^6/uL Hgb 10.0 L (12.0-16.0) g/dL Hct 33.2 L (36.0-48.0) % MCV 70.9 L (81.0-99.0) fL MCH 21.4 L (26.7-34.0) pg MCHC 30.1 (29.9-35.2) g/dL RDW 15.0 (11.0-15.0) % Plt Count 177 (150-450) 10^3/uL MPV 8.7 L (9.5-13.5) fL Neut % (Auto) 55.0 (43.0-75.0) % Lymph % (Auto) 21.6 (20.5-60.0) % Hunt % (Auto) 18.3 H (1.7-12.0) % Eos % (Auto) 1.4 (0.9-7.0) % Baso % (Auto) 0.6 (0.2-2.0) % Neut # (Auto) 2.8 (1.4-6.5) 10^3/uL Lymph # (Auto) 1.1 L (1.2-3.8) 10^3/uL Hunt # (Auto) 0.9 H (0.3-0.8) 10^3/uL Eos # (Auto) 0.1 (0.0-0.7) 10^3/uL Baso # (Auto) 0.0 (0.0-0.1) 10^3/uL Abs Immat Gran (auto) 0.16 H (0.00-0.03) 10^3/uL Imm/Tot Granulo (auto) 3.1 H (0.0-0.5) % Sodium 144 (136-145) mmol/L Potassium 3.3 L (3.5-5.1) mmol/L Chloride 106 (98-107) mmol/L Carbon Dioxide 25.6 (21.0-32.0) mmol/L Anion Gap 15.7 BUN 11.0 (7.0-18.0) mg/dL Creatinine 1.00 (0.55-1.02) mg/dL Est GFR ( Amer) >60 (>=60 mL/min/1.73m^2) Est GFR (Non-Af Amer) 54 L (>=60 mL/min/1.73m^2) BUN/Creatinine Ratio 11.0 Glucose 148 H (74-106) mg/dL Lactate 2.0 (0.4-2.0) mmol/L Calcium 8.4 L (8.5-10.1) mg/dL Total Bilirubin 1.1 H (0.2-1.0) mg/dL AST 13 L (15-37) U/L ALT 18 (14-59) U/L Alkaline Phosphatase 106 (46-116) U/L Total Protein 6.7 (6.4-8.2) g/dL Albumin 3.4 (3.4-5.0) g/dL Globulin 3.3 g/dL Albumin/Globulin Ratio 1.0 Urine Color Lt. yellow (YELLOW) Urine Clarity Clear (CLEAR) Urine pH 6.0 (5.0-9.0) Ur Specific [place] 1.010 (1.005-1.025) Urine Protein Negative (NEG/TRACE) mg/dL Urine Glucose (UA) Negative (NEGATIVE) mg/dL Urine Ketones Negative (NEGATIVE) mg/dL Urine Occult Blood Negative (NEGATIVE) Urine Nitrite Negative (NEGATIVE) Urine Bilirubin Negative (NEGATIVE) Urine Urobilinogen 0.2 (0.2-1.0) EU/dL Ur Leukocyte Esterase Moderate A (NEGATIVE) Urine RBC 0-2 (0-2) #/HPF Urine WBC 5-10 A (NONE SEEN) #/HPF Ur Squamous Epith Cells Rare (NONE/RARE) #/LPF Ur Transition Epith Cell Few A (NONE SEEN) #/LPF Urine Crystals None seen (None Seen) #/HPF Urine Bacteria Small A (NONE SEEN) #/HPF Urine Casts Seen A (NONE SEEN) #/LPF Hyaline Casts Rare Urine Starch Moderate Urine Mucus None seen (NONE SEEN) Ur Culture Indicated? Yes ECG Data Attestation: I personally reviewed and interpreted this ECG as follows: Interpretation: EKG interpretation: Emergency Department physician interpretation. Normal sinus rhythm at 99bpm. Left axis deviation. no ST segment elevation or depression. Discharge Plan Discharge Chief Complaint: Arrhythmia/Palpitations Clinical Impression: Urinary tract infection, Acute hypokalemia Patient Disposition: Home, Self-Care Time of Disposition Decision: 08:52 Prescriptions / Home Meds: New doxycycline monohydrate 100 mg capsule 100 mg PO BID 7 Days Qty: 14 0RF No Action furosemide 40 mg tablet labetalol 200 mg tablet citalopram 20 mg tablet flecainide 50 mg tablet hydralazine 50 mg tablet hydrochlorothiazide 25 mg tablet gabapentin 100 mg capsule liothyronine 5 mcg tablet 5 mcg PO DAILY omeprazole 40 mg capsule,delayed release(DR/EC) meloxicam 7.5 mg tablet potassium chloride [Klor-Con M20] 20 mEq tablet,ER particles/crystals PO methocarbamol 750 mg tablet losartan 100 mg tablet levothyroxine 112 mcg tablet topiramate 50 mg tablet diclofenac sodium 1 % gel TOPICAL Xarelto 20 mg tablet Print Language: Turkmen Instructions: Overactive Bladder (DC), Urinary Tract Infection in Older Adults (ED) Referrals: GAL LIRA [Primary Care Provider] - 1 week Ludwig Turner MD [Physician] - As soon as possible (or any other urologist from the group for first available appointment)
[2024-09-10 08:14] LABS: Basophils Percent Auto 0.6 % (0.2-2.0); Eosinophils Absolute Auto 0.1 10^3/uL (0.0-0.7); Eosinophils Percent Auto 1.4 % (0.9-7.0); Hematocrit 33.2 % (36.0-48.0); Immature Granulocytes Abs Auto 0.16 10^3/uL (0.00-0.03); Immature Granulocytes Pct Auto 3.1 % (0.0-0.5); Lymphocytes Absolute Auto 1.1 10^3/uL (1.2-3.8); Lymphocytes Percent Auto 21.6 % (20.5-60.0); Mean Corpuscular HGB Conc 30.1 g/dL (29.9-35.2); Mean Corpuscular Hemoglobin 21.4 pg (26.7-34.0); Mean Corpuscular Volume 70.9 fL (81.0-99.0); Mean Platelet Volume 8.7 fL (9.5-13.5); Monocytes Absolute Auto 0.9 10^3/uL (0.3-0.8); Monocytes Percent Auto 18.3 % (1.7-12.0); Neutrophils Absolute Auto 2.8 10^3/uL (1.4-6.5); Platelet Count 177 10^3/uL (150-450); Red Blood Count 4.68 10^6/uL (4.20-5.40); White Blood Count 5.1 10^3/uL (4.0-11.0)
[2024-09-10] MEDS: 0.9 % SODIUM CHLORIDE 1,000 ML 999 ML IV (08:20)
[2024-09-10 08:21] VITALS: BP 134/83; PULSE 86; O2SAT 94
[2024-09-10 08:30] VITALS: BP 137/76; PULSE 88; O2SAT 94
[2024-09-10 08:36] LABS: Alanine Aminotransferase 18 U/L (14-59); Albumin Level 3.4 g/dL (3.4-5.0); Alkaline Phosphatase 106 U/L (46-116); Anion Gap 15.7; Aspartate Amino Transferase 13 U/L (15-37); Bilirubin Total 1.1 mg/dL (0.2-1.0); Calcium 8.4 mg/dL (8.5-10.1); Carbon Dioxide 25.6 mmol/L (21.0-32.0); Chloride 106 mmol/L (98-107); Estimated GFR (African America >60 (>=60 mL/min/1.73m^2); Estimated GFR (Non-African Ame 54 (>=60 mL/min/1.73m^2); Globulin 3.3 g/dL; Glucose 148 mg/dL (74-106); Potassium 3.3 mmol/L (3.5-5.1); Sodium 144 mmol/L (136-145); Total Protein 6.7 g/dL (6.4-8.2)
[2024-09-10 08:39] LABS: Bilirubin Urine NEGATIVE (NEGATIVE); Blood Urine NEGATIVE (NEGATIVE); Clarity Urine CLEAR (CLEAR); Color Urine LT. YELLOW (YELLOW); Glucose Urine UA NEGATIVE (NEGATIVE); Ketones Urine NEGATIVE (NEGATIVE); Leukocyte Esterase Urine MODERATE (NEGATIVE); Nitrite Urine NEGATIVE (NEGATIVE); Protein Urine NEGATIVE (NEG/TRACE); Urobilinogen Urine 0.2 EU/dL (0.2-1.0)
[2024-09-10 08:50] LABS: Bacteria Urine SMALL #/HPF (NONE SEEN); Cast Seen? SEEN #/LPF (NONE SEEN); Crystals Seen? None Seen #/HPF (None Seen); Hyaline Casts Urine RARE; Mucus Urine NONE SEEN (NONE SEEN); RBC Urine 0-2 #/HPF (0-2); Squamous Epithelial Cell Urine RARE #/LPF (NONE/RARE); Transitional Epi Cells Urine FEW #/LPF (NONE SEEN); Urine Culture Indicated YES
[2024-09-10 08:51] LABS: Starch Urine MODERATE
[2024-09-10] MEDS: POTASSIUM CHLORIDE 10 MEQ ER TABLET 40 MEQ PO (09:12)
== END 2024-09-10 09:29 | disposition home or self-care (01) ==
PROVIDERS: Emergency Provider Emergency Medicine; PCP Nurse Practitioner Family
DX: N39.0 Urinary tract infection, site not specified (principal); E87.6 Hypokalemia; R00.0 Tachycardia, unspecified; N32.81 Overactive bladder; R32 Unspecified urinary incontinence
CPT/HCPCS: 36415; 80053; 81001; 83605; 85025; 87040; 87086; 93005; 99284

== ENCOUNTER 2024-10-14 10:14 | Outpatient (OUT) | payer MEDICARE, SELFPAY ==
--- OUTSIDE RECORDS SUMMARY | 2024-10-14 10:35 | XMS_ITS | CCD ---
Author Organization [facility] Care Team Providers Care Protective Service Specialist Name Role Phone DUSTIN CARTWRIGHT Unavailable Unavailable PANG, WHITAKER Unavailable Unavailable PRIETO, KEN Unavailable Unavailable PANG, JULIANNE Unavailable Unavailable PRIETO, KEN Unavailable Unavailable Unavailable Unavailable Ken Moreau Unavailable Matthew Bucio II Unavailable [phone] PRIETO, DR CHILD Primary Care Unavailable MISC, [...] PANG, DR JULIANNE Hill Consulting Unavailable Hector Benavidez Unavailable Unavailable Siria Orona Unavailable Unavailable Brianna Camacho Unavailable Unavailable Sophia Calderon Unavailable Sophia Calderon MD Primary Care Provider Siria Orona Attending Unavailable Self, Referral Referring Unavailable Prieto, Dr. Ken Barnes Primary Care Unava jenn Casiano Jr, Dr. Coty Felton Referring Un available Honda, Dr. Linda Harley Attending Unavailabl e Prieto, Dr. Ken Barnes Primary Care Unava Siria Cardoso Referring Unavailable Honda, Dr. Linda Harley Attending Unavailabl e Prieto, Dr. Ken Barnes Primary Care Unava lyssaable Prieto, Dr. Ken Barnes Primary Care Unava ilable Dimitri, Julianne Referring Unavailable Pang, Julianne Attending Unavailable Pang, Whitaker Referring Unavailable Pang, Julianne Attending Unavailable Kvng, Dr. Sophia Macario Primary Care Unavail able Stephenie Weller, Dr. Coty Felton Attending Un available Prieto, Dr. Ken Barnes Referring Unava ilable Prieto, Dr. Ken Barnes Primary Care Unava [...] Provider MD Matthew Bucio II Attending Provider NOHEMI Ward Other Provider Unavailable NOHEMI Fernando Other Provider Unavailable NOHEMI Das Other Provider Unavailable NOHEMI Becker Other Provider Unavailable NOHEMI Diaz Other Provider Unavailable NOHEMI Brush Other Provider Unavailable NOHEMI Gaytan Other Provider Unavailable MD Geoff Guthrie Other Provider MD Arias Eugene Other Provider Unavailable Jeronimos, MIDDLEWARE ENGINEER Natalie Hill Other Provider [phone] DO Felix Alonso Other Provider MD Dereje Ramirez Other Provider DO Shaan Mccallum Other Provider MD Hugo Ordoñez Other Provider MD Tanika Canchola Other Provider MD Rolando Celaya Other Provider Unavailable JUSTINE Desai Other Provider MD Dheeraj Youssef Other Provider MD Cristian Vogt Other Provider MD Roe Morocho Other Provider MD Luiz Peck Other Provider DO Ju Pedraza Other Provider [phone] MD Jimy Crews Other Provider MD Kenn Richmond Other Provider PEREZ Bliss Other Provider [phone] JUSTINE Hayes Other Provider Unavailable MD Kane Chavarria Other Provider MD Kasi Zarate Other Provider MD Aric Petty Other Provider MD Martha Choi Other Provider Unavailable MD Herman Martin Other Provider DO Mayra Lobo Other Provider DO Kale Trotter Other Provider DO Alfie Alcala Other Provider JUSTINE Yip Other Provider DO Poncho Salcedo Other Provider MD Elieser Vicente Other Provider JUSTINE Agustin Other Provider JUSTINE Salcido Other Provider MD Fernie Pickard Other Provider MD Sahil Trent Other Provider [phone] DO Chavez Jackson T Other Provider DO Dusty Casper Other Provider MD Danie Petty P Other Provider Melissa, NOHEMI Damon Other Provider Unavailable MD Julianne Pang Attending Provider MD Ju Pettit Emergency Provider [phone] MD Sophia Calderon Primary Care Provider [phone] MD Matthew Bucio II Attending Provider [phone] MD Sophia Calderon Primary Care Provider [phone] MD Matthew Bucio II Attending Provider MD Sophia Calderon Primary Care Provider [phone] MD Matthew Bucio II Attending Provider [phone] Brooke HUYNH, Lora Unavailable Tyson VAUGHN, Kenyatta Unavailable Lizette , Unavailable Kvng HUYNH, Sophia Hill Primary Care Provider KENYATTA MEHTA Attending Unavailable KENYATTA MEHTA Attending Unavailable Sophia Calderon Primary Care Unavailable Fortunato II, Matthew Hill Attending Unavailabl e [place] II, Matthew Hill Admitting Unavailabl e Sophia Calderon Primary Care Unavailable Fortunato II, Matthew Hill Attending Unavailabl e [place] II, Matthew Hill Admitting Unavailabl e Sophia Calderon Primary Care Unavailable Fortunato II, Matthew M Attending Unavailabl e [place] II, Matthew M Admitting Unavailabl e [place] II, Matthew M Admitting Unavailabl e [place] II, Matthew M Attending Unavailabl e [place] II, Matthew M Admitting Unavailabl e [place] II, Matthew M Attending Unavailabl e Sophia Calderon Primary Care Unavailable [place] II, Matthew M Admitting Unavailabl e [place] II, Matthew M Attending Unavailabl e Sophia Calderon Primary Care Unavailable Fortunato II, Matthew M Admitting Unavailabl e [place] II, Matthew M Attending Unavailabl e Sophia Calderon Primary Care Unavailable Fortunato II, Matthew M Attending Unavailabl e [place] II, Matthew M Admitting Unavailabl e Sophia Calderon Primary Care Unavailable [place] II, Matthew M Admitting Unavailabl e Fortunato [...] Bliss Consulting Unavailable Naila Hayes Consulting Unavailable Kaen Chavarria Consulting Unavailab Kasi Glaser Consulting Unavailable [...] Pettit Attending Unavailable Ju Pettit Admitting Unavailable Fortunato GIBSON, Matthew Hill Admitting Unavailabl otto Bucio II, Matthew Hill Attending Unavailabl Sophia Burgos Primary Care Unavailable Sophia Calderon Primary Care Unavailable Matthew Bucio II Attending Unavailslava e Matthew Bucio II Admitting Unavailabl e Sophia Calderon Primary Care Unavailable Julianne Pang Attending Unavailable Julianne Pang Admitting Unavailable Sophia Calderon Primary Care Unavailable Matthew Bucio II Attending UnavailMatthew Melo II Admitting Unavailabl e JULIANNE PANG Attending Unavailable SOPHIA CALDERON Primary Care Unavailable JULIANNE PANG Referring Unavailable SOPHIA CALDERON Primary Care Unavailable JULIANNE PANG Attending Unavailable JULIANNE PANG Attending Unavailable JULIANNE PANG Referring Unavailable SOPHIA CALDERON Primary Care Unavailable JULIANNE PANG Attending Unavailable JULIANNE PANG Referring Unavailable SOPHIA CALDERON Primary Care Unavailable Starla Jaeger Attending Unavailable Allergies Allergy Classification Reported Allergen(s) Allergy Type Date of Onset Reaction(s) Facility (1 source) meloxicam; Translations: [MELOXICAM] Drug Allergy 6 [facility] Repository (20 sources) nickel; Translations: [NICKEL] Drug Allergy 6 Rash, Unknown [facility] Repository (4 sources) No Alert Propensity [...] GM TOPICAL .4-5 times a day October 264 12:00am Start: 10-05-2023 End: 04-28-2024 apply 2 [...] 26, 2023 7:07am take 1 tablet by sadnhya th once daily as needed Meloxicam 7.5 [...] Tramadol Discontinued 50 MG PO Q6H 30 7 November 11, 2023 9:38am January 22, 2024 [...] Discontinued 5 MG PO Every 8 hours 20 October 30, 2023 12:00am February 10, 2024 11:08am docusate sodium 50 mg / sennosides, skilled nursing 8.6 mg oral tablet (20 sources) Start: 10-22-2023 End: 02-10-2024 take 2 tablets by mouth once daily Sennosides-Docusate Sodium Discontinued 2 TAB PO Daily 0 October 27, 2023 12:00am January 27, 2024 10:58am ergocalciferol 1.25 mg oral capsule (18 sources) Provitamin D2 Compound Start: 10-05-2023 End: 04-28-2024 Ergocalciferol (Vitamin D2) Discontinued 26063 UNIT PO .qfriday October 05, 2023 1:00am April 28, 2024 11:16am Start: 08-14-2023 take 1 capsule by n[place] [facility] every week Ergocalciferol 1.25 MG (62665 UT) 1 capsule Orally Once a Week [...] TO BED UPON DISCHARGE polyethylene glycol 3350 29234 mg powder for oral solution (15 sources) [...] Coronary arteriosclerosis; Translations: [Atherosclerotic heart disease of [place] coronary artery without angina pectoris] Onset: 02-14-2024 [...] sources) Taking high risk medication; Translations: [Other chcf (current) drug therapy] Onset: 05-14-2023 05-14-2023 Episodic [...] joint; Translations: [Knee joint replacement] Onset: 02-03-2024 4 Chronic Other connective tissue disease (2 sources) [...] E87.6(ICD-9) Onset: 08-23-2018 Unclassified (1 source) 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 [facility] Work Phone: XR knee LT 2Von 04-28-2024 XR knee LT 2V [facility] [address] [place] [address] XRay Report Signed Patient: Tracy Juarez MR#: [id number] 3 : 1945 Acct:[id number] Age/Sex: 78 / F ADM Date: 04/28/24 [place] [facility] [place] Att[facility]: Matthew Bucio II, MD [...] Sean Alexander M.D.04/28/2024 3:02 PM Dictation Location: [place] [address] Transcribed By: [facility] 04/28/24 1502 Dictated By: Sean Alexander DO 04/28/24 1500 Signed By: 04/28/24 1502 Normal [facility] XR knee LT 2Von 03-09-2024 XR knee LT 2V [facility] [address] [place] [address] XRay Report Signed Patient: Tracy Juarez MR#: [id number] 3 : 1945 Acct:[id number] Age/Sex: 78 / F ADM Date: 03/09/24 [place] [facility] [facility]: [facility] Att[facility] Dr: Matthew Bucio II, MD [...] Sean Alexander M.D.03/09/2024 3:33 PM Dictation Location: [place] [address] Transcribed By: [facility] 03/09/24 1533 Dictated By: Sean Alexander DO 03/09/24 1532 Signed By: 03/09/24 1533 Normal [facility] CT femur LT wo conon 024 CT femur LT wo con [facility] [place] [address] CT Scan Report Signed Patient: Tracy Juarez MR#: [id number] 3 : 1945 Acct:[id number] Age/Sex: 78 / F ADM Date: 02/03/24 Loc: CT Room: Type: [facility] Attending Dr: Matthew Bucio II, MD Copies [...] Gama Jr., Maureen02/03/2024 4:24 PM Dictation Location: [place] [address] Transcribed By: [facility] 02/03/24 1624 Dictated By: Brodie Gama Jr, DO 02/03/24 1616 Signed By: 02/03/24 1624 Normal [facility] XR knee LT 2Von 01-27-2024 XR knee LT 2V [facility] [address] [place] [id number] XRay Report Signed Patient: Tracy Juarez MR#: [id number] 3 : 1945 Acct:[id number] Age/Sex: 78 / F ADM Date: 01/27/24 [place] [facility]: Type: [facility] Attending Dr: Matthew Bucio II, MD Copies to: Matthew Bucio MD Ordering Provider: Matthew Bucio MD Date of Service: 01/27/24 XR/XR knee LT 2V: Z47.1 - Aftercare following joint replacement surgery ([id number]) XR/XR tibia fibula LT 2V*: Z96.652 - Presence of left artificial knee joint ([id number]) XR/XR femur LT 2V*: Z47.1 - Aftercare [...] Leida Hubbard M.D.01/27/2024 4:02 PM Dictation Location: [place] [address] Transcribed By: MAGDIEL 01/27/24 1602 Dictated By: Leida Hubbard MD 01/27/24 1557 Signed By: 01/27/24 1602 Normal [facility] Alanine aminotransferase [En zymatic activity/volume] in Serum or PlasmaOrdered By: Ju Pettit on 12-25-2023 ALT [Catalytic activity/Vol] 11 U/L Normal 7-52 [facility] Comment on above: Performed By: #### B LOCKER ROOM ATTENDANT, CK, CBC, TSH3, HS TROP, T4F, CMP ####[facility] Nkm40[address] [place] [address] [place] Albumin [Mass/volume] in Ser um or Plasma by Bromocresol green (BCG) dye binding methoOrdered By: Ju Pettit on 12-25-2023 Albumin BCG dye [Mass/Vol] 3.8 g/dL 3.5-5.7 [facility] Alkaline phosphatase [Enzyma tic activity/volume] in Serum or PlasmaOrdered By: Ju Pettit on 12-25-2023 ALP [Catalytic activity/Vol] 76 U/L Normal 34-104 [facility] Comment on above: Performed By: #### B LOCKER ROOM ATTENDANT, CK, CBC, TSH3, HS TROP, T4F, CMP ####[facility] Bml9043 [place] [address] [facility] Aspartate aminotransferase [ Enzymatic activity/volume] in Serum or PlasmaOrdered By: Ju Pettit on 12-25-2023 AST [Catalytic activity/Vol] 13 U/L Normal 13-39 [facility] Comment on above: Performed By: #### B LOCKER ROOM ATTENDANT, CK, CBC, TSH3, HS TROP, T4F, CMP ####[facility] Pfa[address] Automated basophil %Ordered By: Ju Pettit on 12-25-2023 Basophils/100 WBC (Bld) 0.8 % Normal . [facility] Comment on above: Performed By: #### B LOCKER ROOM ATTENDANT, CK, CBC, TSH3, HS TROP, T4F, CMP #### [facility] [address] Automated basophil countOrde red By: Ju Pettit on 12-25-2023 Basophils (Bld) [#/Vol] 0.1 10*3/uL Normal 0.0-0.2 [facility] Comment on above: Result Comment: PERF ORMED BY: [place] [address] PATHOLOGIST AGATE SETTER BALJEET GONZALEZ M.D. Performed By: #### B LOCKER ROOM ATTENDANT, CK, CBC, TSH3, HS TROP, T4F, CMP #### [address] Automated blood monocyte cou ntOrdered By: Ju Pettit on 12-25-2023 Monocytes (Bld) [#/Vol] 0.5 10*3/uL Normal 0.0-0.8 [facility] Comment on above: Performed By: #### B LOCKER ROOM ATTENDANT, CK, CBC, TSH3, HS TROP, T4F, CMP #### [facility] [address] Automated eosinophil %Ordere d By: Ju Pettit on 12-25-2023 Eosinophils/100 WBC (Bld) 3.2 % Normal . [facility] Comment on above: Performed By: #### B LOCKER ROOM ATTENDANT, CK, CBC, TSH3, HS TROP, T4F, CMP #### [address] Automated eosinophil countOr dered By: Ju Pettit on 05-10-2024 Eosinophils (Bld) [#/Vol] 0.2 10*3/uL Normal 0.0-0.45 [facility] Comment on above: Performed By: #### B LOCKER ROOM ATTENDANT, CK, CBC, TSH3, HS TROP, T4F, CMP #### [address] Automated monocyte %Ordered By: Ju Pettit on 12-25-2023 Monocytes/100 WBC (Bld) 8.0 % Normal . [facility] Comment on above: Performed By: #### B LOCKER ROOM ATTENDANT, CK, CBC, TSH3, HS TROP, T4F, CMP #### [address] Automated neutrophil %Ordere d By: Ju Pettit on 12-25-2023 Neutrophils/100 WBC (Bld) 65.0 % Normal . [facility] Comment on above: Performed By: #### B LOCKER ROOM ATTENDANT, CK, CBC, TSH3, HS TROP, T4F, CMP #### [address] BNP ser/plasOrdered By: René Pettit on 12-25-2023 Natriuretic peptide B (Bld) [Mass/Vol] 248.0 pg/mL High 5-100 [facility] Comment on above: Result Comment: PERF ORMED BY: [place] [address] PATHOLOGIST AGATE SETTER BALJEET GONZALEZ M.D. Performed By: #### B LOCKER ROOM ATTENDANT, CK, CBC, TSH3, HS TROP, T4F, CMP ####[address] Bilirubin.total [Mass/volume ] in Serum or PlasmaOrdered By: Ju Pettit on 12-25-2023 Bilirubin [Mass/Vol] 0.8 mg/dL Normal 0.3-1.0 [facility] Comment on above: Performed By: #### B LOCKER ROOM ATTENDANT, CK, CBC, TSH3, HS TROP, T4F, CMP ####[address] Calcium [Mass/volume] in Ser um or PlasmaOrdered By: Ju Pettit on 12-25-2023 Calcium [Mass/Vol] 8.7 mg/dL Normal 8.6-10.3 [facility] Comment on above: Performed By: #### B LOCKER ROOM ATTENDANT, CK, CBC, TSH3, HS TROP, T4F, CMP ####[facility] [place] [address] Carbon dioxide, total [Moles /volume] in Serum or PlasmaOrdered By: Ju Pettit on 12-25-2023 CO2 [Moles/Vol] 25.6 mmol/L Normal 21.0-31.0 [facility] Comment on above: Performed By: #### B LOCKER ROOM ATTENDANT, CK, CBC, TSH3, HS TROP, T4F, CMP ####[address] Chloride [Moles/volume] in S dave or PlasmaOrdered By: Ju Pettit on 12-25-2023 Chloride [Moles/Vol] 105 mmol/L Normal 98-107 [facility] Comment on above: Performed By: #### B LOCKER ROOM ATTENDANT, CK, CBC, TSH3, HS TROP, T4F, CMP ####[address] Complete Blood Count Auto Di ffon 12-25-2023 Mean Corpuscular HGB Conc 33.5 g/dL Normal 32.0-35.0 [facility] Comment on above: Performed By: #### B LOCKER ROOM ATTENDANT, CK, CBC, TSH3, HS TROP, T4F, CMP #### [facility] [address] Monocytes/100 WBC (Bld) 16.85 % Normal 0.00-20.00 [facility] Comment on above: Performed By: #### B LOCKER ROOM ATTENDANT, CK, CBC, TSH3, HS TROP, T4F, CMP #### [facility] [address] NRBC% 0.2 /100{WBC} Normal 0-0.5 [facility] Comment on above: Performed By: #### B LOCKER ROOM ATTENDANT, CK, CBC, TSH3, HS TROP, T4F, CMP #### [facility] [address] Comprehensive Metabolic Pane glynn 12-25-2023 Albumin [Mass/Vol] 3.8 g/dL Normal 3.5-5.7 [facility] Comment on above: Performed By: #### B LOCKER ROOM ATTENDANT, CK, CBC, TSH3, HS TROP, T4F, CMP ####[facility] [place] [address] [facility] Creatinine Clr Calc Pharmacy 60.06 Normal [facility] Comment on above: Performed By: #### B LOCKER ROOM ATTENDANT, CK, CBC, TSH3, HS TROP, T4F, CMP ####[facility] [place] [address] [place] GFR/1.73 sq M.predicted MDRD (S/P/Bld) [Vol rate/Area] mL/min/{1.73_m2} Normal [facility] Comment on above: Performed By: #### B LOCKER ROOM ATTENDANT, CK, CBC, TSH3, HS TROP, T4F, CMP ####[place] [address] [place] [address] [facility] Creatine kinase [Enzymatic a ctivity/volume] in Serum or PlasmaOrdered By: Ju Pettit on 12-25-2023 CK [Catalytic activity/Vol] 90 U/L Normal 30-223 [facility] Comment on above: Performed By: #### B LOCKER ROOM ATTENDANT, CK, CBC, TSH3, HS TROP, T4F, CMP ####[place] [id number] [facility] Creatinine [Mass/volume] in Serum or PlasmaOrdered By: Ju Pettit on 12-25-2023 Creatinine [Mass/Vol] 0.72 mg/dL Normal 0.60-1.20 [facility] Comment on above: Performed By: #### B LOCKER ROOM ATTENDANT, CK, CBC, TSH3, HS TROP, T4F, CMP ####[place] [address] [place] [address] [facility] ECG 12 lead ECGon 12-25-2023 ECG 12 lead ECG [facility] [place] [address] [place] [address] Electrocardiograph Report Signed Patient: Tracy Juarez MR#: [id number] 3 : 1945 Acct:[id number] Age/Sex: 78 / F ADM Date: 12/25/23 Loc: ER Room: Type: [facility] ER Attending Dr: Ordering Provider: [...] By Ju Pettit MD 12/15 Normal [facility] Erythrocyte distribution wid th [Ratio] by Automated countOrdered By: Ju Pettit on 12-25-2023 Erythrocyte distribution width (RBC) [Ratio] 16.2 % High 11.9-15.3 [facility] Comment on above: Performed By: #### B LOCKER ROOM ATTENDANT, CK, CBC, TSH3, HS TROP, T4F, CMP #### [facility] [address] [place] [address] [place] Erythrocytes [#/volume] in B lood by Automated countOrdered By: Ju Pettit on 12-25-2023 RBC (Bld) [#/Vol] 4.67 10*6/uL Normal 3.60-5.00 [facility] Comment on above: Performed By: #### B LOCKER ROOM ATTENDANT, CK, CBC, TSH3, HS TROP, T4F, CMP #### [facility] [address] [place] [address] [place] Glucose [Mass/volume] in Ser um or PlasmaOrdered By: Ju Pettit on 12-25-2023 Glucose [Mass/Vol] 154 mg/dL High 70-100 [facility] Comment on above: ADA recommended refe rence rangeRandom Glucose Reference Range is dependent on time and content of last meal. Glucose of more than 200 mg/dL in a nonstressed, ambulatory subject supports the diagnosis of Diabetes Mellitus. Result Comment: [place] om Glucose Reference Range is dependent on time and content of last meal. Glucose of more than 200 mg/dL in a nonstressed, ambulatory subject supports the diagnosis of Diabetes Mellitus. ADA recommended reference range Performed By: #### B LOCKER ROOM ATTENDANT, CK, CBC, TSH3, HS TROP, T4F, CMP ####[facility] Sqt[address] Hematocrit [Volume Fraction] of Blood by Automated countOrdered By: Ju Pettit on 12-25-2023 Hematocrit (Bld) [Volume fraction] 36.4 % Normal 34.0-46.4 [facility] Comment on above: Performed By: #### B LOCKER ROOM ATTENDANT, CK, CBC, TSH3, HS TROP, T4F, CMP #### [facility] [address] [place] [address] [place] Hemoglobin [Mass/volume] in BloodOrdered By: Ju Pettit on 12-25-2023 Hemoglobin (Bld) [Mass/Vol] 12.2 g/dL Normal 11.8-15.4 [facility] Comment on above: Performed By: #### B LOCKER ROOM ATTENDANT, CK, CBC, TSH3, HS TROP, T4F, CMP #### [facility] [address] [place] [address] [place] Leukocytes [#/volume] correc robby for nucleated erythrocytes in Blood by Automated counOrdered By: Ju Pettit on 12-25-2023 WBC corrected for nucl RBC Auto (Bld) [#/Vol] 6.2 10*3/uL 3.8-11.6 [facility] Leukocytes [#/volume] in Blo od by Automated countOrdered By: Ju Pettit on 12-25-2023 WBC (Bld) [#/Vol] 6.2 10*3/uL Normal 3.8-11.6 [facility] Comment on above: Performed By: #### B LOCKER ROOM ATTENDANT, CK, CBC, TSH3, HS TROP, T4F, CMP #### [facility] [address] [place] [address] Lymphocytes [#/volume] in Bl ood by Automated countOrdered By: Ju Pettit on 12-25-2023 Lymphocytes (Bld) [#/Vol] 1.4 10*3/uL Normal 1.00-4.8 [facility] Comment on above: Performed By: #### B LOCKER ROOM ATTENDANT, CK, CBC, TSH3, HS TROP, T4F, CMP #### [address] Lymphocytes/100 leukocytes i n Blood by Automated countOrdered By: Ju Pettit on 12-25-2023 Lymphocytes/100 WBC (Bld) 23.0 % Normal . [facility] Comment on above: Performed By: #### B LOCKER ROOM ATTENDANT, CK, CBC, TSH3, HS TROP, T4F, CMP #### [address] MCH [Entitic mass] by Automa robby countOrdered By: Ju Pettit on 12-25-2023 MCH (RBC) [Entitic mass] 26.1 pg Normal 24.7-34.3 [facility] Comment on above: Performed By: #### B LOCKER ROOM ATTENDANT, CK, CBC, TSH3, HS TROP, T4F, CMP #### [address] MCHC Auto (RBC) [Mass/Vol]Or dered By: Ju Pettit on 12-25-2023 MCHC (RBC) [Mass/Vol] 33.5 g/dL 32.0-35.0 [facility] MCV [Entitic volume] by Auto mated countOrdered By: Ju Pettit on 12-25-2023 MCV (RBC) [Entitic vol] 77.9 fL Low 80-100 [facility] Comment on above: Performed By: #### B LOCKER ROOM ATTENDANT, CK, CBC, TSH3, HS TROP, T4F, CMP #### [address] Monocyte distribution width [Entitic volume] in Blood by AutomatedOrdered By: Ju Pettit on 12-25-2023 Monocyte distribution width Auto (Bld) [Entitic vol] 16.85 % 0.00-20.00 [facility] Neutrophils [#/volume] in Bl ood by Automated countOrdered By: Ju Pettit on 12-25-2023 Neutrophils (Bld) [#/Vol] 4.0 10*3/uL Normal 1.8-7.7 [facility] Comment on above: Performed By: #### B LOCKER ROOM ATTENDANT, CK, CBC, TSH3, HS TROP, T4F, CMP #### [facility] [address] [place] [address] No Panel InformationOrdered By: Ju Pettit on 12-25-2023 Estimated GFR (CKD-EPI) > 60.0 mL/Min [facility] Creatinine Clearance (Chem 60.06 [facility] Nucleated erythrocytes [Pres ence] in Blood by Automated countOrdered By: Ju Pettit on 12-25-2023 Nucleated RBC Auto Ql (Bld) 0.2 /100{WBC} 0-0.5 [facility] Platelet mean volume [Entiti c volume] in Blood by Automated countOrdered By: Ju Pettit on 12-25-2023 Platelet mean volume (Bld) [Entitic vol] 6.8 fL Normal 6.3-10.7 [facility] Comment on above: Performed By: #### B LOCKER ROOM ATTENDANT, CK, CBC, TSH3, HS TROP, T4F, CMP #### [facility] [address] [place] [address] Platelets [#/volume] in Bloo d by Automated countOrdered By: Ju Pettit on 12-25-2023 Platelets (Bld) [#/Vol] 190 10*3/uL Normal 150-450 [facility] Comment on above: Performed By: #### B LOCKER ROOM ATTENDANT, CK, CBC, TSH3, HS TROP, T4F, CMP #### [facility] [address] [place] [address] Potassium [Moles/volume] in Serum or PlasmaOrdered By: Ju Pettit on 12-25-2023 Potassium [Moles/Vol] 3.6 mmol/L Normal 3.5-5.1 [facility] Comment on above: Performed By: #### B LOCKER ROOM ATTENDANT, CK, CBC, TSH3, HS TROP, T4F, CMP ####[place] [id number] [address] Protein [Mass/volume] in Ser um or PlasmaOrdered By: Ju Pettit on 12-25-2023 Protein [Mass/Vol] 6.2 g/dL Low 6.4-8.9 [facility] Comment on above: Performed By: #### B LOCKER ROOM ATTENDANT, CK, CBC, TSH3, HS TROP, T4F, CMP ####[address] Serum globulin measurement b y calculation (mass/volume)Ordered By: Ju Pettit on 12-25-2023 Globulin (S) [Mass/Vol] 2.4 g/dL [facility] Comment on above: Performed By: #### B LOCKER ROOM ATTENDANT, CK, CBC, TSH3, HS TROP, T4F, CMP ####[address] Serum or plasma albumin/glob ulin mass ratioOrdered By: Ju Pettit on 12-25-2023 Albumin/Globulin [Mass ratio] 1.6 {ratio} [facility] Comment on above: Performed By: #### B LOCKER ROOM ATTENDANT, CK, CBC, TSH3, HS TROP, T4F, CMP ####[address] Serum or plasma anion gap de terminationOrdered By: Ju Pettit on 12-25-2023 Anion gap [Moles/Vol] 16.0 mmol/L High 6.0-15.0 [facility] Comment on above: Performed By: #### B LOCKER ROOM ATTENDANT, CK, CBC, TSH3, HS TROP, T4F, CMP ####[address] Sodium [Moles/volume] in Ser um or PlasmaOrdered By: Ju Pettit on 12-25-2023 Sodium [Moles/Vol] 143 mmol/L Normal 136-145 [facility] Comment on above: Performed By: #### B LOCKER ROOM ATTENDANT, CK, CBC, TSH3, HS TROP, T4F, CMP ####[place] [id number] [place] [address] [facility] Thyrotropin [Units/volume] i n Serum or PlasmaOrdered By: Ju Pettit on 12-25-2023 TSH Qn 0.31 m[IU]/L Low 0.45-5.33 [facility] Comment on above: Result Comment: PERF ORMED BY: [place] [address] PATHOLOGIST AGATE SETTER BALJEET GONZALEZ M.D. Performed By: #### B LOCKER ROOM ATTENDANT, CK, CBC, TSH3, HS TROP, T4F, CMP ####[place] [id number] [facility] Thyroxine (T4) free [Mass/vo lume] in Serum or PlasmaOrdered By: Ju Pettit on 12-25-2023 Free T4 [Mass/Vol] 0.71 ng/dL Normal 0.61-1.12 [facility] Comment on above: Performed By: #### B LOCKER ROOM ATTENDANT, CK, CBC, TSH3, HS TROP, T4F, CMP ####[place] [id number] [facility] Troponin I High Sensitivityo n 12-25-2023 Troponin I High Sensitivity 4.0 pg/mL Normal 0.0-15.0 [facility] Comment on above: Result Comment: PERF ORMED BY: [facility] [address] [place] [address] PATHOLOGIST AGATE SETTER BALJEET GONZALEZ M.D. Performed By: #### B LOCKER ROOM ATTENDANT, CK, CBC, TSH3, HS TROP, T4F, CMP ####[place] [id number] [facility] Troponin I.cardiac [Mass/vol ume] in Serum or Plasma by Detection limit <= 0.01 ng/Ordered By: Ju Pettit on 12-25-2023 Troponin I.cardiac DL <= 0.01 ng/mL [Mass/Vol] 4.0 pg/mL 0.0-15.0 [facility] Urea nitrogen [Mass/volume] in Serum or PlasmaOrdered By: Ju Pettit on 12-25-2023 Urea nitrogen [Mass/Vol] 10 mg/dL Normal 7-25 [facility] Comment on above: Performed By: #### B LOCKER ROOM ATTENDANT, CK, CBC, TSH3, HS TROP, T4F, CMP ####[facility] [place] [id number] [facility] XR chest 1V portableon 12-24 XR chest 1V portable [facility] [address] [place] [address] XRay Report Signed Patient: Tracy Juarez MR#: [id number] 3 : 1945 Acct:[id number] Age/Sex: 78 / F ADM Date: 12/25/23 Loc: ER Room: Type: [facility] ER Attending Dr: Copies to: Ju Pettit [...] Topher Martini M.D.12/25/2023 2:29 PM Dictation Location: [place] [address] Transcribed By: [facility] 12/25/23 142 Dictated By: Topher Martini II, MD 12/25/231427 Signed By: 12/25/23 142 Normal [facility] Anisocytosis [Presence] in B lood by Light microscopyOrdered By: Julianne Pang on 12-18-2023 Anisocytosis Ql (Bld) Marked Normal [facility] Comment on above: Performed By: #### D IFF CBC #### [facility] [address] [place] [address] [place] Basophils Auto (Bld) [#/Vol] Ordered By: Julianne Pang on 12-18-2023 Basophils (Bld) [#/Vol] N/A [facility] Basophils/100 WBC Auto (Bld) Ordered By: Julianne Pang on 12-18-2023 Basophils/100 WBC (Bld) N/A [facility] Diff and CBCon 12-18-2023 Mean Corpuscular HGB Conc 34.3 g/dL Normal 32.0-35.0 [facility] Comment on above: Performed By: #### D IFF CBC #### [place] [address] [place] Metamyelocytes 1 % High 0-0 [facility] Comment on above: Performed By: #### D IFF CBC #### [place] [address] [place] Microcytosis Marked Normal [facility] Comment on above: Performed By: #### D IFF CBC #### [place] [address] [place] Myelocytes 1 % High 0-0 [facility] Comment on above: Performed By: #### D IFF CBC #### [place] [address] [place] Ovalocytes Slight Normal [facility] Comment on above: Performed By: #### D IFF CBC #### [place] [address] [place] Platelet Estimate Normal Normal Normal [facility] Comment on above: Performed By: #### D IFF CBC #### [address] Platelet Morphology Normal Normal Normal [facility] Comment on above: Result Comment: PERF ORMED BY: [place] [address] PATHOLOGIST AGATE SETTER BALJEET GONZALEZ M.D. Performed By: #### D IFF CBC #### [address] Poikilocytosis Slight Normal [facility] Comment on above: Performed By: #### D IFF CBC #### [address] Eosinophils Auto (Bld) [#/Vo l]Ordered By: Julianne Pang on 12-18-2023 Eosinophils (Bld) [#/Vol] N/A [facility] Eosinophils/100 WBC Auto (Bl d)Ordered By: Julianne Pang on 12-18-2023 Eosinophils/100 WBC (Bld) N/A [facility] Eosinophils/100 leukocytes i n Blood by Manual countOrdered By: Julianne Pang on 12-18-2023 Eosinophils/100 WBC (Bld) 5 % High 1-3 [facility] Comment on above: Performed By: #### D IFF CBC #### [address] Erythrocyte distribution wid th [Ratio] by Automated countOrdered By: Julianne Pang on 12-18-2023 Erythrocyte distribution width (RBC) [Ratio] 15.9 % High 11.9-15.3 [facility] Comment on above: Performed By: #### D IFF CBC #### [address] Erythrocytes [#/volume] in B lood by Automated countOrdered By: Julianne Pang on 12-18-2023 RBC (Bld) [#/Vol] 4.63 10*6/uL Normal 3.60-5.00 [facility] Comment on above: Performed By: #### D IFF CBC #### [address] Hematocrit [Volume Fraction] of Blood by Automated countOrdered By: Julianne Pang on 12-18-2023 Hematocrit (Bld) [Volume fraction] 36.2 % Normal 34.0-46.4 [facility] Comment on above: Performed By: #### D IFF CBC #### [facility] [address] Hemoglobin [Mass/volume] in BloodOrdered By: Julianne Pang on 12-18-2023 Hemoglobin (Bld) [Mass/Vol] 12.4 g/dL Normal 11.8-15.4 [facility] Comment on above: Performed By: #### D IFF CBC #### [facility] [address] Leukocytes [#/volume] correc robby for nucleated erythrocytes in Blood by Automated counOrdered By: Julianne Pang on 12-18-2023 WBC corrected for nucl RBC Auto (Bld) [#/Vol] 6.3 10*3/uL 3.8-11.6 [facility] Leukocytes [#/volume] in Blo od by Automated countOrdered By: Julianne Pang on 12-18-2023 WBC (Bld) [#/Vol] 6.3 10*3/uL Normal 3.8-11.6 [facility] Comment on above: Performed By: #### D IFF CBC #### [address] Lymphocytes Auto (Bld) [#/Vo l]Ordered By: Julianne Pang on 12-18-2023 Lymphocytes (Bld) [#/Vol] N/A [facility] Lymphocytes/100 WBC Auto (Bl d)Ordered By: Julianne Pang on 12-18-2023 Lymphocytes/100 WBC (Bld) N/A [facility] Lymphocytes/100 leukocytes i n Blood by Manual countOrdered By: Julianne Pang on 12-18-2023 Lymphocytes/100 WBC (Bld) 20 % Normal 18-42 [facility] Comment on above: Performed By: #### D IFF CBC #### [facility] [address] [place] [address] [place] MCH [Entitic mass] by Automa robby countOrdered By: Julianne Pang on 12-18-2023 MCH (RBC) [Entitic mass] 26.8 pg Normal 24.7-34.3 [facility] Comment on above: Performed By: #### D IFF CBC #### [facility] [address] MCHC Auto (RBC) [Mass/Vol]Or dered By: Julianne Pang on 12-18-2023 MCHC (RBC) [Mass/Vol] 34.3 g/dL 32.0-35.0 [facility] MCV [Entitic volume] by Auto mated countOrdered By: Julianne Pang on 12-18-2023 MCV (RBC) [Entitic vol] 78.2 fL Low 80-100 [facility] Comment on above: Performed By: #### D IFF CBC #### [facility] [address] [place] [address] Manual blood segmented neutr ophils/100 leukocytesOrdered By: Julianne Pang on 12-18-2023 Segmented neutrophils/100 WBC (Bld) 64 % Normal 50-70 [facility] Comment on above: Performed By: #### D IFF CBC #### [address] Metamyelocytes/100 WBC Manua l cnt (Bld)Ordered By: Julianne Pang on 12-18-2023 Metamyelocytes/100 WBC (Bld) 1 % High 0-0 [facility] Microcytes LM Ql (Bld)Ordere d By: Julianne Pang on 12-18-2023 Microcytes Ql (Bld) Marked [facility] Monocytes Auto (Bld) [#/Vol] Ordered By: Julianne Pang on 12-18-2023 Monocytes (Bld) [#/Vol] N/A [facility] Monocytes/100 WBC Auto (Bld) Ordered By: Julianne Pang on 12-18-2023 Monocytes/100 WBC (Bld) N/A [facility] Monocytes/100 leukocytes in Blood by Manual countOrdered By: Julianne Pang on 12-18-2023 Monocytes/100 WBC (Bld) 9 % Normal 2-11 [facility] Comment on above: Performed By: #### D IFF CBC #### [facility] [address] [place] [address] Myelocytes/100 WBC Manual cn t (Bld)Ordered By: Julianne Pang on 12-18-2023 Myelocytes/100 WBC (Bld) 1 % High 0-0 [facility] Neutrophils Auto (Bld) [#/Vo l]Ordered By: Julianne Pang on 12-18-2023 Neutrophils (Bld) [#/Vol] N/A [facility] Neutrophils/100 WBC Auto (Bl d)Ordered By: Julianne Pang on 12-18-2023 Neutrophils/100 WBC (Bld) N/A [facility] Nucleated erythrocytes [Pres ence] in Blood by Automated countOrdered By: Julianne Pang on 12-18-2023 Nucleated RBC Auto Ql (Bld) N/A [facility] Ovalocyte detectionOrdered B y: Julianne Pang on 12-18-2023 Ovalocytes LM Ql (Bld) Slight [facility] Platelet adequacy [Presence] in Blood by Light microscopyOrdered By: Julianne Pang on 12-18-2023 Platelets LM Ql (Bld) Normal Normal [facility] Platelet mean volume [Entiti c volume] in Blood by Automated countOrdered By: Julianne Pang on 12-18-2023 Platelet mean volume (Bld) [Entitic vol] 7.2 fL Normal 6.3-10.7 [facility] Comment on above: Performed By: #### D IFF CBC #### [facility] [address] Platelet morphology finding [Identifier] in BloodOrdered By: Julianne Pang on 12-18-2023 Platelet morphology finding Nom (Bld) Normal Normal [facility] Platelets [#/volume] in Bloo d by Automated countOrdered By: Julianne Pang on 12-18-2023 Platelets (Bld) [#/Vol] 196 10*3/uL Normal 150-450 [facility] Comment on above: Performed By: #### D IFF CBC #### [facility] [address] [place] [address] [place] Poikilocytosis [Presence] in Blood by Light microscopyOrdered By: Julianne Pang on 12-18-2023 Poikilocytosis LM Ql (Bld) Slight [facility] RBC morphologyOrdered By: Babak Pang on 12-18-2023 RBC morphology finding Nom (Bld) N/A [facility] ECG 12 [place] 12-07-2023 ECG revealed normal sinus rhythm with first-degree AV block with PVCs, 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 Impression dictated by: Brodie Gama Jr., D.ONomi12/04/2023 11:05 AM Dictation Location: [place] [address] Transcribed By: [facility] 12/04/23 1105 Dictated By: Brodie Gama Jr, DO 12/04/23 110 Signed By: 12/04/23 1105 Normal [facility] Automated basophil %Ordered By: Matthew Bucio on 10-28-2023 Basophils/100 WBC (Bld) 0.3 % Normal . [facility] Comment on above: Performed By: #### C BC #### [facility] [address] Automated basophil countOrde red By: Matthew Bucio on 10-28-2023 Basophils (Bld) [#/Vol] 0.0 10*3/uL Normal 0.0-0.2 [facility] Comment on above: Result Comment: PERF ORMED BY: [place] [address] PATHOLOGIST AGATE SETTER BALJEET GONZALEZ M.D. Performed By: #### C BC #### [address] Automated blood monocyte cou ntOrdered By: Matthew Bucio on 10-28-2023 Monocytes (Bld) [#/Vol] 1.4 10*3/uL High 0.0-0.8 [facility] Comment on above: Performed By: #### C BC #### [address] Automated eosinophil %Ordere d By: Matthew Bucio on 10-28-2023 Eosinophils/100 WBC (Bld) 0.4 % Normal . [facility] Comment on above: Performed By: #### C BC #### [address] Automated eosinophil countOr dered By: Matthew Bucio on 10-28-2023 Eosinophils (Bld) [#/Vol] 0.0 10*3/uL Normal 0.0-0.45 [facility] Comment on above: Performed By: #### C BC #### [address] Automated monocyte %Ordered By: Matthew Bucio on 10-28-2023 Monocytes/100 WBC (Bld) 15.1 % Normal . [facility] Comment on above: Performed By: #### C BC #### [address] Automated neutrophil %Ordere d By: Matthew Bucio on 10-28-2023 Neutrophils/100 WBC (Bld) 74.0 % Normal . [facility] Comment on above: Performed By: #### C BC #### [address] Complete Blood Count Auto Di ffon 10-28-2023 Mean Corpuscular HGB Conc 33.7 g/dL Normal 32.0-35.0 [facility] Comment on above: Performed By: #### C BC #### [address] NRBC% 0.0 /100{WBC} Normal 0-0.5 [facility] Comment on above: Performed By: #### C BC #### [address] Erythrocyte distribution wid th [Ratio] by Automated countOrdered By: Matthew Bucio on 10-28-2023 Erythrocyte distribution width (RBC) [Ratio] 15.1 % Normal 11.9-15.3 [facility] Comment on above: Performed By: #### C BC #### [address] Erythrocytes [#/volume] in B lood by Automated countOrdered By: Matthew Bucio on 10-28-2023 RBC (Bld) [#/Vol] 3.64 10*6/uL Normal 3.60-5.00 [facility] Comment on above: Performed By: #### C BC #### [address] Hematocrit [Volume Fraction] of Blood by Automated countOrdered By: Matthew Bucio on 10-28-2023 Hematocrit (Bld) [Volume fraction] 27.8 % Low 34.0-46.4 [facility] Comment on above: Performed By: #### C BC #### [place] [address] [place] Hemoglobin [Mass/volume] in BloodOrdered By: Matthew Bucio on 10-28-2023 Hemoglobin (Bld) [Mass/Vol] 9.4 g/dL Low 11.8-15.4 [facility] Comment on above: Performed By: #### C BC #### [address] Leukocytes [#/volume] correc robby for nucleated erythrocytes in Blood by Automated counOrdered By: Matthew Bucio on 10-28-2023 WBC corrected for nucl RBC Auto (Bld) [#/Vol] 8.9 10*3/uL 3.8-11.6 [facility] Leukocytes [#/volume] in Blo od by Automated countOrdered By: Matthew Bucio on 10-28-2023 WBC (Bld) [#/Vol] 8.9 10*3/uL Normal 3.8-11.6 [facility] Comment on above: Performed By: #### C BC #### [address] Lymphocytes [#/volume] in Bl ood by Automated countOrdered By: Matthew Bucio on 10-28-2023 Lymphocytes (Bld) [#/Vol] 0.9 10*3/uL Low 1.00-4.8 [facility] Comment on above: Performed By: #### C BC #### [address] Lymphocytes/100 leukocytes i n Blood by Automated countOrdered By: Matthew Bucio on 10-28-2023 Lymphocytes/100 WBC (Bld) 10.2 % Normal . [facility] Comment on above: Performed By: #### C BC #### [address] MCH [Entitic mass] by Automa robby countOrdered By: Matthew Bucio on 10-28-2023 MCH (RBC) [Entitic mass] 25.8 pg Normal 24.7-34.3 [facility] Comment on above: Performed By: #### C BC #### [address] MCHC Auto (RBC) [Mass/Vol]Or dered By: Matthew Bucio on 10-28-2023 MCHC (RBC) [Mass/Vol] 33.7 g/dL 32.0-35.0 [facility] MCV [Entitic volume] by Auto mated countOrdered By: Matthew Bucio on 10-28-2023 MCV (RBC) [Entitic vol] 76.6 fL Low 80-100 [facility] Comment on above: Performed By: #### C BC #### [address] Neutrophils [#/volume] in Bl ood by Automated countOrdered By: Matthew Bucio on 10-28-2023 Neutrophils (Bld) [#/Vol] 6.6 10*3/uL Normal 1.8-7.7 [facility] Comment on above: Performed By: #### C BC #### [address] Nucleated erythrocytes [Pres ence] in Blood by Automated countOrdered By: Matthew Bucio on 10-28-2023 Nucleated RBC Auto Ql (Bld) 0.0 /100{WBC} 0-0.5 [facility] Platelet mean volume [Entiti c volume] in Blood by Automated countOrdered By: Matthew Bucio on 10-28-2023 Platelet mean volume (Bld) [Entitic vol] 7.3 fL Normal 6.3-10.7 [facility] Comment on above: Performed By: #### C BC #### [address] Platelets [#/volume] in Bloo d by Automated countOrdered By: Matthew Bucio on 10-28-2023 Platelets (Bld) [#/Vol] 146 10*3/uL Low 150-450 [facility] Comment on above: Performed By: #### C BC #### [address] Basic Metabolic Panelon 10-15 Creatinine Clr Calc Pharmacy 60.88 Normal [facility] Comment on above: Result Comment: PERF ORMED BY: [place] [address] PATHOLOGIST AGATE SETTER BALJEET GONZALEZ M.D. Performed By: #### B MP ####[address] GFR/1.73 sq M.predicted MDRD (S/P/Bld) [Vol rate/Area] mL/min/{1.73_m2} Normal [facility] Comment on above: Performed By: #### B MP ####[place] [id number] [facility] Calcium [Mass/volume] in Ser um or PlasmaOrdered By: Matthew Bucio on 10-27-2023 Calcium [Mass/Vol] 7.8 mg/dL Low 8.6-10.3 [facility] Comment on above: Performed By: #### B MP ####[address] Carbon dioxide, total [Moles /volume] in Serum or PlasmaOrdered By: Matthew Bucio on 10-27-2023 CO2 [Moles/Vol] 25.5 mmol/L Normal 21.0-31.0 [facility] Comment on above: Performed By: #### B MP ####[address] Chloride [Moles/volume] in S dave or PlasmaOrdered By: Matthew Bucio on 10-27-2023 Chloride [Moles/Vol] 106 mmol/L Normal 98-107 [facility] Comment on above: Performed By: #### B MP ####[place] [id number] [facility] Complete Blood Count Auto Di ffon 10-27-2023 Basophils (Bld) [#/Vol] 0.0 10*3/uL Normal 0.0-0.2 [facility] Comment on above: Result Comment: PERF ORMED BY: [facility] [address] [place] [id number] PATHOLOGIST AGATE SETTER BALJEET GONZALEZ M.D. Performed By: #### C BC ####[place] [id number] [facility] Basophils/100 WBC (Bld) 0.3 % Normal . [facility] Comment on above: Performed By: #### C BC ####[address] Eosinophils (Bld) [#/Vol] 0.0 10*3/uL Normal 0.0-0.45 [facility] Comment on above: Performed By: #### C BC ####[address] Eosinophils/100 WBC (Bld) 0.3 % Normal . [facility] Comment on above: Performed By: #### C BC ####[address] Erythrocyte distribution width (RBC) [Ratio] 15.3 % Normal 11.9-15.3 [facility] Comment on above: Performed By: #### C BC ####[address] Hematocrit (Bld) [Volume fraction] 30.5 % Low 34.0-46.4 [facility] Comment on above: Performed By: #### C BC ####[address] Hemoglobin (Bld) [Mass/Vol] 10.2 g/dL Low 11.8-15.4 [facility] Comment on above: Performed By: #### C BC ####[address] Lymphocytes (Bld) [#/Vol] 0.9 10*3/uL Low 1.00-4.8 [facility] Comment on above: Performed By: #### C BC ####[address] Lymphocytes/100 WBC (Bld) 14.0 % Normal . [facility] Comment on above: Performed By: #### C BC ####[address] MCH (RBC) [Entitic mass] 25.9 pg Normal 24.7-34.3 [facility] Comment on above: Performed By: #### C BC ####[address] MCV (RBC) [Entitic vol] 77.0 fL Low 80-100 [facility] Comment on above: Performed By: #### C BC ####[place] [id number] [facility] Mean Corpuscular HGB Conc 33.6 g/dL Normal 32.0-35.0 [facility] Comment on above: Performed By: #### C BC ####[address] Monocytes (Bld) [#/Vol] 0.9 10*3/uL High 0.0-0.8 [facility] Comment on above: Performed By: #### C BC ####[place] [id number] [facility] Monocytes/100 WBC (Bld) 13.6 % Normal . [facility] Comment on above: Performed By: #### C BC ####[address] Neutrophils (Bld) [#/Vol] 4.8 10*3/uL Normal 1.8-7.7 [facility] Comment on above: Performed By: #### C BC ####[place] [id number] [facility] Neutrophils/100 WBC (Bld) 71.8 % Normal . [facility] Comment on above: Performed By: #### C BC ####[place] [id number] [facility] NRBC% 0.0 /100{WBC} Normal 0-0.5 [facility] Comment on above: Performed By: #### C BC ####[place] [id number] [facility] Platelet mean volume (Bld) [Entitic vol] 7.3 fL Normal 6.3-10.7 [facility] Comment on above: Performed By: #### C BC ####[place] [id number] [facility] Platelets (Bld) [#/Vol] 155 10*3/uL Normal 150-450 [facility] Group Comment on above: Performed By: #### C BC ####[place] [address] [place] [id number] [facility] RBC (Bld) [#/Vol] 3.96 10*6/uL Normal 3.60-5.00 [facility] Comment on above: Performed By: #### C BC ####[place] [address] [place] 1909470 [facility] WBC (Bld) [#/Vol] 6.7 10*3/uL Normal 3.8-11.6 [facility] Comment on above: Performed By: #### C BC ####[place] [id number] [facility] Creatinine [Mass/volume] in Serum or PlasmaOrdered By: Matthew Bucio on 10-27-2023 Creatinine [Mass/Vol] 0.65 mg/dL Normal 0.60-1.20 [facility] Comment on above: Performed By: #### B MP ####[place] [id number] [facility] Glucose [Mass/volume] in Ser um or PlasmaOrdered By: Matthew Bucio on 10-27-2023 Glucose [Mass/Vol] 201 mg/dL High 70-100 [facility] Comment on above: ADA recommended refe rence rangeRandom Glucose Reference Range is dependent on time and content of last meal. Glucose of more than 200 mg/dL in a nonstressed, ambulatory subject supports the diagnosis of Diabetes Mellitus. Result Comment: [place] Glucose Reference Range is dependent on time and content of last meal. Glucose of more than 200 mg/dL in a nonstressed, ambulatory subject supports the diagnosis of Diabetes Mellitus. ADA recommended reference range Performed By: #### B MP ####[address] No Panel InformationOrdered By: Matthew Bucio on 10-27-2023 Estimated GFR (CKD-EPI) > 60.0 mL/Min [facility] Creatinine Clearance (Chem 60.88 [facility] Potassium [Moles/volume] in Serum or PlasmaOrdered By: Matthew Bucio on 10-27-2023 Potassium [Moles/Vol] 3.2 mmol/L Low 3.5-5.1 [facility] Comment on above: Performed By: #### B MP ####[address] Serum or plasma anion gap de terminationOrdered By: Matthew Bucio on 10-27-2023 Anion gap [Moles/Vol] 9.7 mmol/L Normal 6.0-15.0 [facility] Comment on above: Performed By: #### B MP ####[address] Sodium [Moles/volume] in Ser um or PlasmaOrdered By: Matthew Bucio on 10-27-2023 Sodium [Moles/Vol] 138 mmol/L Normal 136-145 [facility] Comment on above: Performed By: #### B MP ####[address] Urea nitrogen [Mass/volume] in Serum or PlasmaOrdered By: Matthew Bucio on 10-27-2023 Urea nitrogen [Mass/Vol] 17 mg/dL Normal 7-25 [facility] Comment on above: Performed By: #### B MP ####[address] Basic Metabolic Panelon 10-15 Anion gap [Moles/Vol] 8.2 mmol/L Normal 6.0-15.0 [facility] Comment on above: Performed By: #### B MP #### [address] Calcium [Mass/Vol] 7.8 mg/dL Low 8.6-10.3 [facility] Comment on above: Performed By: #### B MP #### [address] Chloride [Moles/Vol] 110 mmol/L High 98-107 [facility] Comment on above: Performed By: #### B MP #### [place] [address] [place] CO2 [Moles/Vol] 25.5 mmol/L Normal 21.0-31.0 [facility] Comment on above: Performed By: #### B MP #### [address] Creatinine [Mass/Vol] 0.61 mg/dL Normal 0.60-1.20 [facility] Comment on above: Performed By: #### B MP #### [place] [address] [place] Creatinine Clr Calc Pharmacy 60.74 Normal [facility] Comment on above: Result Comment: PERF ORMED BY: [place] [address] PATHOLOGIST AGATE SETTER BALJEET GONZALEZ M.D. Performed By: #### B MP #### [place] [address] [place] GFR/1.73 sq M.predicted MDRD (S/P/Bld) [Vol rate/Area] mL/min/{1.73_m2} Normal [facility] Comment on above: Performed By: #### B MP #### [address] Glucose [Mass/Vol] 118 mg/dL High 70-100 [facility] Comment on above: Result Comment: [place] Glucose Reference Range is dependent on time and content of last meal. Glucose of more than 200 mg/dL in a nonstressed, ambulatory subject supports the diagnosis of Diabetes Mellitus. ADA recommended reference range Performed By: #### B MP #### [place] [address] [place] Potassium [Moles/Vol] 3.7 mmol/L Normal 3.5-5.1 [facility] Comment on above: Performed By: #### B MP #### [place] [address] [place] Sodium [Moles/Vol] 140 mmol/L Normal 136-145 [facility] Comment on above: Performed By: #### B MP #### [place] [address] [place] Urea nitrogen [Mass/Vol] 14 mg/dL Normal 7-25 [facility] Comment on above: Performed By: #### B #### [facility] [address] [place] 10-26-2023 L Specimen: [id number] Received: 10/26/23 Status: JOHNATHAN Ribeiro Num: [id number] Spec Type: Surgical Subm Dr: Matthew Bucio MD Tissues: A Joint/Knee (LT KNEE) Procedures: HE, Gross/Micro L4, Decalcification Age/ Patient Sex Location Account Attending Physician LarryTracy F 77/F 4N [id number] Matthew Bucio MD SPEC NUM: [id number] RECD: 10/26/23 STATUS: JOHNATHAN RIBEIRO NUM: [id number] OFELIA: 10/26/23 DR: Matthew Bucio MD ENTERED: 10/26/[address] [facility] [address]: SPEC TYPE: Surgical DEPT: S [...] is taken. Gross examination only. CPT Codes 65493 Gross Photo Specimen: [id number] Received: 10/26/23-1111 Status: JOHNATHAN Ribeiro Num: [id number] Spec Type: Surgical Subm Dr: Matthew Bucio MD Tissues: A Joint/Knee (LT KNEE) Procedures: HE, Gross/Micro L4, Decalcification Patient: Larry,Александрdeisy González [id number] (Continued) Signed (signature on file) Magda Dale MD 10/27/23 1618 Normal [facility] Type and Screenon 10-26-2023 ABO and Rh group Nom (Bld) Blood group O Rh(D) positive Normal [facility] Comment on above: Result Comment: PERF ORMED BY: [address] [place] [address] PATHOLOGIST AGATE SETTER BALJEET GONZALEZ M.D. XR knee LT 2Von 10-26-2023 XR knee LT 2V [address] [place] [address] XRay Report Signed Patient: Tracy Juarez MR#: [id number] [birth year] : 1945 Acct:[id number] Age/Sex: 77 / F ADM Date: 10/26/23 Loc: 4 Room: [id number] Type: REG SD Attending Dr: Matthew Bucio II, MD Copies [...] Leida Hubbard M.D.10/26/2023 2:02 PM Dictation Location: [place] [address] Transcribed By: [facility] 10/26/23 1402 Dictated By: Leida Hubbard MD 10/26/23 140 Signed By: 10/26/23 1402 Normal [facility] XR tibia fibula LT 2V*on XR tibia fibula LT 2V* [facility] Main [address] [address] XRay Report Signed Patient: Tracy Juarez MR#: [id number] [birth year] : 1945 Acct:[id number] Age/Sex: 77 / F ADM Date: 10/22/23 [place] [facility] [place]: Type: [facility] CL Attending Dr: Matthew Bucio II, MD Copies to: Matthew Bucio MD Ordering Provider: Matthew Bucio MD Date of Service: 10/22/23 XR/XR femur LT 2V*: M25.562 - Pain in left knee ([id number]) XR/XR tibia fibula LT 2V*: M25.562 - [...] Leida Hubbard M.D.10/22/2023 3:27 PM Dictation Location: [place] [address] Transcribed By: MAGDIEL 10/22/23 1527 Dictated By: Leida Hubbard MD 10/22/23 1518 Signed By: 10/22/23 1527 Normal [facility] Automated basophil %Ordered By: Matthew Bucio on 10-05-2023 Basophils/100 WBC (Bld) 0.7 % Normal . [facility] Comment on above: Performed By: #### F RUC #### [facility] , #### CBC, BMP #### [address] Automated basophil countOrde red By: Matthew Bucio on 10-05-2023 Basophils (Bld) [#/Vol] 0.0 10*3/uL Normal 0.0-0.2 [facility] Comment on above: Result Comment: PERF ORMED BY: [place] [address] PATHOLOGIST AGATE SETTER BALJEET GONZALEZ M.D. Performed By: #### F RUC #### [facility] , #### CBC, BMP #### [address] Automated blood monocyte cou ntOrdered By: Matthew Bucio on 10-05-2023 Monocytes (Bld) [#/Vol] 0.6 10*3/uL Normal 0.0-0.8 [facility] Comment on above: Performed By: #### F RUC #### [facility] , #### CBC, BMP #### [address] Automated eosinophil %Ordere d By: Matthew Bucio on 10-05-2023 Eosinophils/100 WBC (Bld) 2.5 % Normal . [facility] Comment on above: Performed By: #### F RUC #### [facility] , #### CBC, BMP #### [address] Automated eosinophil countOr dered By: Matthew Bucio on 10-05-2023 Eosinophils (Bld) [#/Vol] 0.1 10*3/uL Normal 0.0-0.45 [facility] Comment on above: Performed By: #### F RUC #### [facility] , #### CBC, BMP #### [facility] [address] [place] [address] Automated erythrocytes count in urine sediment (number/area)Ordered By: Matthew Bucio on 10-05-2023 RBC Auto (Urine sed) [#/Area] 3-4 [HPF] 0-4 [facility] Automated leukocytes count i n urine sediment (number/area)Ordered By: Matthew Bucio on 10-05-2023 WBC Auto (Urine sed) [#/Area] 0-1 [HPF] 0-4 [facility] Automated monocyte %Ordered By: Matthew Bucio on 10-05-2023 Monocytes/100 WBC (Bld) 10.9 % Normal . [facility] Comment on above: Performed By: #### F RUC #### [facility] , #### CBC, BMP #### [address] Automated neutrophil %Ordere d By: Matthew Bucio on 10-05-2023 Neutrophils/100 WBC (Bld) 63.7 % Normal . [facility] Comment on above: Performed By: #### F RUC #### [facility] , #### CBC, BMP #### [address] Automated urine color determ inationOrdered By: Matthew Bucio on 10-05-2023 Color (U) Yellow Normal Yellow [facility] Comment on above: Order Comment: Name Collection Type:: Clean-Voided Midstream Performed By: #### F RUC #### [facility] , #### CBC, BMP #### [address] Basic Metabolic Panelon 09-17 GFR/1.73 sq M.predicted MDRD (S/P/Bld) [Vol rate/Area] mL/min/{1.73_m2} Normal [facility] Comment on above: Performed By: #### F RUC #### [facility] , #### CBC, BMP #### [facility] [address] [place] [address] Bilirubin Test strip Ql (U)O rdered By: Matthew Bucio on 10-05-2023 Bilirubin Ql (U) Negative Negative [facility] Calcium [Mass/volume] in Ser um or PlasmaOrdered By: Matthew Bucio on 10-05-2023 Calcium [Mass/Vol] 8.7 mg/dL Normal 8.6-10.3 [facility] Comment on above: Result Comment: PERF ORMED BY: [place] [address] PATHOLOGIST AGATE SETTER BALJEET GONZALEZ M.D. Performed By: #### F RUC #### [facility] , #### CBC, BMP #### [address] Carbon dioxide, total [Moles /volume] in Serum or PlasmaOrdered By: Matthew Bucio on 10-05-2023 CO2 [Moles/Vol] 24.9 mmol/L Normal 21.0-31.0 [facility] Comment on above: Performed By: #### F RUC #### [facility] , #### CBC, BMP #### [facility] [address] [place] [address] Chloride [Moles/volume] in S dave or PlasmaOrdered By: Matthew Bucio on 10-05-2023 Chloride [Moles/Vol] 110 mmol/L High 98-107 [facility] Comment on above: Performed By: #### F RUC #### [facility] , #### CBC, BMP #### [facility] [address] [place] [address] Complete Blood Count Auto Di ffon 10-05-2023 Mean Corpuscular HGB Conc 33.5 g/dL Normal 32.0-35.0 [facility] Comment on above: Performed By: #### F RUC #### [facility] , #### CBC, BMP #### [facility] [address] [place] [address] NRBC% 0.0 /100{WBC} Normal 0-0.5 [facility] Comment on above: Performed By: #### F RUC #### [facility] , #### CBC, BMP #### [facility] [address] Creatinine [Mass/volume] in Serum or PlasmaOrdered By: Matthew Bucio on 10-05-2023 Creatinine [Mass/Vol] 0.61 mg/dL Normal 0.60-1.20 [facility] Comment on above: Performed By: #### F RUC #### [facility] , #### CBC, BMP #### [place] [address] [place] Dipstick and Microscopicon 0 10-05-2023 Appearance (U) Clear Normal Clear [facility] Comment on above: Order Comment: Name Collection Type:: Clean-Voided Midstream Performed By: #### F RUC #### [facility] , #### CBC, BMP #### [address] Bacteria,Urine None Seen Normal None Seen [facility] Comment on above: Order Comment: Name Collection Type:: Clean-Voided Midstream Performed By: #### F RUC #### [facility] , #### CBC, BMP #### [place] [address] [place] Bilirubin,Urine Negative Normal Negative [facility] Comment on above: Order Comment: Name Collection Type:: Clean-Voided Midstream Performed By: #### F RUC #### [facility] , #### CBC, BMP #### [facility] [address] [place] [address] [place] Glucose Ql (U) Normal Normal Normal [facility] Comment on above: Order Comment: Name Collection Type:: Clean-Voided Midstream Performed By: #### F RUC #### [facility] , #### CBC, BMP #### [place] [address] [place] Hyaline Casts,Urine 0-8 Normal 0-8 [facility] Comment on above: Order Comment: Name Collection Type:: Clean-Voided Midstream Result Comment: PERF ORMED BY: [place] [address] PATHOLOGIST AGATE SETTER BALJEET GONZALEZ M.D. Performed By: #### F RUC #### [facility] , #### CBC, BMP #### [address] Ketones Ql (U) Negative Normal Negative [facility] Comment on above: Order Comment: Name Collection Type:: Clean-Voided Midstream Performed By: #### F RUC #### [facility] , #### CBC, BMP #### [address] Leukocyte esterase Test strip Ql (U) 1+ High Negative [facility] Comment on above: Order Comment: Name Collection Type:: Clean-Voided Midstream Performed By: #### F RUC #### [facility] , #### CBC, BMP #### [place] [address] [place] Nitrite,Urine Negative Normal Negative [facility] Comment on above: Order Comment: Name Collection Type:: Clean-Voided Midstream Performed By: #### F RUC #### [facility] , #### CBC, BMP #### [place] [address] [place] Occult Blood,Urine Negative Normal Negative [facility] Comment on above: Order Comment: Name Collection Type:: Clean-Voided Midstream Result Comment: PERF ORMED BY: [place] [address] PATHOLOGIST AGATE SETTER BALJEET GONZALEZ M.D. Performed By: #### F RUC #### [facility] , #### CBC, BMP #### [place] [address] [place] Protein,Urine Negative Normal Negative [facility] Comment on above: Order Comment: Name Collection Type:: Clean-Voided Midstream Performed By: #### F RUC #### [facility] , #### CBC, BMP #### [place] [address] [place] RBC,Urine 3-4 Normal 0-4 [facility] Comment on above: Order Comment: Name Collection Type:: Clean-Voided Midstream Performed By: #### F RUC #### [facility] , #### CBC, BMP #### [address] Specificy [place],Urine 1.019 Normal 1.001-1.03 0 [facility] Comment on above: Order Comment: Name Collection Type:: Clean-Voided Midstream Performed By: #### F RUC #### [facility] , #### CBC, BMP #### [place] [address] [place] Squamous Epithelial Cell,Urine 1-2 Normal 0-2 [facility] Comment on above: Order Comment: Name Collection Type:: Clean-Voided Midstream Performed By: #### F RUC #### [facility] , #### CBC, BMP #### [place] [address] [place] Urobilinogen,Urine Normal Normal Normal [facility] Comment on above: Order Comment: Name Collection Type:: Clean-Voided Midstream Performed By: #### F RUC #### [facility] , #### CBC, BMP #### [facility] [address] [place] [address] [place] WBC LM.HPF (Urine sed) [#/Area] 0 /[HPF] Normal 0-4 [facility] Comment on above: Order Comment: Name Collection Type:: Clean-Voided Midstream Performed By: #### F RUC #### [facility] , #### CBC, BMP #### [facility] [address] [place] [address] ECG 12 lead ECGon 10-05-2023 ECG 12 lead ECG [facility] Main [place] [address] [place] [address] Electrocardiograph Report Signed Patient: Tracy Juarez MR#: [id number] [birth year] : 1945 Acct:[id number] Age/Sex: 77 / F ADM Date: 10/05/23 Loc: PS Room: Type: [facility] Attending Dr: Matthew Bucio II, MD Ordering [...] is now present Confirmed by ROBYN HUYNH FACCE ([id number]) on 10/05/2023 3:46:44 PM Referred By: KVNG BUCIO Electronically Signed By:CE DOYLE MD FAC Transcribed By: [facility] Signed By José Doyle MD 10/05/23 1546 Normal [facility] Erythrocyte distribution wid th [Ratio] by Automated countOrdered By: Matthew Bucio on 10-05-2023 Erythrocyte distribution width (RBC) [Ratio] 14.7 % Normal 11.9-15.3 [facility] Comment on above: Performed By: #### F RUC #### [facility] , #### CBC, BMP #### [facility] [address] [place] [address] Erythrocytes [#/volume] in B lood by Automated countOrdered By: Matthew Bucio on 10-05-2023 RBC (Bld) [#/Vol] 4.54 10*6/uL Normal 3.60-5.00 [facility] Comment on above: Performed By: #### F RUC #### [facility] , #### CBC, BMP #### [facility] [address] [place] [address] [place] Fructosamineon 10-05-2023 Fructosamine 216 umol/L Normal 0-285 [facility] Comment on above: Result Comment: Publ ished reference interval for apparently healthy subjects between age 20 and 60 is 205 - 285 umol/L and in a poorly controlled diabetic population is 228 - 563 umol/L with a mean of 396 umol/L. Performed at: [facility] [place] [address] [place], [place] [id number] Dermatology Specialist: Ian Mcneal PhD, Phone: [phone] PERFORMED BY: [place] [address] PATHOLOGIST AGATE SETTER BALJEET GONZALEZ M.D. Performed By: #### F RUC #### [facility] , #### CBC, BMP #### [facility] [address] Fructosamine [Moles/volume] in Serum or PlasmaOrdered By: Matthew Bucio on 10-05-2023 Fructosamine [Moles/Vol] 216 umol/L 0-285 [facility] Comment on above: Published reference interval for apparently healthysubjects between age 20 and 60 is 205 - 285 umol/L and in apoorly controlled diabetic population is 228 - 563 umol/Lwith a mean of 396 umol/L.Performed at: [facility] [address] [place] [id number] Director: Ian Mcneal PhD, Phone: [phone] Glucose [Mass/volume] in Ser um or PlasmaOrdered By: Matthew Bucio on 10-05-2023 Glucose [Mass/Vol] 106 mg/dL High 70-100 [facility] Comment on above: ADA recommended refe rence rangeRandom Glucose Reference Range is dependent on time and content of last meal. Glucose of more than 200 mg/dL in a nonstressed, ambulatory subject supports the diagnosis of Diabetes Mellitus. Result Comment: [facility] Glucose Reference Range is dependent on time and content of last meal. Glucose of more than 200 mg/dL in a nonstressed, ambulatory subject supports the diagnosis of Diabetes Mellitus. ADA recommended reference range Performed By: #### F RUC #### [facility] , #### CBC, BMP #### [address] Hematocrit [Volume Fraction] of Blood by Automated countOrdered By: Matthew Bucio on 10-05-2023 Hematocrit (Bld) [Volume fraction] 35.0 % Normal 34.0-46.4 [facility] Comment on above: Performed By: #### F RUC #### [facility] , #### CBC, BMP #### [address] Hemoglobin [Mass/volume] in BloodOrdered By: Matthew Bucio on 10-05-2023 Hemoglobin (Bld) [Mass/Vol] 11.7 g/dL Low 11.8-15.4 [facility] Comment on above: Performed By: #### F RUC #### [facility] , #### CBC, BMP #### [address] Ketones Auto test strip (U) [Mass/Vol]Ordered By: Matthew Bucio on 10-05-2023 Ketones (U) [Mass/Vol] Negative Negative [facility] - UrinalysisOrder ed By: Matthew Bucio on 10-05-2023 Hyaline casts LM Ql (Urine sed) 0-8 [LPF] 0-8 [facility] Leukocytes [#/volume] correc robby for nucleated erythrocytes in Blood by Automated counOrdered By: Matthew Bucio on 10-05-2023 WBC corrected for nucl RBC Auto (Bld) [#/Vol] 5.4 10*3/uL 3.8-11.6 [facility] Leukocytes [#/volume] in Blo od by Automated countOrdered By: Matthew Bucio on 10-05-2023 WBC (Bld) [#/Vol] 5.4 10*3/uL Normal 3.8-11.6 [facility] Comment on above: Performed By: #### F RUC #### [facility] , #### CBC, BMP #### [address] Lymphocytes [#/volume] in Bl ood by Automated countOrdered By: Matthew Bucio on 10-05-2023 Lymphocytes (Bld) [#/Vol] 1.2 10*3/uL Normal 1.00-4.8 [facility] Comment on above: Performed By: #### F RUC #### [facility] , #### CBC, BMP #### [address] Lymphocytes/100 leukocytes i n Blood by Automated countOrdered By: Matthew Bucio on 10-05-2023 Lymphocytes/100 WBC (Bld) 22.2 % Normal . [facility] Comment on above: Performed By: #### F RUC #### [facility] , #### CBC, BMP #### [address] MCH [Entitic mass] by Automa robby countOrdered By: Matthew Bucio on 10-05-2023 MCH (RBC) [Entitic mass] 25.8 pg Normal 24.7-34.3 [facility] Comment on above: Performed By: #### F RUC #### [facility] , #### CBC, BMP #### [facility] [address] [place] [address] MCHC Auto (RBC) [Mass/Vol]Or dered By: Matthew Bucio on 10-05-2023 MCHC (RBC) [Mass/Vol] 33.5 g/dL 32.0-35.0 [facility] MCV [Entitic volume] by Auto mated countOrdered By: Matthew Bucio on 10-05-2023 MCV (RBC) [Entitic vol] 77.1 fL Low 80-100 [facility] Comment on above: Performed By: #### F RUC #### [facility] , #### CBC, BMP #### [facility] [address] [place] [address] [place] Neutrophils [#/volume] in Bl ood by Automated countOrdered By: Matthew Bucio on 10-05-2023 Neutrophils (Bld) [#/Vol] 3.5 10*3/uL Normal 1.8-7.7 [facility] Comment on above: Performed By: #### F RUC #### [facility] , #### CBC, BMP #### [facility] [address] [place] [address] Nitrite Test strip Ql (U)Ord ered By: Matthew Bucio on 10-05-2023 Nitrite Ql (U) Negative Negative [facility] No Panel InformationOrdered By: Matthew Bucio on 10-05-2023 Estimated GFR (CKD-EPI) > 60.0 mL/Min [facility] Creatinine Clearance (Chem N/A [facility] Nucleated erythrocytes [Pres ence] in Blood by Automated countOrdered By: Matthew Bucio on 10-05-2023 Nucleated RBC Auto Ql (Bld) 0.0 /100{WBC} 0-0.5 [facility] PST Type and Screenon 2023 ABO and Rh group Nom (Bld) Blood group O Rh(D) positive Normal [facility] Comment on above: Order Comment: Date of Surgery: [id number] Platelet mean volume [Entiti c volume] in Blood by Automated countOrdered By: Matthew Bucio on 10-05-2023 Platelet mean volume (Bld) [Entitic vol] 7.0 fL Normal 6.3-10.7 [facility] Comment on above: Performed By: #### F RUC #### [facility] , #### CBC, BMP #### [facility] [address] [place] [address] [place] Platelets [#/volume] in Bloo d by Automated countOrdered By: Matthew Bucio on 10-05-2023 Platelets (Bld) [#/Vol] 179 10*3/uL Normal 150-450 [facility] Comment on above: Performed By: #### F RUC #### [facility] , #### CBC, BMP #### [facility] [address] [place] [address] [place] Potassium [Moles/volume] in Serum or PlasmaOrdered By: Matthew Bucio on 10-05-2023 Potassium [Moles/Vol] 3.5 mmol/L Normal 3.5-5.1 [facility] Comment on above: Performed By: #### F RUC #### [facility] , #### CBC, BMP #### [address] Protein Auto test strip (U) [Mass/Vol]Ordered By: Matthew Bucio on 10-05-2023 Protein (U) [Mass/Vol] Negative Negative [facility] Serum or plasma anion gap de terminationOrdered By: Matthew Bucio on 10-05-2023 Anion gap [Moles/Vol] 10.6 mmol/L Normal 6.0-15.0 [facility] Comment on above: Performed By: #### F RUC #### [facility] , #### CBC, BMP #### [facility] [address] [place] [address] [place] Sodium [Moles/volume] in Ser um or PlasmaOrdered By: Matthew Bucio on 10-05-2023 Sodium [Moles/Vol] 142 mmol/L Normal 136-145 [facility] Comment on above: Performed By: #### F RUC #### [facility] , #### CBC, BMP #### [facility] [address] [place] [address] Specific gravity Auto test s trip (U) [Rel density]Ordered By: Matthew Bucio on 10-05-2023 Specific gravity (U) [Rel density] 1.019 1.001-1.03 0 [facility] Squamous epithelial cells de tection in urine sediment by light microscopyOrdered By: Matthew Bucio on 10-05-2023 Epithelial cells.squamous LM Ql (Urine sed) 1-2 [HPF] 0-2 [facility] Urea nitrogen [Mass/volume] in Serum or PlasmaOrdered By: Matthew Bucio on 10-05-2023 Urea nitrogen [Mass/Vol] 17 mg/dL Normal 7-25 [facility] Comment on above: Performed By: #### F RUC #### [facility] , #### CBC, BMP #### [facility] [address] Urine bacteria detection by automated methodOrdered By: Matthew Bucio on 10-05-2023 Bacteria Auto Ql (U) None seen None Seen [facility] Urine clarity by refractomet ry automatedOrdered By: Matthew Bucio on 10-05-2023 Clarity Refractometry automated (U) Clear Clear [facility] Urine glucose measurement by automated test strip (mass/volume)Ordered By: Matthew Bucio on 10-05-2023 Glucose Auto test strip (U) [Mass/Vol] Normal mg/dL Normal [facility] Urine hemoglobin detection b y automated test stripOrdered By: Matthew Bucio on 10-05-2023 Hemoglobin Auto test strip Ql (U) Negative Negative [facility] Urine leukocyte esterase det ection by automated test stripOrdered By: Matthew Bucio on 10-05-2023 Leukocyte esterase Auto test strip Ql (U) 1+ Negative [facility] Urine pH measurement by auto mated test stripOrdered By: Matthew Bucio on 10-05-2023 pH (U) 8.5 [pH] Normal 5.0-9.0 [facility] Comment on above: Order Comment: Name Collection Type:: Clean-Voided Midstream Performed By: #### F RUC #### [facility] , #### CBC, BMP #### [facility] [address] Urobilinogen Auto test strip (U) [Mass/Vol]Ordered By: Matthew Bucio on 10-05-2023 Urobilinogen (U) [Mass/Vol] Normal mg/dL Normal [facility] A1C with Estimated Average G luon 08-12-2023 Glucose [Mass/Vol] 114 mg/dL Normal [facility] Comment on above: Order Comment: Reaso n for Exam Primary osteoarthritis of left knee;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 [facility] Comment on above: This test was develo ped and its performance characteristicsdetermined by [facility]. It has not been cleared orapproved by the Food and Drug Administration.Cotinine levels greater than 20.0 are consistent with theuse of tobacco or tobacco cessation products.Performed at: [address] [id number] Director: Milton Guerrero MD, Phone: [phone] Glucose mean value [Mass/vol ume] in Blood Estimated from glycated hemoglobinOrdered By: Matthew Bucio on 08-12-2023 Average glucose Estimated from glycated hemoglobin (Bld) [Mass/Vol] 114 mg/dL [facility] Hemoglobin A1c percentageOrd ered By: Matthew Bucio on 08-12-2023 HbA1c (Bld) [Mass fraction] 5.6 % Normal 4.3-5.6 [facility] Comment on above: Increased risk for d iabetes: 5.7 - 6.4diabetes: >6.4glycemic control for adults with diabetes: <7.0 Order Comment: Reaso n for Exam Primary osteoarthritis of left knee;Other chcf (current Result Comment: Incr eased risk for diabetes: 5.7 - 6.4 diabetes: >6.4 glycemic control for adults with diabetes: <7.0 Performed By: #### F RUC #### [facility] , #### CBC, BMP #### [facility] [address] [place] [address] [place] Hemoglobin [Mass/volume] in BloodOrdered By: Matthew Bucio on 08-12-2023 Hemoglobin (Bld) [Mass/Vol] 12.1 g/dL Normal 11.8-15.4 [facility] Comment on above: Order Comment: Reaso n for Exam Primary osteoarthritis of left knee;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 Normal [facility] Comment on above: Performed By: #### F RUC #### [facility] , #### CBC, BMP #### [facility] [address] [place] [id number] [facility] Nicotine [Mass/volume] in Se rum or PlasmaOrdered By: Matthew Bucio on 08-12-2023 Nicotine [Mass/Vol] <1.0 ng/mL . [facility] Comment on above: This test was develo ped and its performance characteristicsdetermined by [facility]. It has not been cleared orapproved by the Food and Drug Administration.Nicotine levels greater than 2.0 are consistent with theuse of tobacco or tobacco cessation products. Nicotine/Cotinine Bloodon Cotinine, Blood <1.0 Normal . [facility] Comment on above: Order Comment: Reaso n for Exam Primary osteoarthritis of left knee;Other chcf (current Result Comment: This test was developed and its performance characteristics determined by [facility]. It has not been cleared or approved by the Food and Drug Administration. Cotinine levels greater than 20.0 are consistent with the use of tobacco or tobacco cessation products. Performed at: [address] [id number] Dermatology Specialist: Milton Guerrero MD, Phone: [phone] PERFORMED BY: [place] [address] PATHOLOGIST AGATE SETTER BALJEET GONZALEZ M.D. Performed By: #### F RU #### [facility] , #### CBC, BMP #### [facility] [address] [place], [place] [id number] [facility] Nicotine, Blood <1.0 Normal . [facility] Comment on above: Order Comment: Reaso n for Exam Primary osteoarthritis of left knee;Other chcf (current Result Comment: This test was developed and its performance characteristics determined by [facility]. It has not been cleared or approved by the Food and Drug Administration. Nicotine levels greater than 2.0 are consistent with the use of tobacco or tobacco cessation products. Performed By: #### F RUC #### [facility] , #### CBC, BMP #### [facility] [address] Vitamin D 25 Hydroxy Totalon 08-12-2023 Vitamin D 25 Hydroxy Total 14.3 ng/mL Low 30-100 [facility] Comment on above: Order Comment: Reaso n for Exam Primary osteoarthritis of left knee;Other chcf (current Result Comment: ERINN MIN D STATUS 25(OH)VITAMIN D RANGE (ng/mL) Deficient <20 Insufficient 20 to <30 Sufficient 30 to 100 Reference: Jessica Ardon, Jennifer FENG, et al. Evaluation,treatment, and prevention of vitamin D deficiency; an Endocrine Society clinical practice guideline. JCEM. 2010; 96(7):1911-30. PERFORMED BY: [place] [address] PATHOLOGIST AGATE SETTER BALJEET GONZALEZ M.D. Performed By: #### F RUC #### [facility] , #### CBC, BMP #### [address] Vitamin D+Metabolites [Mass/ volume] in Serum or PlasmaOrdered By: Matthew Bucio on 08-12-2023 Vitamin D+Metabolites [Mass/Vol] 14.3 ng/mL 30-100 [facility] Comment on above: VITAMIN D STATUS 25( [...] (Unsp spec) No MRSA Isolated 2 Days [facility] XR knee LT 4V*on 08-12-2023 XR knee LT 4V* [facility] [address] [place] [address] XRay Report Signed Patient: Tracy Juarez MR#: [id number] 3 : 1945 Acct:[id number] Age/Sex: 77 / F ADM Date: 08/12/23 [place] [facility] [place] Type: [facility] Attending Dr: Matthew Bucio II, MD Copies to: Matthew Bucio MD Ordering Provider: Matthew Bucio MD Date of Service: 08/12/23 XR/XR knee LT 4V*: Primary osteoarthritis of left knee ([id number]) XR/XR pelvis 1-2V: Primary osteoarthritis of left [...] PROCESS. Impression dictated by: Brodie Gama Jr., DNomiONomi08/12/2023 3:30 PM Dictation Location: [place] [address] Transcribed By: [facility] 08/12/23 1530 Dictated By: Brodie Gama Jr, DO 08/12/23 1529 Signed By: 08/12/23 1530 Normal [facility] XR knee LT 4V* [facility] [employer] Other XR knee LT 4V* [facility] [employer] Other XR knee LT 4V* [address] [facility] [employer] Other XR knee LT 4V* [place] [address] [facility] Other XR knee LT 4V* XRay Report [employer] Other XR knee LT 4V* Signed [employer] Other XR knee LT 4V* Patient: Tracy Juarez MR#: [id number] [employer] Other XR knee LT 4V* 3 [employer] Other XR knee LT 4V* : 1945 Acct:[id number] [employer] Other XR knee LT 4V* Age/Sex: 77 / F ADM Date: 08/12/23 [employer] Other XR knee LT 4V* Loc: [facility] Room: Type : [facility] [employer]id[employer]to Other XR knee LT 4V* Attending Dr: Matthew Bucio II, MD [employer] Other XR knee LT 4V* Copies to: Matthew Bucio MD [employer] Other XR knee LT 4V* Ordering Provider: Soledad Bucio MD [employer] Other XR knee LT 4V* Date of Service: 08/12/23 [employer] Other XR knee LT 4V* [id number]) XR/XR knee LT 4V*: Primary osteoarthritis of left knee [employer] Other XR knee LT 4V* ([id number]) XR/XR pelvis 1-2V: Primary osteoarthritis of left knee [employer] Other XR knee LT 4V* AP PELVIS: , Left kn ee 4 views [employer] Other XR knee LT 4V* CLINICAL HISTORY: Le ft knee pain for 3 months. [employer] Other XR knee LT 4V* COMPARISON: Left kne e series 07/25/2021 [employer] Other XR knee LT 4V* Pelvis: Moderate degenerative changes of both hips without acute bony process. Degenerative changes [employer] Other XR knee LT 4V* are also noted invol ving the visualized lower lumbar spine, SI joints and pubic symphysis. [employer] Other XR knee LT 4V* Left knee: Severe degenerative changes with lateral subluxation of the tibia. There is associated [employer]to Other XR knee LT 4V* weightbearing and patellofemoral joint space narrowing. Small joint effusion. Findings are similar [place] [employer] Other XR knee LT 4V* to the 2020 study. No rt jellyfish Other XR knee LT 4V* X R/XR pelvis 1-2V [employer]to Other XR knee LT 4V* IMPRESSION: [employer] Other XR knee LT 4V* SEVERE DEGENERATIVE CHANGES OF THE LEFT KNEE WITHOUT ACUTE BONY PROCESS. [employer] Other XR knee LT 4V* Impression dictated by: Brodie Gama Jr., D.O.08/12/2023 3:30 PM [employer] Other XR knee LT 4V* Dictation Location: [place] [address] [employer] Other XR knee LT 4V* Transcribed By: [facility] 08/12/23 [facility] niid.to Other XR knee LT 4V* Dictated By: Brodie Gama Jr DO 08/12/23 1529 [employer]to Other XR knee LT 4V* Signed By: [employer] Other XR knee LT 4V* 08/12/23 1530 [employer] Other Office Visit (Cardiology)on 05-12-2023 Follow-up visit [...] Weight Tips; Status:Complete - Retrospective Authorization; Done: [id number] Some eating tips that can help you lose weight.; Status:Complete - Retrospective Authorization; Done: [id number] Essential hypertension Renew: hydroCHLOROthiazide 25 MG Oral Tablet; TAKE 1 TABLET BY MOUTH EVERY DAY Essential hypertension, High risk medication use, PAF (paroxysmal atrial fibrillation) Basic Metabolic Panel; Status:Active - Retrospective Authorization; Requested for:[id number]; Complete Blood Count; Status:Active - Retrospective Authorization; Requested for:[id number]; PAF (paroxysmal atrial fibrillation) IO EKG Electrocardiogram- 12 Lead; Status:Complete; Done: [id number] SocHx: Former smoker Tobacco Use Screening; Status:Complete; Done: [id number] Patient Instructions Please bring all medicines, vitamins, [...] was normal except for first-degree AV block FL interval 220 ms 2. Sleep apnea, on [...] scheduled in 6 months. Julianne Pang MD, [facility] Surgical History Problems History of Appendectomy [...] in jacquelyn (more content not included)... Normal [facility] DERMATOPATHOLOGY RESULTSon 0 05-05-2023 Pathology Report Name TRACY JUAREZ Pathologist: LINDA LUTZ MD Date of Procedure: 04/27/2023 Date Received: 04/29/2023 Date Reported 05/05/2023 Submitting Physician: COTY CASIANO MD Location: [facility] Other External # FINAL DIAGNOSIS A. NODE, LEFT AXILLARY SENTINEL LYMPH NODE #1, 260 COUNT, BIOPSY: FOCAL MELAN-A STAINING, SEE NOTE. Note: Microscopic examination reveals an enlarged lymph node. In the subcapsular space there is focal Melan-A staining. This is compared with primary melanoma in GV74-301 and is smaller. It is not seen [...] determined by the Department of Pathology at [facility]. The FDA does not require this test [...] case. Diagnostic interpretation performed at [facility] [address] [facility] [address] Microscopic Description: B: Microscopic examination reveals a [...] 1428, in formal (more content not included)... [facility] Dermatopathologyon 3 Dermatopathology Name TRACY JUAREZ Pathologist: LINDA LUTZ MD Date of Procedure: 04/27/2023 Date Received: 04/29/2023 Date Reported 05/05/2023 Submitting Physician: COTY CASIANO MD Location: [facility] Other External # FINAL DIAGNOSIS A. NODE, LEFT AXILLARY SENTINEL LYMPH NODE #1, 260 COUNT, BIOPSY: FOCAL MELAN-A STAINING, SEE NOTE. Note: Microscopic examination reveals an enlarged lymph node. In the subcapsular space there is focal Melan-A staining. This is compared with primary melanoma in DF40-793 and is smaller. It is not seen [...] NEOPLASM SEEN. Electronically Signed Out by LINDA LUZT M.D. Note One or more of the reagents used to perform assays on this specimen MAY have contained components considered to be analyte specific reagents (ASR's). ASR's have not been cleared or approved by the U.S. Food and Drug Administration. These assays were developed and their performance characteristics determined by the Department of Pathology at [facility]. The FDA does not require this test [...] case. Diagnostic interpretation performed at [facility] [address] [facility] [address] Microscopic Description: B: Microscopic examination reveals a [...] #3, 26 (more content not included)... Normal [facility] Comment on above: Performed By: #### D #### Dermatopathology LYMPH GLANDon 04-27-2023 LYMPH GLAND Patient Name: TRACY JUAREZ STUDY: LYMPH GLAND; TUMOR LOC SPECT/CT; 04/27/2023 12:29 pm; 04/27/2023 12:30 pm INDICATION: FOR WIDE LOCAL EXCISION OF MEALNOMA OF LEFT ARM AND SENTINEL LYMPH NODE BIOPSY ON 04/27/23. PLEASE SCHEDULE FOR 04/27/23. C43.62: Malignant melanoma of left upper arm. COMPARISON: None. ACCESSION NUMBER(S): [id number]; [id number] ORDERING CLINICIAN: COTY CASIANO TECHNIQUE: DIVISION OF NUCLEAR MEDICINE RADIONUCLIDE SENTINEL LYMPH NODE LYMPHOSCINTIGRAPHY A total of 0.50 millicuries of Tc-99m tilmanocept (LymphoseEmpyrean Benefit [employer]) was injected intradermally in a circumferential pattern [...] sent to PACS. Images were interpreted at [facility]. Electronically signed by: MATTHEW BURROWS MD Normal [place] NM Lymph Glandon 04-27-2023 NM Lymph node Views Normal [facility]-Av on M[facility] [place] Work Phone: NM Lymphatic vessels Views W radionuclide intra lymphaticon 04-27-2023 Radiology Study observation (narrative) [facility] Work Phone: NM Tumor Loc Spec/CTon 04-27 NM Tumor Loc Spec/CT Normal [facility]gery-Av on [facility] [place] Work Phone: NM tumor LOC SPECT CTon 04-17 Radiology Study observation (narrative) [facility] Work Phone: No Panel Informationon 04-27 Successful sentinel lymph node localization in the left axilla. Localizing SPECT CT images were sent to PACS. Images were interpreted at [facility]. [facility] [employer] Interpreted By: MATTHEW JUNIOR MD Patient Name: TRACY JUAREZ STUDY: LYMPH GLAND; TUMOR LOC SPECT/CT; 04/27/2023 12:29 pm; 04/27/2023 12:30 pm INDICATION: FOR WIDE LOCAL EXCISION OF MEALNOMA OF LEFT ARM AND SENTINEL LYMPH NODE BIOPSY ON 04/27/23. PLEASE SCHEDULE FOR 04/27/23. C43.62: Malignant melanoma of left upper arm. COMPARISON: None. ACCESSION NUMBER(S): [id number]; [id number] ORDERING CLINICIAN: COTY CASIANO TECHNIQUE: DIVISION OF NUCLEAR MEDICINE RADIONUCLIDE SENTINEL LYMPH NODE LYMPHOSCINTIGRAPHY A total of 0.50 millicuries of Tc-99m tilmanocept (LymphoseEmpy[employer]) was injected intradermally in a circumferential pattern [...] SPECT CT images were sent to PACS. [facility] [employer] Matthew Burrows MD - 04/27/2023 Interpreted By: MATTHEW BURROWS MD Patient Name: TRACY JUAREZ STUDY: LYMPH GLAND; TUMOR LOC SPECT/CT; 04/27/2023 12:29 pm; 04/27/2023 12:30 pm INDICATION: FOR WIDE LOCAL EXCISION OF MEALNOMA OF LEFT ARM AND SENTINEL LYMPH NODE BIOPSY ON 04/27/23. PLEASE SCHEDULE FOR 04/27/23. C43.62: Malignant melanoma of left upper arm. COMPARISON: None. ACCESSION NUMBER(S): [id number]; [id number] ORDERING CLINICIAN: COTY CASIANO TECHNIQUE: DIVISION OF NUCLEAR MEDICINE RADIONUCLIDE SENTINEL LYMPH NODE LYMPHOSCINTIGRAPHY A total of 0.50 millicuries of Tc-99m tilmanocept ([employer]) was injected intradermally in a circumferential pattern [...] sent to PACS. Images were interpreted at [facility]. [facility] Work Phone: No Panel InformationOrdered By: Matthew Burrows on 04-27-2023 [facility] Work Phone: Order Reconciliationon 04-27 Order Reconciliation [...] ONLY 11 (more content not included)... Normal [place] TUMOR LOC SPECT/CTon 023 TUMOR LOC SPECT/CT Patient Name: TRACY JUAREZ STUDY: LYMPH GLAND; TUMOR LOC SPECT/CT; 04/27/2023 12:29 pm; 04/27/2023 12:30 pm INDICATION: FOR WIDE LOCAL EXCISION OF MEALNOMA OF LEFT ARM AND SENTINEL LYMPH NODE BIOPSY ON 04/27/23. PLEASE SCHEDULE FOR 04/27/23. C43.62: Malignant melanoma of left upper arm. COMPARISON: None. ACCESSION NUMBER(S): [id number]; [id number] ORDERING CLINICIAN: COTY CASIANO TECHNIQUE: DIVISION OF NUCLEAR MEDICINE RADIONUCLIDE SENTINEL LYMPH NODE LYMPHOSCINTIGRAPHY A total of 0.50 millicuries of Tc-99m tilmanocept (LymphSilverCloud Health) was injected intradermally in a circumferential pattern [...] sent to PACS. Images were interpreted at [facility]. Electronically signed by: MATTHEW BURROWS MD [facility] Patient Profile - Preop v3on 04-24-2023 Patient Profile - Preop v3 Patient Profile - Preop: Initial Info: Patient DemographicsName: TRACY JUAREZ Date: 1945 Address: [address] [place] [address] Primary Phone [phone] Instructions Givenanticoagulant meds - patient advised to consult ordering provider, appropriate clothing, bring responsible adult as the airport driver (procedure may be cancelled if no airport driver), center location, insurance information, remove jewerly/piercings Instructions/Prep CommentNPO after midnight as directed How to be AddressedDwana Spoken Language PreferredEnglish Source of Informationpatient; health record Stated Reason for AdmissionPer patient Dr. Casiano is removing a lesion on my left arm by elbow and lymph node biopsy Primary Contact Name and NumberRex Doyle [phone] Medications Brought to Hospitalno General Health: Weight in kg91.5 kilogram(s) Weight in rru977.7 pound(s) Weight Methodstated Height in feet5 feet [...] Previous Transfusion Reactionno Equipment Currently Used at [employer] [employer] Mgmt: Symptoms/Conditions Managed at [facility]; cardiovascular; endocrine; gastrointestinal; hematologic; immunological; obstetric/gynecologic; peripheral/neurovascular; [...] and head tremor that she take topiramate 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 CASE Symptoms/Conditions Commenthysterectomy Respiratory Symptoms/Conditionssleep disordered breathing Respiratory Management StrategiesCPAP CPAP Settingspatient does not know settings Barriers to Managing Healthnone Relationship/Environ: Lives Withadult child(donte) Living Arrangementshouse Living Environment Commentsadult daughter lives with patient Resource/Environmental Concernsnone Anticipated [facility] Anticipated at Transition[facility] Tobacco Use: Tobacco Useno Pre-op Checklist: Arrival [id number] Arrival Time09:17 NPOyes Last Food [id number] 20:00 Last Clear Fluid [id number] 20:00 NPO Commentsip of wate3r with am medication ID Band On Patientpatient ID (name), allergy, falls risk Consent Signedpending H&P Completepending Anesthesia Assessment Completedpending EKG Performedsee results tab Chest X-Ray Performedsee results tab Preop Antibioticssent to OR Beta-maura Last Dose Date/Cqtz68-Nlg-5117 07:00 Type and Screen Resultedn/a HCG Urine TestN/A Chlorhexadine Bath Givennot applicable Nasal Antiseptic Appliednot applicable Soap and Water Bath the Night Before Surgeryyes Hair Washed with Shampooyes Bowel Prepno Othermetal/implants: R knee Surgical Site Infection Preventionyes Pain Scales and Managementyes Additional Information: Information Review: Allergies, Home Meds and Significant Events have been Reviewed and Verified with Patient/Familyyes Electronic Signatures: Alondra Fair) (Signed 24-Apr-2023 08:40) Authored: Initial Info, General Health, Health Mgmt, Relationship/Environ, Tobacco Use Tatianna Gonsalez (RN) (Signed 27-Apr-2023 09:28) Authored: Initial Info, Pre-op Checklist, Additional Information Last Updated: 27-Apr-2023 09:28 by Tatianna Gonsalez (RN) Normal [place] Dermatopathologyon 3 Dermatopathology Name TRACY JUAREZ Pathologist: LINDA LUTZ MD Date of Procedure: 04/13/2023 Date Received: 04/14/2023 Date Reported 04/15/2023 Submitting Physician: SIRIA ORONA MD Location: [facility] Other External # FINAL DIAGNOSIS SKIN, RIGHT UPPER LIP, SHAVE BIOPSY: BASAL CELL CARCINOMA, NODULAR GROWTH PATTERN, 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 Electronically Signed Out by LINDA LUTZ M.D. Electronically Signed Out By LINDA LUTZ MD/[facility] By the signature on this report, the individual or group listed as making the Final Interpretation/Diagnosis certifies that they have reviewed this case. Diagnostic interpretation performed at [facility] [address] [place] [address], [place] [address] Microscopic Description: Microscopic analysis shows a discrete nodule of tumor that is associated with the epidermis. The carcinoma is composed of bland basaloid keratinocytes with peripheral palisaded arrangement of nuclei. Clinical History: R/O BCC. Shave Biopsy. (Marleny) Specimens Submitted As: A: SKIN, RIGHT UPPER LIP Gross Description: Received in formalin is a barkley piece of skin measuring [id number]. The specimen is inked and embedded in toto. ink/04/14/2023 [facility] [place] [address] Normal [facility] Comment on above: Performed By: #### D #### Dermatopathology Heart Rateon 03-31-2023 Heart Rate Normal [facility]Wvh[facility]hc[facility] Work Phone: Heart Rate Normal SZ-Okiywhx-Ng [place] Work Phone: Office Visiton 03-31-2023 Follow-up visit [...] patient and other providers. Coty Casiano MD pulvi mixer operator Division of Surgical [email or web address] [email or web address] Chief Complaint melanoma History of Present Ishan is a 77 yoM who presents to our [facility] clinic today, referred by Ken Moreau for [...] intact Psych: normal mood and affect Results/Data [id number] 12:00Coty Gomes Test NameResultFlagReference Dermatopathology(Report) Name: LARRY LOCKETT Pathologist: LINDA LUTZ MD Date of Procedure: 03/04/2023 Date Received: 03/04/2023 Date Reported 03/05/2023 Submitting Physician: COTY CASIANO MD Location: [facility] Copy To/Referring/Attending: MD DEVORAH GAITAN FINAL DIAGNOSIS [address], [facility] DEPT. OF PATHOLOGY, #[id number] (BX: 02/04/2023) SKIN, LEFT ARM SKIN LESION, [...] not included)... Normal [facility] Dermatopathologyon Dermatopathology Name: ALRRY LOCKETT Pathologist: LINDA LUTZ MD Date of Procedure: 03/04/2023 Date Received: 03/04/2023 Date Reported 03/05/2023 Submitting Physician: COTY CASIANO MD Location: [facility] Copy To/Referring/Attending: MD DEVORAH GAITAN FINAL DIAGNOSIS [address] #[id number] (BX: 02/04/2023) SKIN, LEFT ARM SKIN LESION, [...] M.D. CANCER SUMMARY REPORT A. [address], [facility], #[id number] (BX: 02/04/2023): SPECIMEN Procedure: Not specified Specimen [...] ADDITIONAL FINDINGS Additional Findings: None ADDITIONAL TESTING Customer Associate Blocks: Normal Block: None Tumor Block: A2 Electronically Signed Out By LINDA LUTZ MD/[facility] Diagnostic interpretation performed at [facility] [address] [place], [place] [id number], [place] [id number] Clinical History: PRE-OP DIAGNOSIS: Not specified POST-OP DIAGNOSIS: Atypical Specimens Submitted As: A: [address], [facility] DEPT. OF PATHOLOGY, #[id number] (BX: 02/04/2023) Gross Description: Received for consultation from [facility] Dept. of Pathology are eleven slides labeled [id number] (BX: 02/04/2023) along with the corresponding pathology report. Slide/Block Description 11 SLIDES, [id number]. Keep Slides: N Slides Returned: N Personal Consult: N Normal [facility] Comment on above: Performed By: #### D #### Dermatopathology No Panel Informationon 03-04 [facility] Work Phone: Office Visit (Cardiology)on 11-11-2022 Follow-up [...] was normal except for first-degree AV block FL interval 210 ms 2. Sleep apnea, on [...] scheduled in 6 months. Julianne Pang MD, [facility] Surgical History Problems History of Appendectomy [...] Vital Signs Recorded: 11Nov2022 11:18AMRecorded: 11Nov2022 11:13AM Ekwglyss212, LUE, Omsijraa539, LUE, Sitting Rlimdlnxh90, LUE, Cqmqpavu09, LUE, Sitting Heart Rate77, Apical Height5 ft 2 in Fmfkji525 lb BMI Mkjihtqkzg83.03 kg/m2 BSA Calculated1.9 Tobacco Useb) No PHQ-2 #1. Over the last 2 weeks have you felt down, depressed or hopeless? (If (more content not included)... Normal [facility] Tobacco Screening.on 023 Adult depression screening assessment No [facility] y 250 DO Work Phone: Fall risk assessment a) No falls within the last year [facility] y 250 DO Work Phone: Tobacco use status CPHS b) No [facility] y 250 DO Work Phone: CBC AUTO DIFFon 11-03-2022 BASO # 0.1 103/ul Normal 0.0-0.1 [facility] Comment on above: Performed By: #### C BC #### [facility] [address] [place] [address] Dr. Ron Son Basophils/100 WBC (Bld) 0.8 % Normal 0.2-2.0 [facility] Comment on above: Performed By: #### C BC #### [facility] [address] [place] [address] Dr. Ron Son EO # 0.2 103/ul Normal 0.0-0.7 [facility] Comment on above: Performed By: #### C BC #### [facility] [address] [place] [address] Dr. Ron Son Eosinophils/100 WBC (Bld) 3.2 % Normal 0.9-7.0 [facility] Comment on above: Performed By: #### C BC #### [facility] [address] [place] [address] Dr. Ron Son Erythrocyte distribution width (RBC) [Ratio] 14.3 % Normal 11.0-15.0 [facility] Comment on above: Performed By: #### C BC #### [facility] [address] [place] [address] Dr. Ron Son Hematocrit (Bld) [Volume fraction] 39.8 % Normal 36.0-48.0 [facility] Comment on above: Performed By: #### C BC #### [facility] [address] [place] [address] Dr. Ron Son Hemoglobin (Bld) [Mass/Vol] 12.9 g/dL Normal 12.0-16.0 [facility] Comment on above: Performed By: #### C BC #### [facility] [address] [address] [address] Ron Son IG # 0.09 10e3/ul Critically high 0.00-0.03 [facility] Comment on above: Performed By: #### C BC #### [facility] [address] [place] [address] Dr. Ron Son IG % 1.5 % Critically high 0.0-0.5 [facility] Comment on above: Performed By: #### C BC #### [facility] [address] [place] [address] Dr. Ron Son LYMPH # 1.8 103/ul Normal 1.2-3.8 [facility] Comment on above: Performed By: #### C BC #### [facility] [address] [place] [address] Dr. Ron Son Lymphocytes/100 WBC (Bld) 30.8 % Normal 20.5-60.0 [facility] Comment on above: Performed By: #### C BC #### [facility] [address] [place] [address] Dr. Ron Son MANUAL DIFF REQ NO Normal [facility] Comment on above: Performed By: #### C BC #### [facility] [address] [place] [address] Dr. Ron Son MCH (RBC) [Entitic mass] 26.5 pg Critically low 26.7-34.0 [facility] Comment on above: Performed By: #### C BC #### [facility] [address] [place] [address] Dr. Ron Son MCHC (RBC) [Mass/Vol] 32.4 g/dL Normal 29.9-35.2 [facility] Comment on above: Performed By: #### C BC #### [facility] [address] [address] [address] Ron Son MCV (RBC) [Entitic vol] 81.7 fL Normal 81.0-99.0 [facility] Comment on above: Performed By: #### C BC #### [facility] [address] [address] [address] Ron Son MONO # 0.5 103/ul Normal 0.3-0.8 [facility] Comment on above: Performed By: #### C BC #### [facility] [address] [place] [address] Dr. Ron Son Monocytes/100 WBC (Bld) 8.4 % Normal 1.7-12.0 [facility] Comment on above: Performed By: #### C BC #### [facility] [address] [place] [address] Dr. Ron Son NEUT # 3.3 103/ul Normal 1.4-6.5 [facility] Comment on above: Performed By: #### C BC #### [facility] [address] [place] [address] Dr. Ron Son Neutrophils/100 WBC (Bld) 55.3 % Normal 43.0-75.0 [facility] Comment on above: Performed By: #### C BC #### [facility] [address] [place] [address] [address] Ron Son Platelet mean volume (Bld) [Entitic vol] 8.7 fL Critically low 9.5-13.5 [facility] Comment on above: Performed By: #### C BC #### [facility] [address] [place] [address] Dr. Ron Son PLT 202 103/ul Normal 150-450 [facility] Comment on above: Performed By: #### C BC #### [facility] [address] [place] [address] Dr. Ron Son RBC 4.87 106/ul Normal 4.20-5.40 [facility] Comment on above: Performed By: #### C BC #### [facility] [address] [place] [address] [address] Ron Son WBC 6.0 103/ul Normal 4.0-11.0 [facility] Comment on above: Performed By: #### C BC #### [facility] [address] [place] [address] [address] Ron Son LIPID PROFILEon 11-03-2022 CHOL-HDL RATIO NORM SEE BELOW Normal [facility] Comment on above: Result Comment: 3.3 - 4.4 LOW RISK 4.4 - 7.1 AVERAGE RISK 7.1 - 11.0 MODERATE RISK >11.0 HIGH RISK Performed By: #### A ST, ALT, LIPID, BMP #### [facility] [address] [place] [address] [address] Ron Son Cholesterol [Mass/Vol] 193 mg/dL Normal <=200 [facility] Comment on above: Performed By: #### A ST, ALT, LIPID, BMP #### [facility] [address] [place] [address] [address] Ron Son Cholesterol in HDL [Mass/Vol] 37 mg/dL Critically low 40-60 [facility] Comment on above: Performed By: #### A ST, ALT, LIPID, BMP #### [facility] [address] [place] [address] [address] Ron Son Cholesterol in LDL [Mass/Vol] 123.8 mg/dL Normal [facility] Comment on above: Performed By: #### A ST, ALT, LIPID, BMP #### [facility] [address] [place] [address] [address] Ron Son Cholesterol.total/Cho lesterol in HDL [Mass ratio] 5.2 {ratio} Normal [facility] Comment on above: Performed By: #### A ST, ALT, LIPID, BMP #### [facility] [address] [place] [address] [address] Ron Son HDL NORMAL > or = 60 mg/dl - LO W CARDIOVASCULAR RISK <40 mg/dl - HIGH CARDIOVASCULAR RISK Normal [facility] Comment on above: Performed By: #### A ST, ALT, LIPID, BMP #### [facility] [address] [place] [address] [address] Ron Son LDL CALC NORMAL SEE BELOW Normal [facility] Comment on above: Result Comment: <100 mg/dl OPTIMAL 100 - 129 mg/dl NEAR OR ABOVE OPTIMAL 130 - 159 mg/dl BORDERLINE HIGH 160 - 189 mg/dl HIGH >190 mg/dl VERY HIGH Performed By: #### A ST, ALT, LIPID, BMP #### [facility] [address] [place] [address] [address] Ron Son Triglyceride [Mass/Vol] 161 mg/dL Critically high <=150 [facility] Comment on above: Performed By: #### A ST, ALT, LIPID, BMP #### [facility] [address] [place] [address] [address] Ron Son VLDL CALC 32.2 mg/dL Normal [facility] Comment on above: Performed By: #### A ST, ALT, LIPID, BMP #### [facility] [address] [place] [address] [address] Ron Son PROF CHEM 8 (BAS METB)on Anion gap [Moles/Vol] 13.1 mmol/L Normal [facility] Comment on above: Performed By: #### C RP, CK #### [facility] [address] [place] [address] Dr. Ron Son Calcium [Mass/Vol] 8.7 mg/dL Normal 8.5-10.1 [facility] Comment on above: Performed By: #### C RP, CK #### [facility] [address] [place] [address] [address] Ron Son Chloride [Moles/Vol] 105 mmol/L Normal 98-107 [facility] Comment on above: Performed By: #### C RP, CK #### [facility] [address] [place] [address] [address] Ron Son CO2 [Moles/Vol] 28.4 mmol/L Normal 21.0-32.0 [facility] Comment on above: Performed By: #### C RP, CK #### [facility] [address] [place] [address] [address] Ron Son Creatinine [Mass/Vol] 0.72 mg/dL Normal 0.55-1.02 [facility] Comment on above: Performed By: #### C RP, CK #### [facility] [address] [place] [address] Dr. Ron Sno EGFR-AF PAKISTANI >60 Normal >=60 [facility] Comment on above: Performed By: #### C RP, CK #### [facility] [address] [place] [address] [address] Ron Son EGFR-NON AF PAKISTANI >60 Normal >=60 [facility] Comment on above: Performed By: #### C RP, CK #### [facility] [address] [place] [address] Dr. Ron Son Glucose [Mass/Vol] 106 mg/dL Normal 74-106 [facility] Comment on above: Performed By: #### C RP, CK #### [facility] [address] [place] [address] Dr. Ron Son Potassium [Moles/Vol] 3.5 mmol/L Normal 3.5-5.1 [facility] Comment on above: Performed By: #### C RP, CK #### [facility] [address] [place] [address] Dr. Ron Son Sodium [Moles/Vol] 143 mmol/L Normal 136-145 [facility] Comment on above: Performed By: #### C RP, CK #### [facility] [address] [place] [address] Dr. Ron Son Urea nitrogen [Mass/Vol] 14.0 mg/dL Normal 7.0-18.0 [facility] Comment on above: Performed By: #### C RP, CK #### [facility] [address] [place] [address] Dr. Ron Son Urea nitrogen/Creatinine [Mass ratio] 19.4 mg/mg Normal [facility] Comment on above: Performed By: #### C RP, CK #### [facility] [address] [place] [address] Dr. Ron Son SGOTon 11-03-2022 AST [Catalytic activity/Vol] 18 U/L Normal 15-37 [facility] Comment on above: Performed By: #### A ST, ALT, LIPID, BMP #### [facility] [address] [place] [address] Dr. Ron Son SGPTon 11-03-2022 ALT [Catalytic activity/Vol] 21 U/L Normal 14-59 [facility] Comment on above: Performed By: #### A ST, ALT, LIPID, BMP #### [facility] [address] [place] [address] Dr. Ron Son CPKon 03-07-2022 CK [Catalytic activity/Vol] 184 U/L Normal 26-192 [facility] Comment on above: Performed By: #### C RP, CK #### [facility] [address] [place] [address] Dr. Ron Son CRPon 03-07-2022 CRP [Mass/Vol] mg/L Normal <=1.0 [facility] Comment on above: Performed By: #### C RP, CK #### [facility] [address] [place] [address] Dr. Ron Son SED RATE [facility] 2021 SED RATE 7 mm/hr Normal <=30 [facility] Comment on above: Performed By: #### S EDR #### [facility] [address] [place] [address] Dr. Ron Son CPKon 01-16-2022 CK [Catalytic activity/Vol] 257 U/L Critically high 26-192 [facility] Comment on above: Performed By: #### C K, CRP #### [facility] [address] [place] [address] Dr. Ron Son CRPon 01-16-2022 CRP [Mass/Vol] mg/L Normal <=1.0 [facility] Comment on above: Performed By: #### C K, CRP #### [facility] [address] [place], [place] [id number] Dr. Ron Son [facility] SED RATE 6 mm/hr Normal <=30 [facility] Comment on above: Performed By: #### S EDR #### [facility] [address] [place] [address] Dr. Ron Son Tobacco Screening.on 022 Adult depression screening assessment No [facility] y 250 DO Work Phone: Fall risk assessment a) No falls within the last year [facility] y 250 DO Work Phone: Tobacco use status CPHS b) No [facility] y 250 DO Work Phone: XR knee LT 4V*on 07-25-2021 XR knee LT 4V* [facility] jellyfish Other XR knee LT 4V* [facility] jellyfish Other XR knee LT 4V* [address] [place] [address] jellyfish Other XR knee LT 4V* [place] [address] No rt jellyfish Other XR knee LT 4V* XRay Report [employer] Other XR knee LT 4V* Signed [employer] Other XR knee LT 4V* Patient: Tracy Juarez MR#: [id number] [employer]id[employer] Other XR knee LT 4V* 3 [employer] Other XR knee LT 4V* : 1945 Acct:[id number] [employer] Other XR knee LT 4V* Age/Sex: 75 / F ADM Date: 07/25/21 [employer] Other XR knee LT 4V* Loc: SOXD Room: Type : REG CLI [employer] Other XR knee LT 4V* Attending Dr: Matthew Bucio II, MD [employer] Other XR knee LT 4V* Ordering Provider: Soledad Bucio MD [employer]to Other XR knee LT 4V* Date of Service: 07/25/21 [employer] Other XR knee LT 4V* [id number]) XR/XR knee LT 4V*: Acute pain of left knee [employer] Other XR knee LT 4V* ([id number]) XR/XR pelvis 1-2V: Left hip pain [employer] Other XR knee LT 4V* Copies to: Matthew Bucio MD [employer] Other XR knee LT 4V* XR pelvis 1-2V, XR k nee LT 4V* 07/25/2021 11:15 AM [employer] Other XR knee LT 4V* SIGNS AND SYMPTOMS: Left knee pain, predominantly medially. [employer] Other XR knee LT 4V* PROTOCOL: Frontal radiograph of the pelvis. Frontal, lateral, oblique, and sunrise views of the [employer]to Other XR knee LT 4V* left knee. [employer] Other XR knee LT 4V* COMPARISON: Left hip and knee radiographs 06/19/2021. [employer] Other XR knee LT 4V* FINDINGS: [employer] Other XR knee LT 4V* Pelvis: [employer] Other XR knee LT 4V* There is mild narrow ing of the joint spaces of the hips bilaterally. There is enthesophyte [employer] Other XR knee LT 4V* formation along the greater trochanter on the left. The bony ring of the pelvis is intact. There is [employer] Other XR knee LT 4V* no fracture or dislocation. niid[employer]to Other XR knee LT 4V* Left knee: [employer] Other XR knee LT 4V* There is significant narrowing of the weightbearing and patellofemoral joint spaces. There is no [employer] Other XR knee LT 4V* evidence of fracture or dislocation. No joint effusion. No soft tissue swelling. [employer] Other XR knee LT 4V* X R/XR pelvis 1-2V [employer] Other XR knee LT 4V* IMPRESSION: [employer] Other XR knee LT 4V* Mild degenerative ch anges are noted in the hips. [employer] Other XR knee LT 4V* Similar tricompartme ntal degenerative changes are noted in the left knee showing no significant [employer]id[employer]to Other XR knee LT 4V* interval change. [employer] Other XR knee LT 4V* No acute bony injury. niid[employer]to Other XR knee LT 4V* Impression dictated by: Topher Martini M.D.07/25/2021 5:10 PM [employer] Other XR knee LT 4V* Dictation Location: [place] [address] niid[employer]to Other XR knee LT 4V* Transcribed By: MAGDIEL 07/25/21 1710 [employer] Other XR knee LT 4V* Dictated By: Topher Martini II, MD 07/25/21 1707 [employer] Other XR knee LT 4V* Signed By: [employer] Other XR knee LT 4V* 07/25/21 1710 [employer] Other Potassiumon 08-23-2018 Potassium molar conc 3.8 mmol/L Normal 3.5-5.1 [facility] Comment on above: Performed By: #### 1 [id number] ####[facility] [address] [place] [address] CBCon 08-12-2018 Erythrocyte distribution width Auto Ratio (RBC) 13.4 % Normal 12.0-15.4 [facility] Comment on above: Performed By: #### 2 [id number] ####[facility] [address] [place] [address] Hematocrit Auto Volume Fraction (Bld) 42.3 % Normal 36.5-46.6 [facility] Comment on above: Performed By: #### 2 [id number] ####[facility] [address] [place] [address] Hemoglobin mass conc (Bld) 13.7 g/dL Normal 11.8-15.3 [facility] Comment on above: Performed By: #### 2 [id number] ####[facility] [address] [place] [address] MCH Auto Entitic mass (RBC) 27.1 pg Low 27.5-33.0 [facility] Comment on above: Performed By: #### 2 [id number] ####[facility] [address] [place] [address] MCHC Auto mass conc (RBC) 32.4 g/dL Normal 30.1-35.0 [facility] Comment on above: Performed By: #### 2 [id number] ####[facility] [address] [place] [address] MCV Auto Entitic volume (RBC) 83.8 fL Low 85.4-100.0 [facility] Comment on above: Performed By: #### 2 227260 ####[facility] [address] [place] [address] NRBC Absolute 0.00 10*3/uL Normal [facility] Comment on above: Performed By: #### 2 [id number] ####[facility] [address] [place] [address] NRBC Automated 0.0 /100{WBCs} Normal [facility] Comment on above: Performed By: #### 2 [id number] ####[facility] [address] [place] [address] Platelet mean volume Auto Entitic volume (Bld) 9.6 fL Low 9.9-12.1 [facility] Comment on above: Performed By: #### 2 536648 ####[facility] [address] [place] [address] Platelets Auto #/vol (Bld) 231 10*3/uL Normal 155-404 [facility] Comment on above: Performed By: #### 2 [id number] ####[facility] [address] [place] [address] RBC Auto #/vol (Bld) 5.05 10*6/uL Normal 3.85-5.10 [facility] Comment on above: Performed By: #### 2 328162 ####[facility] [address] [place] [address] RDW SD 40.8 fL Normal 39.3-48.6 [facility] Comment on above: Performed By: #### 2 933196 ####[facility] [address] [place] [address] WBC Auto #/vol (Bld) 7.6 10*3/uL Normal 4.4-9.9 [facility] Comment on above: Performed By: #### 2 [id number] ####[facility] [address] [place] [address] Creatinineon 08-12-2018 Creatinine mass conc 0.80 mg/dL Normal 0.50-1.05 [facility] Comment on above: Performed By: #### 1 [id number] ####[facility] [address] [place] [address] GFR/1.73 sq M.predicted MDRD vol rate/area mL/min/{1.73_m2} Normal [facility] Comment on above: Result Comment: Inte rpretation for Chronic Kidney Disease:Stages 1&2 >60 Healthy or potential kidney damage.Mild decrease of GFR.Stage 3 30-59 Moderate decrease of GFR.Stage 4 15-29 Severe decrease of GFR.Stage 5 <15 Kidney failure or on dialysis. Performed By: #### 1 [id number] ####[facility] [address] [place] [address] Electrolyte Panelon 08-12-20 18 Anion gap 3 molar conc 13 mmol/L Normal 10-20 [facility] Comment on above: Performed By: #### 1 [id number] ####[facility] [address] [place] [address] Chloride molar conc 103 mmol/L Normal 98-107 [facility] Comment on above: Performed By: #### 1 486268 ####[facility] [address] [place] [address] HCO3 molar conc (Bld) 30 mmol/L Normal 21-32 [facility] Comment on above: Performed By: #### 1 096584 ####[facility] [address] [facility] [address] Potassium molar conc 3.3 mmol/L Low 3.5-5.1 [facility] Comment on above: Performed By: #### 1 924092 ####[facility] [address] [place] [address] Sodium molar conc 143 mmol/L Normal 136-145 [facility] Comment on above: Performed By: #### 1 [id number] ####[facility] [address] [facility] [place] [address] Urea Nitrogenon 08-12-2018 Urea nitrogen mass conc 12 mg/dL Normal 6-23 [facility] Comment on above: Performed By: #### 1 [id number] ####[facility] [address] [facility] [place] [address] Vital Signs Date Time Vital Sign Value Performing Clinician Facility 06-21-2024 10:52-0500 Diastolic blood pressure 60 mm[Hg] Julianne Pang MD Work Phone: [facility] 06-21-2024 10:52-0500 Systolic blood pressure 118 mm[Hg] Julianne Pang MD Work Phone: [facility] 06-21-2024 10:17-0500 Body height 157.5 cm Julianne Pang MD Work Phone: [facility] 06-21-2024 10:17-0500 Body mass index (BMI) [Ratio] 38.23 kg/m2 Julianne Pang MD Work Phone: [facility] 06-21-2024 10:17-0500 Body weight 94.8 kg Julianne aPng MD Work Phone: [facility] 06-21-2024 10:17-0500 Heart rate 75 /min Julianne Pang MD Work Phone: [facility] 06-16-2024 11:02-0400 Body height 156.8 cm Kenyatta Gillmor LOCKER ROOM ATTENDANT Work Phone: [facility] 06-16-2024 11:02-0400 Body mass index (BMI) [Ratio] 38.91 kg/m2 Kenyatta Gillmor LOCKER ROOM ATTENDANT Work Phone: [facility] 06-16-2024 11:02-0400 Body weight 95.71 kg Kenyatta Gillmor LOCKER ROOM ATTENDANT Work Phone: [facility] 06-16-2024 11:02-0400 Diastolic blood pressure 64 mm[Hg] Kenyatta Gillmor LOCKER ROOM ATTENDANT Work Phone: [facility] 06-16-2024 11:02-0400 Heart rate 69 /min Kenyatta Gillmor LOCKER ROOM ATTENDANT Work Phone: [facility] 06-16-2024 11:02-0400 SaO2% (BldA) [Mass fraction] 92 % Kenyatta Gillmor LOCKER ROOM ATTENDANT Work Phone: [facility] 06-16-2024 11:02-0400 Systolic blood pressure 132 mm[Hg] Kenyatta Gillmor LOCKER ROOM ATTENDANT Work Phone: [facility] 04-28-2024 11:09-0400 Body height 156.84 cm MD Sophia Calderon Work Phone: [facility] 04-28-2024 11:09-0400 Body mass index (BMI) [Ratio] 37.3 kg/m2 MD Sophia Calderon Work Phone: [facility] 04-28-2024 11:09-0400 Body weight 92 kg MD Sophia Calderon Work Phone: [facility] 01-05-2024 09:52-0400 Diastolic blood pressure 78 mm[Hg] Julianne Pang MD Work Phone: [facility] 01-05-2024 09:52-0400 Systolic blood pressure 134 mm[Hg] Julianne Pang MD Work Phone: [facility] 01-05-2024 09:39-0400 Body height 154.9 cm Julianne Pang MD Work Phone: [facility] 01-05-2024 09:39-0400 Body mass index (BMI) [Ratio] 38.51 kg/m2 Julianne Pang MD Work Phone: [facility] 01-05-2024 09:39-0400 Body weight 92.44 kg Julianne Pang MD Work Phone: [facility] 01-05-2024 09:39-0400 Heart rate 70 /min Julianne Pang MD Work Phone: [facility] 12-25-2023 15:30-0400 Diastolic blood pressure 62 mm[Hg] MD Sophia Calderon Work Phone: [facility] 12-25-2023 15:30-0400 Heart rate 68 /min MD Sophia Calderon Work Phone: [facility] 12-25-2023 15:30-0400 Respiratory rate 20 /min MD Sophia Calderon Work Phone: [facility] 12-25-2023 15:30-0400 SaO2% (BldA) [Mass fraction] 95 % MD Sophia Calderon Work Phone: [facility] 12-25-2023 15:30-0400 Systolic blood pressure 130 mm[Hg] MD Sophia Calderon Work Phone: [facility] 12-25-2023 13:28-0400 Body height 156.84 cm MD Sophia Calderon Work Phone: [facility] 12-25-2023 13:28-0400 Body temperature 97.6 [degF] MD Sophia Calderon Work Phone: [facility] 12-25-2023 13:28-0400 Body weight 92.4 kg MD Sophia Calderon Work Phone: [facility] 12-07-2023 16:14-0400 Diastolic blood pressure 80 mm[Hg] Julianne Pang MD Work Phone: [facility] 12-07-2023 16:14-0400 Systolic blood pressure 160 mm[Hg] Julianne Pang MD Work Phone: [facility] 12-07-2023 15:45-0400 Body height 154.9 cm Julianne Pang MD Work Phone: [facility] 12-07-2023 15:45-0400 Body mass index (BMI) [Ratio] 37.3 kg/m2 Julianne Pang MD Work Phone: [facility] 12-07-2023 15:45-0400 Body weight 89.54 kg Julianne Pang MD Work Phone: [facility] 12-07-2023 15:45-0400 Heart rate 75 /min Julianne Pang MD Work Phone: [facility] 10-28-2023 08:22-0400 Diastolic blood pressure 79 mm[Hg] MD Sophia Calderon Work Phone: [facility] 10-28-2023 08:22-0400 Heart rate 78 /min MD Sophia Calderon Work Phone: [facility] 10-28-2023 08:22-0400 Systolic blood pressure 163 mm[Hg] MD Sophia Calderon Work Phone: [facility] 10-28-2023 08:00-0400 Inhaled oxygen flow rate 2 L/min MD Sophia Calderon Work Phone: [facility] 10-28-2023 07:48-0400 Body temperature 98.8 [degF] MD Sophia Calderon Work Phone: [facility] 10-28-2023 07:48-0400 Respiratory rate 20 /min MD Sophia Calderon Work Phone: [facility] 10-28-2023 07:48-0400 SaO2% (BldA) [Mass fraction] 96 % MD Sophia Calderon Work Phone: [facility] 10-28-2023 06:00-0400 Body weight 91.7 kg MD Sophia Calderon Work Phone: [facility] 10-26-2023 08:29-0400 Body height 154.94 cm MD Sophia Calderon Work Phone: [facility] 10-26-2023 08:29-0400 Body mass index (BMI) [Ratio] 38.1 kg/m2 MD Sophia Calderon Work Phone: [facility] 10-22-2023 13:00-0500 Body height 154.94 cm MD Sophia Calderon Work Phone: [facility] 10-22-2023 13:00-0500 Body mass index (BMI) [Ratio] 38.2 kg/m2 MD Sophia Calderon Work Phone: [facility] 10-22-2023 13:00-0500 Body weight 91.71 kg MD Sophia Calderon Work Phone: [facility] 10-05-2023 09:40-0500 Body height 154.94 cm MD Sophia Calderon Work Phone: [facility] 10-05-2023 09:40-0500 Body temperature 98.5 [degF] MD Sophia Calderon Work Phone: [facility] 10-05-2023 09:40-0500 Body weight 91 kg MD Sophia Calderon Work Phone: [facility] 10-05-2023 09:40-0500 Diastolic blood pressure 63 mm[Hg] MD Sophia Calderon Work Phone: [facility] 10-05-2023 09:40-0500 Heart rate 67 /min MD Sophia Calderon Work Phone: [facility] 10-05-2023 09:40-0500 SaO2% (BldA) [Mass fraction] 96 % MD Sophia Calderon Work Phone: [facility] 10-05-2023 09:40-0500 Systolic blood pressure 127 mm[Hg] MD Sophia Calderon Work Phone: [facility] 08-12-2023 12:45-0500 Body height 154.94 cm [employer] Other [facility] 08-12-2023 12:45-0500 Body mass index (BMI) [Ratio] 38.16 kg/m2 [employer] Other [employer] Other 08-12-2023 12:45-0500 Body weight 91.63 kg [employer] II Other [employer] Other 08-12-2023 12:45-0500 Body weight 91.62 kg MD Sophia Calderon Work Phone: [facility] 05-19-2023 11:27-0400 Body mass index (BMI) [Ratio] 36.73 kg/m2 Coty Casiano MD Work Phone: [facility] 05-19-2023 11:27-0400 Body temperature 96.8 [degF] Coty Casiano MD Work Phone: [facility] 05-19-2023 11:27-0400 Body weight 91.1 kg Coty Casiano MD Work Phone: [facility] 05-19-2023 11:27-0400 Diastolic blood pressure 53 mm[Hg] Coty Casiano MD Work Phone: [facility] 05-19-2023 11:27-0400 Heart rate 77 /min Coty Casiano MD Work Phone: [facility] 05-19-2023 11:27-0400 Respiratory rate 16 /min Coty Casiano MD Work Phone: [facility] 05-19-2023 11:27-0400 SaO2% (BldA) [Mass fraction] 94 % Coty Casiano MD Work Phone: [facility] 05-19-2023 11:27-0400 Systolic blood pressure 102 mm[Hg] Coty Casiano MD Work Phone: [facility] 03-31-2023 13:21-0400 Body height 155.2 cm Ken P [employer] Work Phone: SQ[facility]re[facility] [place] Work Phone: 03-31-2023 13:21-0400 Body mass index (BMI) [Ratio] 38.4 kg/m2 Ken P [employer] Work Phone: NM[facility]Idizyjn[facility]i [facility] [place] Work Phone: 03-31-2023 13:21-0400 Body surface area Derived from formula 1.91 m2 Ken P House Work Phone: LI-Qytynnw-Bkaq [facility] [place] Work Phone: 03-31-2023 13:21-0400 Body temperature 97.7 [degF] Ken P [employer] Work Phone: BB-Zjsauao-Pgiw [facility] [place] Work Phone: 03-31-2023 13:21-0400 Body weight 92.5 kg Ken P [employer] Work Phone: TP-Ateprup-Bapp [facility] [place] Work Phone: 03-31-2023 13:21-0400 Diastolic blood pressure 76 mm[Hg] Ken P House Work Phone: TF-Pjclznh-Mhps [facility] [place] Work Phone: 03-31-2023 13:21-0400 Heart rate 70 /min Ken P House Work Phone: LN-Ptyhkwr-Ivvp [facility] [place] Work Phone: 03-31-2023 13:21-0400 Respiratory rate 16 /min Ken P House Work Phone: AE-Kqtovhx-Thhi [facility] [place] Work Phone: 03-31-2023 13:21-0400 Systolic blood pressure 139 mm[Hg] Ken P House Work Phone: BN-Birblag-Qqzc [facility] [place] Work Phone: 03-31-2023 13:21-0400 0 1 Ken P House Work Phone: SG-Epbycqa-Vgby [facility] [place] Work Phone: Comment on above: [employer] 11-11-2022 11:18-0400 Diastolic blood pressure 70 mm[Hg] Ken P House Work Phone: [facility] DO Work Phone: 11-11-2022 11:18-0400 Systolic blood pressure 112 mm[Hg] Ken P House Work Phone: [facility] DO Work Phone: 11-11-2022 11:13-0400 Body height 157.48 cm Ken P House Work Phone: [facility] DO Work Phone: 11-11-2022 11:13-0400 Body mass index (BMI) [Ratio] 36.03 kg/m2 Ken P House Work Phone: [facility] DO Work Phone: 11-11-2022 11:13-0400 Body surface area Derived from formula 1.9 m2 Ken P House Work Phone: [facility] DO Work Phone: 11-11-2022 11:13-0400 Body weight 89.36 kg Ken P House Work Phone: [facility] DO Work Phone: 11-11-2022 11:13-0400 Diastolic blood pressure 60 mm[Hg] Ken P House Work Phone: [facility] DO Work Phone: 11-11-2022 11:13-0400 Heart rate 77 /min Ken P House Work Phone: [facility] DO Work Phone: 11-11-2022 11:13-0400 Systolic blood pressure 100 mm[Hg] Ken P House Work Phone: [facility] DO Work Phone: 11-03-2022 00:00-0400 123.8 1 Ken P House Work Phone: [facility] DO Work Phone: Comment on above: [facility] 08-13-2022 09:45-0500 Body height 154.94 cm Matthew Bucio II Other [employer] Other 05-28-2022 14:15-0400 Body height 154.94 cm Matthew Bucio II Other [employer] Other 05-28-2022 14:15-0400 Body mass index (BMI) [Ratio] 39.86 kg/m2 Matthew Bucio II Other [employer] Other 05-28-2022 14:15-0400 Body weight 95.71 kg Matthew Bucio II Other [employer] Other 09-30-2021 13:35-0500 Body height 157.48 cm Ken P House Work Phone: [facility] DO Work Phone: 09-30-2021 13:35-0500 Body mass index (BMI) [Ratio] 38.98 kg/m2 Ken P House Work Phone: [facility] DO Work Phone: 09-30-2021 13:35-0500 Body surface area Derived from formula 1.96 m2 Ken P House Work Phone: [facility] DO Work Phone: 09-30-2021 13:35-0500 Body weight 96.68 kg Ken P House Work Phone: [facility] DO Work Phone: 09-30-2021 13:35-0500 Heart rate 74 /min Ken P House Work Phone: [facility] DO Work Phone: 09-30-2021 13:34-0500 Diastolic blood pressure 77 mm[Hg] Ken P House Work Phone: [facility] DO Work Phone: 09-30-2021 13:34-0500 Systolic blood pressure 129 mm[Hg] Ken P House Work Phone: [facility] DO Work Phone: 07-25-2021 15:00-0500 Body height 154.94 cm Matthew Bucio II Other [employer] Other 07-25-2021 15:00-0500 Body mass index (BMI) [Ratio] 39.67 kg/m2 Matthew Bucio II Other [employer] Other 07-25-2021 15:00-0500 Body weight 95.26 kg Matthew Bucio II Other [employer] Other 1945 00:00-0400 >na< Hector Benavidez 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 Encounters Encounter Date Encounter Type Care Provider Facility Start: 10-18-2024 ambulatory [facility] Facility:E [place] Start: 10-07-2024 ambulatory [facility] Facility:E Emily [place] Start: 06-21-2024 End: 06-21-2024 Office outpatient visit 25 minutes Julianne Pang MD Work Phone: [facility] Comment on above: PAF (paroxysmal atri al fibrillation) (Multi) (Primary Dx); High risk medication use; Essential hypertension; First degree AV block; Obstructive sleep apnea syndrome; Never smoked tobacco; BMI 38.0-38.9,adult; Class 2 obesity Start: 06-21-2024 End: 06-21-2024 ambulatory JULIANNE Hill [facility] Start: 06-16-2024 End: 06-16-2024 Bamboo flowsheet Kenyatta Mehta NP Work Phone: [facility] Start: 06-16-2024 End: 06-16-2024 Bamboo flowsheet Kenyatta Mehta NP [facility] Start: 06-16-2024 End: 06-16-2024 Office outpatient visit 15 minutes Kenyatta Mehta NP Work Phone: [facility] Comment on above: OSIEL (obstructive sle ep apnea) (Primary Dx); Essential tremor; Paresthesia of skin; Idiopathic peripheral neuropathy; RLS (restless legs syndrome); Ataxia Start: 06-16-2024 End: 06-16-2024 ambulatory KENYATTA GILLMOR Not Available Start: 04-28-2024 End: 04-28-2024 ambulatory MD Sophia Calderon Work Phone: [facility] Work Phone: Start: 04-28-2024 End: 04-28-2024 Patient encounter procedure MD Sophia Calderon Work Phone: [facility] Work Phone: Start: 03-09-2024 End: 03-09-2024 ambulatory MD Sophia Calderon Work Phone: [facility] Work Phone: Start: 03-09-2024 End: 03-09-2024 Patient encounter procedure MD Sophia Calderon Work Phone: [facility] Work Phone: Start: 03-08-2024 End: 03-08-2024 ambulatory [facility] Ambulatory Start: 02-16-2024 End: 02-16-2024 ambulatory KENYATTA GILLMOR Not Available Start: 02-10-2024 End: 02-10-2024 ambulatory MD Sophia Calderon Work Phone: [facility] Work Phone: Start: 02-10-2024 End: 02-10-2024 Patient encounter procedure MD Sophia Calderon Work Phone: [facility] Work Phone: Start: 02-03-2024 End: 02-03-2024 Patient encounter procedure MD Sophia Calderon Work Phone: [facility] [place] Work Phone: Start: 02-03-2024 End: 02-03-2024 ambulatory MD Sophia Calderon Work Phone: [facility] Work Phone: Start: 01-27-2024 End: 01-27-2024 ambulatory MD Sophia Calderon Work Phone: [facility] Work Phone: Start: 01-27-2024 End: 01-27-2024 Patient encounter procedure MD Sophia Calderon Work Phone: [facility] Work Phone: Start: 01-27-2024 End: 01-27-2024 Patient encounter procedure MD Sophia Calderon Work Phone: [facility] Start: 01-27-2024 End: 01-27-2024 ambulatory MD Sophia Calderon Work Phone: [facility] Work Phone: Start: 01-05-2024 End: 01-05-2024 Office outpatient visit 15 minutes Julianne Pang MD Work Phone: [facility] Comment on above: Essential hypertensi on; Edema, unspecified type; PAF (paroxysmal atrial fibrillation) (Multi) Start: 01-05-2024 End: 01-05-2024 ambulatory [facility] Liz [facility] Ambulatory Start: 12-25-2023 End: 12-25-2023 Emergency department patient visit MD Sophia Calderon Work Phone: [facility] Work Phone: Start: 12-25-2023 End: 12-25-2023 ambulatory MD Sophia Calderon Work Phone: [facility] Work Phone: Start: 12-25-2023 End: 12-25-2023 Discharged Recurring MD Sophia Calderon Work Phone: [facility] [place] Start: 12-25-2023 Registered Recurring MD Anne Calderon Work Phone: [facility] [place] Start: 12-18-2023 End: 12-18-2023 Patient encounter procedure MD Sophia Calderon Work Phone: [facility]Lab [facility] Start: 12-18-2023 End: 12-18-2023 ambulatory MD Sophia Calderon Work Phone: [facility] Work Phone: Start: 12-18-2023 Registered Recurring MD Anne Calderon Work Phone: [facility] [place] Start: 12-14-2023 Registered Recurring MD Anne Calderon Work Phone: [facility] [place] Start: 12-07-2023 End: 12-07-2023 Office outpatient visit 25 minutes Julianne Pang MD Work Phone: [facility] Comment on above: PAF (paroxysmal atri al fibrillation) (Multi) (Primary Dx); First degree AV block; Essential hypertension; High risk medication use; Hypothyroidism, unspecified type; Obstructive sleep apnea syndrome; BMI 37.0-37.9, adult; Never smoked tobacco; Class 2 obesity Start: 12-07-2023 End: 12-07-2023 ambulatory [facility] Ambulatory Start: 12-04-2023 End: 12-04-2023 ambulatory MD Sophia Calderon Work Phone: [facility] Work Phone: Start: 12-04-2023 End: 12-04-2023 Patient encounter procedure MD Sophia Calderon Work Phone: [facility] Work Phone: Start: 12-04-2023 Registered Recurring MD Anne Calderon Work Phone: [facility] [place] Start: 11-11-2023 End: 11-11-2023 ambulatory MD Sophia Calderon Work Phone: [facility] Work Phone: Start: 11-11-2023 End: 11-11-2023 Patient encounter procedure MD Sophia Calderon Work Phone: [facility] Work Phone: Start: 10-26-2023 Non-patient / Non-visit MD Cady Calderon Work Phone: [facility] Work Phone: Start: 10-26-2023 Non-patient / Non-visit MD Cady Calderon Work Phone: [facility] Work Phone: Start: 10-26-2023 End: 10-28-2023 Admission to same day surgery center MD [facility]ia Calder[facility] [place] [facility] [place] Start: 10-26-2023 End: 10-28-2023 ambulatory [facility] Facility:[facility] Start: 10-22-2023 Registered Recurring MD Anne Calderon Work Phone: [facility] [place] Start: 10-22-2023 End: 10-22-2023 ambulatory [facility] Facility:[facility] Start: 10-22-2023 End: 10-22-2023 Patient encounter procedure MD Sophia Calderon Work Phone: [facility] Work Phone: Start: 10-19-2023 End: 10-19-2023 ambulatory MD Sophia Calderon Work Phone: [facility] Work Phone: Start: 10-19-2023 End: 10-19-2023 Departed Referred MD Sophia Calderon Work Phone: [facility] [place] [facility] [place] Start: 10-05-2023 End: 10-05-2023 Patient encounter procedure MD Sophia Calderon Work Phone: [facility] Work Phone: Start: 10-05-2023 End: 10-05-2023 ambulatory MD Sophia Calderon Work Phone: [facility] Work Phone: Start: 08-18-2023 End: 08-18-2023 ambulatory Matthew Bucio II Other [employer] Other Start: 08-18-2023 Telephone encounter Matthew Fortunato II [facility] Start: 08-12-2023 Office outpatient vi sit 40 minutes Matthew [place] II [facility] Start: 08-12-2023 Telephone encounter Matthew [place] II [facility] Start: 08-12-2023 End: 08-12-2023 Patient encounter procedure MD Sophia Calderon Work Phone: [facility]Lab [facility] Start: 08-12-2023 End: 08-12-2023 ambulatory MD Sophia Calderon Work Phone: [facility] Work Phone: Start: 08-12-2023 End: 08-12-2023 Patient encounter procedure MD Sophia Calderon Work Phone: [facility] Start: 08-12-2023 End: 08-12-2023 ambulatory MD Sophia Calderon Work Phone: [facility] Work Phone: Start: 08-12-2023 End: 08-12-2023 Patient encounter procedure MD Sophia Calderon Work Phone: [facility] Work Phone: Start: 08-03-2023 End: 08-03-2023 ambulatory Matthew Bucio II Other [employer] Other Start: 08-03-2023 Telephone encounter Matthew Fortunato II [facility] Start: 05-19-2023 End: 05-20-2023 ambulatory [facility] Start: 05-19-2023 End: 05-19-2023 Postop follow up visit related to original px Coty Casiano MD Work Phone: [facility] Comment on above: Cellulitis of left u pper extremity (Primary Dx) Start: 05-12-2023 ambulatory Julianne Pang Facility : Start: 04-30-2023 Rx Renewal Sophia Hill Kenjideepak Work Phone: [facility] DO Work Phone: Start: 04-27-2023 Chart Update Sophia Hill Kenjideepak Work Phone: [facility] [place] Work Phone: Start: 04-27-2023 End: 04-27-[address] 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 of Dermatology Start: 04-13-2023 Office outpatient vi sit 15 minutes Siria Orona Dept. of Dermatology Start: 03-31-2023 Office outpatient ne w 45 minutes Ken Moreau Work Phone: [facility]Uoqvg[facility] [place] Work Phone: Start: 03-31-[address] Coty Gusman Jr Facility: Start: 03-17-2023 Hector Benavidez Dept. of D ermatology Start: 03-16-2023 Chart Update Ken menjivar Work Phone: [facility] Work Phone: Start: 03-04-[address] [id number] Start: 02-16-2023 Rx Renewal Ken P Hous e Work Phone: [facility] DO Work Phone: Start: 01-19-2023 Rx Renewal Ken P Hous e Work Phone: [facility] [facility] DO Work Phone: Start: 12-22-2022 End: 12-22-2022 ambulatory Matthew Fortunato II Other [employer] Other Start: 12-22-2022 Telephone encounter Matthew Fortunato II [facility] Start: 11-11-[address] Ken Moreau Facility: Start: 11-11-2022 Office outpatient vi sit 25 minutes Ken Moreau Work Phone: [facility] 250 DO Work Phone: Start: 11-03-2022 End: 11-04-[address] JULIANNE PANG Facility:H1 Start: 10-15-2022 Rx Renewal Ken P Hous e Work Phone: [facility] 250 DO Work Phone: Start: 09-04-2022 End: 09-04-2022 ambulatory Matthew Pittsburg II Other [employer] Other Start: 09-04-2022 Office outpatient vi sit 25 minutes Matthew Pittsburg II [facility] Start: 08-13-2022 End: 08-13-2022 ambulatory Matthew Pittsburg II Other [employer] Other Start: 08-13-2022 Office outpatient vi sit 25 minutes Matthew Fortunato II [facility] Start: 08-01-2022 End: 08-01-2022 ambulatory Matthew Pittsburg II Other [employer] [facility] [employer] Other Start: 08-01-2022 Telephone encounter Matthew Bucio II [facility] Start: 06-25-2022 Rx Renewal Ken P Hous e [facility] Work Phone: Start: 05-28-2022 End: 05-28-2022 ambulatory Matthew Bucio II Other [facility] [employer] Other Start: 05-28-2022 Office outpatient vi sit 25 minutes Matthew Bucio II [facility] Start: 03-07-2022 End: 03-08-[address] DOCTOR GUNDERSON Facility:H1 Start: 01-16-2022 End: 01-17-[address] KEN MOREAU Facility:H1 Start: 11-04-2021 Rx Renewal Ken P Hous e Work Phone: [facility] 250 DO Work Phone: Start: 10-21-2021 Rx Renewal Ken P Hous e Work Phone: [facility] 250 DO Work Phone: Start: 08-05-2021 Rx Renewal Julianne Pang MD Work Phone: [facility] 250 DO Work Phone: Start: 07-25-2021 End: 07-25-2021 ambulatory Matthew Bucio II Other Powered [employer] [facility] ATOMOO Other Start: 07-25-2021 Office outpatient ne w 45 minutes Matthew [place] II [facility] Start: 08-23-2018 Patient encounter procedure JULIANNE PANG Facility:[id number] Start: 08-12-2018 Patient encounter procedure JULIANNE PANG Facility:[id number] Start: 07-16-2016 End: 07-16-2016 Ambulatory DUSTIN CARTWRIGHT [facility] Procedures Date Procedure Procedure Detail Performing Clinician Start: 06-21-2024 Ecg routine ecg w/le ast 12 lds w/i&r Julianne Pang MD Work Phone: Start: 04-28-2024 X-ray of left knee MD Christiano Calderon Work Phone: Start: 03-09-2024 X-ray of left knee MD Christiano Calderon Work Phone: Start: 02-14-2024 Laboratory test resu lt abnormal Abnormal laboratory test Kenyatta Murphybranden LOCKER ROOM ATTENDANT Work Phone: Start: 02-03-2024 CT of left [...] on above: Result Comment: PERF ORMED BY: [facility] [address] [place] [address] PATHOLOGIST AGATE SETTER BALJEET GONZALEZ M.D. Start: 10-22-2023 Plain X-ray of left femur MD Sophia Calderon Work Phone: Start: 10-22-2023 Plain X-ray of left tibia and left fibula MD Sohpia Calderon Work Phone: Start: 10-05-2023 Antibody screen Sophia Calderon Comment on above: Order Comment: Date of Surgery: [id number] Result Comment: PERF ORMED BY: [facility] [address] [place] [address] PATHOLOGIST AGATE SETTER BALJEET GONZALEZ M.D. Start: 08-12-2023 Methicillin resistan [...] MD Work Phone: History of thyroidectomy Steve ert Fortunato II Other Hysterectomy Julianne Pang MD Work Phone: Surgical procedure o n eye proper [facility] Work Phone: Thyroidectomy Julianne Pang MD Work Phone: Total colonoscopy Julianne almeida MD Work Phone: Plan of Treatment Date Care Activity Detail Author Start: 01-06-2025 End: 01-06-2025 Patient encounter procedure 01/06/2025 2:30 PM EDT Office Visit [facility] [address] [place] [address] Julianne Pang MD [address] [place], [place] [address] [facility] Start: 12-01-2024 End: 12-01-2024 Patient encounter procedure 12/01/2024 11:00 AM EDT Office Visit [facility] [address] [place] [address] Kenyatta Mehta NP [address] [place] [place] [facility] [address] [facility] Start: 06-21-2024 End: 06-21-2025 Basic metabolic 2000 panel - Serum or Plasma Basic Metabolic Panel Lab Routine PAF (paroxysmal atrial fibrillation) (Multi) High risk medication use Expected: 06/21/2024 (Approximate), Expires: 06/21/2025 [facility] Service Area Work Phone: Comment on above: Expected: 06/21/2024 (Approximate), Expires: 06/21/2025 Start: 06-21-2024 End: 06-21-2025 CBC panel - Blood by Automated count CBC Lab Routine PAF (paroxysmal atrial fibrillation) (Multi) High risk medication use Expected: 06/21/2024 (Approximate), Expires: 06/21/2025 [facility] Work Phone: Comment on above: Expected: 06/21/2024 (Approximate), Expires: 06/21/2025 Start: 06-21-2024 End: 06-21-2024 Patient encounter procedure 06/21/2024 10:10 AM EST Office Visit [facility] [address] [place] [address] Julianne Pang MD [address] [place] [address] [facility] Start: 06-16-2024 End: 06-16-2024 Patient encounter procedure 06/16/2024 11:00 AM EDT Office Visit [facility] [address] [place] [address] Kenyatta Mehta NP [address] [place], [place] Arrived [facility] [address] Comment on above: Arrived Start: 04-28-2024 X-ray of left knee XR knee LT 2V [facility] Start: 04-28-2024 XR Knee - left 2 Views [facility] Start: 04-17-2024 COVID-19 Vaccine ( season) COVID-19 Vaccine () [facility] Start: 04-17-2024 Influenza vaccination Influenza Vacc ine (#1) [facility] Start: 03-09-2024 X-ray of left knee XR knee LT 2V [facility] Start: 03-09-2024 XR Knee - left 2 Views [facility] Start: 03-08-2024 End: 03-08-2024 Professional / ancillary services management 03/08/2024 10:00 AM EDT Ancillary Procedure [facility] [address] [facility] [address] [place] [address] [facility] Start: 03-06-2024 End: 01-04-2025 ECG 12 Lead ECG 12 Lead ECG Routine PAF (paroxysmal atrial fibrillation) (Multi) Expected: 03/06/2024 (Approximate), Expires: 01/04/2025 [facility] Work Phone: Comment on above: Expected: 03/06/2024 (Approximate), Expires: 01/04/2025 Start: 01-27-2024 Plain X-ray of left femur XR femur L T 2V* [facility] Start: 01-27-2024 Plain X-ray of left tibia and left fibula XR tibia fibula LT 2V* [facility] Start: 01-27-2024 X-ray of left knee XR knee LT 2V [facility] Start: 01-27-2024 XR Femur - left 2 Views [facility] Start: 01-27-2024 XR Knee - left 2 Views [facility] Start: 01-27-2024 XR Tibia and Fibula - left 2 Views [facility] Start: 01-19-2024 End: 01-04-2025 Basic metabolic 2000 panel - Serum or Plasma Basic Metabolic Panel Lab Routine Essential hypertension Edema, unspecified type Expected: 01/19/2024 (Approximate), Expires: 01/04/2025 [facility] Service Area Work Phone: Comment on above: Expected: 01/19/2024 (Approximate), Expires: 01/04/2025 Start: 01-06-2024 End: 12-06-2024 CBC panel - Blood by Automated count CBC Lab Routine PAF (paroxysmal atrial fibrillation) (Multi) High risk medication use Expected: 01/06/2024 (Approximate), Expires: 12/06/2024 [facility] Service Area Work Phone: Comment on above: Expected: 01/06/2024 (Approximate), Expires: 12/06/2024 Start: 01-05-2024 End: 01-05-2024 Clinical Support 01/05/2024 9:30 AM EDT Clinical Support [address] [place] [address] [facility] Start: 12-04-2023 X-ray of left knee XR knee LT 3V - NOT FOR ER USE [facility] Start: 12-04-2023 XR Knee - left 3 Views [facility] Start: 11-12-2023 End: 11-12-2023 Patient encounter procedure 11/12/2023 9:50 AM EDT Office Visit [address] [place] [address] Julianne Pang MD [address] [facility] [address] [place] [address] [facility] Start: 10-28-2023 [facility] Start: 10-26-2023 Hospital admission [facility] Start: 10-26-2023 Referral to clinical records and tape recordings engineer [facility] Start: 10-19-2023 Total replacement of left knee joint OR Knee Arthroplasty, Total MIS (Left) [facility] Start: 10-05-2023 [facility] Start: 08-12-2023 MRSA Culture MRSA Culture [facility] Start: 07-30-2023 End: 07-30-2023 Patient encounter procedure 07/30/2023 10:00 AM EST Office Visit [address] [address] Eladio Coe MD PhD [facility] [address] [facility] B, [address] [address] [facility] Start: 07-17-2023 End: 07-17-2023 Patient encounter procedure [facility] Start: 06-10-2023 End: 06-10-2023 Patient encounter procedure 06/10/2023 10:00 AM EDT Office Visit [address] [id number] Eladio Coe MD PhD [address] [facility] B, [address] [address] (Fax) [facility] Start: 05-19-2023 FUVCANCER, Provider: Coty Casiano, Status: Pen, Time: 11:30 AM FUVCANCER, Provider: Coty Casiano, Status: Pen, Time: 11:30 AM [facility] 250 DO Work Phone: Start: 05-12-2023 FUV, Provider: Julianne Pang, Status: Pen, Time: 9:40 AM FUV, Provider: Julianne Pang, Status: Pen, Time: 9:40 AM [facility] 250 DO Work Phone: Start: 04-17-2023 COVID-19 Vaccine ( season) COVID-19 Vaccine ( season) [facility] Start: 04-17-2023 Influenza vaccination Influenza Vacc ine (#1) [facility] Start: 03-24-2023 NPVCANCER, Provider: Coty Casiano, Status: Pen, Time: 1:20 PM NPVCANCER, Provider: Coty Casiano, Status: Pen, Time: 1:20 PM [facility] Work Phone: Start: 11-11-2022 FUV, Provider: Julianne Pang, Status: Pen, Time: 10:50 AM FUV, Provider: Julianne Pang, Status: Pen, Time: 10:50 AM [facility] [address] DO Work Phone: Start: 04-15-2022 FUV, Provider: Julianne Pang, Status: Pen, Time: 11:20 AM FUV, Provider: Julianne Pang, Status: Pen, Time: 11:20 AM [facility] [address] DO Work Phone: Start: 09-30-2021 FUV, Provider: Julianne Pang, Status: Pen, Time: 1:10 PM FUV, Provider: Julianne Pang, Status: Pen, Time: 1:10 PM [facility] [address] DO Work Phone: Start: 09-23-2021 COVID-19 Vaccine (4 - Pfizer series) COVID-19 Vaccine (4 - Pfizer series) [facility] Start: 2020 RSV High Risk: (Elde rly (60+) or Population) (1 - 1-dose 75+ series) RSV High Risk: (Elderly (60+) or Population) (1 - 1-dose 75+ series) [facility] Start: 2005 RSV patient s and/or patients aged 60+ years (1 - 1-dose 60+ series) RSV patients and/or patients aged 60+ years (1 - 1-dose 60+ series) [facility] Start: 12-24-1995 Zoster Vaccines (1 of 2) Zoste r Vaccines (1 of 2) [facility] Start: 12-24-1967 DTaP/Tdap/Td Vaccine s (1 - Tdap) DTaP/Tdap/Td Vaccines (1 - Tdap) [facility] Start: 12-24-1963 Diabetes mellitus screening Diabetes Screening [facility] Start: 12-24-1963 Hepatitis C screening Hepatitis C Sc reening [facility] Start: 06-25-1946 Examination of skin Derm Melan chandler Skin Check [facility] Start: 1945 Lipid panel Lipid Panel [facility] Start: 1945 Medicare Annual Well ness Visit Medicare Annual Wellness Visit (AWV) [facility] Start: 1945 Screening for osteoporosis Bone Density Scan [facility] Start: 1945 Thyroid stimulating hormone measurement TSH Level [facility] Cotinine [Mass/volum e] in Serum or Plasma [facility] CT Thigh - left WO contrast [facility] Glucose measurement estimated from glycated hemoglobin [facility] Methicillin resistan t Staphylococcus aureus [Presence] in Unspecified specimen by Organism specific culture [facility] Nicotine [Mass/volum e] in Serum or Plasma [facility] Patient Education [facility] Work Phone: Patient referral [facility] Work Phone: [facility] Immunizations Immunization Date Immunization Notes Care Provider Radha fried 08-11-2023 influenza virus vacc ine, unspecified formulation Kenyatta Mehta LOCKER ROOM ATTENDANT Work Phone: [facility] 06-23-2022 Fluzone High-Dose Quadrivalent 0.7 ML Intramuscular Suspension Prefilled Syringe Ken P House Work Phone: [facility] [address] DO Work Phone: 06-23-2022 influenza virus vacc ine, unspecified formulation Coty Casiano MD Work Phone: [facility] Work Phone: 07-29-2021 Pfizer-BioNTech COVI D-19 Vacc 30 MCG/0.3ML Intramuscular Suspension Ken P [place] Work Phone: [facility] 06-24-2021 Fluad Quadrivalent 0 .5 ML Intramuscular Prefilled Syringe Ken P [place] Work Phone: [facility] 250 DO Work Phone: 10-11-2020 Pfizer-BioNTech COVI D-19 Vacc 30 MCG/0.3ML Intramuscular Suspension Julianne Pang MD Work Phone: [facility] 09-20-2020 Pfizer-BioNTech COVI D-19 Vacc 30 MCG/0.3ML Intramuscular Suspension Ken [facility] Work Phone: [facility] 06-12-2020 Fluad Quadrivalent 0 .5 ML Intramuscular Prefilled Syringe [facility] Work Phone: [place] [address] DO Work Phone: 05-20-2019 influenza, injectabl e, quadrivalent, preservative free Coty Casiano MD Work Phone: [facility] Work Phone: 05-17-2019 influenza virus vacc ine, unspecified formulation Julianne Pang MD Work Phone: [place] [address] DO Work Phone: 06-17-2018 pneumococcal conjuga te vaccine, 13 valent Julianne Pang MD Work Phone: [place] [address] DO Work Phone: 06-07-2018 Seasonal trivalent influenza vaccine, adjuvanted, preservative free Ken [facility] Work Phone: [place] [address] DO Work Phone: 05-17-2018 influenza virus vacc ine, unspecified formulation Julianne Pang MD Work Phone: [place] [address] DO Work Phone: 05-24-2017 Seasonal trivalent influenza vaccine, adjuvanted, preservative free Coty Casiano MD Work Phone: [facility] Work Phone: 05-17-2017 influenza, high dose seasonal, preservative-free Julianne Pang MD Work Phone: [place] [address] DO Work Phone: 06-02-2016 influenza virus vacc ine, unspecified formulation Julianne Pang MD Work Phone: [place] [address] DO Work Phone: 05-17-2016 pneumococcal conjuga te vaccine, 13 valent Julianne Pang MD Work Phone: [place] [address] DO Work Phone: 06-19-2015 influenza, injectabl e, quadrivalent, preservative free Ken [facility] Work Phone: [place] [address] DO Work Phone: 06-19-2015 pneumococcal conjuga te vaccine, 13 valent [facility] Work Phone: [place] [address] DO Work Phone: 06-19-2015 pneumococcal polysaccharide vaccine, 23 valent Matthew Bucio II Other [facility] 06-17-2015 pneumococcal polysaccharide vaccine, 23 valent Julianne Pang MD Work Phone: [place] [address] DO Work Phone: 05-17-2015 influenza virus vacc ine, unspecified formulation Julianne Pang MD Work Phone: [place] [address] DO Work Phone: 05-17-2014 influenza virus vacc ine, unspecified formulation Julianne Pang MD Work Phone: [facility] [address] DO Work Phone: 1945 pneumococcal conjuga te vaccine, 7 radha [facility] Payers Date Payer Category Payer Unknown [id number] 2023 Self-pay [id number] 2017 Medicare ANTHEM MEDICARE [facility] MEDICARE ADVANTAGE [id number] 2017-Present [address] [place] [address] [id number] 2017 Medicare (Managed Care) 1.2. [id number] 1959 Unknown [id number] 1945 Unknown [id number] 2.16.840.1.427073.3.579.2 .355 1945 Unknown [id number] 2.16.840.1.377259.3.579.2 .355 1945 Unknown [id number] 2.16.840.1.897983.3.579.2 .593 1945 Unknown [id number] 2.16.840.1.516579.3.579.2 .593 1945 Unknown [id number] 2.16.840.1.031737.3.579.2 .593 1945 Unknown [id number] 2.16.840.1.077582.3.579.2 .356 1945 Unknown [id number] 2.16.840.1.575807.3.579.2 .356 1945 Unknown [id number] 2.16.840.1.630426.3.579.2 .356 1945 Unknown [id number] 2.16.840.1.012150.3.579.2 .356 1945 Unknown [id number] 2.16.840.1.218783.3.579.2 .356 1945 Unknown [id number] 2.16.840.1.431587.3.579.2 .356 1945 Unknown [id number] 2.16.840.1.048309.3.579.2 .1068 1945 Unknown [id number] 2.16.840.1.260928.3.579.2 .124 1945 Unknown [id number] 2.16.840.1.581501.3.579.2 .1258 1945 Unknown [id number] 2.16.840.1.221094.3.579.2 .1258 1945 Unknown [id number] 2.16.840.1.858211.3.579.2 .1243 1945 Unknown [id number] 2.16.840.1.357946.3.579.2 .124 1945 Unknown [id number] 2.16.840.1.471284.3.579.2 .1243 1945 Unknown [id number] 2.16.840.1.421906.3.579.2 .1243 1945 Unknown [id number] 2.16.840.1.789359.3.579.2 .727 Unknown ANTHEM MEDICARE ADV Unknown [id number] 2.16.840.1.984063.3.579.2 .531 Unknown [id number] 2.16.840.1.287103.3.579.2 .531 Unknown [id number] 2.16.840.1.564288.3.579.2 .531 Unknown [id number] 2.16.840.1.456855.3.579.2 .531 Unknown [id number] 2.16.840.1.857328.3.579.2 .531 Unknown [id number] 2.16.840.1.458181.3.579.2 .531 Unknown [id number] 2.16.840.1.711553.3.579.2 .531 Unknown [id number] 2.16.840.1.709644.3.579.2 .531 Unknown [id number] 2.16.840.1.121473.3.579.2 .531 Unknown [id number] 2.16.840.1.486630.3.579.2 .531 Unknown [id number] 2.16.840.1.569135.3.579.2 .531 Unknown [id number] 2.16.840.1.413395.3.579.2 .531 Unknown [id number] 2.16.840.1.591757.3.579.2 .531 Unknown [id number] 2.16.840.1.682816.3.579.2 .531 Social History Date Type Detail Facility Start: 12-07-2023 End: 03-08-2024 Caffeine use Caffeine use [facility] ATOMOO Other Comment on above: Quit 50+ years ago; Start: 12-07-2023 End: 03-08-2024 Sex Assigned At [facility] ATOMOO Other Start: 03-17-2023 Dept. of D ermatology Start: 1945 End: 1945 Sex Assigned At Female [facility] Start: 1945 Sex Assigned At Not on file [facility] Work Phone: Start: 05-09-2023 End: 06-21-2024 Exposure to SARS-CoV-2 (event) Not sure [facility] Start: 02-28-2019 End: 06-16-2024 Tobacco smoking status NHIS Ex-smoker (finding) [facility] Start: 12-07-2023 End: 12-25-2023 Tobacco smoking status NHIS Never smoked tobacco [facility] Start: 12-07-2023 End: 06-16-2024 Tobacco use and exposure Smokeless tobacco non-user [facility] Work Phone: Start: 12-07-2023 End: 06-21-2024 Alcoholic beverage intake Lifetime non-drinker (finding) [facility] Work Phone: History of tobacco use Current smoker [facility] History of tobacco use Cigarette Smoker [facility] Start: 02-14-2024 Alcohol Comment caffeine: 1-2 cups per day [facility] NEGATED: Highlighted row [facility] Medical Equipment Procedure Code Equipment Code Equipment Origin al Text Equipment Identifier Dates Arthroplasty, knee, total, minimally invasive Orthopaedic cement, non-medicated [id number] FDA Start: 10-26-2023 Arthroplasty, knee, total, minimally invasive Knee femur stem prosthesis ()[id number] FDA Start: 10-26-2023 Arthroplasty, knee, total, minimally invasive Orthopaedic bone wire ()[id number] FDA Start: 10-26-2023 Arthroplasty, knee, total, minimally invasive Tibial insert ()[id number] FDA Start: 10-26-2023 Arthroplasty, knee, total, minimally invasive Polyethylene patella prosthesis ()[id number] FDA Start: 10-26-2023 Arthroplasty, knee, total, minimally invasive Knee stem ()[id number] FDA Start: 10-26-2023 Arthroplasty, knee, total, minimally invasive Uncoated knee tibia prosthesis, metallic ()[id number] FDA Start: 10-26-2023 Arthroplasty, knee, total, minimally invasive Uncoated knee femur prosthesis, metallic ()[id number] FDA Start: 10-26-2023 Goals Date Patient Goal Desired Activity /State Functional Status Date Assessment Result Facility 10-28-2023 Functional status 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 Obstructive sleep apnea, [...] no complications associated with flecainide or Xarelto 5-gjhdg-xlrafo AV block which is inconsequential Follow up as scheduled in 6 months. Review of Systems All other systems reviewed and are negative. Vitals: 06/21/24 1017 06/21/24 1052 BP: 140/70 118/60 BP [...] Attestation By signing my name below, I, Radha Nettles LPN, Scribe attest that this documentation has [...] discussion and plan. documented in this encounter [facility] Work Phone: 06-21-2024 Instructions Radha Burgos LPN [...] months with lab documented in this encounter [facility] Work Phone: 01-05-2024 History of Present illness Narrative Durga Juarez [...] Scribe Attestation By signing my name below, Radha Morse LPN, Scribe attest that this documentation [...] discussion and plan. 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 Sleep apnea, on [...] no complications associated with flecainide or Xarelto 7-[id number]-ulwazb AV block which is inconsequential Follow up as scheduled in 6 months. Julianne Pang MD, [facility] Review of Systems All other systems reviewed [...] Scribe Attestation By signing my name below, IRamya LPN, Scribe attest that this documentation has [...] discussion and plan. documented in this encounter [facility] Work Phone: 12-07-2023 Instructions Ramya Gonzalez LPN [...] instructions on exercise. 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 The patient expressed understanding. Coty Casiano MD pulvi mixer operator Division of Surgical Oncology [phone] [email or web address] Subjective Patient ID: Tracy Juarez is a [...] This is compared with primary melanoma in [id number] and is smaller. It is not seen [...] ATYPICAL MELANOCYTIC NEOPLASM SEEN. documented in this [facility] Work Phone: 1(779) 717-794209-11-2023 NotePROCEDURE DETAILS Preoperative Diagnosis: Melanoma left arm Postoperative Diagnosis: Melanoma left arm Surgeon: Coty Casiano Resident/Fellow/Other Cardroom Worker: Wooten, Armando Procedure: 1. Wide local excision left arm [...] Details of procedure: The patient arrived at [facility] on 04/27/2023 for the aforementioned procedure. Consent [...] complex multilayer fashion using deep 2-0 Vicryl [id number], interrupted 3-0 Vicryl deep dermals, and a [...] Completion Last Updated: 27-Apr-2023 15:19 by Coty Casiano)[place] 04-27-2023 Miscellaneous Notes* Op Note - Coty Casiano MD - 04/27/2023 3:15 PM EDT PROCEDURE DETAILS Preoperative Diagnosis: Melanoma left arm Postoperative Diagnosis: Melanoma left arm Surgeon: Coty Casiano Resident/Fellow/Other Cardroom Worker: Armando Wooten Procedure: 1. Wide local excision [...] Details of procedure: [facility] [facility] on 04/27/2023 for the aforementioned procedure. Consent [...] complex multilayer fashion using deep 2-0 Vicryl [id number], interrupted 3-0 Vicryl deep dermals, and a [...] 15:19 by Coty Casiano) documented in this [facility] Work Phone: 1(156) 175-480809-11-2023 Note* Op Note - Coty Casiano MD - 04/27/2023 3:15 PM EDT PROCEDURE DETAILS Preoperative Diagnosis: Melanoma left arm Postoperative Diagnosis: Melanoma left arm Surgeon: Coty Casiano Resident/Fellow/Other Cardroom Worker: Armando Wooten Procedure: 1. Wide local excision [...] Details of procedure: The patient arrived at [facility] on 04/27/2023 for the aforementioned procedure. Consent [...] complex multilayer fashion using deep 2-0 Vicryl [id number], interrupted 3-0 Vicryl deep dermals, and a [...] Last Updated: 27-Apr-2023 15:19 by Coty Casiano) [facility] Work Phone: 1(249) 567-670309-11-2023 NoteHistory & Physical Reviewed: I have reviewed [...] Completion Last Updated: 27-Apr-2023 07:02 by Coty Casiano)[place] 04-27-2023 History and physical note* Coty Casiano [...] Last Updated: 27-Apr-2023 07:02 by Coty Casiano) [facility] Work Phone: [phone]) 310-425709-11-2023 History and physical note* Coty Casiano MD [...] Last Updated: 27-Apr-2023 07:02 by Coty Casiano) [facility]: [phone]) 763-338201-19-2023 Evaluation note* Encounter Date Diagnosis Assessment Notes Treatment Notes Treatment Clinical Notes Aug, Primary osteoarthritis of left knee (ICD-10 - M17.12) Aug, Other After consent was obtained, the left knee was injected with Zilretta using sterile technique. Patient tolerated the injection well. Follow-up 3 months niid.to Other 12-28-2022 Evaluation note* Encounter Date Diagnosis [...] Dr. Mason for consideration of radiofrequency ablations. niid.to Other 10-12-2022 Evaluation note* Encounter Date Diagnosis [...] injection well. 6. Follow up as needed niid.to Other 12-09-2021 Evaluation note* Encounter Date Diagnosis [...] tolerated the injection well without adverse reaction. 09 Dec, 2021 Trochanteric bursitis of left hip (ICD-10 - [...] left hip bursitis. 6. Follow-up 3 months niid.to Other Evaluation noteNo InformationNort jellyfish Other Evaluation noteN/ADept. of Dermatology Evaluation note* Diagnosis Cellulitis of left upper extremity- Primary documented in this encounter [facility] Work Phone: Evaluation note* Diagnosis Malignant melanoma of left upper limb, including shoulder (CMS/HCC) documented in this encounter [facility] Work Phone: Evaluation noteNo assessment information available [facility] Work Phone: Evaluation note* Diagnosis Onset Date Resolution Status Left knee pain acute Primary osteoarthritis of left knee acute HTN (hypertension) acute OSIEL (obstructive sleep apnea) acute Paroxysmal atrial fibrillation acute Primary osteoarthritis of left knee acute Status post total left knee replacement acute Aftercare following left knee joint replacement surger y acute Status post total left knee replacement acute [facility] Work Phone: Evaluation note* Diagnosis Onset Date [...] Status post total left knee replacement acute [facility] Work Phone: Evaluation note* Diagnosis PAF (paroxysmal atrial fibrillation) (Multi)- Primary Atrial fibrillation First degree AV block First degree atrioventricular block Essential hypertension Unspecified essential hypertension High risk medication use Hypothyroidism, unspecified type Obstructive sleep apnea syndrome Obstructive sleep apnea (adult) (pediatric) BMI 37.0-37.9, adult Never smoked tobacco Class 2 obesity documented in this encounter [facility] Work Phone: Evaluation note* Diagnosis Essential hypertension Unspecified essential hypertension Edema, unspecified type PAF (paroxysmal atrial fibrillation) (Multi) Atrial fibrillation documented in this encounter [facility] Work Phone: Evaluation note* Diagnosis Onset Date Resolution Status Aftercare following left knee joint replacement surger y acute Status post total left knee replacement acute Aftercare following left knee joint replacement surger y acute Status post total left knee replacement acute Aftercare following left knee joint replacement surger y acute Status post total left knee replacement acute [facility] Work Phone: Evaluation note* Diagnosis Onset Date Resolution Status Aftercare following left knee joint replacement surger y acute Status post total left knee replacement acute Aftercare following left knee joint replacement surger y acute Status post total left knee replacement acute Aftercare following left knee joint replacement surger y acute Left thigh pain acute Status post total left knee replacement acute [facility] Work Phone: Evaluation note* Diagnosis Onset [...] Status post total left knee replacement acute [facility] Work Phone: Evaluation note* Diagnosis Onset Date Resolution Status Aftercare following left knee joint replacement surger y acute Left thigh pain acute Status post total left knee replacement acute Aftercare following left knee joint replacement surger y acute Left thigh pain acute Status post total left knee replacement acute [facility] Work Phone: Evaluation note* Diagnosis Onset Date Resolution Status Aftercare following left knee joint replacement surger y acute Left thigh pain acute Status post total left knee replacement acute Aftercare following left knee joint replacement surger y acute Status post total left knee replacement acute Aftercare following left knee joint replacement surger y acute Status post total left knee replacement acute [facility] Work Phone: Evaluation note* Diagnosis OSIEL (obstructive [...] Class 2 obesity documented in this encounter [facility] Work Phone: History general Narrative - Reported* Type Description Date Medical History hypothyroidism Medical History rheumatoid arthritis Medical History hypertension Medical History afib Surgical History hysterectomy Surgical History hysterectomy 1980 Surgical History knee replacement Surgical History knee replacement, right 2015 Surgical History C section Surgical History Total Substernal Thyroidectomy 02/28/2019 Hospitalization History see above niid.to Other History general Narrative - Reported* Type Description Date Medical History hypothyroidism Medical History rheumatoid arthritis Medical History hypertension Medical History afib Medical History tremors Surgical History hysterectomy Surgical History hysterectomy 1979 Surgical History knee replacement Surgical History knee replacement, right 2014 Surgical History C section Surgical History Total Substernal Thyroidectomy 02/28/2019 Hospitalization History see above niid.to Other History of Present illness Narrative* Tracy is a 77 yoM who presents to our [place] clinic today, referred by Ken Moreau for [...] reports, and radiologic images for this patient. [id number] [place] Work Phone: Reason for referral (narrative)* Name Reason for referral NA NA Dept. of Dermatology Reason for referral (narrative)* Consultation (Routine) - Authorized Specialty Diagnoses / Procedures Referred By Ree espinal Referred To Contact Cardiology Diagnoses Essential hypertension Procedures Follow Up In Cardiology Julianne Pang MD [address] [facility] [address], [address] [address] Referral ID Status Reason Start Date Expiration Date V isits Requested Visits Authorized [id number] Authorized 12/07/2023 12/06/2024 1 1 * Cardiovascular (Routine) - Authorized Specialty Diagnoses / Procedures Referred By Ree espinal Referred To Contact Diagnoses PAF (paroxysmal atrial fibrillation) (Multi) Procedures ECG 12 Lead Julianne Pang MD [address] [facility] [address], [address] [place] [address] Referral ID Status Reason Start Date Expiration Date V isits Requested Visits Authorized [id number] Authorized 12/07/2023 12/06/2024 1 1 * Consultation (Routine) - Authorized Specialty Diagnoses / Procedures Referred By Ree espinal Referred To Contact Cardiology Diagnoses PAF (paroxysmal atrial fibrillation) (Multi) Procedures Follow Up In Cardiology Julianne Pang MD [address] [place] [address] [address], [address] [address] Julianne Pang MD [address] [place] [address] [address], [address] [address] Referral ID Status Reason Start Date Expiration Date V isits Requested Visits Authorized [id number] Authorized 12/07/2023 12/06/2024 1 1 [facility] Work Phone: Summary Purpose Family History No [...] was normal except for first-degree AV block FL interval 210 ms * 2. Sleep apnea, [...] up as scheduled in 6 months. * Julianne Pang MD, [facility] melanoma Chief Complaint and Reason for [...] ECG 12 Lead Julianne Pang MD [address] [facility] [address], [address] [place] [address] Referral ID Status Reason Start Date Expiration Date V isits Requested Visits Authorized [id number] Authorized 01/05/2024 01/04/2025 1 1 Specialty Diagnoses / Procedures Referred By Ree espinal Referred To Contact Cardiology Diagnoses Essential hypertension Procedures Follow Up In Cardiology Julianne Pang MD [address], [address] [place] [address] Referral ID Status Reason Start Date Expiration Date V isits Requested Visits Authorized [id number] Authorized 01/05/2024 01/04/2025 1 1 Additional Source Comments INFORMATION SOURCE (unrecogn ized section and content) DATE CREATED AUTHOR 02/09/2018 [facility] DATE CREATED AUTHOR AUTHOR'S ORGANIZ ATION 08/27/2018 [facility] DATE CREATED AUTHOR AUTHOR'S ORGANIZ ATION 11/09/2022 [facility] DATE CREATED AUTHOR AUTHOR'S ORGANIZ ATION 05/20/2023 [facility] DATE CREATED AUTHOR AUTHOR'S ORGANIZ ATION 05/20/2023 [employer] DATE CREATED AUTHOR AUTHOR'S ORGANIZ ATION 05/21/2023 [facility] DATE CREATED AUTHOR AUTHOR'S ORGANIZ ATION 05/29/2023 [facility] DATE CREATED AUTHOR AUTHOR'S ORGANIZ ATION 06/18/2024 [facility] EPIC DATE CREATED AUTHOR AUTHOR'S ORGANIZ ATION 07/04/2024 [facility] DATE CREATED AUTHOR AUTHOR'S ORGANIZ ATION 07/17/2024 [facility] DATE CREATED AUTHOR AUTHOR'S ORGANIZ ATION 10/11/2024 [facility] REASON FOR VISIT (unrecogniz ed section and content) Reason Comments Follow-up Reason Comments 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 Reason Comments Follow-up 6 month Specialty Diagnoses / Procedures Referred By Contac t Referred To Contact Diagnoses PAF (paroxysmal atrial fibrillation) (Multi) Procedures ECG 12 Lead Julianne Pang MD [address], [address] [place] [address] Referral ID Status Reason Start Date Expiration Date V isits Requested Visits Authorized [id number] Authorized 12/07/2023 12/06/2024 1 1 Reason Comments Hypertension BP OV with EKG Specialty Diagnoses / Procedures Referred By Contac t Referred To Contact Cardiology Diagnoses Essential hypertension Procedures Follow Up In Cardiology Julianne Pang MD [address], [address] [address] Referral ID Status Reason Start Date Expiration Date V isits Requested Visits Authorized [id number] Authorized 12/07/2023 12/06/2024 1 1 Reason Comments Sleep Apnea Tremors Reason Comments Follow-up 6 month Specialty Diagnoses / Procedures Referred By Contac t Referred To Contact Cardiology Diagnoses PAF (paroxysmal atrial fibrillation) (Multi) Procedures Follow Up In Cardiology Julianne Pang MD [address] [place] [address] [address], [address] [address] Phone: tel: fax: Julianne Pang MD [address] [facility] [address], [address] [address] Phone: tel: fax: Referral ID Status Reason Start Date Expiration Date V isits Requested Visits Authorized [id number] Authorized 12/07/2023 12/06/2024 1 1 Care Teams (unrecognized sec tion and content) Protective Service Specialist Relationship Specialty Start Date End Date Sophia Calderon MD [facility] [place] [address] PCP - General 04/27/23 Protective Service Specialist Relationship Specialty Start Date End Date Sophia Calderon MD [address] [place] [id number] PCP - General 04/27/23 Team Status: Active Member Role Status Dates Sophia Calderon MD Primary Care Provider Active Team Status: Inactive Member Role Status Dates Matthew Bucio II, MD Attending Provider Active Team Status: Inactive Member Role Status Dates Sophia Calderon MD Primary Care Provider Active Matthew [...] 2023 End: October 28, 2023 Lauren Das , NOHEMI Other Provider Active Start: [facility] 2023 End: October 28, 2023 Tiffanie Becker RN Other Provider Active Star t: October 26, 2023 End: October 28, 2023 Nargis Diaz , NOHEMI Other Provider Active Start : October 26, 2023 End: October 28, 2023 Nya Brush , NOHEMI Other Provider Active Start: [facility] 2023 End: October 28, 2023 Brenda Gaytan RN Other Provider Active Start: [facility] 2023 End: October 28, 2023 Geoff Guthrie MD Other Provider Active Start: October 26, 2023 End: October 28, 2023 Arias Eugene MD Other Provider Active Start: [facility] 2023 End: October 28, 2023 Natalie Cifuentes [...] Rolando Celaya MD Other Provider Active Start: [facility] 2023 End: October 28, 2023 La Desai APRN Other Provider Active Start: October 26, 2023 End: October 28, 2023 Dheeraj Youssef MD Other Provider Active Start: October 26, 2023 End: October 28, 2023 Cristian Vogt MD Other Provider Active Start: [facility] 2023 End: October 28, 2023 Roe Morocho MD Other Provider Active Start: October 26, 2023 End: October 28, 2023 Luiz Peck MD Other Provider Active Start: October 26, 2023 End: October 28, 2023 Ju Pedraza DO Other Provider Active Start: October 26, 2023 End: October 28, 2023 Jimy Crews MD Other Provider Active Start: [facility] 2023 End: October 28, 2023 Kenn Richmond MD Other Provider Active Start: [facility] 2023 End: October 28, 2023 PERZE Lopez Other Provider Active St art: October 26, 2023 End: October 28, 2023 Naila Hayes APRN Other Provider Active Star t: October 26, 2023 End: October 28, 2023 Kane Chavarria MD Other Provider Active Start: October 26, 2023 End: October 28, 2023 Kasi Zarate MD Other Provider Active Start: [facility] 2023 End: October 28, 2023 Aric Petty MD Other Provider Active Start: [facility] 2023 End: October 28, 2023 Martha Choi MD Other Provider Active Star t: October 26, 2023 End: October 28, 2023 Herman Martin MD Other Provider Active Start: [facility] 2023 End: October 28, 2023 Mayra Lobo , Other Provider Active Start: [facility] 2023 End: October 28, 2023 Kale Trotter , Other Provider Active Start : [...] Fernie Pickard MD Other Provider Active Start: [facility] 2023 End: October 28, 2023 [...] Marisol Torres RN Other Provider Active Start: [facility] 2023 End: October 28, 2023 [...] Das , NOHEMI Other Provider Active Start: [facility] 2023 Tiffanie Becker , NOHEMI Other Provider Active Star t: October 26, 2023 Nargis Diaz , NOHEMI Other Provider Active Start : October 26, 2023 Nya Brush , NOHEMI Other Provider Active Start: [facility] 2023 Brenda Gaytan RN Other Provider Active Start: [facility] 2023 Geoff Guthrie MD Other Provider Active Start: October 26, 2023 Arias Eugene MD Other Provider Active Start: [facility] 2023 Natalie Cifuentes APRN Other Provider Active Start: October 26, 2023 Felix Alonso DO Other Provider Active Start : October 26, 2023 Dereje Ramirez MD Other Provider Active Start : October 26, 2023 Shaan Mccallum DO Other Provider Active Start: October 26, 2023 Hugo Ordoñez MD Other Provider Active Start: October 26, 2023 Tanika Canchola MD Other Provider Active Start : October 26, 2023 Rolando Celaya MD Other Provider Active Start: [facility] 2023 La Desai APRN Other Provider Active Start: October 26, 2023 Dheeraj Youssef MD Other Provider Active Start: October 26, 2023 Cristian Vogt MD Other Provider Active Start: [facility] 2023 Roe Morocho MD Other Provider Active Start: October 26, 2023 Luiz Peck MD Other Provider Active Start: October 26, 2023 Ju Pedraza DO Other Provider Active Start: October 26, 2023 Jimy Crews MD Other Provider Active Start: [facility] 2023 Kenn Richmond MD Other Provider Active Start: [facility] 2023 Abigail Bliss NP-C Other Provider Active St art: October 26, 2023 Naila Hayes , MIDDLEWARE ENGINEER Other Provider Active Star t: October 26, 2023 Kane Chavarria MD Other Provider Active Start: October 26, 2023 Kasi Zarate MD Other Provider Active Start: [facility] 2023 Aric Petty MD Other Provider Active Start: [facility] 2023 Martha Choi MD Other Provider Active Star t: October 26, 2023 Herman Martin MD Other Provider Active Start: [facility] 2023 Mayra Lobo , Other Provider Active Start: [facility] 2023 Kale Trotter , DO Other Provider Active Start : October 26, 2023 Alfie Alcala , DO Other Provider Active Sta rt: October 26, 2023 Ruchi Yip APRN Other Provider Active Start: October 26, 2023 Poncho Salcedo , DO Other Provider Active Start: October 26, 2023 Elieser Vicente MD Other Provider Active Sta rt: October 26, 2023 Rachel Agustin APRN Other Provider Active Start : October 26, 2023 Damaris Salcido APRN Other Provider Active St art: October 26, 2023 Fernie Pickard MD Other Provider Active Start: [facility] 2023 Sahil Trent MD Other Provider Active S tart: October 26, 2023 Chavez Jackson , Other Provider Active Star t: October 26, 2023 Dusty Casper , Other Provider Active Start: October 26, 2023 Danie Petty MD Other Provider Active Start: October 26, 2023 Marisol Torres RN Other Provider Active Start: [facility] 2023 Team Status: Active Member Role Status Dates Sophia Calderon MD Primary Care Provider Active Start: October 26, 2023 Matthew Bucio II, MD Other Provider Active S tart: October 26, 2023 Umu Ward RN Other Provider Active Star t: October 26, 2023 Brenda Fernando RN Other Provider Active Start : October 26, 2023 Lauren Das , NOHEMI Other Provider Active Start: [facility] 2023 Tiffanie Becker RN Other Provider Active Star t: October 26, 2023 Nargis Diaz RN Other Provider Active Start : October 26, 2023 Nya Brush RN Other Provider Active Start: [facility] 2023 Brenda Gaytan RN Other Provider Active Start: [facility] 2023 Geoff Guthrie MD Other Provider Active Start: October 26, 2023 Arias Eugene MD Other Provider Active Start: [facility] 2023 Natalie Cifuentes APRN Other Provider Active Start: October 26, 2023 Felix Alonso DO Other Provider Active Start : October 26, 2023 Dereje Ramirez MD Other Provider Active Start : October 26, 2023 Shaan Mccallum DO Other Provider Active Start: October 26, 2023 Hugo Ordoñez MD Other Provider Active Start: October 26, 2023 Tanika Canchola MD Other Provider Active Start : October 26, 2023 Rolando Celaya MD Other Provider Active Start: [facility] 2023 La Desai APRN Other Provider Active Start: October 26, 2023 Dheeraj Youssef MD Other Provider Active Start: October 26, 2023 Cristian Vogt MD Other Provider Active Start: [facility] 2023 Roe Morocho MD Attending Provider, Other Provider Active Start: October 26, 2023 Luiz Peck MD Other Provider Active Start: October 26, 2023 Ju Pedraza DO Other Provider Active Start: October 26, 2023 Jimy Crews MD Other Provider Active Start: [facility] 2023 Kenn Richmond MD Other Provider Active Start: [facility] 2023 Abigail Bliss NP-Darryl Other Provider Active St art: October 26, 2023 Naila Hayes APRN Other Provider Active Star t: October 26, 2023 Kane Chavarria MD Other Provider Active Start: October 26, 2023 Kasi Zarate MD Other Provider Active Start: [facility] 2023 Aric Petty MD Other Provider Active Start: [facility] 2023 Martha Choi MD Other Provider Active Star t: October 26, 2023 Herman Martin MD Other Provider Active Start: [facility] 2023 Mayra Lobo , DO Other Provider Active Start: [facility] 2023 Kale Trotter , DO Other Provider [...] Fernie Pickard MD Other Provider Active Start: [facility] 2023 Sahil Trent MD Other Provider Active S tart: October 26, 2023 Chavez Jackson , DO Other Provider Active Star t: October 26, 2023 Dusty Casper , DO Other Provider Active Start: October 26, 2023 Danie Petty MD Other Provider Active Start: October 26, 2023 Marisol Torres RN Other Provider Active Start: [facility] 2023 Team Status: Inactive Member [...] December 04, 2023 End: December 04, 2023 Protective Service Specialist Relationship Specialty Start Date End Date Sophia Calderon MD [address] [facility] [place] [address] PCP - General 04/27/23 Team Status: Inactive Member Role Status Austyn [...] December 25, 2023 End: December 25, 2023 Protective Service Specialist Relationship Specialty Start Date End Date Sophia Calderon MD [address] [facility] [place] [address] PCP General 04/27/23 Team Status: Active Member Role [...] 2024 Team Status: Active Member Role Status Austyn [...] 2024 Team Status: Active Member Role Status Austyn Calderon MD Primary Care Provider Active Start: April 28, 2024 Matthew Bucio II, MD Attending Provider Active Start: April 28, 2024 Protective Service Specialist Relationship Specialty Start Date End Date Sophia Calderon MD [address] [place] [phone] PCP - General Family Medicine 06/16/24 Lora Cox MD [address] [place] [address] Referring Physician Family Medicine 02/16/24 Kenyatta Mehta NP [address] [place] [address] Nurse Practitioner Neurology 06/16/24 Nicole Bauer DO [address] [place] [address] Referring Physician Neurology 06/16/24 Protective Service Specialist Relationship Specialty Start Date End Date Sophia Calderon MD [address] [place] [address], [place] [address] PCP - General Family Medicine 06/16/24 Lora Cox MD [address] [place] [address] Referring Physician Family Medicine 02/16/24 Kenyatta Mehta NP [address] [place] [address] Nurse Practitioner Neurology 06/16/24 Nicole Bauer DO [address] [place] [address] Referring Physician Neurology 06/16/24 Protective Service Specialist Relationship Specialty Start Date End Date Sophia Calderon MD [address] [place] [address], [place] [address] PCP - General 04/27/23 Goals (unrecognized section [...] BE BASED ON THE PRIMARY CLINICAL RECORDS. [facility]. provides no warranty or guarantee of the accuracy or completeness of information in this document.
--- NOTE | 2024-10-14 10:37 | XR_ITS ---
The [address] [address] Patient Name: LEVY SIDDIQUI MRN: [id number] date: 1945 Sex: F Assigned Patient Location: LAB Current Patient Location: LAB Accession/Order Number: [id number] Exam Date: 10/14/2024 13:32 Report Date: 10/14/2024 13:34 At the request of: GAL LIRA Procedure: XR chest 2V AP ERECT AND LATERAL CHEST: CLINICAL HISTORY: Post COVID 19 Condition. Headaches, shortness of breath and nausea. COMPARISON: None There is potential minimal basilar scarring or atelectasis. There is no focal parenchymal consolidation, effusion or pneumothorax. The cardiac, hilar and mediastinal silhouettes are within normal limits. There is no vascular congestion. The visualized bony structures are osteopenic. There is levoscoliotic curvature and degenerative changes at the spine. There is narrowing of the acromiohumeral interval on the right, possibly related to rotator cuff disease. There are multiple hemostasis clips at the left axilla. XR/XR chest 2V IMPRESSION: NO ACUTE CARDIOPULMONARY ABNORMALITY. Impression dictated by: Leida Hubbard M.D.10/14/2024 1:34 PM Dictation Location: [place] [address] Electronically authenticated by: [id number] Y Date: 10/14/2024 13:34
[2024-10-14 10:44] LABS: Basophils Absolute Auto 0.1 10^3/uL (0.0-0.1); Basophils Percent Auto 0.4 % (0.2-2.0); Eosinophils Absolute Auto 0.2 10^3/uL (0.0-0.7); Eosinophils Percent Auto 1.9 % (0.9-7.0); Hematocrit 35.6 % (36.0-48.0); Hemoglobin 10.6 g/dL (12.0-16.0); Immature Granulocytes Abs Auto 0.22 10^3/uL (0.00-0.03); Immature Granulocytes Pct Auto 1.9 % (0.0-0.5); Lymphocytes Absolute Auto 1.9 10^3/uL (1.2-3.8); Lymphocytes Percent Auto 16.7 % (20.5-60.0); Mean Corpuscular HGB Conc 29.8 g/dL (29.9-35.2); Mean Corpuscular Hemoglobin 21.3 pg (26.7-34.0); Mean Corpuscular Volume 71.6 fL (81.0-99.0); Monocytes Absolute Auto 1.1 10^3/uL (0.3-0.8); Monocytes Percent Auto 9.3 % (1.7-12.0); Neutrophils Percent Auto 69.8 % (43.0-75.0); Platelet Count 214 10^3/uL (150-450); Red Blood Count 4.97 10^6/uL (4.20-5.40); Red Cell Distribution Width 17.7 % (11.0-15.0); White Blood Count 11.5 10^3/uL (4.0-11.0)
[2024-10-14 10:50] LABS: Estimated Average Glucose 134 mg/dL; Glycohemoglobin A1C 6.3 % (4.5-6.2)
[2024-10-14 11:48] LABS: Alanine Aminotransferase 25 U/L (14-59); Albumin Globulin Ratio 0.9; Albumin Level 3.2 g/dL (3.4-5.0); Alkaline Phosphatase 114 U/L (46-116); Anion Gap 15.6; Aspartate Amino Transferase 15 U/L (15-37); BUN Creatinine Ratio 14.4; Calcium 8.2 mg/dL (8.5-10.1); Carbon Dioxide 24.2 mmol/L (21.0-32.0); Chloride 106 mmol/L (98-107); Chol HDL Ratio 5.3; Cholesterol 223 mg/dL (<=200); Estimated GFR (African America >60 (>=60 mL/min/1.73m^2); Estimated GFR (Non-African Ame 56 (>=60 mL/min/1.73m^2); Free T3 0.68 pg/mL (2.18-3.98); Globulin 3.4 g/dL; Glucose 163 mg/dL (74-106); HDL Cholesterol 42 mg/dL (40-60); Potassium 3.8 mmol/L (3.5-5.1); Sodium 142 mmol/L (136-145); Thyroid Stimulating Hormone 30.873 uIU/mL (0.358-3.740); Total Protein 6.6 g/dL (6.4-8.2); Triglycerides 223 mg/dL (<=150); VLDL CHOLESTEROL 44.6 mg/dL
[2024-10-16 12:07] LABS: Insulin 33.6 uIU/mL (2.6-24.9)
== END 2024-10-14 10:15 | disposition home or self-care (01) ==
PROVIDERS: PCP Nurse Practitioner Family; Visit Provider Nurse Practitioner Family
DX: U09.9 Post COVID-19 condition, unspecified (principal); E78.5 Hyperlipidemia, unspecified; R53.83 Other fatigue; R73.09 Other abnormal glucose; E55.9 Vitamin D deficiency, unspecified; I10 Essential (primary) hypertension
CPT/HCPCS: 36415; 71046; 80053; 80061; 82306; 83036; 83525; 83540; 84436; 84443; 84481; 85025

== ENCOUNTER 2024-10-15 05:00 | Emergency (ER) | payer MEDICARE, SELFPAY ==
[2024-10-15] VITALS (48 sets, daily range): BP systolic 115–197; BP diastolic 63–138; PULSE 65–82; TEMP 36.5; O2SAT 84–100; BMI 31.9
--- NOTE | 2024-10-15 05:03 | ECG_ITS ---
The 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
--- OUTSIDE RECORDS SUMMARY | 2024-10-15 05:11 | XMS_ITS | CCD ---
Author Organization [facility] Care Team Providers Care Supervisor Plastic Sheets Name Role Phone DUSTIN CARTWRIGHT Unavailable Unavailable [...] MD Arias Eugene Other Provider Unavailable Jeronimos, PACKAGE HANDLER Natalie Hill Other Provider DO Felix Alonso Other Provider MD Dereje Ramirez Other Provider DO Shaan Mccallum Other Provider MD Hugo Ordoñez Other Provider [phone] MD Tanika Canchola Other Provider [phone] MD Rolando Celaya Other Provider Unavailable JUSTINE Desai Other Provider MD Dheeraj Youssef Other Provider MD Cristian Vogt Other Provider MD Roe Morocho Other Provider MD Luiz Peck Other Provider DO Ju Pedraza Other Provider [phone] MD Jimy Crews Other Provider MD Kenn Richmond Other Provider PEREZ Bliss Other Provider JUSTINE Hayes Other Provider Unavailable MD Kane Chavarria Other Provider MD Kasi Zarate Other Provider MD Aric Petty Other Provider MD Martha Choi Other Provider Unavailable MD Herman Martin Other Provider DO Mayra Lobo Other Provider DO Kale Trotter Other Provider [phone] DO Alfie Alcala Other Provider [phone] JUSTINE Yip Other Provider DO Poncho Salcedo Other Provider MD Elieser Vicente Other Provider JUSTINE Agustin Other Provider [phone] JUSTINE Salcido Other Provider [phone] MD Fernie Pickard Other Provider MD Sahil Trent Other Provider DO Chavez Jackson T Other Provider DO Dusty Casper Other Provider MD Danie Petty P Other Provider Melissa, NOHEMI Damon Other Provider Unavailable MD Julianne Pang Attending Provider MD Ju Pettit Emergency Provider MD Sophia Calderon Primary Care Provider [phone] MD Matthew Bucio II Attending Provider MD Sophia Calderon Primary Care Provider [phone] MD Matthew Bucio II Attending Provider [phone] MD Sophia Calderon Primary Care Provider [phone] MD Matthew Bucio II Attending Provider Brooke HUYNH, Lora Unavailable Tyson VAUGHN, Kenyatta Unavailable [phone] Lizette , Unavailable Kvng HUYNH, Sophia Hill Primary Care Provider KENYATTA MEHTA Attending Unavailable KENYATTA MEHTA Attending Unavailable Sophia Calderon Primary Care Unavailable Dillingham II, Matthew Hill Attending Unavailabl e Fortunato II, Matthew Hill Admitting Unavailabl e Spohia Calderon Primary Care Unavailable Fortunato II, Matthew Hill Attending Unavailabl e Dillingham II, Matthew Hill Admitting Unavailabl e Sophia Calderon Primary Care Unavailable Fortunato II, Matthew M Attending Unavailabl e Dillingham II, Matthew M Admitting Unavailabl e Dillingham II, Matthew M Admitting Unavailabl e Dillingham II, Matthew M Attending Unavailabl e Fortunato II, Matthew M Admitting Unavailabl e Dillingham II, Matthew M Attending Unavailabl e Sophia Calderon Primary Care Unavailable Fortunato II, Matthew M Admitting Unavailabl e Dillingham II, Matthew M Attending Unavailabl e Sophia Calderon Primary Care Unavailable Fortunato II, Matthew M Admitting Unavailabl e Dillingham II, Matthew M Attending Unavailabl e Sophia Calderon Primary Care Unavailable Dillingham II, Matthew M Attending Unavailabl e Dillingham II, Matthew M Admitting Unavailabl e Sophia Calderon Primary Care Unavailable Dillingham II, Matthew M Admitting Unavailabl e Dillingham II, Matthew M Attending Unavailabl e Sophia Calderon Primary Care Unavailable Umu Ward Consulting Unavailable Brenda Fernando Consulting Unavailable Lauren Das Consulting Unavailable Tiffanie Becker Consulting Unavailable Nargis Diaz Consulting Unavailable Nya Brush Consulting Unavailable Brenda Gaytan Consulting Unavailable Geoff Guthrie Consulting Unavailable Arias Eugene Consulting Unavailable Natalie Cfiuentes Consulting Unavailable Felix Alonso Consulting Unavailable Dereje [...] Unavailabl Sophia Burgos Primary Care Unavailable Sophia Claderon Primary Care Unavailable Matthew Bucio II Attending [...] meloxicam; Translations: [MELOXICAM] Drug Allergy 6 [facility] Repository (20 sources) nickel; Translations: [NICKEL] Drug Allergy 6 Rash, Unknown [facility] Repository (4 sources) No Alert Propensity [...] 11:08am docusate sodium 50 mg / sennosides, shelter 8.6 mg oral tablet (20 sources) Start: 10-22-2023 End: 02-10-2024 take 2 tablets by mouth once daily Sennosides-Docusate Sodium Discontinued 2 TAB PO Daily 0 October 27, 2023 12:00am January 27, 2024 10:58am ergocalciferol 1.25 mg oral capsule (18 sources) Provitamin D2 Compound Start: 10-05-2023 End: 04-28-2024 Ergocalciferol (Vitamin D2) Discontinued 45503 UNIT PO .qfriday October 05, 2023 1:00am April 28, 2024 11:16am Start: 08-14-2023 take 1 capsule by vt uth every week Ergocalciferol 1.25 MG (14757 UT) 1 capsule Orally Once a Week [...] TO BED UPON DISCHARGE polyethylene glycol 3350 28471 mg powder for oral solution (15 sources) [...] Coronary arteriosclerosis; Translations: [Atherosclerotic heart disease of [place] coronary artery without angina pectoris] Onset: 02-14-2024 [...] sources) Taking high risk medication; Translations: [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 [facility] Work Phone: XR knee LT 2Von 04-28-2024 XR knee LT 2V [facility] [address] [place] [address] XRay Report Signed Patient: Tracy Juarez MR#: [id number] 3 : 1945 Acct:[id number] Age/Sex: 78 / F ADM Date: 04/28/24 Loc: [facility]: [facility] Attending Dr: Matthew Bucio II, MD Copies [...] Sean Alexander M.D.04/28/2024 3:02 PM Dictation Location: [place] [address] Transcribed By: [facility] 04/28/24 1502 Dictated By: Sean Alexander DO 04/28/24 1500 Signed By: 04/28/24 1502 Normal [facility] XR knee LT 2Von 03-09-2024 XR knee LT 2V [facility] [address] [place] [address] XRay Report Signed Patient: Tracy Juarez MR#: [id number] 3 : 1945 Acct:[id number] Age/Sex: 78 / F ADM Date: 03/09/24 Loc: [facility] Room: Type: [facility] Attending Dr: Matthew Bucio II, MD Copies [...] Sean Alexander M.D.03/09/2024 3:33 PM Dictation Location: [place] [address] Transcribed By: [facility] 03/09/24 1533 Dictated By: Sean Alexander DO 03/09/24 1532 Signed By: 03/09/24 1533 Normal [facility] CT femur LT wo conon 024 CT femur LT wo con [facility] [place] [address] CT Scan Report Signed Patient: Tracy Juarez MR#: [id number] 3 : 1945 Acct:[id number] Age/Sex: 78 / F ADM Date: 02/03/24 Loc: CT Room: Type: [facility] Attending Dr: Matthew Bucio II, MD [...] Gama Jr., Maureen02/03/2024 4:24 PM Dictation Location: [place] [address] Transcribed By: [facility] 02/03/24 1624 Dictated By: Brodie Gama Jr, DO 02/03/24 1616 Signed By: 02/03/24 1624 Normal [facility] XR knee LT 2Von 01-27-2024 XR knee LT 2V [facility] [address] [place] [id number] XRay Report Signed Patient: Tracy Juarez MR#: [id number] 3 : 1945 Acct:[id number] Age/Sex: 78 / F ADM Date: 01/27/24 Loc: [facility] Room: Type: [facility] Attending Dr: Matthew Bucio II, MD Copies to: Matthew Bucio MD Ordering Provider: Matthew Bucio MD Date of Service: 01/27/24 XR/XR knee LT 2V: Z47.1 - Aftercare following joint replacement surgery ([id number]) XR/XR tibia fibula LT 2V*: Z96.652 - Presence of left artificial knee joint ([id number]) XR/XR femur LT 2V*: Z47.1 - Aftercare [...] Leida Hubbard M.D.01/27/2024 4:02 PM Dictation Location: [place] [address] Transcribed By: MAGDIEL 01/27/24 1602 Dictated By: Leida Hubbard MD 01/27/24 1557 Signed By: 01/27/24 1602 Normal [facility] Alanine aminotransferase [En zymatic activity/volume] in Serum or PlasmaOrdered By: Ju Pettit on 12-25-2023 ALT [Catalytic activity/Vol] 11 U/L Normal 7-52 [facility] Comment on above: Performed By: #### B DOCKETING SPECIALIST, CK, CBC, TSH3, HS TROP, T4F, CMP ####[facility] [address] [place] [id number] [place] Albumin [Mass/volume] in Ser um or Plasma by Bromocresol green (BCG) dye binding methoOrdered By: Ju Pettit on 12-25-2023 Albumin BCG dye [Mass/Vol] 3.8 g/dL 3.5-5.7 [facility] Alkaline phosphatase [Enzyma tic activity/volume] in Serum or PlasmaOrdered By: Ju Pettit on 12-25-2023 ALP [Catalytic activity/Vol] 76 U/L Normal 34-104 [facility] Comment on above: Performed By: #### B DOCKETING SPECIALIST, CK, CBC, TSH3, HS TROP, T4F, CMP ####[facility] [address] [place] [address] [facility] Aspartate aminotransferase [ Enzymatic activity/volume] in Serum or PlasmaOrdered By: Ju Pettit on 12-25-2023 AST [Catalytic activity/Vol] 13 U/L Normal 13-39 [facility] Comment on above: Performed By: #### B DOCKETING SPECIALIST, CK, CBC, TSH3, HS TROP, T4F, CMP ####[facility] U[address] Automated basophil %Ordered By: Ju Pettit on 12-25-2023 Basophils/100 WBC (Bld) 0.8 % Normal . [facility] Comment on above: Performed By: #### B DOCKETING SPECIALIST, CK, CBC, TSH3, HS TROP, T4F, CMP #### [facility] [address] Automated basophil countOrde red By: Ju Pettit on 12-25-2023 Basophils (Bld) [#/Vol] 0.1 10*3/uL Normal 0.0-0.2 [facility] Comment on above: Result Comment: PERF ORMED BY: [place] [address] PATHOLOGIST CHIEF NUCLEAR MEDICINE TECHNOLOGIST BALJEET GONZALEZ M.D. Performed By: #### B DOCKETING SPECIALIST, CK, CBC, TSH3, HS TROP, T4F, CMP #### [address] Automated blood monocyte cou ntOrdered By: Ju Pettit on 12-25-2023 Monocytes (Bld) [#/Vol] 0.5 10*3/uL Normal 0.0-0.8 [facility] Comment on above: Performed By: #### B DOCKETING SPECIALIST, CK, CBC, TSH3, HS TROP, T4F, CMP #### [facility] [address] Automated eosinophil %Ordere d By: Ju Pettit on 12-25-2023 Eosinophils/100 WBC (Bld) 3.2 % Normal . [facility] Comment on above: Performed By: #### B DOCKETING SPECIALIST, CK, CBC, TSH3, HS TROP, T4F, CMP #### [address] Automated eosinophil countOr dered By: Ju Pettit on 05-10-2024 Eosinophils (Bld) [#/Vol] 0.2 10*3/uL Normal 0.0-0.45 [facility] Comment on above: Performed By: #### B DOCKETING SPECIALIST, CK, CBC, TSH3, HS TROP, T4F, CMP #### [address] Automated monocyte %Ordered By: Ju Pettit on 12-25-2023 Monocytes/100 WBC (Bld) 8.0 % Normal . [facility] Comment on above: Performed By: #### B DOCKETING SPECIALIST, CK, CBC, TSH3, HS TROP, T4F, CMP #### [address] Automated neutrophil %Ordere d By: Ju Pettit on 12-25-2023 Neutrophils/100 WBC (Bld) 65.0 % Normal . [facility] Comment on above: Performed By: #### B DOCKETING SPECIALIST, CK, CBC, TSH3, HS TROP, T4F, CMP #### [address] BNP ser/plasOrdered By: René Pettit on 12-25-2023 Natriuretic peptide B (Bld) [Mass/Vol] 248.0 pg/mL High 5-100 [facility] Comment on above: Result Comment: PERF ORMED BY: [place] [address] PATHOLOGIST CHIEF NUCLEAR MEDICINE TECHNOLOGIST BALJEET GONZALEZ M.D. Performed By: #### B DOCKETING SPECIALIST, CK, CBC, TSH3, HS TROP, T4F, CMP ####[address] Bilirubin.total [Mass/volume ] in Serum or PlasmaOrdered By: Ju Pettit on 12-25-2023 Bilirubin [Mass/Vol] 0.8 mg/dL Normal 0.3-1.0 [facility] Comment on above: Performed By: #### B DOCKETING SPECIALIST, CK, CBC, TSH3, HS TROP, T4F, CMP ####[address] Calcium [Mass/volume] in Ser um or PlasmaOrdered By: Ju Pettit on 12-25-2023 Calcium [Mass/Vol] 8.7 mg/dL Normal 8.6-10.3 [facility] Comment on above: Performed By: #### B DOCKETING SPECIALIST, CK, CBC, TSH3, HS TROP, T4F, CMP ####[facility] [place] [address] Carbon dioxide, total [Moles /volume] in Serum or PlasmaOrdered By: Ju Pettit on 12-25-2023 CO2 [Moles/Vol] 25.6 mmol/L Normal 21.0-31.[address] [facility] Comment on above: Performed By: #### B DOCKETING SPECIALIST, CK, CBC, TSH3, HS TROP, T4F, CMP ####[address] Chloride [Moles/volume] in S dave or PlasmaOrdered By: Ju Pettit on 12-25-2023 Chloride [Moles/Vol] 105 mmol/L Normal 98-107 [facility] Comment on above: Performed By: #### B DOCKETING SPECIALIST, CK, CBC, TSH3, HS TROP, T4F, CMP ####[address] Complete Blood Count Auto Di ffon 12-25-2023 Mean Corpuscular HGB Conc 33.5 g/dL Normal 32.0-35.0 [facility] Comment on above: Performed By: #### B DOCKETING SPECIALIST, CK, CBC, TSH3, HS TROP, T4F, CMP #### [facility] [address] Monocytes/100 WBC (Bld) 16.85 % Normal 0.00-20.00 [facility] Comment on above: Performed By: #### B DOCKETING SPECIALIST, CK, CBC, TSH3, HS TROP, T4F, CMP #### [facility] [address] NRBC% 0.2 /100{WBC} Normal 0-0.5 [facility] Comment on above: Performed By: #### B DOCKETING SPECIALIST, CK, CBC, TSH3, HS TROP, T4F, CMP #### [facility] [address] Comprehensive Metabolic Pane glynn 12-25-2023 Albumin [Mass/Vol] 3.8 g/dL Normal 3.5-5.7 [facility] Comment on above: Performed By: #### B DOCKETING SPECIALIST, CK, CBC, TSH3, HS TROP, T4F, CMP ####[facility] [place] [id number] [facility] Creatinine Clr Calc Pharmacy 60.06 Normal [facility] Comment on above: Performed By: #### B DOCKETING SPECIALIST, CK, CBC, TSH3, HS TROP, T4F, CMP ####[facility] [place] [address] [place] GFR/1.73 sq M.predicted MDRD (S/P/Bld) [Vol rate/Area] mL/min/{1.73_m2} Normal [facility] Comment on above: Performed By: #### B DOCKETING SPECIALIST, CK, CBC, TSH3, HS TROP, T4F, CMP ####[place] [address] [place] [phone] [facility] Creatine kinase [Enzymatic a ctivity/volume] in Serum or PlasmaOrdered By: Ju Pettit on 12-25-2023 CK [Catalytic activity/Vol] 90 U/L Normal 30-223 [facility] Comment on above: Performed By: #### B DOCKETING SPECIALIST, CK, CBC, TSH3, HS TROP, T4F, CMP ####[place] [id number] [facility] Creatinine [Mass/volume] in Serum or PlasmaOrdered By: Ju Pettit on 12-25-2023 Creatinine [Mass/Vol] 0.72 mg/dL Normal 0.60-1.20 [facility] Comment on above: Performed By: #### B DOCKETING SPECIALIST, CK, CBC, TSH3, HS TROP, T4F, CMP ####[place] [address] [place] [phone] [facility] ECG 12 lead ECGon 12-25-2023 ECG 12 lead ECG [facility] [place] [address] [place] [address] Electrocardiograph Report Signed Patient: Tracy Juarez MR#: [id number] 3 : 1945 Acct:[id number] Age/Sex: 78 / F ADM Date: 12/25/23 Loc: ER Room: Type: [facility] ER Attending Dr: Ordering Provider: Ju Pettit [...] By Ju Pettit MD 12/15 Normal [facility] Erythrocyte distribution wid th [Ratio] by Automated countOrdered By: Ju Pettit on 12-25-2023 Erythrocyte distribution width (RBC) [Ratio] 16.2 % High 11.9-15.3 [facility] Comment on above: Performed By: #### B DOCKETING SPECIALIST, CK, CBC, TSH3, HS TROP, T4F, CMP #### [facility] [address] [place] [address] [place] Erythrocytes [#/volume] in B lood by Automated countOrdered By: Ju Pettit on 12-25-2023 RBC (Bld) [#/Vol] 4.67 10*6/uL Normal 3.60-5.00 [facility] Comment on above: Performed By: #### B DOCKETING SPECIALIST, CK, CBC, TSH3, HS TROP, T4F, CMP #### [facility] [address] [place] [address] [place] Glucose [Mass/volume] in Ser um or PlasmaOrdered By: Ju Pettit on 12-25-2023 Glucose [Mass/Vol] 154 mg/dL High 70-100 [facility] Comment on above: ADA recommended refe rence rangeRandom Glucose Reference Range is dependent on time and content of last meal. Glucose of more than 200 mg/dL in a nonstressed, ambulatory subject supports the diagnosis of Diabetes Mellitus. Result Comment: [place] om Glucose Reference Range is dependent on time and content of last meal. Glucose of more than 200 mg/dL in a nonstressed, ambulatory subject supports the diagnosis of Diabetes Mellitus. ADA recommended reference range Performed By: #### B DOCKETING SPECIALIST, CK, CBC, TSH3, HS TROP, T4F, CMP ####[facility] Q[address] Hematocrit [Volume Fraction] of Blood by Automated countOrdered By: Ju Pettit on 12-25-2023 Hematocrit (Bld) [Volume fraction] 36.4 % Normal 34.0-46.4 [facility] Comment on above: Performed By: #### B DOCKETING SPECIALIST, CK, CBC, TSH3, HS TROP, T4F, CMP #### [facility] [address] [place] [address] [place] Hemoglobin [Mass/volume] in BloodOrdered By: Ju Pettit on 12-25-2023 Hemoglobin (Bld) [Mass/Vol] 12.2 g/dL Normal 11.8-15.4 [facility] Comment on above: Performed By: #### B DOCKETING SPECIALIST, CK, CBC, TSH3, HS TROP, T4F, CMP #### [facility] [address] [place] [address] [place] Leukocytes [#/volume] correc robby for nucleated erythrocytes in Blood by Automated counOrdered By: Ju Pettit on 12-25-2023 WBC corrected for nucl RBC Auto (Bld) [#/Vol] 6.2 10*3/uL 3.8-11.6 [facility] Leukocytes [#/volume] in Blo od by Automated countOrdered By: Ju Pettit on 12-25-2023 WBC (Bld) [#/Vol] 6.2 10*3/uL Normal 3.8-11.6 [facility] Comment on above: Performed By: #### B DOCKETING SPECIALIST, CK, CBC, TSH3, HS TROP, T4F, CMP #### [facility] [address] [place] [address] Lymphocytes [#/volume] in Bl ood by Automated countOrdered By: Ju Pettit on 12-25-2023 Lymphocytes (Bld) [#/Vol] 1.4 10*3/uL Normal 1.00-4.8 [facility] Comment on above: Performed By: #### B DOCKETING SPECIALIST, CK, CBC, TSH3, HS TROP, T4F, CMP #### [address] Lymphocytes/100 leukocytes i n Blood by Automated countOrdered By: Ju Pettit on 12-25-2023 Lymphocytes/100 WBC (Bld) 23.0 % Normal . [facility] Comment on above: Performed By: #### B DOCKETING SPECIALIST, CK, CBC, TSH3, HS TROP, T4F, CMP #### [address] MCH [Entitic mass] by Automa robby countOrdered By: Ju Pettit on 12-25-2023 MCH (RBC) [Entitic mass] 26.1 pg Normal 24.7-34.3 [facility] Comment on above: Performed By: #### B DOCKETING SPECIALIST, CK, CBC, TSH3, HS TROP, T4F, CMP #### [address] MCHC Auto (RBC) [Mass/Vol]Or dered By: Ju Pettit on 12-25-2023 MCHC (RBC) [Mass/Vol] 33.5 g/dL 32.0-35.0 [facility] MCV [Entitic volume] by Auto mated countOrdered By: Ju Pettit on 12-25-2023 MCV (RBC) [Entitic vol] 77.9 fL Low 80-100 [facility] Comment on above: Performed By: #### B DOCKETING SPECIALIST, CK, CBC, TSH3, HS TROP, T4F, CMP #### [address] Monocyte distribution width [Entitic volume] in Blood by AutomatedOrdered By: Ju Pettit on 12-25-2023 Monocyte distribution width Auto (Bld) [Entitic vol] 16.85 % 0.00-20.00 [facility] Neutrophils [#/volume] in Bl ood by Automated countOrdered By: Ju Pettit on 12-25-2023 Neutrophils (Bld) [#/Vol] 4.0 10*3/uL Normal 1.8-7.7 [facility] Comment on above: Performed By: #### B DOCKETING SPECIALIST, CK, CBC, TSH3, HS TROP, T4F, CMP #### [facility] [address] [place] [address] No Panel InformationOrdered By: Ju Pettit on 12-25-2023 Estimated GFR (CKD-EPI) > 60.0 mL/Min [facility] Creatinine Clearance (Chem 60.06 [facility] Nucleated erythrocytes [Pres ence] in Blood by Automated countOrdered By: Ju Pettit on 12-25-2023 Nucleated RBC Auto Ql (Bld) 0.2 /100{WBC} 0-0.5 [facility] Platelet mean volume [Entiti c volume] in Blood by Automated countOrdered By: Ju Pettit on 12-25-2023 Platelet mean volume (Bld) [Entitic vol] 6.8 fL Normal 6.3-10.7 [facility] Comment on above: Performed By: #### B DOCKETING SPECIALIST, CK, CBC, TSH3, HS TROP, T4F, CMP #### [facility] [address] [place] [address] Platelets [#/volume] in Bloo d by Automated countOrdered By: Ju Pettit on 12-25-2023 Platelets (Bld) [#/Vol] 190 10*3/uL Normal 150-450 [facility] Comment on above: Performed By: #### B DOCKETING SPECIALIST, CK, CBC, TSH3, HS TROP, T4F, CMP #### [facility] [address] [place] [address] Potassium [Moles/volume] in Serum or PlasmaOrdered By: Ju Pettit on 12-25-2023 Potassium [Moles/Vol] 3.6 mmol/L Normal 3.5-5.1 [facility] Comment on above: Performed By: #### B DOCKETING SPECIALIST, CK, CBC, TSH3, HS TROP, T4F, CMP ####[place] [address] Protein [Mass/volume] in Ser um or PlasmaOrdered By: Ju Pettit on 12-25-2023 Protein [Mass/Vol] 6.2 g/dL Low 6.4-8.9 [facility] Comment on above: Performed By: #### B DOCKETING SPECIALIST, CK, CBC, TSH3, HS TROP, T4F, CMP ####[address] Serum globulin measurement b y calculation (mass/volume)Ordered By: Ju Pettit on 12-25-2023 Globulin (S) [Mass/Vol] 2.4 g/dL [facility] Comment on above: Performed By: #### B DOCKETING SPECIALIST, CK, CBC, TSH3, HS TROP, T4F, CMP ####[address] Serum or plasma albumin/glob ulin mass ratioOrdered By: Ju Pettit on 12-25-2023 Albumin/Globulin [Mass ratio] 1.6 {ratio} [facility] Comment on above: Performed By: #### B DOCKETING SPECIALIST, CK, CBC, TSH3, HS TROP, T4F, CMP ####[address] Serum or plasma anion gap de terminationOrdered By: Ju Pettit on 12-25-2023 Anion gap [Moles/Vol] 16.0 mmol/L High 6.0-15.[address] [facility] Comment on above: Performed By: #### B DOCKETING SPECIALIST, CK, CBC, TSH3, HS TROP, T4F, CMP ####[address] Sodium [Moles/volume] in Ser um or PlasmaOrdered By: Ju Pettit on 12-25-2023 Sodium [Moles/Vol] 143 mmol/L Normal 136-145 [facility] Comment on above: Performed By: #### B DOCKETING SPECIALIST, CK, CBC, TSH3, HS TROP, T4F, CMP ####[place] [address] [place] [address] [facility] Thyrotropin [Units/volume] i n Serum or PlasmaOrdered By: Ju Pettit on 12-25-2023 TSH Qn 0.31 m[IU]/L Low 0.45-5.33 [facility] Comment on above: Result Comment: PERF ORMED BY: [place] [address] PATHOLOGIST CHIEF NUCLEAR MEDICINE TECHNOLOGIST BALJEET GONZALEZ M.D. Performed By: #### B DOCKETING SPECIALIST, CK, CBC, TSH3, HS TROP, T4F, CMP ####[place] [id number] [facility] Thyroxine (T4) free [Mass/vo lume] in Serum or PlasmaOrdered By: Ju Pettit on 12-25-2023 Free T4 [Mass/Vol] 0.71 ng/dL Normal 0.61-1.12 [facility] Comment on above: Performed By: #### B DOCKETING SPECIALIST, CK, CBC, TSH3, HS TROP, T4F, CMP ####[place] [id number] [facility] Troponin I High Sensitivityo n 12-25-2023 Troponin I High Sensitivity 4.0 pg/mL Normal 0.0-15.0 [facility] Comment on above: Result Comment: PERF ORMED BY: [facility] [address] [place] [address] PATHOLOGIST CHIEF NUCLEAR MEDICINE TECHNOLOGIST BALJEET GONZALEZ M.D. Performed By: #### B DOCKETING SPECIALIST, CK, CBC, TSH3, HS TROP, T4F, CMP ####[place] [id number] [facility] Troponin I.cardiac [Mass/vol ume] in Serum or Plasma by Detection limit <= 0.01 ng/Ordered By: Ju Pettit on 12-25-2023 Troponin I.cardiac DL <= 0.01 ng/mL [Mass/Vol] 4.0 pg/mL 0.0-15.0 [facility] Urea nitrogen [Mass/volume] in Serum or PlasmaOrdered By: Ju Pettit on 12-25-2023 Urea nitrogen [Mass/Vol] 10 mg/dL Normal 7-25 [facility] Comment on above: Performed By: #### B DOCKETING SPECIALIST, CK, CBC, TSH3, HS TROP, T4F, CMP ####[facility] [address] [place] [id number] [facility] XR chest 1V portableon 12-24 XR chest 1V portable [facility] [place] [address] [place] [address] XRay Report Signed Patient: Tracy Juarez MR#: [id number] 3 : 1945 Acct:[id number] Age/Sex: 78 / F ADM Date: 12/25/23 Loc: ER Room: Type: [facility] ER Attending Dr: Copies to: Ju Pettit [...] Topher Martini M.D.12/25/2023 2:29 PM Dictation Location: [place] [address] Transcribed By: [facility] 12/25/23 142 Dictated By: Topher Martini II, MD 12/25/231427 Signed By: 12/25/23 142 Normal [facility] Anisocytosis [Presence] in B lood by Light microscopyOrdered By: Julianne Pang on 12-18-2023 Anisocytosis Ql (Bld) Marked Normal [facility] Comment on above: Performed By: #### D IFF CBC #### [facility] [address] [place] [address] [place] Basophils Auto (Bld) [#/Vol] Ordered By: Julianne Pang on 12-18-2023 Basophils (Bld) [#/Vol] N/A [facility] Basophils/100 WBC Auto (Bld) Ordered By: Julianne Pang on 12-18-2023 Basophils/100 WBC (Bld) N/A [facility] Diff and CBCon 12-18-2023 Mean Corpuscular HGB Conc 34.3 g/dL Normal 32.0-35.0 [facility] Comment on above: Performed By: #### D IFF CBC #### [place] [address] [place] Metamyelocytes 1 % High 0-0 [facility] Comment on above: Performed By: #### D IFF CBC #### [place] [address] [place] Microcytosis Marked Normal [facility] Comment on above: Performed By: #### D IFF CBC #### [place] [address] [place] Myelocytes 1 % High 0-0 [facility] Comment on above: Performed By: #### D IFF CBC #### [place] [address] [place] Ovalocytes Slight Normal [facility] Comment on above: Performed By: #### D IFF CBC #### [place] [address] [place] Platelet Estimate Normal Normal Normal [facility] Comment on above: Performed By: #### D IFF CBC #### [address] Platelet Morphology Normal Normal Normal [facility] Comment on above: Result Comment: PERF ORMED BY: [place] [address] PATHOLOGIST CHIEF NUCLEAR MEDICINE TECHNOLOGIST BALJEET GONZALEZ M.D. Performed By: #### D IFF CBC #### [address] Poikilocytosis Slight Normal [facility] Comment on above: Performed By: #### D IFF CBC #### [address] Eosinophils Auto (Bld) [#/Vo l]Ordered By: Julianne Pang on 12-18-2023 Eosinophils (Bld) [#/Vol] N/A [facility] Eosinophils/100 WBC Auto (Bl d)Ordered By: Julianne Pang on 12-18-2023 Eosinophils/100 WBC (Bld) N/A [facility] Eosinophils/100 leukocytes i n Blood by Manual countOrdered By: Julianne Pang on 12-18-2023 Eosinophils/100 WBC (Bld) 5 % High 1-3 [facility] Comment on above: Performed By: #### D IFF CBC #### [address] Erythrocyte distribution wid th [Ratio] by Automated countOrdered By: Julianne Pang on 12-18-2023 Erythrocyte distribution width (RBC) [Ratio] 15.9 % High 11.9-15.3 [facility] Comment on above: Performed By: #### D IFF CBC #### [address] Erythrocytes [#/volume] in B lood by Automated countOrdered By: Julianne Pang on 12-18-2023 RBC (Bld) [#/Vol] 4.63 10*6/uL Normal 3.60-5.00 [facility] Comment on above: Performed By: #### D IFF CBC #### [address] Hematocrit [Volume Fraction] of Blood by Automated countOrdered By: Julianne Pang on 12-18-2023 Hematocrit (Bld) [Volume fraction] 36.2 % Normal 34.0-46.4 [facility] Comment on above: Performed By: #### D IFF CBC #### [facility] [address] Hemoglobin [Mass/volume] in BloodOrdered By: Julianne Pang on 12-18-2023 Hemoglobin (Bld) [Mass/Vol] 12.4 g/dL Normal 11.8-15.4 [facility] Comment on above: Performed By: #### D IFF CBC #### [facility] [address] Leukocytes [#/volume] correc robby for nucleated erythrocytes in Blood by Automated counOrdered By: Julianne Pang on 12-18-2023 WBC corrected for nucl RBC Auto (Bld) [#/Vol] 6.3 10*3/uL 3.8-11.6 [facility] Leukocytes [#/volume] in Blo od by Automated countOrdered By: Julianne Pang on 12-18-2023 WBC (Bld) [#/Vol] 6.3 10*3/uL Normal 3.8-11.6 [facility] Comment on above: Performed By: #### D IFF CBC #### [address] Lymphocytes Auto (Bld) [#/Vo l]Ordered By: Julianne Pang on 12-18-2023 Lymphocytes (Bld) [#/Vol] N/A [facility] Lymphocytes/100 WBC Auto (Bl d)Ordered By: Julianne Pang on 12-18-2023 Lymphocytes/100 WBC (Bld) N/A [facility] Lymphocytes/100 leukocytes i n Blood by Manual countOrdered By: Julianne Pang on 12-18-2023 Lymphocytes/100 WBC (Bld) 20 % Normal 18-42 [facility] Comment on above: Performed By: #### D IFF CBC #### [facility] [address] [place] [address] [place] MCH [Entitic mass] by Automa robby countOrdered By: Julianne Pang on 12-18-2023 MCH (RBC) [Entitic mass] 26.8 pg Normal 24.7-34.3 [facility] Comment on above: Performed By: #### D IFF CBC #### [facility] [address] MCHC Auto (RBC) [Mass/Vol]Or dered By: Julianne Pang on 12-18-2023 MCHC (RBC) [Mass/Vol] 34.3 g/dL 32.0-35.0 [facility] MCV [Entitic volume] by Auto mated countOrdered By: Julianne Pang on 12-18-2023 MCV (RBC) [Entitic vol] 78.2 fL Low 80-100 [facility] Comment on above: Performed By: #### D IFF CBC #### [facility] [address] [place] [address] Manual blood segmented neutr ophils/100 leukocytesOrdered By: Julianne Pang on 12-18-2023 Segmented neutrophils/100 WBC (Bld) 64 % Normal 50-70 [facility] Comment on above: Performed By: #### D IFF CBC #### [address] Metamyelocytes/100 WBC Manua l cnt (Bld)Ordered By: Julianne Pang on 12-18-2023 Metamyelocytes/100 WBC (Bld) 1 % High 0-0 [facility] Microcytes LM Ql (Bld)Ordere d By: Julianne Pang on 12-18-2023 Microcytes Ql (Bld) Marked [facility] Monocytes Auto (Bld) [#/Vol] Ordered By: Julianne Pang on 12-18-2023 Monocytes (Bld) [#/Vol] N/A [facility] Monocytes/100 WBC Auto (Bld) Ordered By: Julianne Pang on 12-18-2023 Monocytes/100 WBC (Bld) N/A [facility] Monocytes/100 leukocytes in Blood by Manual countOrdered By: Julianne Pang on 12-18-2023 Monocytes/100 WBC (Bld) 9 % Normal 2-11 [facility] Comment on above: Performed By: #### D IFF CBC #### [facility] [address] [place] [address] Myelocytes/100 WBC Manual cn t (Bld)Ordered By: Julianne Pang on 12-18-2023 Myelocytes/100 WBC (Bld) 1 % High 0-0 [facility] Neutrophils Auto (Bld) [#/Vo l]Ordered By: Julianne Pang on 12-18-2023 Neutrophils (Bld) [#/Vol] N/A [facility] Neutrophils/100 WBC Auto (Bl d)Ordered By: Julianne Pang on 12-18-2023 Neutrophils/100 WBC (Bld) N/A [facility] Nucleated erythrocytes [Pres ence] in Blood by Automated countOrdered By: Julianne Pang on 12-18-2023 Nucleated RBC Auto Ql (Bld) N/A [facility] Ovalocyte detectionOrdered B y: Julianne Pang on 12-18-2023 Ovalocytes LM Ql (Bld) Slight [facility] Platelet adequacy [Presence] in Blood by Light microscopyOrdered By: Julianne Pang on 12-18-2023 Platelets LM Ql (Bld) Normal Normal [facility] Platelet mean volume [Entiti c volume] in Blood by Automated countOrdered By: Julianne Pang on 12-18-2023 Platelet mean volume (Bld) [Entitic vol] 7.2 fL Normal 6.3-10.7 [facility] Comment on above: Performed By: #### D IFF CBC #### [facility] [address] Platelet morphology finding [Identifier] in BloodOrdered By: Julianne Pang on 12-18-2023 Platelet morphology finding Nom (Bld) Normal Normal [facility] Platelets [#/volume] in Bloo d by Automated countOrdered By: Julianne Pang on 12-18-2023 Platelets (Bld) [#/Vol] 196 10*3/uL Normal 150-450 [facility] Comment on above: Performed By: #### D IFF CBC #### [facility] [address] [place] [address] [place] Poikilocytosis [Presence] in Blood by Light microscopyOrdered By: Julianne Pang on 12-18-2023 Poikilocytosis LM Ql (Bld) Slight [facility] RBC morphologyOrdered By: Babak Pang on 12-18-2023 RBC morphology finding Nom (Bld) N/A [facility] ECG 12 [place] 12-07-2023 ECG revealed normal sinus rhythm with first-degree AV block with PVCs, 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 [facility] Work Phone: XR knee LT 3V - NOT FOR ER U [place] 12-04-2023 XR knee LT 3V - NOT FOR ER USE [facility] [address] [place] [address] XRay Report Signed Patient: Tracy Juarez MR#: [id number] 3 : 1945 Acct:[id number] Age/Sex: 77 / F ADM Date: 12/04/23 Loc: [facility] Room: Type: [facility] Attending Dr: Matthew Bucio II, MD [...] Gama Jr., D.ONomi12/04/2023 11:05 AM Dictation Location: [place] [address] Transcribed By: [facility] 12/04/23 1105 Dictated By: Brodie Gama Jr, DO 12/04/23 110 Signed By: 12/04/23 1105 Normal [facility] Automated basophil %Ordered By: Matthew Bucio on 10-28-2023 Basophils/100 WBC (Bld) 0.3 % Normal . [facility] Comment on above: Performed By: #### C BC #### [facility] [address] Automated basophil countOrde red By: Matthew Bucio on 10-28-2023 Basophils (Bld) [#/Vol] 0.0 10*3/uL Normal 0.0-0.2 [facility] Comment on above: Result Comment: PERF ORMED BY: [place] [address] PATHOLOGIST CHIEF NUCLEAR MEDICINE TECHNOLOGIST BALJEET GONZALEZ M.D. Performed By: #### C BC #### [address] Automated blood monocyte cou ntOrdered By: Matthew Bucio on 10-28-2023 Monocytes (Bld) [#/Vol] 1.4 10*3/uL High 0.0-0.8 [facility] Comment on above: Performed By: #### C BC #### [address] Automated eosinophil %Ordere d By: Matthew Bucio on 10-28-2023 Eosinophils/100 WBC (Bld) 0.4 % Normal . [facility] Comment on above: Performed By: #### C BC #### [address] Automated eosinophil countOr dered By: Matthew Bucio on 10-28-2023 Eosinophils (Bld) [#/Vol] 0.0 10*3/uL Normal 0.0-0.45 [facility] Comment on above: Performed By: #### C BC #### [address] Automated monocyte %Ordered By: Matthew Bucio on 10-28-2023 Monocytes/100 WBC (Bld) 15.1 % Normal . [facility] Comment on above: Performed By: #### C BC #### [address] Automated neutrophil %Ordere d By: Matthew Bucio on 10-28-2023 Neutrophils/100 WBC (Bld) 74.0 % Normal . [facility] Comment on above: Performed By: #### C BC #### [address] Complete Blood Count Auto Di ffon 10-28-2023 Mean Corpuscular HGB Conc 33.7 g/dL Normal 32.0-35.0 [facility] Comment on above: Performed By: #### C BC #### [address] NRBC% 0.0 /100{WBC} Normal 0-0.5 [facility] Comment on above: Performed By: #### C BC #### [address] Erythrocyte distribution wid th [Ratio] by Automated countOrdered By: Matthew Bucio on 10-28-2023 Erythrocyte distribution width (RBC) [Ratio] 15.1 % Normal 11.9-15.3 [facility] Comment on above: Performed By: #### C BC #### [address] Erythrocytes [#/volume] in B lood by Automated countOrdered By: Matthew Bucio on 10-28-2023 RBC (Bld) [#/Vol] 3.64 10*6/uL Normal 3.60-5.00 [facility] Comment on above: Performed By: #### C BC #### [address] Hematocrit [Volume Fraction] of Blood by Automated countOrdered By: Matthew Bucio on 10-28-2023 Hematocrit (Bld) [Volume fraction] 27.8 % Low 34.0-46.4 [facility] Comment on above: Performed By: #### C BC #### [place] [address] [place] Hemoglobin [Mass/volume] in BloodOrdered By: Matthew Bucio on 10-28-2023 Hemoglobin (Bld) [Mass/Vol] 9.4 g/dL Low 11.8-15.4 [facility] Comment on above: Performed By: #### C BC #### [address] Leukocytes [#/volume] correc robby for nucleated erythrocytes in Blood by Automated counOrdered By: Matthew Bucio on 10-28-2023 WBC corrected for nucl RBC Auto (Bld) [#/Vol] 8.9 10*3/uL 3.8-11.6 [facility] Leukocytes [#/volume] in Blo od by Automated countOrdered By: Matthew Bucio on 10-28-2023 WBC (Bld) [#/Vol] 8.9 10*3/uL Normal 3.8-11.6 [facility] Comment on above: Performed By: #### C BC #### [address] Lymphocytes [#/volume] in Bl ood by Automated countOrdered By: Matthew Bucio on 10-28-2023 Lymphocytes (Bld) [#/Vol] 0.9 10*3/uL Low 1.00-4.8 [facility] Comment on above: Performed By: #### C BC #### [address] Lymphocytes/100 leukocytes i n Blood by Automated countOrdered By: Matthew Bucio on 10-28-2023 Lymphocytes/100 WBC (Bld) 10.2 % Normal . [facility] Comment on above: Performed By: #### C BC #### [address] MCH [Entitic mass] by Automa robby countOrdered By: Matthew Bucio on 10-28-2023 MCH (RBC) [Entitic mass] 25.8 pg Normal 24.7-34.3 [facility] Comment on above: Performed By: #### C BC #### [address] MCHC Auto (RBC) [Mass/Vol]Or dered By: Matthew Bucio on 10-28-2023 MCHC (RBC) [Mass/Vol] 33.7 g/dL 32.0-35.0 [facility] MCV [Entitic volume] by Auto mated countOrdered By: Matthew Bucio on 10-28-2023 MCV (RBC) [Entitic vol] 76.6 fL Low 80-100 [facility] Comment on above: Performed By: #### C BC #### [address] Neutrophils [#/volume] in Bl ood by Automated countOrdered By: Matthew Bucio on 10-28-2023 Neutrophils (Bld) [#/Vol] 6.6 10*3/uL Normal 1.8-7.7 [facility] Comment on above: Performed By: #### C BC #### [address] Nucleated erythrocytes [Pres ence] in Blood by Automated countOrdered By: Matthew Bucio on 10-28-2023 Nucleated RBC Auto Ql (Bld) 0.0 /100{WBC} 0-0.5 [facility] Platelet mean volume [Entiti c volume] in Blood by Automated countOrdered By: Matthew Bucio on 10-28-2023 Platelet mean volume (Bld) [Entitic vol] 7.3 fL Normal 6.3-10.7 [facility] Comment on above: Performed By: #### C BC #### [address] Platelets [#/volume] in Bloo d by Automated countOrdered By: Matthew Bucio on 10-28-2023 Platelets (Bld) [#/Vol] 146 10*3/uL Low 150-450 [facility] Comment on above: Performed By: #### C BC #### [address] Basic Metabolic Panelon 10-15 Creatinine Clr Calc Pharmacy 60.88 Normal [facility] Comment on above: Result Comment: PERF ORMED BY: [place] [address] PATHOLOGIST CHIEF NUCLEAR MEDICINE TECHNOLOGIST BALJEET GONZALEZ M.D. Performed By: #### B MP ####[address] GFR/1.73 sq M.predicted MDRD (S/P/Bld) [Vol rate/Area] mL/min/{1.73_m2} Normal [facility] Comment on above: Performed By: #### B MP ####[place] [id number] [facility] Calcium [Mass/volume] in Ser um or PlasmaOrdered By: Matthew Bucio on 10-27-2023 Calcium [Mass/Vol] 7.8 mg/dL Low 8.6-10.3 [facility] Comment on above: Performed By: #### B MP ####[address] Carbon dioxide, total [Moles /volume] in Serum or PlasmaOrdered By: Matthew Bucio on 10-27-2023 CO2 [Moles/Vol] 25.5 mmol/L Normal 21.0-31.[address] [facility] Comment on above: Performed By: #### B MP ####[address] Chloride [Moles/volume] in S dave or PlasmaOrdered By: Matthew Bucio on 10-27-2023 Chloride [Moles/Vol] 106 mmol/L Normal 98-107 [facility] Comment on above: Performed By: #### B MP ####[place] [id number] [facility] Complete Blood Count Auto Di ffon 10-27-2023 Basophils (Bld) [#/Vol] 0.0 10*3/uL Normal 0.0-0.2 [facility] Comment on above: Result Comment: PERF ORMED BY: [facility] [address] [place] [place] [id number] PATHOLOGIST CHIEF NUCLEAR MEDICINE TECHNOLOGIST BALJEET GONZALEZ M.D. Performed By: #### C BC ####[place] [id number] [facility] Basophils/100 WBC (Bld) 0.3 % Normal . [facility] Comment on above: Performed By: #### C BC ####[address] Eosinophils (Bld) [#/Vol] 0.0 10*3/uL Normal 0.0-0.45 [facility] Comment on above: Performed By: #### C BC ####[address] Eosinophils/100 WBC (Bld) 0.3 % Normal . [facility] Comment on above: Performed By: #### C BC ####[address] Erythrocyte distribution width (RBC) [Ratio] 15.3 % Normal 11.9-15.3 [facility] Comment on above: Performed By: #### C BC ####[address] Hematocrit (Bld) [Volume fraction] 30.5 % Low 34.0-46.4 [facility] Comment on above: Performed By: #### C BC ####[address] Hemoglobin (Bld) [Mass/Vol] 10.2 g/dL Low 11.8-15.4 [facility] Comment on above: Performed By: #### C BC ####[address] Lymphocytes (Bld) [#/Vol] 0.9 10*3/uL Low 1.00-4.8 [facility] Comment on above: Performed By: #### C BC ####[address] Lymphocytes/100 WBC (Bld) 14.0 % Normal . [facility] Comment on above: Performed By: #### C BC ####[address] MCH (RBC) [Entitic mass] 25.9 pg Normal 24.7-34.3 [facility] Comment on above: Performed By: #### C BC ####[address] MCV (RBC) [Entitic vol] 77.0 fL Low 80-100 [facility] Comment on above: Performed By: #### C BC ####[place] [id number] [facility] Mean Corpuscular HGB Conc 33.6 g/dL Normal 32.0-35.0 [facility] Comment on above: Performed By: #### C BC ####[address] Monocytes (Bld) [#/Vol] 0.9 10*3/uL High 0.0-0.8 [facility] Comment on above: Performed By: #### C BC ####[place] [id number] [facility] Monocytes/100 WBC (Bld) 13.6 % Normal . [facility] Comment on above: Performed By: #### C BC ####[address] Neutrophils (Bld) [#/Vol] 4.8 10*3/uL Normal 1.8-7.7 [facility] Comment on above: Performed By: #### C BC ####[place] [id number] [facility] Neutrophils/100 WBC (Bld) 71.8 % Normal . [facility] Comment on above: Performed By: #### C BC ####[place] [id number] [facility] NRBC% 0.0 /100{WBC} Normal 0-0.5 [facility] Comment on above: Performed By: #### C BC ####[place] [id number] [facility] Platelet mean volume (Bld) [Entitic vol] 7.3 fL Normal 6.3-10.[address] [facility] Comment on above: Performed By: #### C BC ####[place] [id number] [facility] Platelets (Bld) [#/Vol] 155 10*3/uL Normal 150-450 [facility] Comment on above: Performed By: #### C BC ####[place] [id number] [place] [id number] [facility] RBC (Bld) [#/Vol] 3.96 10*6/uL Normal 3.60-5.[address] [facility] Comment on above: Performed By: #### C BC ####[place] [id number] [place] [id number] [facility] WBC (Bld) [#/Vol] 6.7 10*3/uL Normal 3.8-11.6 [facility] Comment on above: Performed By: #### C BC ####[place] [id number] [facility] Creatinine [Mass/volume] in Serum or PlasmaOrdered By: Matthew Bucio on 10-27-2023 Creatinine [Mass/Vol] 0.65 mg/dL Normal 0.60-1.20 [facility] Comment on above: Performed By: #### B MP ####[place] [id number] [facility] Glucose [Mass/volume] in Ser um or PlasmaOrdered By: Matthew Bucio on 10-27-2023 Glucose [Mass/Vol] 201 mg/dL High 70-100 [facility] Comment on above: ADA recommended refe rence rangeRandom Glucose Reference Range is dependent on time and content of last meal. Glucose of more than 200 mg/dL in a nonstressed, ambulatory subject supports the diagnosis of Diabetes Mellitus. Result Comment: [place] om Glucose Reference Range is dependent on time and content of last meal. Glucose of more than 200 mg/dL in a nonstressed, ambulatory subject supports the diagnosis of Diabetes Mellitus. ADA recommended reference range Performed By: #### B MP ####[address] No Panel InformationOrdered By: Matthew Bucio on 10-27-2023 Estimated GFR (CKD-EPI) > 60.0 mL/Min [facility] Creatinine Clearance (Chem 60.88 [facility] Potassium [Moles/volume] in Serum or PlasmaOrdered By: Matthew Bucio on 10-27-2023 Potassium [Moles/Vol] 3.2 mmol/L Low 3.5-5.1 [facility] Comment on above: Performed By: #### B MP ####[address] Serum or plasma anion gap de terminationOrdered By: Matthew Bucio on 10-27-2023 Anion gap [Moles/Vol] 9.7 mmol/L Normal 6.0-15.0 [facility] Comment on above: Performed By: #### B MP ####[address] Sodium [Moles/volume] in Ser um or PlasmaOrdered By: Matthew Bucio on 10-27-2023 Sodium [Moles/Vol] 138 mmol/L Normal 136-145 [facility] Comment on above: Performed By: #### B MP ####[address] Urea nitrogen [Mass/volume] in Serum or PlasmaOrdered By: Matthew Bucio on 10-27-2023 Urea nitrogen [Mass/Vol] 17 mg/dL Normal 7-25 [facility] Comment on above: Performed By: #### B MP ####[address] Basic Metabolic Panelon 10-15 Anion gap [Moles/Vol] 8.2 mmol/L Normal 6.0-15.0 [facility] Comment on above: Performed By: #### B MP #### [address] Calcium [Mass/Vol] 7.8 mg/dL Low 8.6-10.3 [facility] Comment on above: Performed By: #### B MP #### [address] Chloride [Moles/Vol] 110 mmol/L High 98-107 [facility] Comment on above: Performed By: #### B MP #### [place] [address] [place] CO2 [Moles/Vol] 25.5 mmol/L Normal 21.0-31.0 [facility] [facility] Comment on above: Performed By: #### B MP #### [address] Creatinine [Mass/Vol] 0.61 mg/dL Normal 0.60-1.20 [facility] Comment on above: Performed By: #### B MP #### [place] [address] [place] Creatinine Clr Calc Pharmacy 60.74 Normal [facility] Comment on above: Result Comment: PERF ORMED BY: [place] [address] PATHOLOGIST CHIEF NUCLEAR MEDICINE TECHNOLOGIST BALJEET GONZALEZ M.D. Performed By: #### B MP #### [place] [address] [place] GFR/1.73 sq M.predicted MDRD (S/P/Bld) [Vol rate/Area] mL/min/{1.73_m2} Normal [facility] Comment on above: Performed By: #### B MP #### [address] Glucose [Mass/Vol] 118 mg/dL High 70-100 [facility] Comment on above: Result Comment: [place] Glucose Reference Range is dependent on time and content of last meal. Glucose of more than 200 mg/dL in a nonstressed, ambulatory subject supports the diagnosis of Diabetes Mellitus. ADA recommended reference range Performed By: #### B MP #### [place] [address] [place] Potassium [Moles/Vol] 3.7 mmol/L Normal 3.5-5.1 [facility] Comment on above: Performed By: #### B MP #### [place] [address] [place] Sodium [Moles/Vol] 140 mmol/L Normal 136-145 [facility] Comment on above: Performed By: #### B MP #### [place] [address] [place] Urea nitrogen [Mass/Vol] 14 mg/dL Normal 7-25 [facility] Comment on above: Performed By: #### B #### [facility] [address] [place] 10-26-2023 L Specimen: [id number] Received: 10/26/23 Status: JOHNATHAN Ribeiro Num: [id number] Spec Type: Surgical Subm Dr: Matthew Bucio MD Tissues: A Joint/Knee (LT KNEE) Procedures: HE, Gross/Micro L4, Decalcification Age/ Patient Sex Location Account Attending Physician LarryTracy F 77/F 4N [id number] Matthew Bucio MD SPEC NUM: [id number] RECD: 10/26/23 STATUS: JOHNATHAN RIBEIRO NUM: [id number] OFELIA: 10/26/23 DR: Matthew Bucio MD ENTERED: 10/26/[address] [facility] DR: SPEC TYPE: Surgical DEPT: [...] is taken. Gross examination only. CPT Codes 03407 Gross Photo Specimen: [id number] Received: 10/26/23-1111 Status: JOHNATHAN Ribeiro Num: [id number] Spec Type: Surgical Subm Dr: Matthew Bucio MD Tissues: A Joint/Knee (LT KNEE) Procedures: HE, Gross/Micro L4, Decalcification Patient: Larry,Александрdeisy González [id number] (Continued) Signed (signature on file) Magda Dale MD 10/27/23 1618 Normal [facility] Type and Screenon 10-26-2023 ABO and Rh group Nom (Bld) Blood group O Rh(D) positive Normal [facility] Comment on above: Result Comment: PERF ORMED BY: [address] [place] [address] PATHOLOGIST CHIEF NUCLEAR MEDICINE TECHNOLOGIST BALJEET GONZALEZ M.D. XR knee LT 2Von 10-26-2023 XR knee LT 2V [address] [place] [address] XRay Report Signed Patient: Tracy Juarez MR#: [id number] [birth year] : 1945 Acct:[id number] Age/Sex: 77 / F ADM Date: 10/26/23 Loc: 4 Room: [id number] Type: REG SD Attending Dr: Matthew Bucio [...] Leida Hubbard M.D.10/26/2023 2:02 PM Dictation Location: [place] [address] Transcribed By: [facility] 10/26/23 1402 Dictated By: Leida Hubbard MD 10/26/23 140 Signed By: 10/26/23 1402 Normal [facility] XR tibia fibula LT 2V*on XR tibia fibula LT 2V* [facility] Main [address] [address] XRay Report Signed Patient: Tracy Juarez MR#: [id number] 3 : 1945 Acct:[id number] Age/Sex: 77 / F ADM Date: 10/22/23 Loc: [facility] Room: Type: [facility] Attending Dr: Matthew Bucio II, MD Copies to: Matthew Bucio MD Ordering Provider: Matthew Bucio MD Date of Service: 10/22/23 XR/XR femur LT 2V*: M25.562 - Pain in left knee ([id number]) XR/XR tibia fibula LT 2V*: M25.562 - [...] Leida Hubbard M.D.10/22/2023 3:27 PM Dictation Location: [place] [address] Transcribed By: MAGDIEL 10/22/23 1527 Dictated By: Leida Hubbard MD 10/22/23 1518 Signed By: 10/22/23 1527 Normal [facility] Automated basophil %Ordered By: Matthew Bucio on 10-05-2023 Basophils/100 WBC (Bld) 0.7 % Normal . [facility] Comment on above: Performed By: #### F RUC #### [facility] , #### CBC, BMP #### [address] Automated basophil countOrde red By: Matthew Bucio on 10-05-2023 Basophils (Bld) [#/Vol] 0.0 10*3/uL Normal 0.0-0.2 [facility] Comment on above: Result Comment: PERF ORMED BY: [place] [address] PATHOLOGIST CHIEF NUCLEAR MEDICINE TECHNOLOGIST BALJEET GONZALEZ M.D. Performed By: #### F RUC #### [facility] , #### CBC, BMP #### [address] Automated blood monocyte cou ntOrdered By: Matthew Bucio on 10-05-2023 Monocytes (Bld) [#/Vol] 0.6 10*3/uL Normal 0.0-0.8 [facility] Comment on above: Performed By: #### F RUC #### [facility] , #### CBC, BMP #### [address] Automated eosinophil %Ordere d By: Matthew Bucio on 10-05-2023 Eosinophils/100 WBC (Bld) 2.5 % Normal . [facility] Comment on above: Performed By: #### F RUC #### [facility] , #### CBC, BMP #### [address] Automated eosinophil countOr dered By: Matthew Bucio on 10-05-2023 Eosinophils (Bld) [#/Vol] 0.1 10*3/uL Normal 0.0-0.45 [facility] Comment on above: Performed By: #### F RUC #### [facility] , #### CBC, BMP #### [facility] [address] [place] [address] Automated erythrocytes count in urine sediment (number/area)Ordered By: Matthew Bucio on 10-05-2023 RBC Auto (Urine sed) [#/Area] 3-4 [HPF] 0-4 [facility] Automated leukocytes count i n urine sediment (number/area)Ordered By: Matthew Bucio on 10-05-2023 WBC Auto (Urine sed) [#/Area] 0-1 [HPF] 0-4 [facility] Automated monocyte %Ordered By: Matthew Bucio on 10-05-2023 Monocytes/100 WBC (Bld) 10.9 % Normal . [facility] Comment on above: Performed By: #### F RUC #### [facility] , #### CBC, BMP #### [address] Automated neutrophil %Ordere d By: Matthew Bucio on 10-05-2023 Neutrophils/100 WBC (Bld) 63.7 % Normal . [facility] Comment on above: Performed By: #### F RUC #### [facility] , #### CBC, BMP #### [address] Automated urine color determ inationOrdered By: Matthew Bucio on 10-05-2023 Color (U) Yellow Normal Yellow [facility] Comment on above: Order Comment: Name Collection Type:: Clean-Voided Midstream Performed By: #### F RUC #### [facility] , #### CBC, BMP #### [address] Basic Metabolic Panelon 09-17 GFR/1.73 sq M.predicted MDRD (S/P/Bld) [Vol rate/Area] mL/min/{1.73_m2} Normal [facility] Comment on above: Performed By: #### F RUC #### [facility] , #### CBC, BMP #### [facility] [address] [place] [address] Bilirubin Test strip Ql (U)O rdered By: Matthew Bucio on 10-05-2023 Bilirubin Ql (U) Negative Negative [facility] Calcium [Mass/volume] in Ser um or PlasmaOrdered By: Matthew Bucio on 10-05-2023 Calcium [Mass/Vol] 8.7 mg/dL Normal 8.6-10.3 [facility] Comment on above: Result Comment: PERF ORMED BY: [place] [address] PATHOLOGIST CHIEF NUCLEAR MEDICINE TECHNOLOGIST BALJEET GONZALEZ M.D. Performed By: #### F RUC #### [facility] , #### CBC, BMP #### [address] Carbon dioxide, total [Moles /volume] in Serum or PlasmaOrdered By: Matthew Bucio on 10-05-2023 CO2 [Moles/Vol] 24.9 mmol/L Normal 21.0-31.[address] [facility] Comment on above: Performed By: #### F RUC #### [facility] , #### CBC, BMP #### [facility] [address] [place] [address] Chloride [Moles/volume] in S dave or PlasmaOrdered By: Matthew Bucio on 10-05-2023 Chloride [Moles/Vol] 110 mmol/L High 98-107 [facility] Comment on above: Performed By: #### F RUC #### [facility] , #### CBC, BMP #### [facility] [address] [place] [address] Complete Blood Count Auto Di ffon 10-05-2023 Mean Corpuscular HGB Conc 33.5 g/dL Normal 32.0-35.0 [facility] Comment on above: Performed By: #### F RUC #### [facility] , #### CBC, BMP #### [facility] [address] [place] [address] NRBC% 0.0 /100{WBC} Normal 0-0.5 [facility] Comment on above: Performed By: #### F RUC #### [facility] , #### CBC, BMP #### [facility] [address] Creatinine [Mass/volume] in Serum or PlasmaOrdered By: Matthew Bucio on 10-05-2023 Creatinine [Mass/Vol] 0.61 mg/dL Normal 0.60-1.20 [facility] Comment on above: Performed By: #### F RUC #### [facility] , #### CBC, BMP #### [place] [address] [place] Dipstick and Microscopicon 0 10-05-2023 Appearance (U) Clear Normal Clear [facility] Comment on above: Order Comment: Name Collection Type:: Clean-Voided Midstream Performed By: #### F RUC #### [facility] , #### CBC, BMP #### [address] Bacteria,Urine None Seen Normal None Seen [facility] Comment on above: Order Comment: Name Collection Type:: Clean-Voided Midstream Performed By: #### F RUC #### [facility] , #### CBC, BMP #### [place] [address] [place] Bilirubin,Urine Negative Normal Negative [facility] Comment on above: Order Comment: Name Collection Type:: Clean-Voided Midstream Performed By: #### F RUC #### [facility] , #### CBC, BMP #### [facility] [address] [place] [address] [place] Glucose Ql (U) Normal Normal Normal [facility] Comment on above: Order Comment: Name Collection Type:: Clean-Voided Midstream Performed By: #### F RUC #### [facility] , #### CBC, BMP #### [place] [address] [place] Hyaline Casts,Urine 0-8 Normal 0-8 [facility] Comment on above: Order Comment: Name Collection Type:: Clean-Voided Midstream Result Comment: PERF ORMED BY: [place] [address] PATHOLOGIST CHIEF NUCLEAR MEDICINE TECHNOLOGIST BALJEET GONZALEZ M.D. Performed By: #### F RUC #### [facility] , #### CBC, BMP #### [address] Ketones Ql (U) Negative Normal Negative [facility] Comment on above: Order Comment: Name Collection Type:: Clean-Voided Midstream Performed By: #### F RUC #### [facility] , #### CBC, BMP #### [address] Leukocyte esterase Test strip Ql (U) 1+ High Negative [facility] Comment on above: Order Comment: Name Collection Type:: Clean-Voided Midstream Performed By: #### F RUC #### [facility] , #### CBC, BMP #### [place] [address] [place] Nitrite,Urine Negative Normal Negative [facility] Comment on above: Order Comment: Name Collection Type:: Clean-Voided Midstream Performed By: #### F RUC #### [facility] , #### CBC, BMP #### [place] [address] [place] Occult Blood,Urine Negative Normal Negative [facility] Comment on above: Order Comment: Name Collection Type:: Clean-Voided Midstream Result Comment: PERF ORMED BY: [place] [address] PATHOLOGIST CHIEF NUCLEAR MEDICINE TECHNOLOGIST BALJEET GONZALEZ M.D. Performed By: #### F RUC #### [facility] , #### CBC, BMP #### [place] [address] [place] Protein,Urine Negative Normal Negative [facility] Comment on above: Order Comment: Name Collection Type:: Clean-Voided Midstream Performed By: #### F RUC #### [facility] , #### CBC, BMP #### [place] [address] [place] RBC,Urine 3-4 Normal 0-4 [facility] Comment on above: Order Comment: Name Collection Type:: Clean-Voided Midstream Performed By: #### F RUC #### [facility] , #### CBC, BMP #### [address] Specificy [place],Urine 1.019 Normal 1.001-1.03 0 [facility] Comment on above: Order Comment: Name Collection Type:: Clean-Voided Midstream Performed By: #### F RUC #### [facility] , #### CBC, BMP #### [place] [address] [place] Squamous Epithelial Cell,Urine 1-2 Normal 0-2 [facility] Comment on above: Order Comment: Name Collection Type:: Clean-Voided Midstream Performed By: #### F RUC #### [facility] , #### CBC, BMP #### [place] [address] [place] Urobilinogen,Urine Normal Normal Normal [facility] Comment on above: Order Comment: Name Collection Type:: Clean-Voided Midstream Performed By: #### F RUC #### [facility] , #### CBC, BMP #### [facility] [address] [place] [address] [place] WBC LM.HPF (Urine sed) [#/Area] 0 /[HPF] Normal 0-4 [facility] Comment on above: Order Comment: Name Collection Type:: Clean-Voided Midstream Performed By: #### F RUC #### [facility] , #### CBC, BMP #### [facility] [address] [place] [address] ECG 12 lead ECGon 10-05-2023 ECG 12 lead ECG [facility] Main [place] [address] [place] [address] Electrocardiograph Report Signed Patient: Tracy Juarez MR#: [id number] 3 : 1945 Acct:[id number] Age/Sex: 77 / F ADM Date: 10/05/23 Loc: PS Room: Type: [facility] Attending Dr: Matthew Bucio II, MD [...] Signed By:CE DOYLE MD FAC Transcribed By: RUST Signed By José Doyle MD 10/05/23 1546 Normal [facility] Erythrocyte distribution wid th [Ratio] by Automated countOrdered By: Matthew Bucio on 10-05-2023 Erythrocyte distribution width (RBC) [Ratio] 14.7 % Normal 11.9-15.3 [facility] Comment on above: Performed By: #### F RUC #### [facility] , #### CBC, BMP #### [facility] [address] [place] [address] Erythrocytes [#/volume] in B lood by Automated countOrdered By: Matthew Bucio on 10-05-2023 RBC (Bld) [#/Vol] 4.54 10*6/uL Normal 3.60-5.00 [facility] Comment on above: Performed By: #### F RUC #### [facility] , #### CBC, BMP #### [facility] [address] [place] [address] [place] Fructosamineon 10-05-2023 Fructosamine 216 umol/L Normal 0-[address] [facility] Comment on above: Result Comment: Publ ished reference interval for apparently healthy subjects between age 20 and 60 is 205 - 285 umol/L and in a poorly controlled diabetic population is 228 - 563 umol/L with a mean of 396 umol/L. Performed at: [facility] [place] [address] [place], [place] [id number] Casino Surveillance Officer: Ian Mcneal PhD, Phone: [phone] PERFORMED BY: [place] [address] PATHOLOGIST CHIEF NUCLEAR MEDICINE TECHNOLOGIST BALJEET GONZALEZ M.D. Performed By: #### F RUC #### [facility] , #### CBC, BMP #### [facility] [address] Fructosamine [Moles/volume] in Serum or PlasmaOrdered By: Matthew Bucio on 10-05-2023 Fructosamine [Moles/Vol] 216 umol/L 0-285 [facility] Comment on above: Published reference interval for apparently healthysubjects between age 20 and 60 is 205 - 285 umol/L and in apoorly controlled diabetic population is 228 - 563 umol/Lwith a mean of 396 umol/L.Performed at: [facility] [address] [place] [id number] Director: Ian Mcneal PhD, Phone: [phone] Glucose [Mass/volume] in Ser um or PlasmaOrdered By: Matthew Bucio on 10-05-2023 Glucose [Mass/Vol] 106 mg/dL High 70-100 [facility] Comment on above: ADA recommended refe rence rangeRandom Glucose Reference Range is dependent on time and content of last meal. Glucose of more than 200 mg/dL in a nonstressed, ambulatory subject supports the diagnosis of Diabetes Mellitus. Result Comment: [facility] Glucose Reference Range is dependent on time and content of last meal. Glucose of more than 200 mg/dL in a nonstressed, ambulatory subject supports the diagnosis of Diabetes Mellitus. ADA recommended reference range Performed By: #### F RUC #### [facility] , #### CBC, BMP #### [address] Hematocrit [Volume Fraction] of Blood by Automated countOrdered By: Matthew Bucio on 10-05-2023 Hematocrit (Bld) [Volume fraction] 35.0 % Normal 34.0-46.4 [facility] Comment on above: Performed By: #### F RUC #### [facility] , #### CBC, BMP #### [address] Hemoglobin [Mass/volume] in BloodOrdered By: Matthew Bucio on 10-05-2023 Hemoglobin (Bld) [Mass/Vol] 11.7 g/dL Low 11.8-15.4 [facility] Comment on above: Performed By: #### F RUC #### [facility] , #### CBC, BMP #### [address] Ketones Auto test strip (U) [Mass/Vol]Ordered By: Matthew Bucio on 10-05-2023 Ketones (U) [Mass/Vol] Negative Negative [facility] Laboratory - UrinalysisOrder ed By: Matthew Bucio on 10-05-2023 Hyaline casts LM Ql (Urine sed) 0-8 [LPF] 0-8 [facility] Leukocytes [#/volume] correc robby for nucleated erythrocytes in Blood by Automated counOrdered By: Matthew Bucio on 10-05-2023 WBC corrected for nucl RBC Auto (Bld) [#/Vol] 5.4 10*3/uL 3.8-11.6 [facility] Leukocytes [#/volume] in Blo od by Automated countOrdered By: Matthew Bucio on 10-05-2023 WBC (Bld) [#/Vol] 5.4 10*3/uL Normal 3.8-11.6 [facility] Comment on above: Performed By: #### F RUC #### [facility] , #### CBC, BMP #### [address] Lymphocytes [#/volume] in Bl ood by Automated countOrdered By: Matthew Bucio on 10-05-2023 Lymphocytes (Bld) [#/Vol] 1.2 10*3/uL Normal 1.00-4.8 [facility] Comment on above: Performed By: #### F RUC #### [facility] , #### CBC, BMP #### [address] Lymphocytes/100 leukocytes i n Blood by Automated countOrdered By: Matthew Bucio on 10-05-2023 Lymphocytes/100 WBC (Bld) 22.2 % Normal . [facility] Comment on above: Performed By: #### F RUC #### [facility] , #### CBC, BMP #### [address] MCH [Entitic mass] by Automa robby countOrdered By: Matthew Bucio on 10-05-2023 MCH (RBC) [Entitic mass] 25.8 pg Normal 24.7-34.3 [facility] Comment on above: Performed By: #### F RUC #### [facility] , #### CBC, BMP #### [facility] [address] [place] [address] MCHC Auto (RBC) [Mass/Vol]Or dered By: Matthew Bucio on 10-05-2023 MCHC (RBC) [Mass/Vol] 33.5 g/dL 32.0-35.0 [facility] MCV [Entitic volume] by Auto mated countOrdered By: Matthew Bucio on 10-05-2023 MCV (RBC) [Entitic vol] 77.1 fL Low 80-100 [facility] Comment on above: Performed By: #### F RUC #### [facility] , #### CBC, BMP #### [facility] [address] [place] [address] [place] Neutrophils [#/volume] in Bl ood by Automated countOrdered By: Matthew Bucio on 10-05-2023 Neutrophils (Bld) [#/Vol] 3.5 10*3/uL Normal 1.8-7.7 [facility] Comment on above: Performed By: #### F RUC #### [facility] , #### CBC, BMP #### [facility] [address] [place] [address] Nitrite Test strip Ql (U)Ord ered By: Matthew Bucio on 10-05-2023 Nitrite Ql (U) Negative Negative [facility] No Panel InformationOrdered By: Matthew Bucio on 10-05-2023 Estimated GFR (CKD-EPI) > 60.0 mL/Min [facility] Creatinine Clearance (Chem N/A [facility] Nucleated erythrocytes [Pres ence] in Blood by Automated countOrdered By: Matthew Bucio on 10-05-2023 Nucleated RBC Auto Ql (Bld) 0.0 /100{WBC} 0-0.5 [facility] PST Type and Screenon 2023 ABO and Rh group Nom (Bld) Blood group O Rh(D) positive Normal [facility] Comment on above: Order Comment: Date of Surgery: [id number] Platelet mean volume [Entiti c volume] in Blood by Automated countOrdered By: Matthew Bucio on 10-05-2023 Platelet mean volume (Bld) [Entitic vol] 7.0 fL Normal 6.3-10.7 [facility] Comment on above: Performed By: #### F RUC #### [facility] , #### CBC, BMP #### [facility] [address] [place] [address] [place] Platelets [#/volume] in Bloo d by Automated countOrdered By: Matthew Bucio on 10-05-2023 Platelets (Bld) [#/Vol] 179 10*3/uL Normal 150-450 [facility] Comment on above: Performed By: #### F RUC #### [facility] , #### CBC, BMP #### [facility] [address] [place] [address] [place] Potassium [Moles/volume] in Serum or PlasmaOrdered By: Matthew Bucio on 10-05-2023 Potassium [Moles/Vol] 3.5 mmol/L Normal 3.5-5.1 [facility] Comment on above: Performed By: #### F RUC #### [facility] , #### CBC, BMP #### [address] Protein Auto test strip (U) [Mass/Vol]Ordered By: Matthew Bucio on 10-05-2023 Protein (U) [Mass/Vol] Negative Negative [facility] Serum or plasma anion gap de terminationOrdered By: Matthew Bucio on 10-05-2023 Anion gap [Moles/Vol] 10.6 mmol/L Normal 6.0-15.[address] [facility] Comment on above: Performed By: #### F RUC #### [facility] , #### CBC, BMP #### [facility] [address] [place] [address] [place] Sodium [Moles/volume] in Ser um or PlasmaOrdered By: Matthew Bucio on 10-05-2023 Sodium [Moles/Vol] 142 mmol/L Normal 136-145 [facility] Comment on above: Performed By: #### F RUC #### [facility] , #### CBC, BMP #### [facility] [address] [place] [address] Specific gravity Auto test s trip (U) [Rel density]Ordered By: Matthew Bucio on 10-05-2023 Specific gravity (U) [Rel density] 1.019 1.001-1.03 0 [facility] Squamous epithelial cells de tection in urine sediment by light microscopyOrdered By: Matthew Bucio on 10-05-2023 Epithelial cells.squamous LM Ql (Urine sed) 1-2 [HPF] 0-2 [facility] Urea nitrogen [Mass/volume] in Serum or PlasmaOrdered By: Matthew Bucio on 10-05-2023 Urea nitrogen [Mass/Vol] 17 mg/dL Normal 7-25 [facility] Comment on above: Performed By: #### F RUC #### [facility] , #### CBC, BMP #### [facility] [address] Urine bacteria detection by automated methodOrdered By: Matthew Bucio on 10-05-2023 Bacteria Auto Ql (U) None seen None Seen [facility] Urine clarity by refractomet ry automatedOrdered By: Matthew Bucio on 10-05-2023 Clarity Refractometry automated (U) Clear Clear [facility] Urine glucose measurement by automated test strip (mass/volume)Ordered By: Matthew Bucio on 10-05-2023 Glucose Auto test strip (U) [Mass/Vol] Normal mg/dL Normal [facility] Urine hemoglobin detection b y automated test stripOrdered By: Matthew Bucio on 10-05-2023 Hemoglobin Auto test strip Ql (U) Negative Negative [facility] Urine leukocyte esterase det ection by automated test stripOrdered By: Matthew Bucio on 10-05-2023 Leukocyte esterase Auto test strip Ql (U) 1+ Negative [facility] Urine pH measurement by auto mated test stripOrdered By: Matthew Bucio on 10-05-2023 pH (U) 8.5 [pH] Normal 5.0-9.0 [facility] Comment on above: Order Comment: Name Collection Type:: Clean-Voided Midstream Performed By: #### F RUC #### [facility] , #### CBC, BMP #### [facility] [address] Urobilinogen Auto test strip (U) [Mass/Vol]Ordered By: Matthew Bucio on 10-05-2023 Urobilinogen (U) [Mass/Vol] Normal mg/dL Normal [facility] A1C with Estimated Average G luon 08-12-2023 Glucose [Mass/Vol] 114 mg/dL Normal [facility] Comment on above: Order Comment: Reaso n for Exam Primary osteoarthritis of left knee;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 Performed By: #### F RUC #### [facility] , #### CBC, BMP #### [address] Albumin Levelon 08-12-2023 Albumin [Mass/Vol] 4.4 g/dL Normal 3.5-5.7 [facility] Comment on above: Order Comment: Reaso n for Exam Primary osteoarthritis of left knee;Other halfway (current Performed By: #### F RUC #### [facility] , #### CBC, BMP #### [facility] [address] [place] [address] Albumin [Mass/volume] in Ser um or Plasma by Bromocresol green (BCG) dye binding methoOrdered By: Matthew Bucio on 08-12-2023 Albumin BCG dye [Mass/Vol] 4.4 g/dL 3.5-5.7 [facility] Cotinine [Mass/volume] in Se rum or PlasmaOrdered By: Matthew Bucio on 08-12-2023 Cotinine [Mass/Vol] <1.0 ng/mL . [facility] Comment on above: This test was develo ped and its performance characteristicsdetermined by [facility]. It has not been cleared orapproved by the Food and Drug Administration.Cotinine levels greater than 20.0 are consistent with theuse of tobacco or tobacco cessation products.Performed at: [address] [id number] Director: Milton Guerrero MD, Phone: [phone] Glucose mean value [Mass/vol ume] in Blood Estimated from glycated hemoglobinOrdered By: Matthew Bucio on 08-12-2023 Average glucose Estimated from glycated hemoglobin (Bld) [Mass/Vol] 114 mg/dL [facility] Hemoglobin A1c percentageOrd ered By: Matthew Bucio on 08-12-2023 HbA1c (Bld) [Mass fraction] 5.6 % Normal 4.3-5.6 [facility] Comment on above: Increased risk for d iabetes: 5.7 - 6.4diabetes: >6.4glycemic control for adults with diabetes: <7.0 Order Comment: Reaso n for Exam Primary osteoarthritis of left knee;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 Result Comment: Incr eased risk for diabetes: 5.7 - 6.4 diabetes: >6.4 glycemic control for adults with diabetes: <7.0 Performed By: #### F RUC #### [facility] , #### CBC, BMP #### [facility] [address] [place] [address] [place] Hemoglobin [Mass/volume] in BloodOrdered By: Matthew Bucio on 08-12-2023 Hemoglobin (Bld) [Mass/Vol] 12.1 g/dL Normal 11.8-15.4 [facility] Comment on above: Order Comment: Reaso n for Exam Primary osteoarthritis of left knee;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 Normal [facility] Comment on above: Performed By: #### F RUC #### [facility] , #### CBC, BMP #### [facility] [address] [place] [id number] [facility] Nicotine [Mass/volume] in Se rum or PlasmaOrdered By: Matthew Bucio on 08-12-2023 Nicotine [Mass/Vol] <1.0 ng/mL . [facility] Comment on above: This test was develo ped and its performance characteristicsdetermined by [facility]. It has not been cleared orapproved by the Food and Drug Administration.Nicotine levels greater than 2.0 are consistent with theuse of tobacco or tobacco cessation products. Nicotine/Cotinine Bloodon Cotinine, Blood <1.0 Normal . [facility] Comment on above: Order Comment: Reaso n for Exam Primary osteoarthritis of left knee;Other halfway (current Result Comment: This test was developed and its performance characteristics determined by [facility]. It has not been cleared or approved by the Food and Drug Administration. Cotinine levels greater than 20.0 are consistent with the use of tobacco or tobacco cessation products. Performed at: [address] [id number] Casino Surveillance Officer: Milton Guerrero MD, Phone: [phone] PERFORMED BY: [place] [address] PATHOLOGIST CHIEF NUCLEAR MEDICINE TECHNOLOGIST BALJEET GONZALEZ M.D. Performed By: #### F RU #### [facility] , #### CBC, BMP #### [facility] [address] [place], [place] [id number] [facility] Nicotine, Blood <1.0 Normal . 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 It has not been cleared or approved by the Food and Drug Administration. Nicotine levels greater than 2.0 are consistent with the use of tobacco or tobacco cessation products. 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 Evaluation,treatment, and prevention of vitamin D deficiency; an Endocrine Society clinical practice guideline. JCEM. 2010; 96(7):1911-30. PERFORMED BY: [place] [address] PATHOLOGIST CHIEF NUCLEAR MEDICINE TECHNOLOGIST BALJEET GONZALEZ M.D. Performed By: #### F RUC #### [facility] , #### CBC, BMP #### [address] Vitamin D+Metabolites [Mass/ volume] in Serum or PlasmaOrdered By: Matthew Bucio on 08-12-2023 Vitamin D+Metabolites [Mass/Vol] 14.3 ng/mL 30-100 [facility] Comment on above: VITAMIN D STATUS 25( [...] (Unsp spec) No MRSA Isolated [address] [facility] XR knee LT 4V*on 08-12-2023 XR knee LT 4V* [facility] [address] [place] [address] [place] [address] XRay Report Signed Patient: Tracy Juarez MR#: [id number] 3 : 1945 Acct:[id number] Age/Sex: 77 / F ADM Date: 08/12/23 Loc: [facility] Room: Type: [facility] Attending Dr: Matthew Bucio II, MD Copies to: Matthew Bucio MD Ordering Provider: Matthew Bucio MD Date of Service: 08/12/23 XR/XR knee LT 4V*: Primary osteoarthritis of left knee ([id number]) XR/XR pelvis 1-2V: Primary osteoarthritis of left [...] Gama Jr., DNomiONomi08/12/2023 3:30 PM Dictation Location: [place] [address] Transcribed By: [facility] 08/12/23 1530 Dictated By: Brodie Gama Jr, DO 08/12/23 1529 Signed By: 08/12/23 1530 Normal [facility] XR knee LT 4V* [facility] [employer] Other XR knee LT 4V* [facility] [employer] Other XR knee LT 4V* [address] [facility] [employer] Other XR knee LT 4V* [place] [address] [facility] [employer] Other XR knee LT 4V* XRay Report [employer] Other XR knee LT 4V* Signed [employer] Other XR knee LT 4V* Patient: Tracy Juarez MR#: [id number] [employer] Other XR knee LT 4V* 3 [employer] Other XR knee LT 4V* : 1945 Acct:[id number] [employer] Other XR knee LT 4V* Age/Sex: 77 / F ADM Date: 08/12/23 [facility] Other XR knee LT 4V* Loc: [facility] Room: Type : [facility] [employer] Other XR knee LT 4V* Attending Dr: Matthew Bucio II, MD [employer] Other XR knee LT 4V* Copies to: Matthew Bucio MD [employer] Other XR knee LT 4V* Ordering Provider: Soledad Bucio MD [employer] Other XR knee LT 4V* Date of Service: 08/12/23 [employer] Other XR knee LT 4V* [id number]) XR/XR knee LT 4V*: Primary osteoarthritis of left knee [employer] Other XR knee LT 4V* ([id number]) XR/XR pelvis 1-2V: Primary osteoarthritis of left knee [employer] Other XR knee LT 4V* AP PELVIS: , Left kn ee 4 views [employer] Other XR knee LT 4V* CLINICAL HISTORY: Le ft knee pain for 3 months. [employer] Other XR knee LT 4V* COMPARISON: Left kne e series 07/25/2021 [employer] Other XR knee LT 4V* Pelvis: Moderate degenerative changes of both hips without acute bony process. Degenerative changes [employer] Other XR knee LT 4V* are also noted invol ving the visualized lower lumbar spine, SI joints and pubic symphysis. [employer] Other XR knee LT 4V* Left knee: Severe degenerative changes with lateral subluxation of the tibia. There is associated [employer] Other XR knee LT 4V* weightbearing and patellofemoral joint space narrowing. Small joint effusion. Findings are similar [place] [employer] Other XR knee LT 4V* to the 2020 study. No rt [employer] Other XR knee LT 4V* X R/XR pelvis 1-2V [employer] Other XR knee LT 4V* IMPRESSION: [employer] Other XR knee LT 4V* SEVERE DEGENERATIVE CHANGES OF THE LEFT KNEE WITHOUT ACUTE BONY PROCESS. [employer] Other XR knee LT 4V* Impression dictated by: Brodie Gama Jr., D.O.08/12/2023 3:30 PM [employer] Other XR knee LT 4V* Dictation Location: [place] [address] [employer] Other XR knee LT 4V* Transcribed By: [facility] 08/12/23 [facility] [employer] Other XR knee LT 4V* Dictated By: Brodie Gama Jr DO 08/12/23 1529 [facility] Other XR knee LT 4V* Signed By: [employer] Other XR knee LT 4V* 08/12/23 1530 [employer] Other Office Visit (Cardiology)on 05-12-2023 Follow-up visit [...] Weight Tips; Status:Complete - Retrospective Authorization; Done: [id number] Some eating tips that can help you lose weight.; Status:Complete - Retrospective Authorization; Done: [id number] Essential hypertension Renew: hydroCHLOROthiazide 25 MG Oral Tablet; TAKE 1 TABLET BY MOUTH EVERY DAY Essential hypertension, High risk medication use, PAF (paroxysmal atrial fibrillation) Basic Metabolic Panel; Status:Active - Retrospective Authorization; Requested for:[id number]; Complete Blood Count; Status:Active - Retrospective Authorization; Requested for:[id number]; PAF (paroxysmal atrial fibrillation) IO EKG Electrocardiogram- 12 Lead; Status:Complete; Done: [id number] SocHx: Former smoker Tobacco Use Screening; Status:Complete; Done: [id number] Patient Instructions Please bring all medicines, vitamins, [...] scheduled in 6 months. Julianne Pang MD, [facility] Surgical History Problems History of Appendectomy History [...] in jacquelyn (more content not included)... Normal [facility] DERMATOPATHOLOGY RESULTSon 0 05-05-2023 Pathology Report Name TRACY JUAREZ Pathologist: LINDA LUTZ MD Date of Procedure: 04/27/2023 Date Received: 04/29/2023 Date Reported 05/05/2023 Submitting Physician: COTY CASIANO MD Location: [facility] Other External # FINAL DIAGNOSIS A. NODE, LEFT AXILLARY SENTINEL LYMPH NODE #1, 260 COUNT, BIOPSY: FOCAL MELAN-A STAINING, SEE NOTE. Note: Microscopic examination reveals an enlarged lymph node. In the subcapsular space there is focal Melan-A staining. This is compared with primary melanoma in RI91-790 and is smaller. It is not seen [...] determined by the Department of Pathology at [facility]. The FDA does not require this [...] case. Diagnostic interpretation performed at [facility] [address] [facility] [address] Microscopic Description: B: Microscopic examination reveals a [...] 1428, in formal (more content not included)... [facility] Dermatopathologyon 3 Dermatopathology Name TRACY JUAREZ Pathologist: LINDA LUTZ MD Date of Procedure: 04/27/2023 Date Received: 04/29/2023 Date Reported 05/05/2023 Submitting Physician: COTY CASIANO MD Location: [facility] Other External # FINAL DIAGNOSIS A. NODE, LEFT AXILLARY SENTINEL LYMPH NODE #1, 260 COUNT, BIOPSY: FOCAL MELAN-A STAINING, SEE NOTE. Note: Microscopic examination reveals an enlarged lymph node. In the subcapsular space there is focal Melan-A staining. This is compared with primary melanoma in PG00-452 and is smaller. It is not seen [...] determined by the Department of Pathology at [facility]. The FDA does not require this [...] case. Diagnostic interpretation performed at [facility]opath [facility] [address] [facility], [facility] [address] Microscopic Description: B: Microscopic examination reveals a [...] #3, 26 (more content not included)... Normal [facility] Comment on above: Performed By: #### D #### Dermatopathology LYMPH GLANDon 04-27-2023 LYMPH GLAND Patient Name: TRACY JUAREZ STUDY: LYMPH GLAND; TUMOR LOC SPECT/CT; 04/27/2023 12:29 pm; 04/27/2023 12:30 pm INDICATION: FOR WIDE LOCAL EXCISION OF MEALNOMA OF LEFT ARM AND SENTINEL LYMPH NODE BIOPSY ON 04/27/23. PLEASE SCHEDULE FOR 04/27/23. C43.62: Malignant melanoma of left upper arm. COMPARISON: None. ACCESSION NUMBER(S): [id number]; [id number] ORDERING CLINICIAN: COTY CASIANO TECHNIQUE: DIVISION OF NUCLEAR MEDICINE RADIONUCLIDE SENTINEL LYMPH NODE LYMPHOSCINTIGRAPHY A total of 0.50 millicuries of Tc-99m tilmanocept (LymphoseRadiator Labs, Inc) was injected intradermally in a circumferential pattern [...] sent to PACS. Images were interpreted at [facility]. Electronically signed by: MATTHEW BURROWS MD Normal [facility] NM Lymph Glandon 04-27-2023 NM Lymph node Views Normal [facility] rgery-Av on [facility] [place] Work Phone: NM Lymphatic vessels Views W radionuclide intra lymphaticon 04-27-2023 Radiology Study observation (narrative) [facility] Work Phone: NM Tumor Loc Spec/CTon 04-27 NM Tumor Loc Spec/CT Normal [facility]-S urgery-Av on [facility] [place] Work Phone: NM tumor LOC SPECT CTon 04-17 Radiology Study observation (narrative) [facility] Work Phone: No Panel Informationon 04-27 Successful sentinel lymph node localization in the left axilla. Localizing SPECT CT images were sent to PACS. Images were interpreted at [facility]. [facility] Interpreted By: MATTHEW JUNIOR MD Patient Name: TRACY JUAREZ STUDY: LYMPH GLAND; TUMOR LOC SPECT/CT; 04/27/2023 12:29 pm; 04/27/2023 12:30 pm INDICATION: FOR WIDE LOCAL EXCISION OF MEALNOMA OF LEFT ARM AND SENTINEL LYMPH NODE BIOPSY ON 04/27/23. PLEASE SCHEDULE FOR 04/27/23. C43.62: Malignant melanoma of left upper arm. COMPARISON: None. ACCESSION NUMBER(S): [id number]; [id number] ORDERING CLINICIAN: COTY CASIANO TECHNIQUE: DIVISION OF NUCLEAR MEDICINE RADIONUCLIDE SENTINEL LYMPH NODE LYMPHOSCINTIGRAPHY A total of 0.50 millicuries of Tc-99m tilmanocept (Lymph[employer]adiator [employer], [employer]) was injected intradermally in a circumferential pattern [...] SPECT CT images were sent to PACS. [facility] Matthew Burrows MD - 04/27/2023 Interpreted By: MATTHEW BURROWS MD Patient Name: TRACY JUAREZ STUDY: LYMPH GLAND; TUMOR LOC SPECT/CT; 04/27/2023 12:29 pm; 04/27/2023 12:30 pm INDICATION: FOR WIDE LOCAL EXCISION OF MEALNOMA OF LEFT ARM AND SENTINEL LYMPH NODE BIOPSY ON 04/27/23. PLEASE SCHEDULE FOR 04/27/23. C43.62: Malignant melanoma of left upper arm. COMPARISON: None. ACCESSION NUMBER(S): [id number]; [id number] ORDERING CLINICIAN: COTY CASIANO TECHNIQUE: DIVISION OF NUCLEAR MEDICINE RADIONUCLIDE SENTINEL LYMPH NODE LYMPHOSCINTIGRAPHY A total of 0.50 millicuries of Tc-99m tilmanocept (Synchronized) was injected intradermally in a circumferential pattern [...] sent to PACS. Images were interpreted at [facility]. [facility] Work Phone: No Panel InformationOrdered By: Matthew Burrows on 04-27-2023 [facility] Work Phone: Order Reconciliationon 04-27 Order Reconciliation [...] ONLY 11 (more content not included)... Normal [facility] TUMOR LOC SPECT/CTon 023 TUMOR LOC SPECT/CT Patient Name: TRACY JUAREZ STUDY: LYMPH GLAND; TUMOR LOC SPECT/CT; 04/27/2023 12:29 pm; 04/27/2023 12:30 pm INDICATION: FOR WIDE LOCAL EXCISION OF MEALNOMA OF LEFT ARM AND SENTINEL LYMPH NODE BIOPSY ON 04/27/23. PLEASE SCHEDULE FOR 04/27/23. C43.62: Malignant melanoma of left upper arm. COMPARISON: None. ACCESSION NUMBER(S): [id number]; [id number] ORDERING CLINICIAN: COTY CASIANO TECHNIQUE: DIVISION OF NUCLEAR MEDICINE RADIONUCLIDE SENTINEL LYMPH NODE LYMPHOSCINTIGRAPHY A total of 0.50 millicuries of Tc-99m tilmanocept (LymphTextura) was injected intradermally in a circumferential pattern [...] sent to PACS. Images were interpreted at [facility]. 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 Casiano is removing a lesion on my left arm by elbow and lymph node biopsy Primary Contact Name and NumberRex Doyle [phone] Medications Brought to Hospitalno General Health: Weight in kg91.5 kilogram(s) Weight in edk456.7 pound(s) Weight Methodstated Height in feet5 feet [...] Previous Transfusion Reactionno Equipment Currently Used at [facility], [place] MEDIA/Infinit Mgmt: Symptoms/Conditions Managed at [facility]; cardiovascular; endocrine; gastrointestinal; hematologic; immunological; obstetric/gynecologic; peripheral/neurovascular; [...] and head tremor that she take topiramate 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/Conditions Commenthysterectomy Respiratory Symptoms/Conditionssleep disordered breathing Respiratory Management StrategiesCPAP CPAP Settingspatient does not know settings Barriers to Managing Healthnone Relationship/Environ: Lives Withadult child(donte) Living Arrangementshouse Living Environment Commentsadult daughter lives with patient Resource/Environmental Concernsnone Anticipated Transition [facility] Anticipated at Transitionnone Tobacco Use: Tobacco Useno Pre-op Checklist: Arrival Zpjr51-Eeg-2855 Arrival Time09:17 NPOyes Last Food Ibuxqg60-Aef-8396 20:00 Last Clear Fluid Iflimr72-Kza-8455 20:00 NPO Commentsip of wate3r with am medication ID Band On Patientpatient ID (name), allergy, falls risk Consent Signedpending H&P Completepending Anesthesia Assessment Completedpending EKG Performedsee results tab Chest X-Ray Performedsee results tab Preop Antibioticssent to OR Beta-maura Last Dose Date/Uxsg75-Fnx-1753 07:00 Type and Screen Resultedn/a HCG Urine [...] 27-Apr-2023 09:28 by Tatianna Gonsalez (RN) Normal [facility] Dermatopathologyon 3 Dermatopathology Name TRACY JUAREZ Pathologist: LINDA LUTZ MD Date of Procedure: 04/13/2023 Date Received: 04/14/2023 Date Reported 04/15/2023 Submitting Physician: SIRIA ORONA MD Location: [facility] Other External # FINAL DIAGNOSIS SKIN, RIGHT UPPER LIP, SHAVE BIOPSY: BASAL CELL CARCINOMA, NODULAR GROWTH PATTERN, 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 Electronically Signed Out by LINDA LUTZ M.D. Electronically Signed Out By LINDA LUTZ MD/[facility] By the signature on this report, the individual or group listed as making the Final Interpretation/Diagnosis certifies that they have reviewed this case. Diagnostic interpretation performed at Dermatopath Lab [address] [place] [address], [place] [address] Microscopic Description: Microscopic analysis shows a discrete nodule of tumor that is associated with the epidermis. The carcinoma is composed of bland basaloid keratinocytes with peripheral palisaded arrangement of nuclei. Clinical History: R/O BCC. Shave Biopsy. (Marleny) Specimens Submitted As: A: SKIN, RIGHT UPPER LIP Gross Description: Received in formalin is a barkley piece of skin measuring 7p0n7ey. The specimen is inked and embedded in toto. ink/04/14/2023 [facility] Dermatopathology Laboratory [place] [address] Normal [facility] Comment on above: Performed By: #### D #### Dermatopathology Heart Rateon 03-31-2023 Heart Rate Normal RJ-Cgdymbo-Si on [employer] [place] Work Phone: Heart Rate Normal OX-Ycsidnd-Rh on [employer] [place] Work Phone: Office Visiton 03-31-2023 Follow-up [...] patient and other providers. 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 Chief Complaint melanoma History of Present [...] intact Psych: normal mood and affect Results/Data Oswqzfoebdasquqk90Qxw3409 12:00Coty Gomes Test NameResultFlagReference Dermatopathology(Report) Name: LARRY LOCKETT Pathologist: LINDA LUTZ MD Date of Procedure: 03/04/2023 Date Received: 03/04/2023 Date Reported 03/05/2023 Submitting Physician: COTY CASIANO MD Location: [facility] Copy To/Referring/Attending: MD DEVORAH GAITAN FINAL DIAGNOSIS [address], [facility] DEPT. OF PATHOLOGY, #[id number] (BX: 02/04/2023) SKIN, LEFT ARM SKIN LESION, [...] not included)... Normal [facility] Dermatopathologyon Dermatopathology Name: LARRY LOCKETT Pathologist: LINDA LUTZ MD Date of Procedure: 03/04/2023 Date Received: 03/04/2023 Date Reported 03/05/2023 Submitting Physician: COTY CASIANO MD Location: [facility] Copy To/Referring/Attending: MD DEVORAH GAITAN FINAL DIAGNOSIS [address] #[id number] (BX: 02/04/2023) SKIN, LEFT ARM SKIN LESION, [...] M.D. CANCER SUMMARY REPORT A. [address], #[id number] (BX: 02/04/2023): SPECIMEN Procedure: Not specified Specimen [...] ADDITIONAL FINDINGS Additional Findings: None ADDITIONAL TESTING Apricot Washer Blocks: Normal Block: None Tumor Block: A2 Electronically Signed Out By LINDA LUTZ MD/[facility] Diagnostic interpretation performed at [facility] [address] [place], [place] [address], [place] [id number] Clinical History: PRE-OP DIAGNOSIS: Not specified POST-OP DIAGNOSIS: Atypical Specimens Submitted As: A: [address], [facility] DEPT. OF PATHOLOGY, #[id number] (BX: 02/04/2023) Gross Description: Received for consultation from [facility] Dept. of Pathology are eleven slides labeled [id number] (BX: 02/04/2023) along with the corresponding pathology report. Slide/Block Description [address], [id number]. Keep Slides: N Slides Returned: N Personal Consult: N Normal [facility] Comment on above: Performed By: #### D #### Dermatopathology No Panel Informationon 03-04 [facility] Work Phone: Office Visit (Cardiology)on [...] scheduled in 6 months. Julianne Pang MD, [facility] Surgical History Problems History of Appendectomy History [...] Vital Signs Recorded: 11Nov2022 11:18AMRecorded: 11Nov2022 11:13AM Rrdahljb231, LUE, Qepfivcn602, LUE, Sitting Ibymbzgrv78, LUE, Lapkrbtj93, LUE, Sitting Heart Rate77, Apical Height5 ft 2 in Vnkwir810 lb BMI Zqruvnxwek72.03 kg/m2 BSA Calculated1.9 Tobacco Useb) No PHQ-2 #1. Over the last 2 weeks have you felt down, depressed or hopeless? (If (more content not included)... Normal [facility] Tobacco Screening.on 023 Adult depression screening assessment No [facility] y 250 DO Work Phone: Fall risk assessment a) No falls within the last year [facility] 250 DO Work Phone: Tobacco use status [facility] b) No [facility] 250 DO Work Phone: CBC AUTO DIFFon 11-03-2022 BASO # 0.1 103/ul Normal 0.0-0.1 [facility] Comment on above: Performed By: #### C BC #### [facility] [address] [place] [address] Dr. Ron Son Basophils/100 WBC (Bld) 0.8 % Normal 0.2-2.0 [facility] Comment on above: Performed By: #### C BC #### [facility] [address] [place] [address] Dr. Ron Son EO # 0.2 103/ul Normal 0.0-0.7 [facility] Comment on above: Performed By: #### C BC #### [facility] [address] [place] [address] Dr. Ron Son Eosinophils/100 WBC (Bld) 3.2 % Normal 0.9-7.0 [facility] Comment on above: Performed By: #### C BC #### [facility] [address] [place] [address] Dr. Ron Son Erythrocyte distribution width (RBC) [Ratio] 14.3 % Normal 11.0-15.0 [facility] Comment on above: Performed By: #### C BC #### [facility] [address] [place] [address] Dr. Ron Son Hematocrit (Bld) [Volume fraction] 39.8 % Normal 36.0-48.0 [facility] Comment on above: Performed By: #### C BC #### [facility] [address] [place] [address] Dr. Ron Son Hemoglobin (Bld) [Mass/Vol] 12.9 g/dL Normal 12.0-16.0 [facility] Comment on above: Performed By: #### C BC #### [facility] [address] [address] [address] Ron Son IG # 0.09 10e3/ul Critically high 0.00-0.03 [facility] Comment on above: Performed By: #### C BC #### [facility] [address] [place] [address] Dr. Ron Son IG % 1.5 % Critically high 0.0-0.5 [facility] Comment on above: Performed By: #### C BC #### [facility] [address] [place] [address] Dr. Ron Son LYMPH # 1.8 103/ul Normal 1.2-3.8 [facility] Comment on above: Performed By: #### C BC #### [facility] [address] [place] [address] Dr. Ron Son Lymphocytes/100 WBC (Bld) 30.8 % Normal 20.5-60.0 [facility] Comment on above: Performed By: #### C BC #### [facility] [address] [place] [address] Dr. Ron Son MANUAL DIFF REQ NO Normal [facility] Comment on above: Performed By: #### C BC #### [facility] [address] [place] [address] Dr. Ron Son MCH (RBC) [Entitic mass] 26.5 pg Critically low 26.7-34.0 [facility] Comment on above: Performed By: #### C BC #### [facility] [address] [place] [address] Dr. Ron Son MCHC (RBC) [Mass/Vol] 32.4 g/dL Normal 29.9-35.2 [facility] Comment on above: Performed By: #### C BC #### [facility] [address] [address] [address] Ron Son MCV (RBC) [Entitic vol] 81.7 fL Normal 81.0-99.0 [facility] Comment on above: Performed By: #### C BC #### [facility] [address] [address] [address] Ron Son MONO # 0.5 103/ul Normal 0.3-0.8 [facility] Comment on above: Performed By: #### C BC #### [facility] [address] [place] [address] Dr. Ron Son Monocytes/100 WBC (Bld) 8.4 % Normal 1.7-12.0 [facility] Comment on above: Performed By: #### C BC #### [facility] [address] [place] [address] Dr. Ron Son NEUT # 3.3 103/ul Normal 1.4-6.5 [facility] Comment on above: Performed By: #### C BC #### [facility] [address] [place] [address] Dr. Ron Son Neutrophils/100 WBC (Bld) 55.3 % Normal 43.0-75.0 [facility] Comment on above: Performed By: #### C BC #### [facility] [address] [address] [address] Ron Son Platelet mean volume (Bld) [Entitic vol] 8.7 fL Critically low 9.5-13.5 [facility] Comment on above: Performed By: #### C BC #### [facility] [address] [place] [address] Dr. Ron Son PLT 202 103/ul Normal 150-450 [facility] Comment on above: Performed By: #### C BC #### [facility] [address] [place] [address] Dr. Ron Son RBC 4.87 106/ul Normal 4.20-5.40 [facility] Comment on above: Performed By: #### C BC #### [facility] [address] [address] [address] Ron Son WBC 6.0 103/ul Normal 4.0-11.0 [facility] Comment on above: Performed By: #### C BC #### [facility] [address] [address] [address] Ron Son LIPID PROFILEon 11-03-2022 CHOL-HDL RATIO NORM SEE BELOW Normal [facility] Comment on above: Result Comment: 3.3 - 4.4 LOW RISK 4.4 - 7.1 AVERAGE RISK 7.1 - 11.0 MODERATE RISK >11.0 HIGH RISK Performed By: #### A ST, ALT, LIPID, BMP #### [facility] [address] [address] [address] Ron Son Cholesterol [Mass/Vol] 193 mg/dL Normal <=200 [facility] Comment on above: Performed By: #### A ST, ALT, LIPID, BMP #### [facility] [address] [address] [address] Ron Son Cholesterol in HDL [Mass/Vol] 37 mg/dL Critically low 40-60 [facility] Comment on above: Performed By: #### A ST, ALT, LIPID, BMP #### [facility] [address] [address] [address] Ron Son Cholesterol in LDL [Mass/Vol] 123.8 mg/dL Normal [facility] Comment on above: Performed By: #### A ST, ALT, LIPID, BMP #### [facility] [address] [address] [address] Ron Son Cholesterol.total/Cho lesterol in HDL [Mass ratio] 5.2 {ratio} Normal [facility] Comment on above: Performed By: #### A ST, ALT, LIPID, BMP #### [facility] [address] [address] [address] Ron Son HDL NORMAL > or = 60 mg/dl - LO W CARDIOVASCULAR RISK <40 mg/dl - HIGH CARDIOVASCULAR RISK Normal [facility] Comment on above: Performed By: #### A ST, ALT, LIPID, BMP #### [facility] [address] [address] [address] Ron Son LDL CALC NORMAL SEE BELOW Normal [facility] Comment on above: Result Comment: <100 mg/dl OPTIMAL 100 - 129 mg/dl NEAR OR ABOVE OPTIMAL 130 - 159 mg/dl BORDERLINE HIGH 160 - 189 mg/dl HIGH >190 mg/dl VERY HIGH Performed By: #### A ST, ALT, LIPID, BMP #### [facility] [address] [address] [address] Ron Son Triglyceride [Mass/Vol] 161 mg/dL Critically high <=150 [facility] Comment on above: Performed By: #### A ST, ALT, LIPID, BMP #### [facility] [address] [address] [address] Ron Son VLDL CALC 32.2 mg/dL Normal [facility] Comment on above: Performed By: #### A ST, ALT, LIPID, BMP #### [facility] [address] [address] [address] Ron Son PROF CHEM 8 (BAS METB)on Anion gap [Moles/Vol] 13.1 mmol/L Normal [facility] Comment on above: Performed By: #### C RP, CK #### [facility] [address] [place] [address] Dr. Ron Son Calcium [Mass/Vol] 8.7 mg/dL Normal 8.5-10.1 [facility] Comment on above: Performed By: #### C RP, CK #### [facility] [address] [address] [address] Ron Son Chloride [Moles/Vol] 105 mmol/L Normal 98-107 [facility] Comment on above: Performed By: #### C RP, CK #### [facility] [address] [address] [address] Ron Son CO2 [Moles/Vol] 28.4 mmol/L Normal 21.0-32.0 [facility] Comment on above: Performed By: #### C RP, CK #### [facility] [address] [address] [address] Ron Son Creatinine [Mass/Vol] 0.72 mg/dL Normal 0.55-1.02 [facility] Comment on above: Performed By: #### C RP, CK #### [facility] [address] [place] [address] Dr. Ron Son EGFR-AF ANGUILLAN >60 Normal >=60 [facility] Comment on above: Performed By: #### C RP, CK #### [facility] [address] [address] [address] Ron Son EGFR-NON AF ANGUILLAN >60 Normal >=60 [facility] Comment on above: Performed By: #### C RP, CK #### [facility] [address] [place] [address] Dr. Ron Son Glucose [Mass/Vol] 106 mg/dL Normal 74-106 [facility] Comment on above: Performed By: #### C RP, CK #### [facility] [address] [place] [address] Dr. Ron Son Potassium [Moles/Vol] 3.5 mmol/L Normal 3.5-5.1 [facility] Comment on above: Performed By: #### C RP, CK #### [facility] [address] [place] [address] Dr. Ron Son Sodium [Moles/Vol] 143 mmol/L Normal 136-145 [facility] Comment on above: Performed By: #### C RP, CK #### [facility] [address] [place] [address] Dr. Ron Son Urea nitrogen [Mass/Vol] 14.0 mg/dL Normal 7.0-18.0 [facility] Comment on above: Performed By: #### C RP, CK #### [facility] [address] [place] [address] Dr. Ron Son Urea nitrogen/Creatinine [Mass ratio] 19.4 mg/mg Normal [facility] Comment on above: Performed By: #### C RP, CK #### [facility] [address] [place] [address] Dr. Ron Son SGOTon 11-03-2022 AST [Catalytic activity/Vol] 18 U/L Normal 15-37 [facility] Comment on above: Performed By: #### A ST, ALT, LIPID, BMP #### [facility] [address] [place] [address] Dr. Ron Son SGPTon 11-03-2022 ALT [Catalytic activity/Vol] 21 U/L Normal 14-59 [facility] Comment on above: Performed By: #### A ST, ALT, LIPID, BMP #### [facility] [address] [place] [address] Dr. Ron Son CPKon 03-07-2022 CK [Catalytic activity/Vol] 184 U/L Normal 26-192 [facility] Comment on above: Performed By: #### C RP, CK #### [facility] [address] [place] [address] Dr. Ron Son CRPon 03-07-2022 CRP [Mass/Vol] mg/L Normal <=1.0 [facility] Comment on above: Performed By: #### C RP, CK #### [facility] [address] [place] [address] Dr. Ron Son SED RATE [facility] 2021 SED RATE 7 mm/hr Normal <=30 [facility] Comment on above: Performed By: #### S EDR #### [facility] [address] [place] [address] Dr. Ron Son CPKon 01-16-2022 CK [Catalytic activity/Vol] 257 U/L Critically high 26-192 [facility] Comment on above: Performed By: #### C K, CRP #### [facility] [address] [place] [address] Dr. Ron Son CRPon 01-16-2022 CRP [Mass/Vol] mg/L Normal <=1.0 [facility] Comment on above: Performed By: #### C K, CRP #### [facility] [address] [place], [place] [id number] Dr. Ron Son [facility] 6 mm/hr Normal <=30 [facility] Comment on above: Performed By: #### S EDR #### [facility] [address] [place] [address] Dr. Ron Son Tobacco Screening.on 022 Adult depression screening assessment No [facility] y 250 DO Work Phone: Fall risk assessment a) No falls within the last year [facility] y 250 DO Work Phone: Tobacco use status [facility] b) No [facility] y 250 DO Work Phone: XR knee LT 4V*on 07-25-2021 XR knee LT 4V* [facility] [employer] Other XR knee LT 4V* [facility] [employer] Other XR knee LT 4V* [address] [place] [address] [employer] Other XR knee LT 4V* [place] [address] No rt [employer] Other XR knee LT 4V* XRay Report [employer] Other XR knee LT 4V* Signed [employer] Other XR knee LT 4V* Patient: Tracy Juarez MR#: [id number] [employer] Other XR knee LT 4V* 3 [employer] Other XR knee LT 4V* : 1945 Acct:[id number] [employer] Other XR knee LT 4V* Age/Sex: 75 / F ADM Date: 07/25/21 [employer] Other XR knee LT 4V* Loc: SOXD Room: Type : REG CLI [employer] Other XR knee LT 4V* Attending Dr: Matthew Bucio II, MD [employer] Other XR knee LT 4V* Ordering Provider: Soledad Bucio MD [employer] Other XR knee LT 4V* Date of Service: 07/25/21 [employer] Other XR knee LT 4V* [id number]) XR/XR knee LT 4V*: Acute pain of left knee [employer] Other XR knee LT 4V* ([id number]) XR/XR pelvis 1-2V: Left hip pain [employer] Other XR knee LT 4V* Copies to: Matthew Bucio MD [employer] Other XR knee LT 4V* XR pelvis 1-2V, XR k nee LT 4V* 07/25/2021 11:15 AM [employer] Other XR knee LT 4V* SIGNS AND SYMPTOMS: Left knee pain, predominantly medially. [employer] Other XR knee LT 4V* PROTOCOL: Frontal radiograph of the pelvis. Frontal, lateral, oblique, and sunrise views of the [employer] Other XR knee LT 4V* left knee. [employer] Other XR knee LT 4V* COMPARISON: Left hip and knee radiographs 06/19/2021. [employer] Other XR knee LT 4V* FINDINGS: [employer] Other XR knee LT 4V* Pelvis: [employer] Other XR knee LT 4V* There is mild narrow ing of the joint spaces of the hips bilaterally. There is enthesophyte [employer] Other XR knee LT 4V* formation along the greater trochanter on the left. The bony ring of the pelvis is intact. There is [employer] Other XR knee LT 4V* no fracture or dislocation. [employer] Other XR knee LT 4V* Left knee: [employer] Other XR knee LT 4V* There is significant narrowing of the weightbearing and patellofemoral joint spaces. There is no [employer] Other XR knee LT 4V* evidence of fracture or dislocation. No joint effusion. No soft tissue swelling. [employer] Other XR knee LT 4V* X R/XR pelvis 1-2V [employer] Other XR knee LT 4V* IMPRESSION: [employer] Other XR knee LT 4V* Mild degenerative ch anges are noted in the hips. [employer] Other XR knee LT 4V* Similar tricompartme ntal degenerative changes are noted in the left knee showing no significant [employer] Other XR knee LT 4V* interval change. [employer] Other XR knee LT 4V* No acute bony injury. [employer] Other XR knee LT 4V* Impression dictated by: Topher Martini M.D.07/25/2021 5:10 PM [employer] Other XR knee LT 4V* Dictation Location: [place] [address] [employer] Other XR knee LT 4V* Transcribed By: MAGDIEL 07/25/21 1710 [employer] Other XR knee LT 4V* Dictated By: Topher Martini II, MD 07/25/21 1707 [employer] Other XR knee LT 4V* Signed By: [employer] Other XR knee LT 4V* 07/25/21 1710 [employer] Other Potassiumon 08-23-2018 Potassium molar conc 3.8 mmol/L Normal 3.5-5.1 [facility] Comment on above: Performed By: #### 1 [id number] ####[facility] [address] [place] [address] CBCon 08-12-2018 Erythrocyte distribution width Auto Ratio (RBC) 13.4 % Normal 12.0-15.4 [facility] Comment on above: Performed By: #### 2 [id number] ####[facility] [address] [place] [address] Hematocrit Auto Volume Fraction (Bld) 42.3 % Normal 36.5-46.6 [facility] Comment on above: Performed By: #### 2 [id number] ####[facility] [address] [place] [address] Hemoglobin mass conc (Bld) 13.7 g/dL Normal 11.8-15.3 [facility] Comment on above: Performed By: #### 2 [id number] ####[facility] [address] [place] [address] MCH Auto Entitic mass (RBC) 27.1 pg Low 27.5-33.0 [facility] Comment on above: Performed By: #### 2 194520 ####[facility] [address] [place] [address] MCHC Auto mass conc (RBC) 32.4 g/dL Normal 30.1-35.0 [facility] Comment on above: Performed By: #### 2 [id number] ####[facility] [address] [place] [address] MCV Auto Entitic volume (RBC) 83.8 fL Low 85.4-100.0 [facility] Comment on above: Performed By: #### 2 [id number] ####[facility] [address] [place] [address] NRBC Absolute 0.00 10*3/uL Normal [facility] Comment on above: Performed By: #### 2 [id number] ####[facility] [address] [place] [address] NRBC Automated 0.0 /100{WBCs} Normal [facility] Comment on above: Performed By: #### 2 [id number] ####[facility] [address] [place] [address] Platelet mean volume Auto Entitic volume (Bld) 9.6 fL Low 9.9-12.1 [facility] Comment on above: Performed By: #### 2 [id number] ####[facility] [address] [place] [address] Platelets Auto #/vol (Bld) 231 10*3/uL Normal 155-404 [facility] Comment on above: Performed By: #### 2 [id number] ####[facility] [address] [place] [address] RBC Auto #/vol (Bld) 5.05 10*6/uL Normal 3.85-5.10 [facility] Comment on above: Performed By: #### 2 [id number] ####[facility] [address] [place] [address] RDW SD 40.8 fL Normal 39.3-48.6 [facility] Comment on above: Performed By: #### 2 [id number] ####[facility] [address] [place] [address] WBC Auto #/vol (Bld) 7.6 10*3/uL Normal 4.4-9.9 [facility] Comment on above: Performed By: #### 2 745602 ####[facility] [address] [place] [address] Creatinineon 08-12-2018 Creatinine mass conc 0.80 mg/dL Normal 0.50-1.05 [facility] Comment on above: Performed By: #### 1 [id number] ####[facility] [address] [place] [address] GFR/1.73 sq M.predicted MDRD vol rate/area mL/min/{1.73_m2} Normal [facility] Comment on above: Result Comment: Inte rpretation for Chronic Kidney Disease:Stages 1&2 >60 Healthy or potential kidney damage.Mild decrease of GFR.Stage 3 30-59 Moderate decrease of GFR.Stage 4 15-29 Severe decrease of GFR.Stage 5 <15 Kidney failure or on dialysis. Performed By: #### 1 [id number] ####[facility] [address] [place] [address] Electrolyte Panelon 08-12-20 18 Anion gap 3 molar conc 13 mmol/L Normal 10-20 [facility] Comment on above: Performed By: #### 1 [id number] ####[facility] [address] [place] [address] Chloride molar conc 103 mmol/L Normal 98-107 [facility] Comment on above: Performed By: #### 1 [id number] ####[facility] [address] [place] [address] HCO3 molar conc (Bld) 30 mmol/L Normal 21-32 [facility] Comment on above: Performed By: #### 1 [id number] ####[facility] [address] [place] [address] Potassium molar conc 3.3 mmol/L Low 3.5-5.1 [facility] Comment on above: Performed By: #### 1 [id number] ####[facility] [address] [place] [address] Sodium molar conc 143 mmol/L Normal 136-145 [facility] Comment on above: Performed By: #### 1 [id number] ####[facility] [address] [place] [address] Urea Nitrogenon 08-12-2018 Urea nitrogen mass conc 12 mg/dL Normal 6-23 [facility] Comment on above: Performed By: #### 1 [id number] ####[facility] [address] [place] [address] Vital Signs Date Time Vital Sign Value Performing Clinician Facility 06-21-2024 10:52-0500 Diastolic blood pressure 60 mm[Hg] Julianne Pang MD Work Phone: [facility] 06-21-2024 10:52-0500 Systolic blood pressure 118 mm[Hg] Julianne Pang MD Work Phone: [facility] 06-21-2024 10:17-0500 Body height 157.5 cm Julianne Pang MD Work Phone: [facility] 06-21-2024 10:17-0500 Body mass index (BMI) [Ratio] 38.23 kg/m2 Julianne Pang MD Work Phone: [facility] 06-21-2024 10:17-0500 Body weight 94.8 kg Julianne Pang MD Work Phone: [facility] 06-21-2024 10:17-0500 Heart rate 75 /min Julianne Pang MD Work Phone: [facility] 06-16-2024 11:02-0400 Body height 156.8 cm Kenyatta Gillmor DOCKETING SPECIALIST Work Phone: [facility] 06-16-2024 11:02-0400 Body mass index (BMI) [Ratio] 38.91 kg/m2 Kenyatta Gillmor DOCKETING SPECIALIST Work Phone: [facility] 06-16-2024 11:02-0400 Body weight 95.71 kg Kenyatta Gillmor DOCKETING SPECIALIST Work Phone: [facility] 06-16-2024 11:02-0400 Diastolic blood pressure 64 mm[Hg] Kenyatta Gillmor DOCKETING SPECIALIST Work Phone: [facility] 06-16-2024 11:02-0400 Heart rate 69 /min Kenyatta Gillmor DOCKETING SPECIALIST Work Phone: [facility] 06-16-2024 11:02-0400 SaO2% (BldA) [Mass fraction] 92 % Kenyatta Gillmor DOCKETING SPECIALIST Work Phone: [facility] 06-16-2024 11:02-0400 Systolic blood pressure 132 mm[Hg] Kenyatta Gillmor DOCKETING SPECIALIST Work Phone: [facility] 04-28-2024 11:09-0400 Body height 156.84 cm MD Sophia Calderon Work Phone: [facility] 04-28-2024 11:09-0400 Body mass index (BMI) [Ratio] 37.3 kg/m2 MD Sophia Calderon Work Phone: [facility] 04-28-2024 11:09-0400 Body weight 92 kg MD Sophia Calderon Work Phone: [facility] 01-05-2024 09:52-0400 Diastolic blood pressure 78 mm[Hg] Julianne Pang MD Work Phone: [facility] 01-05-2024 09:52-0400 Systolic blood pressure 134 mm[Hg] Julianne Pang MD Work Phone: [facility] 01-05-2024 09:39-0400 Body height 154.9 cm Julianne Pang MD Work Phone: [facility] 01-05-2024 09:39-0400 Body mass index (BMI) [Ratio] 38.51 kg/m2 Julianne Pang MD Work Phone: [facility] 01-05-2024 09:39-0400 Body weight 92.44 kg Julianne Pang MD Work Phone: [facility] 01-05-2024 09:39-0400 Heart rate 70 /min Julianne Pang MD Work Phone: [facility] 12-25-2023 15:30-0400 Diastolic blood pressure 62 mm[Hg] MD Sophia Calderon Work Phone: [facility] 12-25-2023 15:30-0400 Heart rate 68 /min MD Sophia Calderon Work Phone: [facility] 12-25-2023 15:30-0400 Respiratory rate 20 /min MD Sophia Calderon Work Phone: [facility] 12-25-2023 15:30-0400 SaO2% (BldA) [Mass fraction] 95 % MD Sophia Calderon Work Phone: [facility] 12-25-2023 15:30-0400 Systolic blood pressure 130 mm[Hg] MD Sophia Calderon Work Phone: [facility] 12-25-2023 13:28-0400 Body height 156.84 cm MD Sophia Calderon Work Phone: [facility] 12-25-2023 13:28-0400 Body temperature 97.6 [degF] MD Sophia Calderon Work Phone: [facility] 12-25-2023 13:28-0400 Body weight 92.4 kg MD Sophia Calderon Work Phone: [facility] 12-07-2023 16:14-0400 Diastolic blood pressure 80 mm[Hg] Julianne Pang MD Work Phone: [facility] 12-07-2023 16:14-0400 Systolic blood pressure 160 mm[Hg] Julianne Pang MD Work Phone: [facility] 12-07-2023 15:45-0400 Body height 154.9 cm Julianne Pang MD Work Phone: [facility] 12-07-2023 15:45-0400 Body mass index (BMI) [Ratio] 37.3 kg/m2 Julianne Pang MD Work Phone: [facility] 12-07-2023 15:45-0400 Body weight 89.54 kg Julianne Pang MD Work Phone: [facility] 12-07-2023 15:45-0400 Heart rate 75 /min Julianne Pang MD Work Phone: [facility] 10-28-2023 08:22-0400 Diastolic blood pressure 79 mm[Hg] MD Sophia Calderon Work Phone: [facility] 10-28-2023 08:22-0400 Heart rate 78 /min MD Sophia Calderon Work Phone: [facility] 10-28-2023 08:22-0400 Systolic blood pressure 163 mm[Hg] MD Sophia Calderon Work Phone: [facility] 10-28-2023 08:00-0400 Inhaled oxygen flow rate 2 L/min MD Sophia Caldreon Work Phone: [facility] 10-28-2023 07:48-0400 Body temperature 98.8 [degF] MD Sophia Calderon Work Phone: [facility] 10-28-2023 07:48-0400 Respiratory rate 20 /min MD Sophia Calderon Work Phone: [facility] 10-28-2023 07:48-0400 SaO2% (BldA) [Mass fraction] 96 % MD Sophia Calderon Work Phone: [facility] 10-28-2023 06:00-0400 Body weight 91.7 kg MD Sophia Calderon Work Phone: [facility] 10-26-2023 08:29-0400 Body height 154.94 cm MD Sophia Calderon Work Phone: [facility] 10-26-2023 08:29-0400 Body mass index (BMI) [Ratio] 38.1 kg/m2 MD Sophia Calderon Work Phone: [facility] 10-22-2023 13:00-0500 Body height 154.94 cm MD Sophia Calderon Work Phone: [facility] 10-22-2023 13:00-0500 Body mass index (BMI) [Ratio] 38.2 kg/m2 MD Sophia Calderon Work Phone: [facility] 10-22-2023 13:00-0500 Body weight 91.71 kg MD Sophia Calderon Work Phone: [facility] 10-05-2023 09:40-0500 Body height 154.94 cm MD Sophia Calderon Work Phone: [facility] 10-05-2023 09:40-0500 Body temperature 98.5 [degF] MD Sophia Calderon Work Phone: [facility] 10-05-2023 09:40-0500 Body weight 91 kg MD Sophia Calderon Work Phone: [facility] 10-05-2023 09:40-0500 Diastolic blood pressure 63 mm[Hg] MD Sophia Calderon Work Phone: [facility] 10-05-2023 09:40-0500 Heart rate 67 /min MD Sophia Calderon Work Phone: [facility] 10-05-2023 09:40-0500 SaO2% (BldA) [Mass fraction] 96 % MD Sophia Calderon Work Phone: [facility] 10-05-2023 09:40-0500 Systolic blood pressure 127 mm[Hg] MD Sophia Calderon Work Phone: [facility] 08-12-2023 12:45-0500 Body height 154.94 cm [employer] Other [facility] 08-12-2023 12:45-0500 Body mass index (BMI) [Ratio] 38.16 kg/m2 [employer] Other [employer] Other 08-12-2023 12:45-0500 Body weight 91.63 kg Falafel [employer] II Other [employer] Other 08-12-2023 12:45-0500 Body weight 91.62 kg MD Sophia Calderon Work Phone: [facility] 05-19-2023 11:27-0400 Body mass index (BMI) [Ratio] 36.73 kg/m2 Coty Casiano MD Work Phone: [facility] 05-19-2023 11:27-0400 Body temperature 96.8 [degF] Coty Casiano MD Work Phone: [facility] 05-19-2023 11:27-0400 Body weight 91.1 kg Coty Casiano MD Work Phone: [facility] 05-19-2023 11:27-0400 Diastolic blood pressure 53 mm[Hg] Coty Casiano MD Work Phone: [facility] 05-19-2023 11:27-0400 Heart rate 77 /min Coty Casiano MD Work Phone: [facility] 05-19-2023 11:27-0400 Respiratory rate 16 /min Coty Casiano MD Work Phone: [facility] 05-19-2023 11:27-0400 SaO2% (BldA) [Mass fraction] 94 % Coty Casiano MD Work Phone: [facility] 05-19-2023 11:27-0400 Systolic blood pressure 102 mm[Hg] Coty Casiano MD Work Phone: [facility] 03-31-2023 13:21-0400 Body height 155.2 cm Ken P [employer] Work Phone: [facility] [place] Work Phone: 03-31-2023 13:21-0400 Body mass index (BMI) [Ratio] 38.4 kg/m2 Ken P [employer] Work Phone: QA-Svdhtfk-Vlgo [facility] [place] Work Phone: 03-31-2023 13:21-0400 Body surface area Derived from formula 1.91 m2 Ken P [employer] Work Phone: UJ[facility]Gqdeuim[facility] [place] Work Phone: 03-31-2023 13:21-0400 Body temperature 97.7 [degF] Ken P [employer] Work Phone: QV-Oemvmjc[facility]Tedj [facility] [place] Work Phone: 03-31-2023 13:21-0400 Body weight 92.5 kg Ken P [employer] Work Phone: FK-Trbolxq-Dhsh [facility] [place] Work Phone: 03-31-2023 13:21-0400 Diastolic blood pressure 76 mm[Hg] Ken P House Work Phone: YN-Jamhsqg-Bycw [facility] [place] Work Phone: 03-31-2023 13:21-0400 Heart rate 70 /min Ken P House Work Phone: AA-Xzvfipe-Zofu [facility] [place] Work Phone: 03-31-2023 13:21-0400 Respiratory rate 16 /min Ken P House Work Phone: MU-Vpzqnxz-Csgd [facility] [place] Work Phone: 03-31-2023 13:21-0400 Systolic blood pressure 139 mm[Hg] Ken P House Work Phone: LO-Gnojmro-Pytm [facility] [place] Work Phone: 03-31-2023 13:21-0400 0 1 Ken P House Work Phone: DW-Yvaqqhg-Xiis [facility] [place] Work Phone: Comment on above: [employer] 11-11-2022 11:18-0400 Diastolic blood pressure 70 mm[Hg] Ken P House Work Phone: [facility] 250 DO Work Phone: 11-11-2022 11:18-0400 Systolic blood pressure 112 mm[Hg] Ken P House Work Phone: [facility] 250 DO Work Phone: 11-11-2022 11:13-0400 Body height 157.48 cm Ken P House Work Phone: [facility] 250 DO Work Phone: 11-11-2022 11:13-0400 Body mass index (BMI) [Ratio] 36.03 kg/m2 Ken P House Work Phone: [facility] 250 DO Work Phone: 11-11-2022 11:13-0400 Body surface area Derived from formula 1.9 m2 Ken P House Work Phone: [facility] [facility] DO Work Phone: 11-11-2022 11:13-0400 Body weight 89.36 kg Ken P House Work Phone: [facility] [facility] DO Work Phone: 11-11-2022 11:13-0400 Diastolic blood pressure 60 mm[Hg] Ken P House Work Phone: [facility] [facility] DO Work Phone: 11-11-2022 11:13-0400 Heart rate 77 /min Ken P House Work Phone: [facility] 250 DO Work Phone: 11-11-2022 11:13-0400 Systolic blood pressure 100 mm[Hg] Ken P House Work Phone: [facility] 250 DO Work Phone: 11-03-2022 00:00-0400 123.8 1 Ken P House Work Phone: [facility] 250 DO Work Phone: Comment on above: [facility] 08-13-2022 09:45-0500 Body height 154.94 cm Matthew Bucio II Other [employer] Other 05-28-2022 14:15-0400 Body height 154.94 cm Matthew Bucio II Other [employer] Other 05-28-2022 14:15-0400 Body mass index (BMI) [Ratio] 39.86 kg/m2 Matthew Bucio II Other [employer] Other 05-28-2022 14:15-0400 Body weight 95.71 kg Matthew Bucio II Other [employer] Other 09-30-2021 13:35-0500 Body height 157.48 cm Ken P House Work Phone: [facility] 250 DO Work Phone: 09-30-2021 13:35-0500 Body mass index (BMI) [Ratio] 38.98 kg/m2 Ken P House Work Phone: [facility] 250 DO Work Phone: 09-30-2021 13:35-0500 Body surface area Derived from formula 1.96 m2 Ken P House Work Phone: [facility] 250 DO Work Phone: 09-30-2021 13:35-0500 Body weight 96.68 kg Ken P House Work Phone: [facility] [facility] DO Work Phone: 09-30-2021 13:35-0500 Heart rate 74 /min Ken P House Work Phone: [facility] 250 DO Work Phone: 09-30-2021 13:34-0500 Diastolic blood pressure 77 mm[Hg] Ken P House Work Phone: [facility] 250 DO Work Phone: 09-30-2021 13:34-0500 Systolic blood pressure 129 mm[Hg] Ken P House Work Phone: [facility] 250 DO Work Phone: 07-25-2021 15:00-0500 Body height 154.94 cm Matthew Bucio II Other [employer] Other 07-25-2021 15:00-0500 Body mass index (BMI) [Ratio] 39.67 kg/m2 Matthew Bucio II Other [employer] Other 07-25-2021 15:00-0500 Body weight 95.26 kg Matthew Bucio II Other [employer] Other 1945 00:00-0400 >na< Hector Benavidez 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 Encounters Encounter Date Encounter Type Care Provider Facility Start: 10-18-2024 ambulatory [facility] Facility:E Emily Kinross Start: 10-07-2024 ambulatory [facility] Facility:E Emily MilliganBina Start: 06-21-2024 End: 06-21-2024 Office outpatient visit 25 minutes Julianne Pang MD Work Phone: [facility] Comment on above: PAF (paroxysmal atri al fibrillation) (Multi) (Primary Dx); High risk medication use; Essential hypertension; First degree AV block; Obstructive sleep apnea syndrome; Never smoked tobacco; BMI 38.0-38.9,adult; Class 2 obesity Start: 06-21-2024 End: 06-21-2024 ambulatory [facility] Start: 06-16-2024 End: 06-16-2024 Bamboo flowsheet Kenyatta Mehta NP Work Phone: [facility] Start: 06-16-2024 End: 06-16-2024 Bamboo flowsheet Kenyatta Mehta NP Work Phone: [facility] Start: 06-16-2024 End: 06-16-2024 Office outpatient visit 15 minutes Kenyatta Mehta NP Work Phone: [facility] Comment on above: OSIEL (obstructive sle ep apnea) (Primary Dx); Essential tremor; Paresthesia of skin; Idiopathic peripheral neuropathy; RLS (restless legs syndrome); Ataxia Start: 06-16-2024 End: 06-16-2024 ambulatory KENYATTA GILLMOR Not Available Start: 04-28-2024 End: 04-28-2024 ambulatory MD Sophia Calderon Work Phone: [facility] Work Phone: Start: 04-28-2024 End: 04-28-2024 Patient encounter procedure MD Sophia Calderon Work Phone: [facility] Work Phone: Start: 03-09-2024 End: 03-09-2024 ambulatory MD Sophia Calderon Work Phone: [facility] Work Phone: Start: 03-09-2024 End: 03-09-2024 Patient encounter procedure MD Sophia Calderon Work Phone: [facility] Work Phone: Start: 03-08-2024 End: 03-08-2024 ambulatory [facility] Ambulatory Start: 02-16-2024 End: 02-16-2024 ambulatory KENYATTA GILLMOR Not Available Start: 02-10-2024 End: 02-10-2024 ambulatory MD Sophia Calderon Work Phone: [facility] Work Phone: Start: 02-10-2024 End: 02-10-2024 Patient encounter procedure MD Sophia Calderon Work Phone: [facility] Work Phone: Start: 02-03-2024 End: 02-03-2024 Patient encounter procedure MD Sophia Caledron Work Phone: [facility]CT Scan [address] [place] Work Phone: Start: 02-03-2024 End: 02-03-2024 ambulatory MD Sophia Caldreon Work Phone: [facility] Work Phone: Start: 01-27-2024 End: 01-27-2024 ambulatory MD Sophia Calderon Work Phone: [facility] Work Phone: Start: 01-27-2024 End: 01-27-2024 Patient encounter procedure MD Sophia Calderon Work Phone: [facility] Work Phone: Start: 01-27-2024 End: 01-27-2024 Patient encounter procedure MD Sophia Calderon Work Phone: [facility] [place] [facility] Start: 01-27-2024 End: 01-27-2024 ambulatory MD Sophia Calderon Work Phone: [facility] Work Phone: Start: 01-05-2024 End: 01-05-2024 Office outpatient visit 15 minutes Julianne Pang MD Work Phone: [facility] Comment on above: Essential hypertensi on; Edema, unspecified type; PAF (paroxysmal atrial fibrillation) (Multi) Start: 01-05-2024 End: 01-05-2024 ambulatory [facility] Start: 12-25-2023 End: 12-25-2023 Emergency department patient visit MD Sophia Calderon Work Phone: [facility]-Emergency Room Work Phone: Start: 12-25-2023 End: 12-25-2023 ambulatory MD Sophia Calderon Work Phone: [facility] Work Phone: Start: 12-25-2023 End: 12-25-2023 Discharged Recurring MD Sophia Calderon Work Phone: [facility]-Physical Therapy [place] Start: 12-25-2023 Registered Recurring MD Anne Calderon Work Phone: [facility]-Physical Therapy [place] Start: 12-18-2023 End: 12-18-2023 Patient encounter procedure MD Sophia Calderon Work Phone: [facility]-Lab [facility] Start: 12-18-2023 End: 12-18-2023 ambulatory MD Sophia Calderon Work Phone: [facility] Work Phone: Start: 12-18-2023 Registered Recurring MD Anne Calderon Work Phone: [facility]-Physical Therapy [place] Start: 12-14-2023 Registered Recurring MD Anne Calderon Work Phone: [facility]-Physical Therapy [place] Start: 12-07-2023 End: 12-07-2023 Office outpatient visit 25 minutes Julianne Pang MD Work Phone: [facility] Comment on above: PAF (paroxysmal atri al fibrillation) (Multi) (Primary Dx); First degree AV block; Essential hypertension; High risk medication use; Hypothyroidism, unspecified type; Obstructive sleep apnea syndrome; BMI 37.0-37.9, adult; Never smoked tobacco; Class 2 obesity Start: 12-07-2023 End: 12-07-2023 ambulatory [facility] Ambulatory Start: 12-04-2023 End: 12-04-2023 ambulatory MD Sophia Calderon Work Phone: [facility] Work Phone: Start: 12-04-2023 End: 12-04-2023 Patient encounter procedure MD Sophia Calderon Work Phone: [facility] Work Phone: Start: 12-04-2023 Registered Recurring MD Anne Calderon Work Phone: [facility]Physical Therapy [place] Start: 11-11-2023 End: 11-11-2023 ambulatory MD Sophia Calderon Work Phone: [facility] Work Phone: Start: 11-11-2023 End: 11-11-2023 Patient encounter procedure MD Sophia Calderon Work Phone: [facility] Work Phone: Start: 10-26-2023 Non-patient / Non-visit MD Cady Calderon Work Phone: [facility] Work Phone: Start: 10-26-2023 Non-patient / Non-visit MD Cady Calderon Work Phone: [facility] [place] [facility] Work Phone: Start: 10-26-2023 End: 10-28-2023 Admission to same day surgery center MD Sophia Calderon [facility] [place] [facility] [place] Start: 10-26-2023 End: 10-28-2023 ambulatory [facility] Facility:[facility] Start: 10-22-2023 Registered Recurring MD Anne Calderon Work Phone: [facility]-Physical Therapy [place] Start: 10-22-2023 End: 10-22-2023 ambulatory [facility] Facility:[facility] Start: 10-22-2023 End: 10-22-2023 Patient encounter procedure MD Sophia Calderon Work Phone: [facility] [place] [facility] Work Phone: Start: 10-19-2023 End: 10-19-2023 ambulatory MD Sophia Calderon Work Phone: [facility] Work Phone: Start: 10-19-2023 End: 10-19-2023 Departed Referred MD Sophia Calderon Work Phone: [facility]-Surgery [place] [address] [place] Start: 10-05-2023 End: 10-05-2023 Patient encounter procedure MD Sophia Calderon Work Phone: [facility]-Pre-Surgical Testing Work Phone: Start: 10-05-2023 End: 10-05-2023 ambulatory MD Sophia Calderon Work Phone: [facility] Work Phone: Start: 08-18-2023 End: 08-18-2023 ambulatory Matthew Bucio II Other [employer] Other Start: 08-18-2023 Telephone encounter Matthew Fortunato II [facility] [place] [facility] Start: 08-12-2023 Office outpatient vi sit 40 minutes Matthew Dillingham II [facility] Start: 08-12-2023 Telephone encounter Matthew Fortunato II [facility] [place] [facility] Start: 08-12-2023 End: 08-12-2023 Patient encounter procedure MD Sophia Calderon Work Phone: [facility]Lab [facility] Start: 08-12-2023 End: 08-12-2023 ambulatory MD Sophia Calderon Work Phone: [facility] Work Phone: Start: 08-12-2023 End: 08-12-2023 Patient encounter procedure MD Sophia Calderon Work Phone: [facility] [place] [facility] Start: 08-12-2023 End: 08-12-2023 ambulatory MD Sophia Calderon Work Phone: [facility] Work Phone: Start: 08-12-2023 End: 08-12-2023 Patient encounter procedure MD Sophia Calderon Work Phone: [facility] Work Phone: Start: 08-03-2023 End: 08-03-2023 ambulatory Matthew Bucio II Other [employer] Other Start: 08-03-2023 Telephone encounter Matthew Fortunato II [facility] Start: 05-19-2023 End: 05-20-2023 ambulatory [facility] Start: 05-19-2023 End: 05-19-2023 Postop follow up visit related to original px Coty Casiano MD Work Phone: [facility] Comment on above: Cellulitis of left u pper extremity (Primary Dx) Start: 05-12-2023 ambulatory Julianne Pang Facility : Start: 04-30-2023 Rx Renewal Sophia Hill Kenjideepak Work Phone: [facility] 250 DO Work Phone: Start: 04-27-2023 Chart Update Sophia Hill Kenjideepak Work Phone: MR-Yznepkw-Psuf [facility] [place] Work Phone: Start: 04-27-2023 End: [...] w 45 minutes Ken Moreau Work Phone: HN-Aseiayd-Ysjw [facility] [place] Work Phone: Start: 03-31-[address] Coty Gusman Jr Facility: Start: 03-17-2023 Hector Benavidez Dept. of D ermatology Start: 03-16-2023 Chart Update Ken menjivar Work Phone: [facility] Work Phone: Start: 03-04-[address] [facility] Start: 02-16-2023 Rx Renewal Ken P Hous e Work Phone: [facility] 250 DO Work Phone: Start: 01-19-2023 Rx Renewal Ken P Hous e Work Phone: [facility] 250 DO Work Phone: Start: 12-22-2022 End: 12-22-2022 ambulatory Matthew Fortunato II Other [employer] Other Start: 12-22-2022 Telephone encounter Matthew Fortunato II [facility] Start: 11-11-[address] Ken Moreau Facility: Start: 11-11-2022 Office outpatient vi sit 25 minutes Ken Moreau Work Phone: [facility] 250 DO Work Phone: Start: 11-03-2022 End: 11-04-[address] JULIANNE PANG Facility:H1 Start: 10-15-2022 Rx Renewal Ken P Hous e Work Phone: [facility] 250 DO Work Phone: Start: 09-04-2022 End: 09-04-2022 ambulatory Matthew Fortunato II Other [employer] Other Start: 09-04-2022 Office outpatient vi sit 25 minutes Matthew Dillingham II [facility] [place] Start: 08-13-2022 End: 08-13-2022 ambulatory Matthew Fortunato II Other [employer] Other Start: 08-13-2022 Office outpatient vi sit 25 minutes Matthew Dillingham II [facility] [place] Start: 08-01-2022 End: 08-01-2022 ambulatory Matthew Fortunato II Other [facility] [employer] Other Start: 08-01-2022 Telephone encounter Matthew Bucio II [facility] Start: 06-25-2022 Rx Renewal Ken P Hous e Work Phone: [facility] DO Work Phone: Start: 05-28-2022 End: 05-28-2022 ambulatory Matthew Bucio II Other [facility] [employer] Other Start: 05-28-2022 Office outpatient vi sit 25 minutes Matthew Bucio II [facility] Start: 03-07-2022 End: 03-08-[address] DOCTOR GUNDERSON Facility:H1 Start: 01-16-2022 End: 01-17-[address] KEN MOREAU Facility:H1 Start: 11-04-2021 Rx Renewal Ken P Hous e Work Phone: [facility] DO Work Phone: Start: 10-21-2021 Rx Renewal Ken P Hous e Work Phone: [facility] DO Work Phone: Start: 08-05-2021 Rx Renewal Julianne Pang MD Work Phone: [facility] 250 DO Work Phone: Start: 07-25-2021 End: 07-25-2021 ambulatory Matthew Bucio II Other [facility] [employer] Other Start: 07-25-2021 Office outpatient ne w 45 minutes Matthew Dillingham II [facility] Start: 08-23-2018 Patient encounter procedure JULIANNE PANG Facility:[id number] Start: 08-12-2018 Patient encounter procedure JULIANNE PANG Facility:[id number] Start: 07-16-2016 End: 07-16-2016 Ambulatory DUSTIN CARTWRIGHT [facility] Procedures Date Procedure Procedure Detail Performing Clinician Start: 06-21-2024 Ecg routine ecg w/le ast 12 lds w/i&r Julianne Pang MD Work Phone: Start: 04-28-2024 X-ray of left knee MD Christiano Calderon Work Phone: Start: 03-09-2024 X-ray of left knee MD Christiano Calderon Work Phone: Start: 02-14-2024 Laboratory test resu lt abnormal Abnormal laboratory test Kenyatta Murphybranden DOCKETING SPECIALIST Work Phone: Start: 02-03-2024 CT of left femur wit hout contrast MD Sophia Calderon Work Phone: Start: 01-27-2024 Plain X-ray of left femur MD Sohpia Calderon Work Phone: Start: 01-27-2024 Plain X-ray [...] on above: Result Comment: PERF ORMED BY: [facility] [address] [place] [place] [address] PATHOLOGIST CHIEF NUCLEAR MEDICINE TECHNOLOGIST BALJEET GONZALEZ M.D. Start: 10-22-2023 Plain X-ray of left femur MD Sophia Calderon Work Phone: Start: 10-22-2023 Plain X-ray of left tibia and left fibula MD Sophia Calderon Work Phone: Start: 10-05-2023 Antibody screen Sophia Calderon Comment on above: Order Comment: Date of Surgery: [id number] Result Comment: PERF ORMED BY: [facility] [address] [place] [address] PATHOLOGIST CHIEF NUCLEAR MEDICINE TECHNOLOGIST BALJEET GONZALEZ M.D. Start: 08-12-2023 Methicillin resistan t Staphylococcus aureus culture MD Sophia Calderon Work Phone: Start: 08-12-2023 Pelvis X-ray MD Sophia Calderon Work Phone: Start: 08-12-2023 Radiologic examinati on of knee MD Sophia Calderon Work Phone: Start: 04-27-2023 NM TUMOR LOC SPECT CT R ramiro Caisano MD Work Phone: Start: 04-27-2023 Lymphatics & lymph n odes imaging Coty Casiano MD Work Phone: Start: 04-27-2023 DERMATOPATHOLOGY RESULTS Coty Casiano MD Work Phone: Start: 04-13-2023 Tangential biopsy sk in single lesion Siria Orona Start: 03-17-2023 Hector Kah le Appendectomy Julianne Pang MD Work Phone: Arthroplasty of knee Julianne Pang MD Work Phone: History of thyroidectomy Steve ert Dillingham II Other Hysterectomy Julianne Pang MD Work Phone: Surgical procedure o n eye proper [facility] Work Phone: Thyroidectomy Julianne Pang MD Work Phone: Total colonoscopy Julianne almeida MD Work Phone: Plan of Treatment Date Care Activity Detail Author Start: 01-06-2025 End: 01-06-2025 Patient encounter procedure 01/06/2025 2:30 PM EDT Office Visit [facility] [address] [place] [address] Julianne Pang MD [address] [place], [place] [id number] [facility] Start: 12-01-2024 End: 12-01-2024 Patient encounter procedure 12/01/2024 11:00 AM EDT Office Visit [facility] [address] [place] [address] Kenyatta Mehta NP [address] [place] [place] [facility] Start: 06-21-2024 End: 06-21-2025 Basic metabolic 2000 panel - Serum or Plasma Basic Metabolic Panel Lab Routine PAF (paroxysmal atrial fibrillation) (Multi) High risk medication use Expected: 06/21/2024 (Approximate), Expires: 06/21/2025 [facility] Service Area Work Phone: Comment on above: Expected: 06/21/2024 (Approximate), Expires: 06/21/2025 Start: 06-21-2024 End: 06-21-2025 CBC panel - Blood by Automated count CBC Lab Routine PAF (paroxysmal atrial fibrillation) (Multi) High risk medication use Expected: 06/21/2024 (Approximate), Expires: 06/21/2025 [facility] Work Phone: Comment on above: Expected: 06/21/2024 (Approximate), Expires: 06/21/2025 Start: 06-21-2024 End: 06-21-2024 Patient encounter procedure 06/21/2024 10:10 AM EST Office Visit [facility] [address] [place] [address] Julianne Pang MD [address] [place] [address] [facility] Start: 06-16-2024 End: 06-16-2024 Patient encounter procedure 06/16/2024 11:00 AM EDT Office Visit [facility] [address] [place] [address] Kenyatta Mehta NP [address] [place], [place] Arrived [facility] [address] [facility] Comment on above: Arrived Start: 04-28-2024 X-ray of left knee XR knee LT 2V [facility] Start: 04-28-2024 XR Knee - left 2 Views [facility] Start: 04-17-2024 COVID-19 Vaccine ( season) COVID-19 Vaccine () [facility] Start: 04-17-2024 Influenza vaccination Influenza Vacc ine (#1) [facility] Start: 03-09-2024 X-ray of left knee XR knee LT 2V [facility] Start: 03-09-2024 XR Knee - left 2 Views [facility] Start: 03-08-2024 End: 03-08-2024 Professional / ancillary services management 03/08/2024 10:00 AM EDT Ancillary Procedure [facility] [address] [facility] [address] [place] [address] [facility] Start: 03-06-2024 End: 01-04-2025 ECG 12 Lead ECG 12 Lead ECG Routine PAF (paroxysmal atrial fibrillation) (Multi) Expected: 03/06/2024 (Approximate), Expires: 01/04/2025 [facility] Work Phone: Comment on above: Expected: 03/06/2024 (Approximate), Expires: 01/04/2025 Start: 01-27-2024 Plain X-ray of left femur XR femur L T 2V* [facility] Start: 01-27-2024 Plain X-ray of left tibia and left fibula XR tibia fibula LT 2V* [facility] Start: 01-27-2024 X-ray of left knee XR knee LT 2V [facility] Start: 01-27-2024 XR Femur - left 2 Views [facility] Start: 01-27-2024 XR Knee - left 2 Views [facility] Start: 01-27-2024 XR Tibia and Fibula - left 2 Views [facility] Start: 01-19-2024 End: 01-04-2025 Basic metabolic 2000 panel - Serum or Plasma Basic Metabolic Panel Lab Routine Essential hypertension Edema, unspecified type Expected: 01/19/2024 (Approximate), Expires: 01/04/2025 [facility] Service Area Work Phone: Comment on above: Expected: 01/19/2024 (Approximate), Expires: 01/04/2025 Start: 01-06-2024 End: 12-06-2024 CBC panel - Blood by Automated count CBC Lab Routine PAF (paroxysmal atrial fibrillation) (Multi) High risk medication use Expected: 01/06/2024 (Approximate), Expires: 12/06/2024 [facility] Service Area Work Phone: Comment on above: Expected: 01/06/2024 (Approximate), Expires: 12/06/2024 Start: 01-05-2024 End: 01-05-2024 Clinical Support 01/05/2024 9:30 AM EDT Clinical Support [address] [place] [address] [facility] Start: 12-04-2023 X-ray of left knee XR knee LT 3V - NOT FOR ER USE [facility] Start: 12-04-2023 XR Knee - left 3 Views [facility] Start: 11-12-2023 End: 11-12-2023 Patient encounter procedure 11/12/2023 9:50 AM EDT Office Visit [address] [place] [id number] Julianne Pang MD [address] [facility] [address] [place] [address] [facility] Start: 10-28-2023 [facility] Start: 10-26-[address] [facility] Start: 10-26-2023 Referral to clinical finish grinder [facility] Start: 10-19-2023 Total replacement of left knee joint OR Knee Arthroplasty, Total MIS (Left) [facility] Start: 10-05-2023 [facility] Start: 08-12-2023 MRSA Culture MRSA Culture [facility] Start: 07-30-2023 End: 07-30-2023 Patient encounter procedure 07/30/2023 10:00 AM EST Office Visit [address] [phone] Eladio Coe MD PhD [facility], [address] [address] [facility] Start: 07-17-2023 End: 07-17-2023 Patient encounter procedure [facility] Start: 06-10-2023 End: 06-10-2023 Patient encounter procedure 06/10/2023 10:00 AM EDT Office Visit [address] [id number] Eladio Coe MD PhD [address] [facility], [address] [address] (Fax) [facility] Start: 05-19-2023 FUVCANCER, Provider: Coty Casiano, Status: Pen, Time: 11:30 AM FUVCANCER, Provider: Coty Casiano, Status: Pen, Time: 11:30 AM [facility] 250 DO Work Phone: Start: 05-12-2023 FUV, Provider: Julianne Pang, Status: Pen, Time: 9:40 AM FUV, Provider: Julianne Pang, Status: Pen, Time: 9:40 AM [facility] 250 DO Work Phone: Start: 04-17-2023 COVID-19 Vaccine ( season) COVID-19 Vaccine ( season) [facility] Start: 04-17-2023 Influenza vaccination Influenza Vacc ine (#1) [facility] Start: 03-24-2023 NPVCANCER, Provider: Coty Casiano, Status: Pen, Time: 1:20 PM NPVCANCER, Provider: Coty Casiano, Status: Pen, Time: 1:20 PM [facility] Work Phone: Start: 11-11-2022 FUV, Provider: Julianne Pang, Status: Pen, Time: 10:50 AM FUV, Provider: Julianne Pang, Status: Pen, Time: 10:50 AM [facility] 250 DO Work Phone: Start: 04-15-2022 FUV, Provider: Julianne Pang, Status: Pen, Time: 11:20 AM FUV, Provider: Julianne Pang, Status: Pen, Time: 11:20 AM [facility] 250 DO Work Phone: Start: 09-30-2021 FUV, Provider: Julianne Pang, Status: Pen, Time: 1:10 PM FUV, Provider: Julianne Pang, Status: Pen, Time: 1:10 PM [facility] 250 DO Work Phone: Start: 09-23-2021 COVID-19 Vaccine (4 - Pfizer series) COVID-19 Vaccine (4 - Pfizer series) [facility] Start: 2020 RSV High Risk: (Elde rly (60+) or Population) (1 - 1-dose 75+ series) RSV High Risk: (Elderly (60+) or Population) (1 - 1-dose 75+ series) [facility] Start: 2005 RSV patient s and/or patients aged 60+ years (1 - 1-dose 60+ series) RSV patients and/or patients aged 60+ years (1 - 1-dose 60+ series) [facility] Start: 12-24-1995 Zoster Vaccines (1 of 2) Zoste r Vaccines (1 of 2) [facility] Start: 12-24-1967 DTaP/Tdap/Td Vaccine s (1 - Tdap) DTaP/Tdap/Td Vaccines (1 - Tdap) [facility] Start: 12-24-1963 Diabetes mellitus screening Diabetes Screening [facility] Start: 12-24-1963 Hepatitis C screening Hepatitis C Sc reening [facility] Start: 06-25-1946 Examination of skin Derm Melan chandler Skin Check [facility] Start: 1945 Lipid panel Lipid Panel [facility] Start: 1945 Medicare Annual Well ness Visit Medicare Annual Wellness Visit (AWV) [facility] Start: 1945 Screening for osteoporosis Bone Density Scan [facility] Start: 1945 Thyroid stimulating hormone measurement TSH Level [facility] Cotinine [Mass/volum e] in Serum or Plasma [facility] CT Thigh - left WO contrast [facility] Glucose measurement estimated from glycated hemoglobin [facility] Methicillin resistan t Staphylococcus aureus [Presence] in Unspecified specimen by Organism specific culture [facility] Nicotine [Mass/volum e] in Serum or Plasma [facility] Patient Education [facility] Work Phone: Patient referral [facility] Work Phone: [facility] Immunizations Immunization Date Immunization Notes Care Provider Radha fried 08-11-2023 influenza virus vacc ine, unspecified formulation Kenyatta Mehta DOCKETING SPECIALIST Work Phone: [facility] 06-23-2022 Fluzone High-Dose Quadrivalent 0.7 ML Intramuscular Suspension Prefilled Syringe Ken P House Work Phone: [facility] 250 DO Work Phone: 06-23-2022 influenza virus vacc ine, unspecified formulation Coty Casiano MD Work Phone: [facility] Work Phone: 07-29-2021 Pfizer-BioNTech COVI D-19 Vacc 30 MCG/0.3ML Intramuscular Suspension Ken P [place] Work Phone: [facility] 06-24-2021 Fluad Quadrivalent 0 .5 ML Intramuscular Prefilled Syringe Ken P [place] Work Phone: [facility] 250 DO Work Phone: 10-11-2020 Pfizer-BioNTech COVI D-19 Vacc 30 MCG/0.3ML Intramuscular Suspension Julianne Pang MD Work Phone: [facility] 09-20-2020 Pfizer-BioNTech COVI D-19 Vacc 30 MCG/0.3ML Intramuscular Suspension Ken [facility] Work Phone: [facility] 06-12-2020 Fluad Quadrivalent 0 .5 ML Intramuscular Prefilled Syringe [facility] Work Phone: [place] [address] DO Work Phone: 05-20-2019 influenza, injectabl e, quadrivalent, preservative free Coty Casiano MD Work Phone: [facility] Work Phone: 05-17-2019 influenza virus vacc ine, unspecified formulation Julianne Pang MD Work Phone: [place] [address] DO Work Phone: 06-17-2018 pneumococcal conjuga te vaccine, 13 valent Julianne Pang MD Work Phone: [place] [address] DO Work Phone: 06-07-2018 Seasonal trivalent influenza vaccine, adjuvanted, preservative free [facility] Work Phone: [place] [address] DO Work Phone: 05-17-2018 influenza virus vacc ine, unspecified formulation Julianne Pang MD Work Phone: [place] [address] DO Work Phone: 05-24-2017 Seasonal trivalent influenza vaccine, adjuvanted, preservative free Coty Casiano MD Work Phone: [facility] Work Phone: 05-17-2017 influenza, high dose seasonal, preservative-free Julianne Pang MD Work Phone: [place] [address] DO Work Phone: 06-02-2016 influenza virus vacc ine, unspecified formulation Julianne Pang MD Work Phone: [place] [address] DO Work Phone: 05-17-2016 pneumococcal conjuga te vaccine, 13 valent Julianne Pang MD Work Phone: [place] [address] DO Work Phone: 06-19-2015 influenza, injectabl e, quadrivalent, preservative free [facility] Work Phone: [place] [address] DO Work Phone: 06-19-2015 pneumococcal conjuga te vaccine, 13 valent [facility] Work Phone: [place] [address] DO Work Phone: 06-19-2015 pneumococcal polysaccharide vaccine, 23 valent Matthew Bucio II Other [facility] 06-17-2015 pneumococcal polysaccharide vaccine, 23 valent Julianne Pang MD Work Phone: [place] [address] DO Work Phone: 05-17-2015 influenza virus vacc ine, unspecified formulation Julianne Pang MD Work Phone: [place] [address] DO Work Phone: 05-17-2014 influenza virus vacc ine, unspecified formulation Julianne Pang MD Work Phone: [facility] 250 DO Work Phone: 1945 pneumococcal conjuga te vaccine, 7 radha [facility] Payers Date Payer Category Payer Unknown [id number] 2023 Self-pay [id number] 2017 Medicare ANTHEM MEDICARE PERSON [facility] MEDICARE ADVANTAGE [id number] 2017-Present [address] [place] [address] [id number] 2017 Medicare (Managed Care) 1.2. [id number] 1959 Unknown [id number] 1945 Unknown [id number] 2.16.840.1.283825.3.579.2 .355 1945 Unknown [id number] 2.16.840.1.130715.3.579.2 .355 1945 Unknown [id number] 2.16.840.1.739447.3.579.2 .593 1945 Unknown [id number] 2.16.840.1.498219.3.579.2 .593 1945 Unknown [id number] 2.16.840.1.466633.3.579.2 .593 1945 Unknown [id number] 2.16.840.1.177906.3.579.2 .356 1945 Unknown [id number] 2.16.840.1.988776.3.579.2 .356 1945 Unknown [id number] 2.16.840.1.327867.3.579.2 .356 1945 Unknown [id number] 2.16.840.1.523535.3.579.2 .356 1945 Unknown [id number] 2.16.840.1.323479.3.579.2 .356 1945 Unknown [id number] 2.16.840.1.883977.3.579.2 .356 1945 Unknown [id number] 2.16.840.1.914300.3.579.2 .1068 1945 Unknown [id number] 2.16.840.1.265685.3.579.2 .124 1945 Unknown [id number] 2.16.840.1.063650.3.579.2 .1258 1945 Unknown [id number] 2.16.840.1.973674.3.579.2 .1258 1945 Unknown [id number] 2.16.840.1.244264.3.579.2 .1243 1945 Unknown [id number] 2.16.840.1.192533.3.579.2 .124 1945 Unknown [id number] 2.16.840.1.173814.3.579.2 .1243 1945 Unknown [id number] 2.16.840.1.848883.3.579.2 .1243 1945 Unknown [id number] 2.16.840.1.890227.3.579.2 .727 Unknown ANTHEM MEDICARE ADV Unknown [id number] 2.16.840.1.873799.3.579.2 .531 Unknown [id number] 2.16.840.1.346466.3.579.2 .531 Unknown [id number] 2.16.840.1.891436.3.579.2 .531 Unknown [id number] 2.16.840.1.340171.3.579.2 .531 Unknown [id number] 2.16.840.1.929884.3.579.2 .531 Unknown [id number] 2.16.840.1.991330.3.579.2 .531 Unknown [id number] 2.16.840.1.011526.3.579.2 .531 Unknown [id number] 2.16.840.1.215818.3.579.2 .531 Unknown [id number] 2.16.840.1.489271.3.579.2 .531 Unknown [id number] 2.16.840.1.186787.3.579.2 .531 Unknown [id number] 2.16.840.1.614793.3.579.2 .531 Unknown [id number] 2.16.840.1.785754.3.579.2 .531 Unknown [id number] 2.16.840.1.794270.3.579.2 .531 Unknown [id number] 2.16.840.1.488759.3.579.2 .531 Social History Date Type Detail Facility Start: 12-07-2023 End: 03-08-2024 Caffeine use Caffeine use [facility] Other Comment on above: Quit 50+ years ago; Start: 12-07-2023 End: 03-08-2024 Sex Assigned At [facility] Other Start: 03-17-2023 Dept. of D ermatology Start: 1945 End: 1945 Sex Assigned At Female [facility] Start: 1945 Sex Assigned At Not on file [facility] Work Phone: Start: 05-09-2023 End: 06-21-2024 Exposure to SARS-CoV-2 (event) Not sure [facility] Start: 02-28-2019 End: 06-16-2024 Tobacco smoking status NHIS Ex-smoker (finding) [facility] Start: 12-07-2023 End: 12-25-2023 Tobacco smoking status NHIS Never smoked tobacco [facility] Start: 12-07-2023 End: 06-16-2024 Tobacco use and exposure Smokeless tobacco non-user [facility] Work Phone: Start: 12-07-2023 End: 06-21-2024 Alcoholic beverage intake Lifetime non-drinker (finding) [facility] Work Phone: History of tobacco use Current smoker [facility] History of tobacco use Cigarette Smoker [facility] Start: 02-14-2024 Alcohol Comment caffeine: 1-2 cups per day [facility] NEGATED: Highlighted row [facility] Medical Equipment Procedure Code Equipment Code Equipment Origin al Text Equipment Identifier Dates Arthroplasty, knee, total, minimally invasive Orthopaedic cement, non-medicated [id number] FDA Start: 10-26-2023 Arthroplasty, knee, total, minimally invasive Knee femur stem prosthesis ()[id number] FDA Start: 10-26-2023 Arthroplasty, knee, total, minimally invasive Orthopaedic bone wire ()[id number] FDA Start: 10-26-2023 Arthroplasty, knee, total, minimally invasive Tibial insert ()[id number] FDA Start: 10-26-2023 Arthroplasty, knee, total, minimally invasive Polyethylene patella prosthesis ()[id number] FDA Start: 10-26-2023 Arthroplasty, knee, total, minimally invasive Knee stem ()[id number] FDA Start: 10-26-2023 Arthroplasty, knee, total, minimally invasive Uncoated knee tibia prosthesis, metallic ()[id number] FDA Start: 10-26-2023 Arthroplasty, knee, total, minimally invasive Uncoated knee femur prosthesis, metallic ()[id number] FDA Start: 10-26-2023 Goals Date Patient Goal Desired Activity /State Functional Status Date Assessment Result Facility 10-28-2023 Functional status Patient is Pro gressing Toward Baseline [facility] Work Phone: 10-05-2023 Functional status Patient at Baseline [facility] Work Phone: Mental Status Date Assessment Result Facility 10-28-2023 Cognitive function Cognitive Sta tus Patient at Baseline [facility] Work Phone: 10-05-2023 Cognitive function Cognitive Sta tus Patient at Baseline [facility] Work Phone: Clinical Notes 07-25-2021 to 06-21-2024 Julianen Pang MD - 06/21/2024 10:10 AM ESTPatient [...] no complications associated with flecainide or Xarelto 0-czqbx-wulcqh AV block which is inconsequential Follow up [...] discussion and plan. documented in this encounter [facility] Work Phone: 06-21-2024 Instructions Radha Burgos LPN [...] months with lab documented in this encounter [facility] Work Phone: 01-05-2024 History of Present illness [...] discussion and plan. documented in this encounter [facility] Work Phone: 01-05-2024 Instructions Radha Burgos LPN [...] visit 2 months documented in this encounter [facility] Work Phone: 12-07-2023 History of Present illness [...] no complications associated with flecainide or Xarelto 0-msqtk-ocihyg AV block which is inconsequential Follow up as scheduled in 6 months. [facility] MD, [facility] Review of Systems All other systems [...] discussion and plan. documented in this encounter [facility] Work Phone: 12-07-2023 Instructions Ramya Gonzalez LPN [...] instructions on exercise. documented in this encounter [facility] Work Phone: 08-12-2023 Evaluation note Encounter Date Diagnosis Assessment Notes Jul, Primary osteoarthritis of left knee (ICD-10 - M17.12) Jul, Other halfway (current) drug therapy (ICD-10 - Z79.899) Jul, Age-related osteoporosis without current pathological fracture (ICD-10 - M81.0) [facility] Other 12-27-2023 Evaluation note* Encounter Date Diagnosis Assessment Notes Treatment Notes Treatment Clinical Notes Jul, Primary osteoarthritis of left knee (ICD-10 - M17.12) [facility] Other 10-03-2023 History of Present illness Narrative* [...] We advised 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 The patient expressed understanding. Coty Casiano MD doughnut machine operator Division of Surgical Oncology [phone] [email or web address] Subjective Patient ID: Tracy Juarez is a 77 y.o. female who presents for a postoperative clinic visit. Referring provider: Kne Moreau Diagnosis: primary cutaneous melanoma Location: left [...] This is compared with primary melanoma in NM97-808 and is smaller. It is not seen [...] ATYPICAL MELANOCYTIC NEOPLASM SEEN. documented in this [facility] Work Phone: 1(995) 524-616609-11-2023 NotePROCEDURE DETAILS Preoperative Diagnosis: Melanoma left arm Postoperative Diagnosis: Melanoma left arm Surgeon: Coty Casiano Resident/Fellow/Other Office Secretary: Wooten, Armando Procedure: 1. Wide local excision [...] Details of procedure: The patient arrived at [facility] on 04/27/2023 for the aforementioned procedure. Consent [...] complex multilayer fashion using deep 2-0 Vicryl sjycoo-kd-cjdwrf, interrupted 3-0 Vicryl deep dermals, and a [...] Completion Last Updated: 27-Apr-2023 15:19 by Coty Casiano)[facility] 04-27-2023 Miscellaneous Notes* Op Note - Coty Casiano MD - 04/27/2023 3:15 PM EDT PROCEDURE DETAILS Preoperative Diagnosis: Melanoma left arm Postoperative Diagnosis: Melanoma left arm Surgeon: Coty Casiano Resident/Fellow/Other Office Secretary: Armando Wooten Procedure: 1. Wide local excision [...] Details of procedure: The patient arrived at [facility] on 04/27/2023 for the aforementioned procedure. Consent [...] complex multilayer fashion using deep 2-0 Vicryl gaoovy-st-tozcrw, interrupted 3-0 Vicryl deep dermals, and a [...] 15:19 by Coty Casiano) documented in this [facility] Work Phone: 1(425) 530-954909-11-2023 Note* Op Note - Coty Casiano MD - 04/27/2023 3:15 PM EDT PROCEDURE DETAILS Preoperative Diagnosis: Melanoma left arm Postoperative Diagnosis: Melanoma left arm Surgeon: Coty Casiano Resident/Fellow/Other Office Secretary: Armando Wooten Procedure: 1. Wide local excision [...] Details of procedure: The patient arrived at [facility] on 04/27/2023 for the aforementioned procedure. Consent [...] complex multilayer fashion using deep 2-0 Vicryl ggfplc-qh-pvfrjj, interrupted 3-0 Vicryl deep dermals, and a [...] Last Updated: 27-Apr-2023 15:19 by Coty Casiano) [facility] Work Phone: 1(702) 292-776809-11-2023 NoteHistory & Physical Reviewed: I have reviewed [...] Completion Last Updated: 27-Apr-2023 07:02 by Coty Casiano)[facility] 04-27-2023 History and physical note* Coty Casiano [...] Last Updated: 27-Apr-2023 07:02 by Coty Casiano) [facility] Work Phone: 1(962) 517-328309-11-2023 History and physical note* Coty Casiano MD [...] [facility]: 1(847) 946-659401-19-2023 Evaluation note* Encounter Date Diagnosis Assessment Notes Treatment Notes Treatment Clinical Notes Aug, Primary osteoarthritis of left knee (ICD-10 - M17.12) Aug, Other After consent was obtained, the left knee was injected with Zilretta using sterile technique. Patient tolerated the injection well. Follow-up 3 months [facility] Other 12-28-2022 Evaluation note* Encounter Date Diagnosis [...] Dr. Mason for consideration of radiofrequency ablations. [facility] Other 10-12-2022 Evaluation note* Encounter Date Diagnosis [...] injection well. 6. Follow up as needed [facility] Other 12-09-2021 Evaluation note* Encounter Date Diagnosis [...] left hip bursitis. 6. Follow-up 3 months [facility] Other Evaluation noteNo InformationNort Cellet[facility] Other Evaluation noteN/ADept. of Dermatology Evaluation note* Diagnosis Cellulitis of left upper extremity- Primary documented in this encounter [facility] Work Phone: Evaluation note* Diagnosis Malignant melanoma of left upper limb, including shoulder (CMS/HCC) documented in this encounter [facility] Work Phone: Evaluation noteNo assessment information available [facility] Work Phone: Evaluation note* Diagnosis Onset Date Resolution Status Left knee pain acute Primary osteoarthritis of left knee acute HTN (hypertension) acute OSIEL (obstructive sleep apnea) acute Paroxysmal atrial fibrillation acute Primary osteoarthritis of left knee acute Status post total left knee replacement acute Aftercare following left knee joint replacement surger y acute Status post total left knee replacement acute [facility] Work Phone: Evaluation note* Diagnosis Onset [...] Status post total left knee replacement acute [facility] Work Phone: Evaluation note* Diagnosis PAF (paroxysmal atrial fibrillation) (Multi)- Primary Atrial fibrillation First degree AV block First degree atrioventricular block Essential hypertension Unspecified essential hypertension High risk medication use Hypothyroidism, unspecified type Obstructive sleep apnea syndrome Obstructive sleep apnea (adult) (pediatric) BMI 37.0-37.9, adult Never smoked tobacco Class 2 obesity documented in this encounter [facility] Work Phone: Evaluation note* Diagnosis Essential hypertension Unspecified essential hypertension Edema, unspecified type PAF (paroxysmal atrial fibrillation) (Multi) Atrial fibrillation documented in this encounter [facility] Work Phone: Evaluation note* Diagnosis Onset Date Resolution Status Aftercare following left knee joint replacement surger y acute Status post total left knee replacement acute Aftercare following left knee joint replacement surger y acute Status post total left knee replacement acute Aftercare following left knee joint replacement surger y acute Status post total left knee replacement acute [facility] Work Phone: Evaluation note* Diagnosis Onset Date Resolution Status Aftercare following left knee joint replacement surger y acute Status post total left knee replacement acute Aftercare following left knee joint replacement surger y acute Status post total left knee replacement acute Aftercare following left knee joint replacement surger y acute Left thigh pain acute Status post total left knee replacement acute [facility] Work Phone: Evaluation note* Diagnosis Onset [...] Status post total left knee replacement acute [facility] Work Phone: Evaluation note* Diagnosis Onset Date Resolution Status Aftercare following left knee joint replacement surger y acute Left thigh pain acute Status post total left knee replacement acute Aftercare following left knee joint replacement surger y acute Left thigh pain acute Status post total left knee replacement acute [facility] Work Phone: Evaluation note* Diagnosis Onset Date Resolution Status Aftercare following left knee joint replacement surger y acute Left thigh pain acute Status post total left knee replacement acute Aftercare following left knee joint replacement surger y acute Status post total left knee replacement acute Aftercare following left knee joint replacement surger y acute Status post total left knee replacement acute [facility] Work Phone: Evaluation note* Diagnosis OSIEL [...] Class 2 obesity documented in this encounter [facility] Work Phone: History general Narrative - Reported* Type Description Date Medical History hypothyroidism Medical History rheumatoid arthritis Medical History hypertension Medical History afib Surgical History hysterectomy Surgical History hysterectomy 1980 Surgical History knee replacement Surgical History knee replacement, right 2015 Surgical History C section Surgical History Total Substernal Thyroidectomy 02/28/2019 Hospitalization History see above [facility] Other History general Narrative - Reported* Type Description Date Medical History hypothyroidism Medical History rheumatoid arthritis Medical History hypertension Medical History afib Medical History tremors Surgical History hysterectomy Surgical History hysterectomy 1979 Surgical History knee replacement Surgical History knee replacement, right 2014 Surgical History C section Surgical History Total Substernal Thyroidectomy 02/28/2019 Hospitalization History see above [facility] Other History of Present illness Narrative* Tracy is a 77 yoM who presents to our [facility] today, referred by Ken Moreau for [...] reports, and radiologic images for this patient. [id number] M[facility] [place] Work Phone: Reason for referral (narrative)* Name Reason for referral NA NA Dept. of Dermatology Reason for referral (narrative)* Consultation (Routine) - Authorized Specialty Diagnoses / Procedures Referred By Ree espinal Referred To Contact Cardiology Diagnoses Essential hypertension Procedures Follow Up In Cardiology Julianne Pang MD [address] [facility] [address], [address] [address] Referral ID Status Reason Start Date Expiration Date V isits Requested Visits Authorized [id number] Authorized 12/07/2023 12/06/2024 1 1 * Cardiovascular (Routine) - Authorized Specialty Diagnoses / Procedures Referred By Ree espinal Referred To Contact Diagnoses PAF (paroxysmal atrial fibrillation) (Multi) Procedures ECG 12 Lead Julianne Pang MD [address] [facility] [address], [address] [place] [address] Referral ID Status Reason Start Date Expiration Date V isits Requested Visits Authorized [id number] Authorized 12/07/2023 12/06/2024 1 1 * Consultation (Routine) - Authorized Specialty Diagnoses / Procedures Referred By Ree espinal Referred To Contact Cardiology Diagnoses PAF (paroxysmal atrial fibrillation) (Multi) Procedures Follow Up In Cardiology Julianne Pang MD [address] [place] [address] 2, [address] [address] Julianne Pang MD [address] [place] [address] 2, [address] [address] Referral ID Status Reason Start Date Expiration Date V isits Requested Visits Authorized [id number] Authorized 12/07/2023 12/06/2024 1 1 [facility] Work Phone: Summary Purpose Family History No [...] in 6 months. * Julianne Pang MD, [facility] melanoma Chief Complaint and Reason for Visit [...] 12 Lead Julianne Pang MD [address] [facility] [address], [address] [place] [id number] Referral ID Status Reason Start Date Expiration Date V isits Requested Visits Authorized [id number] Authorized 01/05/2024 01/04/2025 1 1 Specialty Diagnoses / Procedures Referred By Ree espinal Referred To Contact Cardiology Diagnoses Essential hypertension Procedures Follow Up In Cardiology Julianne Pang MD [address], [address] [place] [address] Referral ID Status Reason Start Date Expiration Date V isits Requested Visits Authorized [id number] Authorized 01/05/2024 01/04/2025 1 1 Additional Source Comments INFORMATION SOURCE (unrecogn ized section and content) DATE CREATED AUTHOR 02/09/2018 [facility] DATE CREATED AUTHOR AUTHOR'S ORGANIZ ATION 08/27/2018 [facility] DATE CREATED AUTHOR AUTHOR'S ORGANIZ ATION 11/09/2022 [facility] DATE CREATED AUTHOR AUTHOR'S ORGANIZ ATION 05/20/2023 [facility] DATE CREATED AUTHOR AUTHOR'S ORGANIZ ATION 05/20/2023 [facility] DATE CREATED AUTHOR AUTHOR'S ORGANIZ ATION 05/21/2023 [facility] DATE CREATED AUTHOR AUTHOR'S ORGANIZ ATION 05/29/2023 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 Reason Comments Follow-up 6 month Specialty Diagnoses / Procedures Referred By Contac t Referred To Contact Diagnoses PAF (paroxysmal atrial fibrillation) (Multi) Procedures ECG 12 Lead Julianne Pang MD [address], [address] [place] [address] Referral ID Status Reason Start Date Expiration Date V isits Requested Visits Authorized [id number] Authorized 12/07/2023 12/06/2024 1 1 Reason Comments Hypertension BP OV with EKG Specialty Diagnoses / Procedures Referred By Contac t Referred To Contact Cardiology Diagnoses Essential hypertension Procedures Follow Up In Cardiology Julianne Pang MD [address], [address] [address] Referral ID Status Reason Start Date Expiration Date V isits Requested Visits Authorized [id number] Authorized 12/07/2023 12/06/2024 1 1 Reason Comments Sleep Apnea Tremors Reason Comments Follow-up 6 month Specialty Diagnoses / Procedures Referred By Contac t Referred To Contact Cardiology Diagnoses PAF (paroxysmal atrial fibrillation) (Multi) Procedures Follow Up In Cardiology Julianne Pang MD [address] [place] [address] 2, [address] [address] Phone: tel: fax: Julianne Pang MD [address] [facility] [address], [address] [address] Phone: tel: fax: Referral ID Status Reason Start Date Expiration Date V isits Requested Visits Authorized [id number] Authorized 12/07/2023 12/06/2024 1 1 Care Teams (unrecognized sec tion and content) Supervisor [employer] Relationship Specialty Start Date End Date Sophia Calderon MD [facility] [place] [address] PCP - General 04/27/23 [employer] Relationship Specialty Start Date End Date Sophia Calderon MD [address] [place] [id number] PCP - General 04/27/23 Team Status: Active [...] Das , NOHEMI Other Provider Active Start: [facility] 2023 End: October 28, 2023 Tiffanie Becker RN Other Provider Active Star t: October 26, 2023 End: October 28, 2023 Nargis Diaz , NOHEMI Other Provider Active Start : October 26, 2023 End: October 28, 2023 Nya Brush , NOHEMI Other Provider Active Start: [facility] 2023 End: October 28, 2023 Brenda Gaytan RN Other Provider Active Start: [facility] 2023 End: October 28, 2023 Geoff Guthrie [...] Rolando Celaya MD Other Provider Active Start: [facility] 2023 End: October 28, 2023 La Desai APRN Other Provider Active Start: October 26, 2023 End: October 28, 2023 Dheeraj Youssef MD Other Provider Active Start: October 26, 2023 End: October 28, 2023 Cristian Vogt MD Other Provider Active Start: [facility] 2023 End: October 28, 2023 Roe Morocho MD Other Provider Active Start: October 26, 2023 End: October 28, 2023 Luiz Peck MD Other Provider Active Start: October 26, 2023 End: October 28, 2023 Ju Pedraza DO Other Provider Active Start: October 26, 2023 End: October 28, 2023 Jimy Crews MD Other Provider Active Start: [facility] 2023 End: October 28, 2023 Kenn Richmond MD Other Provider Active Start: [facility] 2023 End: October 28, 2023 PEREZ Lopez Other Provider Active St art: October 26, 2023 End: October 28, 2023 Naila Hayes APRN Other Provider Active Star t: October 26, 2023 End: October 28, 2023 Kane Chavarria MD Other Provider Active Start: October 26, 2023 End: October 28, 2023 Kasi Zarate MD Other Provider Active Start: [facility] 2023 End: October 28, 2023 Aric Petty MD Other Provider Active Start: [facility] 2023 End: October 28, 2023 Martha Choi MD Other Provider Active Star t: October 26, 2023 End: October 28, 2023 Herman Martin MD Other Provider Active Start: [facility] 2023 End: October 28, 2023 Mayra Lobo , Other Provider Active Start: [facility] 2023 End: October 28, 2023 Kale Trotter [...] Fernie Pickard MD Other Provider Active Start: [facility] 2023 End: October 28, 2023 Sahil [...] Marisol Torres RN Other Provider Active Start: [facility] 2023 End: October 28, 2023 Team [...] Das , NOHEMI Other Provider Active Start: [facility] 2023 Tiffanie Becker , NOHEMI Other Provider Active Star t: October 26, 2023 Nargis Diaz , NOHEMI Other Provider Active Start : October 26, 2023 Nya Brush , NOHEMI Other Provider Active Start: [facility] 2023 Brenda Gaytan RN Other Provider Active Start: [facility] 2023 Geoff Guthrie MD Other Provider Active Start: October 26, 2023 Arias Eugene MD Other Provider Active Start: [facility] 2023 Natalie Cifuentes APRN Other Provider [...] Rolando Celaya MD Other Provider Active Start: [facility] 2023 La Desai APRN Other Provider Active Start: October 26, 2023 Dheeraj Youssef MD Other Provider Active Start: October 26, 2023 Cristian Vogt MD Other Provider Active Start: [facility] 2023 Roe Morocho MD Other Provider Active Start: October 26, 2023 Luiz Peck MD Other Provider Active Start: October 26, 2023 Ju Pedraza DO Other Provider Active Start: October 26, 2023 Jimy Crews MD Other Provider Active Start: [facility] 2023 Kenn Richmond MD Other Provider Active Start: [facility] 2023 Abigail Bliss NP-C Other Provider Active St art: October 26, 2023 Naila Hayes , PACKAGE [employer]ER Other Provider Active Star t: October 26, 2023 Kane Chavarria MD Other Provider Active Start: October 26, 2023 Kasi Zarate MD Other Provider Active Start: [facility] 2023 Aric Petty MD Other Provider Active Start: [facility] 2023 Martha Choi MD Other Provider Active Star t: October 26, 2023 Herman Martin MD Other Provider Active Start: [facility] 2023 Mayra Lobo , Other Provider Active Start: [facility] 2023 Kale Trotter , DO Other Provider [...] Fernie Pickard MD Other Provider Active Start: [facility] 2023 Sahil Trent MD Other Provider Active S tart: October 26, 2023 Chavez Jackson , Other Provider Active Star t: October 26, 2023 Dusty Casper , Other Provider Active Start: October 26, 2023 Danie Petty MD Other Provider Active Start: October 26, 2023 Marisol Torres RN Other Provider Active Start: [facility] 2023 Team Status: Active Member Role Status Dates Sophia Calderon MD Primary Care Provider Active Start: October 26, 2023 Matthew Bucio II, MD Other Provider Active S tart: October 26, 2023 Umu Ward RN Other Provider Active Star t: October 26, 2023 Brenda Fernando RN Other Provider Active Start : October 26, 2023 Lauren Das , NOHEMI Other Provider Active Start: [facility] 2023 Tiffanie Becker RN Other Provider Active Star t: October 26, 2023 Nargis Diaz RN Other Provider Active Start : October 26, 2023 Nya Brush RN Other Provider Active Start: [facility] 2023 Brenda Gaytan RN Other Provider Active Start: [facility] 2023 Geoff Guthrie MD Other Provider Active Start: October 26, 2023 Arias Eugene MD Other Provider Active Start: [facility] 2023 Natalie Cifuentes APRN Other Provider [...] Rolando Celaya MD Other Provider Active Start: [facility] 2023 La Desai APRN Other Provider Active Start: October 26, 2023 Dheeraj Youssef MD Other Provider Active Start: October 26, 2023 Cristian Vogt MD Other Provider Active Start: [facility] 2023 Roe Morocho MD Attending Provider, Other Provider Active Start: October 26, 2023 Luiz Peck MD Other Provider Active Start: October 26, 2023 Ju Pedraza DO Other Provider Active Start: October 26, 2023 Jimy Crews MD Other Provider Active Start: [facility] 2023 Kenn Richmond MD Other Provider Active Start: [facility] 2023 Abigail Bliss NP-Darryl Other Provider Active St art: October 26, 2023 Naila Hayes APRN Other Provider Active Star t: October 26, 2023 Kane Chavarria MD Other Provider Active Start: October 26, 2023 Kasi Zarate MD Other Provider Active Start: [facility] 2023 Aric Petty MD Other Provider Active Start: [facility] 2023 Martha Choi MD Other Provider Active Star t: October 26, 2023 Herman Martin MD Other Provider Active Start: [facility] 2023 Mayra Lobo , DO Other Provider Active Start: [facility] 2023 Kale Trotter , DO Other Provider Active Start : October 26, 2023 Alfie Alcala , DO Other Provider Active Sta rt: October 26, 2023 Ruchi Yip APRN Other Provider Active Start: October 26, 2023 Poncoh Salcedo , Other Provider Active Start: October 26, 2023 Elieser Vicente MD Other Provider Active Sta rt: October 26, 2023 Rachel Agustin APRN Other Provider Active Start : October 26, 2023 Damaris Salcido APRN Other Provider Active St art: October 26, 2023 Fernie Pickard MD Other Provider Active Start: [facility] 2023 Sahil Trent MD Other Provider Active S tart: October 26, 2023 Chavez Jackson , DO Other Provider Active Star t: October 26, 2023 Dusty Casper , DO Other Provider Active Start: October 26, 2023 Danie Petty MD Other Provider Active Start: October 26, 2023 Marisol Torres RN Other Provider Active Start: [facility] 2023 Team Status: Inactive Member Role [...] December 04, 2023 End: December 04, 2023 Supervisor Pl[employer] Sheets Relationship Specialty Start Date End Date Sophia Calderon MD [address] [facility] [place] [address] PCP - General 04/27/23 Team Status: Inactive [...] December 25, 2023 End: December 25, 2023 Supervisor [employer] Relationship Specialty Start Date End Date Sophia Calderon MD [address] [facility] [place] [address] PCP General 04/27/23 Team Status: Active Member [...] Attending Provider Active Start: April 28, 2024 Supervisor [employer] Relationship Specialty Start Date End Date Sophia Calderon MD [address] [place] [phone] PCP - General Family Medicine 06/16/24 Lora Cox MD [address] [place] [address] Referring Physician Family Medicine 02/16/24 Kenyatta Mehta NP [address] [place] [address] Nurse Practitioner Neurology 06/16/24 Nicole Bauer DO [address] [place] [address] Referring Physician Neurology 06/16/24 Supervisor [employer] Relationship Specialty Start Date End Date Sophia Calderon MD [address] [place] [address], [place] [phone] PCP - General Family Medicine 06/16/24 Lora Cox MD [address] [place] [address] Referring Physician Family Medicine 02/16/24 Kenyatta Mehta NP [address] [place] [address] Nurse Practitioner Neurology 06/16/24 Nicole Bauer DO [address] [place] [address] Referring Physician Neurology 06/16/24 Supervisor [employer] Relationship Specialty Start Date End Date Sophia Calderon MD [address] [place] [address], [place] [address] PCP - General 04/27/23 Goals (unrecognized section [...] BE BASED ON THE PRIMARY CLINICAL RECORDS. [facility]. provides no warranty or guarantee of the accuracy or completeness of information in this document.
[2024-10-15 05:21] LABS: Glucometer 236 mg/dL (74-106)
[2024-10-15] MEDS: LABETALOL HCL 20 MG/4 ML SYRINGE 10 MG IVP ×2 (05:56→06:01)
[2024-10-15 05:58] LABS: Basophils Absolute Auto 0.1 10^3/uL (0.0-0.1); Basophils Percent Auto 0.5 % (0.2-2.0); Eosinophils Absolute Auto 0.1 10^3/uL (0.0-0.7); Eosinophils Percent Auto 1.2 % (0.9-7.0); Hematocrit 33.7 % (36.0-48.0); Hemoglobin 9.8 g/dL (12.0-16.0); Immature Granulocytes Abs Auto 0.41 10^3/uL (0.00-0.03); Immature Granulocytes Pct Auto 3.4 % (0.0-0.5); Lymphocytes Absolute Auto 1.8 10^3/uL (1.2-3.8); Lymphocytes Percent Auto 14.6 % (20.5-60.0); Mean Corpuscular HGB Conc 29.1 g/dL (29.9-35.2); Mean Corpuscular Hemoglobin 21.3 pg (26.7-34.0); Mean Corpuscular Volume 73.1 fL (81.0-99.0); Mean Platelet Volume 8.9 fL (9.5-13.5); Monocytes Absolute Auto 0.8 10^3/uL (0.3-0.8); Monocytes Percent Auto 6.4 % (1.7-12.0); Neutrophils Absolute Auto 8.8 10^3/uL (1.4-6.5); Neutrophils Percent Auto 73.9 % (43.0-75.0); Platelet Count 198 10^3/uL (150-450); Red Blood Count 4.61 10^6/uL (4.20-5.40); Red Cell Distribution Width 17.4 % (11.0-15.0)
--- NOTE | 2024-10-15 06:09 | ED_ITS ---
HPI HPI - General Adult General Chief complaint: Altered Mental Status Stated complaint: VOMITING Time Seen by Provider: 10/15/24 05:02 Source information: EMS Mode of arrival: ambulance Limitations: altered mental status History of Present Illness HPI narrative: The patient is a 78-year-old female with history of A-fib who has been having generalized weakness since she was diagnosed with COVID-19 since the end of August, apparently almost at 8:00 last night the patient started throwing up and her level of consciousness started being decreased compared to her baseline, the patient presented to us by the EMS with nausea and vomiting, she was provided with Zofran by the EMS by the time the patient arrived to us she awake but looked weak and tired and she just looking others her speech is clear but weak The patient is following command mostly in the right side on the left side the patient was not able to lift her upper extremity The patient daughter present at the bedside mentioned that the patient has been feeling weak and tired since she had COVID-19 last month but this decreased level of consciousness and nausea and vomiting just started last night Related Data Home Medications ?Medication ?Instructions ?Recorded ?Confirmed citalopram 20 mg tablet mg 09/10/24 diclofenac sodium 1 % topical gel topical 09/10/24 flecainide 50 mg tablet mg 09/10/24 furosemide 40 mg tablet mg 09/10/24 gabapentin 100 mg capsule mg 09/10/24 hydralazine 50 mg tablet mg 09/10/24 hydrochlorothiazide 25 mg tablet mg 09/10/24 labetalol 200 mg tablet mg 09/10/24 levothyroxine 112 mcg tablet mcg 09/10/24 liothyronine 5 mcg tablet 5 mcg PO DAILY 09/10/24 09/10/24 losartan 100 mg tablet mg 09/10/24 meloxicam 7.5 mg tablet mg 09/10/24 methocarbamol 750 mg tablet mg 09/10/24 omeprazole 40 mg capsule,delayed mg 09/10/24 release potassium chloride 20 mEq meq PO 09/10/24 tablet,extended release(part/cryst) (Klor-Con M) rivaroxaban 20 mg tablet (Xarelto) mg 09/10/24 topiramate 50 mg tablet mg 09/10/24 Previous Rx's ?Medication ?Instructions ?Recorded doxycycline monohydrate 100 mg 100 mg PO BID 7 days #14 caps 09/10/24 capsule Allergies Allergy/AdvReac Type Severity Reaction Status Date / Time nickel Allergy Mild Rash Verified 10/15/24 05:54 Opioid HPI Opioid Management Most Recent Opioid Data: 2 No Data to Display Review of Systems ROS Status of ROS 10 or more systems reviewed and unremark able except as noted in history and below PFSH PFSH Social History Little interest or pleasure in doing things: not at all Feeling down, depressed, or hopeless: not at all Exam Narrative Exam Narrative: Nurses notes and vital signs reviewed and patient is not hypoxic. General: Weak and tired No rash. Head: Normocephalic, atraumatic. Neck: Supple, non-tender. Eye: Pupils are equal, round and EOMI. No scleral icterus. Cardiovascular: Regular Rate and Rhythm without murmur, gallop or rub. Respiratory: No accessory muscle use or respiratory distress. Lungs are clear to auscultation, no wheezing, rales or rhonchi Chest Wall: no tenderness Back: No midline thoracic or lumbar vertebral tenderness. No CVA tenderness Musculoskeletal: normal ROM, no calf or popliteal tenderness, no lower extremity edema/swelling GI: Abdomen is soft, non-distended. Normal bowel sounds. No masses appreciated. No tenderness to palpation. No rebound, guarding, or rigidity noted. GCS is 14 upon arrival Constitutional Vital Signs, click to edit/add: Last Vital Signs Temp 97.7 F 10/15/24 05:00 Pulse 76 10/15/24 06:41 Resp 21 H 10/15/24 06:41 BP 142/80 H 10/15/24 06:41 Pulse Ox 91 L 10/15/24 06:41 O2 Del Method Nasal Cannula 10/15/24 06:03 O2 Flow Rate 3 10/15/24 06:03 Course Vital Signs Vital signs: Vital Signs Temperature 97.7 F 10/15/24 05:00 Pulse Rate 65 10/15/24 05:00 Respiratory Rate 20 10/15/24 05:00 Blood Pressure 186/97 H 10/15/24 05:00 Pulse Oximetry 94 L 10/15/24 05:00 Oxygen Delivery Method Room Air 10/15/24 05:00 Temperature 97.7 F 10/15/24 05:00 Pulse Rate 76 10/15/24 06:41 Respiratory Rate 21 H 10/15/24 06:41 Blood Pressure 142/80 H 10/15/24 06:41 Pulse Oximetry 91 L 10/15/24 06:41 Oxygen Delivery Method Nasal Cannula 10/15/24 06:03 Oxygen Delivery Flow Rate 3 10/15/24 06:03 Medical Decision Making MDM Narrative Medical decision making narrative: The patient EKG upon arrival showing sinus rhythm with a heart rate of [address] head ordered according to stroke protocol due to the altered mental status----CT of the head shows that the patient have intracranial hemorrhage mostly parenchymal and acute The patient case was discussed with Dr. Aguilera and she requested to control the blood pressure to less than 140 systolic, patient will be provided with Kcentra and she will be transferred to [facility] to the neurology ICU, pt will accepted under Dr Douglas The patient blood pressure was elevated at 180 systolic and she was provided with labetalol twice initially with total of 20 mg then she was started nicardipine drip. The patient had another episode of vomiting in the ER and she was treated again with Zofran its now 6:20 am and pt GCS is at 11 Still monitoring the patient symptoms and for any decrease in Madhuri Coma Scale less than 8 the patient will be intubated The patient nicardipine started to lower the blood pressure Kcentra ordered CBC shows mild leukocytosis of 12 and chemistry showed some acute kidney injury of 1.2 6:41 am the pt still awake opening her eyes to verbal command ---GCS is alternating for 10 or 11 and BP is 142 /80 The patient Madhuri Coma Scale became less than 8 after she was not able to speak or respond to painful stimuli The patient was intubated with etomidate 20 mg 7.5 ET tube------ vent setting is a 18 respiratory rate 100% on PEEP of 5 and tidal volume of 450 she is a 97 kg weight Lab Data Labs: Lab Results 10/15/24 10/15/24 Range/Units 05:15 05:45 WBC 12.0 H (4.0-11.0) 10^3/uL RBC 4.61 (4.20-5.40) 10^6/uL Hgb 9.8 L (12.0-16.0) g/dL Hct 33.7 L (36.0-48.0) % MCV 73.1 L (81.0-99.0) fL MCH 21.3 L (26.7-34.0) pg MCHC 29.1 L (29.9-35.2) g/dL RDW 17.4 H (11.0-15.0) % Plt Count 198 (150-450) 10^3/uL MPV 8.9 L (9.5-13.5) fL Neut % (Auto) 73.9 (43.0-75.0) % Lymph % (Auto) 14.6 L (20.5-60.0) % Dougherty % (Auto) 6.4 (1.7-12.0) % Eos % (Auto) 1.2 (0.9-7.0) % Baso % (Auto) 0.5 (0.2-2.0) % Neut # (Auto) 8.8 H (1.4-6.5) 10^3/uL Lymph # (Auto) 1.8 (1.2-3.8) 10^3/uL Dougherty # (Auto) 0.8 (0.3-0.8) 10^3/uL Eos # (Auto) 0.1 (0.0-0.7) 10^3/uL Baso # (Auto) 0.1 (0.0-0.1) 10^3/uL Abs Immat Gran (auto) 0.41 H (0.00-0.03) 10^3/uL Imm/Tot Granulo (auto) 3.4 H (0.0-0.5) % PT 12.4 H (9.0-11.6) sec INR 1.19 Sodium 140 (136-145) mmol/L Potassium 3.5 (3.5-5.1) mmol/L Chloride 103 (98-107) mmol/L Carbon Dioxide 27.3 (21.0-32.0) mmol/L Anion Gap 13.2 BUN 14.0 (7.0-18.0) mg/dL Creatinine 1.25 H (0.55-1.02) mg/dL Est GFR ( Amer) 50 L (>=60 mL/min/1.73m^2) Est GFR (Non-Af Amer) 41 L (>=60 mL/min/1.73m^2) BUN/Creatinine Ratio 11.2 Glucose 243 H (74-106) mg/dL Lactate 3.3 H* (0.4-2.0) mmol/L Calcium 8.5 (8.5-10.1) mg/dL Magnesium 1.6 L (1.8-2.4) mg/dL Total Bilirubin 1.0 (0.2-1.0) mg/dL AST 15 (15-37) U/L ALT 25 (14-59) U/L Alkaline Phosphatase 112 (46-116) U/L Troponin I High Sens 13.9 (4.0-51.3) pg/mL Total Protein 6.6 (6.4-8.2) g/dL Albumin 3.3 L (3.4-5.0) g/dL Globulin 3.3 g/dL Albumin/Globulin Ratio 1.0 Lipase 40.0 (16.0-77.0) U/L POC Glucose 236 H (74-106) mg/dL Discharge Plan Discharge Chief Complaint: Altered Mental Status Clinical Impression: Intracranial hemorrhage, AMS (altered mental status), Hypertensive emergency Patient Disposition: [facility] Time of Disposition Decision: 06:09
[2024-10-15 06:13] LABS: Magnesium 1.6 mg/dL (1.8-2.4)
[2024-10-15] MEDS: NICARDIPINE IN NACL, ISO-OSM 40 MG/200 ML PIGGYBACK 25 MG IV (06:16)
[2024-10-15 06:18] LABS: INR 1.19; Prothrombin Time 12.4 sec (9.0-11.6)
[2024-10-15 06:20] LABS: Alanine Aminotransferase 25 U/L (14-59); Albumin Level 3.3 g/dL (3.4-5.0); Alkaline Phosphatase 112 U/L (46-116); Anion Gap 13.2; Aspartate Amino Transferase 15 U/L (15-37); BUN Creatinine Ratio 11.2; Calcium 8.5 mg/dL (8.5-10.1); Carbon Dioxide 27.3 mmol/L (21.0-32.0); Chloride 103 mmol/L (98-107); Estimated GFR (African America 50 (>=60 mL/min/1.73m^2); Estimated GFR (Non-African Ame 41 (>=60 mL/min/1.73m^2); Globulin 3.3 g/dL; Glucose 243 mg/dL (74-106); Potassium 3.5 mmol/L (3.5-5.1); Sodium 140 mmol/L (136-145); Total Protein 6.6 g/dL (6.4-8.2); Troponin I High Sensitivity 13.9 pg/mL (4.0-51.3)
[2024-10-15] MEDS: ONDANSETRON PF 4 MG/2 ML VIAL IV (06:22)
--- NOTE | 2024-10-15 06:22 | ECG_ITS ---
[facility] Test Date: 2024-10-15 Pat Name: LEVY SIDDIQUI Department: Room: - Gender: Female Medical Officer Psychiatry: : 1945 Requested By: GAL LIRA Order Number: [id number] Reading MD: EBONI FREEMAN Measurements Intervals [place] Rate: 73 P: 55 OR: 198 QRS: -9 QRSD: 98 T: 90 QT: 348 QTc: 374 Interpretive Statements 1100 Sinus rhythm 3233 Anteroseptal myocardial infarction, probably old 8102 Low QRS voltage in chest leads 9150 abnormal ECG Electronically Signed On 10-16-2024 8:18:14 EST by EBONI FREEMAN
[2024-10-15 06:25] LABS: Lactate/Lactic Acid 3.3 mmol/L (0.4-2.0)
--- NOTE | 2024-10-15 06:35 | PC.NURSE ---
05:00 patient presents from EMS pale, retching, not responding without stimuli. Left facial droop, left eye droop left hand and arm move slightly. but cannot raise it when asked.
[2024-10-15] MEDS: [UNRECOGNIZED DRUG - OTHER] IV (07:19)
[2024-10-15] MEDS: HUM PROTHROMBIN CPLX IV (07:19)
[2024-10-15] MEDS: MIDAZOLAM HCL 2 MG/2 ML VIAL IV (07:27)
[2024-10-15] MEDS: PROPOFOL 1,000 MG/100 ML VIAL 4.001 MG IV (07:27)
[2024-10-15] MEDS: ETOMIDATE 20 MG/10 ML VIAL IVP (07:28)
--- NOTE | 2024-10-15 07:59 | PC.NURSE ---
Report called to [facility]
--- NOTE | 2024-10-15 08:00 | PC.NURSE ---
0653 pt moved to er room for intubation. RT notified and 0655 RT at bedside intubation set up. 0656 [facility] called and transportation is on the way. 0658 20mg of etomidate drawn up. 0701 etomidate given IV push. [address] ment confirmed by Dr. Cabrera per auscultation. portable xray ordered to confirm placement. 0707 xray at bedside. [address] Allen reviewed xray and states ET tube needs pulled back. 0717 RT pulls ET tube from 28 to 25. 0721 3rd IV placed in left hand. 0736 NG 16F inserted per RN 52 at [facility]. placement verified with airbolus and aspiration of stomach bile.
[2024-10-15] MEDS: FENTANYL CITRATE/PF 100 MCG/2 ML VIAL 50 MCG IV (08:14)
== END 2024-10-15 08:46 | disposition short-term general hospital (02) ==
PROVIDERS: Emergency Provider Emergency Medicine; PCP Nurse Practitioner Family
DX: I62.9 Nontraumatic intracranial hemorrhage, unspecified (principal); I48.91 Unspecified atrial fibrillation; Z86.16 Personal history of COVID-19; R11.2 Nausea with vomiting, unspecified; R53.1 Weakness; I10 Essential (primary) hypertension; I16.1 Hypertensive emergency; R41.82 Altered mental status, unspecified
CPT/HCPCS: 31500; 36415; 70450; 71045; 80053; 83605; 83690; 83735; 84484; 85025; 85610; 87804; 87811; 93005; 94002; 96365; 96366; 96368; 96375; 99285; J1920; J2250; J2404; J2405; J2704; J3010; J7168